=== PATIENT | male | born 1950 | race Caucasian/White ===

== ENCOUNTER 2016-12-12 15:35 | Emergency (ER) | payer MEDICARE, MEDICAID ==
[2016-12-12 15:48] VITALS: BP 135/90
--- NOTE | 2016-12-12 16:01 | ED Physician Documentation ---
PD BEATRIZ HEENT - Stated complaint Stated Complaint: LT EAR PRESSURE - Chief complaint Chief Complaint: Neuro - History obtained from History obtained from: Patient - History of Present Illness Timing - onset: Other (This is a 66-year-old gentleman who over the last couple of days has noted fullness in his left ear that felt like potentially extra earwax which he cleaned out without improvement of his symptoms, also diminished but not absent hearing on that side without other URI symptoms. When he turns his head rapidly he does have some unsteadiness and vertigo without nausea. There is some pain in the left ear and on the left side of the head without fevers or URI symptoms.) Review of Systems Constitutional: denies: Fever, Chills Ears: reports: Loss of hearing, Ear pain. denies: Drainage/discharge Nose: denies: Rhinorrhea / runny nose, Congestion Throat: denies: Sore throat PD PAST MEDICAL HISTORY - Past Medical History Past Medical History: Yes Cardiovascular: Hypertension, High cholesterol Musculoskeletal: Chronic back pain, Other Other Past Medical History: psoriatic arthritis, hx of amphetamine use, PE's, MRSA in his lung, kidney disease - Past Surgical History Past Surgical History: Yes - Present Medications Home Medications: Ambulatory Orders Medication Instructions Recorded Confirmed Adalimumab [Humira] 40 mg SQ TITR 10/20/14 10/02/15 Amitriptyline [Elavil] 25 mg PO DAILY 10/20/14 10/02/15 Bupropion HCl [Wellbutrin Xl] 300 mg PO DAILY 10/20/14 10/02/15 Dextroamphetamine/Amphetamine 60 mg PO BID 10/20/14 10/02/15 [Amphetamine Salts 20 mg Tablet] Docusate Sodium [Dss] 250 mg PO BID 10/20/14 10/02/15 Escitalopram Oxalate [Lexapro] 40 mg PO DAILY 10/20/14 10/02/15 Etodolac [Etodolac ER] 400 mg ORAL DAILY 10/20/14 10/02/15 Folic Acid 1 mg ORAL DAILY 10/20/14 10/02/15 Methotrexate 10 mg ORAL BID 10/20/14 10/02/15 Rosuvastatin Calcium [Crestor] 10 mg ORAL DAILY 10/20/14 10/02/15 Sennosides [Senna Concentrate] 8.6 mg ORAL BID 10/20/14 10/02/15 Testosterone Cypionate 200 mg IM TITR 10/20/14 10/02/15 [Depo-Testosterone] Valsartan [Diovan] 40 mg ORAL DAILY 10/20/14 10/02/15 metFORMIN [Glucophage] 500 mg PO BID 10/20/14 10/02/15 raNITIdine [Zantac] 150 mg ORAL BID 10/20/14 10/02/15 Aspirin [Juliette Chewable] 81 mg PO DAILY 04/25/15 10/02/15 Prazosin [Minipress] 1 mg PO DAILY 04/25/15 10/02/15 oxyCODONE [Roxicodone] 5 mg PO Q4-6H #20 tablet 04/25/15 10/02/15 Meclizine [Antivert] 12.5 mg PO Q6H #14 tablet 10/02/15 Ondansetron Odt [Zofran] 4 mg TL Q6H PRN #10 tablet 10/02/15 Potassium Citrate [Urocit-K] 10 meq ORAL DAILY 10/02/15 10/02/15 - Allergies Allergies/Adverse Reactions: Allergies Allergy/AdvReac Type Severity Reaction Status Date / Time No Known Drug Allergies Allergy Verified 12/12/16 15:45 - Social History Does the pt smoke?: No Smoking Status: Never smoker Does the pt drink ETOH?: No Does the pt have substance abuse?: Yes Substance Use and Type: Marijuana - Immunizations Immunizations are current?: Yes - POLST Patient has POLST: No PD ED PE NORMAL - Vitals Vital signs reviewed: Yes - General General: Alert and oriented X 3, No acute distress - HEENT HEENT: PERRL, EOMI, Other (There is minimal earwax on either side with normal TMs. He does get dizzy with rapid rotation of the head and has mild nystagmus on left lateral gaze. The remainder of his cranial nerves are intact.) - Neck Neck: Supple, no meningeal sign, No bony TTP - Neuro Neuro: No motor deficit, No sensory deficit - Psych Psych: Normal mood, Normal affect Results - Vitals Vitals: Vital Signs - 24 hr 12/12/16 15:40 Temperature 36.5 C Heart Rate 89 Respiratory 18 Rate Blood Pressure 135/90 H O2 Saturation 97 Oxygen O2 Source Room air PD MEDICAL DECISION MAKING - ED course ED course: His examination and Clinical history are consistent with Labyrinthitis. There is no evidence of stroke on exam, his NIH stroke scale is 0. Departure - Departure Disposition: 01 Home, Self Care Clinical Impression: Acute viral labyrinthitis of left ear Condition: Good Record reviewed to determine appropriate education?: Yes Instructions: ED Labyrinthitis Comments: Call your doctor to arrange a follow-up appointment, make the next available appointment. In the interim, return anytime if worse or if new symptoms develop. Your blood pressure was elevated today on check into the emergency department. This does not mean that you have hypertension, it is a common phenomenon to come to the emergency department and have elevated blood pressure. I recommend that she see your primary care physician within the week to have it rechecked when you are feeling better.
== END 2016-12-12 16:05 | disposition home or self-care (01) ==
LOC: ED 15:35
DX: H83.02 Labyrinthitis, left ear (principal); I10 Essential (primary) hypertension
CPT/HCPCS: 99283

== ENCOUNTER 2017-06-25 14:29 | Observation (INO) | payer MEDICARE, MEDICAID ==
--- NOTE | 2017-06-25 16:03 | ED Physician Documentation ---
PD HPI CHEST PAIN - Stated complaint Stated Complaint: SOB, UPPER BACK PX - Chief complaint Chief Complaint: Resp - History obtained from History obtained from: Patient - History of Present Illness Timing - onset: Other (67-year-old gentleman with history of MRSA pneumonia, pulmonary emboli, coronary artery disease, psoriatic arthritis who has had a productive cough for a few days with white sputum, 2 weeks of unexplained shortness of breath especially on exertion and last night developed bilateral upper back pain without chest pain. There is no fever. No leg swelling or tenderness.) Review of Systems Ten Systems: 10 systems reviewed and negative Constitutional: reports: Fatigue. denies: Fever, Chills Cardiac: denies: Chest pain / pressure, Palpitations, Pedal edema, Calf pain Respiratory: reports: Dyspnea, Cough GI: denies: Abdominal Pain PD PAST MEDICAL HISTORY - Past Medical History Past Medical History: Yes Cardiovascular: Hypertension, High cholesterol Musculoskeletal: Chronic back pain, Other - Past Surgical History Past Surgical History: Yes Ortho: Other - Present Medications Home Medications: Ambulatory Orders Medication Instructions Recorded Confirmed Adalimumab [Humira] 40 mg SQ TITR 10/20/14 10/02/15 Amitriptyline [Elavil] 25 mg PO DAILY 10/20/14 10/02/15 Bupropion HCl [Wellbutrin Xl] 300 mg PO DAILY 10/20/14 10/02/15 Dextroamphetamine/Amphetamine 60 mg PO BID 10/20/14 10/02/15 [Amphetamine Salts 20 mg Tablet] Docusate Sodium [Dss] 250 mg PO BID 10/20/14 10/02/15 Escitalopram Oxalate [Lexapro] 40 mg PO DAILY 10/20/14 10/02/15 Etodolac [Etodolac ER] 400 mg ORAL DAILY 10/20/14 10/02/15 Folic Acid 1 mg ORAL DAILY 10/20/14 10/02/15 Methotrexate 10 mg ORAL BID 10/20/14 10/02/15 Rosuvastatin Calcium [Crestor] 10 mg ORAL DAILY 10/20/14 10/02/15 Sennosides [Senna Concentrate] 8.6 mg ORAL BID 10/20/14 10/02/15 Testosterone Cypionate 200 mg IM TITR 10/20/14 10/02/15 [Depo-Testosterone] Valsartan [Diovan] 40 mg ORAL DAILY 10/20/14 10/02/15 metFORMIN [Glucophage] 500 mg PO BID 10/20/14 10/02/15 raNITIdine [Zantac] 150 mg ORAL BID 10/20/14 10/02/15 Aspirin [Juliette Chewable] 81 mg PO DAILY 04/25/15 10/02/15 Prazosin [Minipress] 1 mg PO DAILY 04/25/15 10/02/15 oxyCODONE [Roxicodone] 5 mg PO Q4-6H #20 tablet 04/25/15 10/02/15 Meclizine [Antivert] 12.5 mg PO Q6H #14 tablet 10/02/15 Ondansetron Odt [Zofran] 4 mg TL Q6H PRN #10 tablet 10/02/15 Potassium Citrate [Urocit-K] 10 meq ORAL DAILY 10/02/15 10/02/15 - Allergies Allergies/Adverse Reactions: Allergies Allergy/AdvReac Type Severity Reaction Status Date / Time No Known Drug Allergies Allergy Verified 12/12/16 15:45 - Social History Does the pt smoke?: No Smoking Status: Never smoker Does the pt drink ETOH?: No Does the pt have substance abuse?: Yes - Family History Family history: reports: Non contributory - Immunizations Immunizations are current?: Yes - POLST Patient has POLST: No PD ED PE NORMAL - Vitals Vital signs reviewed: Yes - General General: Alert and oriented X 3, No acute distress - HEENT HEENT: PERRL, EOMI - Neck Neck: Supple, no meningeal sign, No bony TTP - Cardiac Cardiac: RRR, No murmur - Respiratory Respiratory: No respiratory distress, Clear bilaterally - Abdomen Abdomen: Normal bowel sounds, Soft, Non tender - Back Back: No CVA TTP, No spinal TTP - Extremities Extremities: No edema, No calf tenderness / cord - Neuro Neuro: Alert and oriented X 3, Normal speech - Psych Psych: Normal mood, Normal affect Results - Vitals Vitals: Vital Signs - 24 hr 06/25/17 06/25/17 14:41 16:49 Temperature 36.7 C Heart Rate 85 79 Respiratory 20 21 Rate Blood Pressure 102/68 122/79 O2 Saturation 95 95 Oxygen O2 Source Room air - EKG (time done) 1421 Rate: Rate (enter#) (75) Rhythm: NSR Cunningham: Normal Intervals: Normal ME QRS: Normal Ischemia: Q waves (SMALL INFERIOR), Non specific changes (Superolateral and inferior ST segments) Compare to prior EKG: Unchanged from prior EKG (NO CHANGE FROM 10/02/15) Computer interpretation: Agree with computer - Labs Labs: Laboratory Tests 06/25/17 06/25/17 06/25/17 16:10 16:10 16:10 WBC 7.1 RBC 4.04 L Hgb 12.6 L Hct 38.2 L MCV 94.5 H MCH 31.2 H MCHC 33.0 RDW 17.7 H Plt Count 107 L MPV 7.7 Neut # Not Reportable Lymph # Not Reportable [facility] # Not Reportable Eos # Not Reportable Baso # Not Reportable Absolute Nucleated RBC Not Reportable Total Counted 100 Band Neuts % (Manual) 2 Reactive Lymphs % (Man) 3 Abnorm Lymph % (Manual) 0 Nucleated RBC % Not Reportable Neutrophils # (Manual) 4.5 Lymphocytes # (Manual) 1.4 L Monocytes # (Manual) 0.8 Eosinophils # (Manual) 0.3 Basophils # (Manual) 0.1 Differential Comment MANUAL DIFFERENTIAL Platelet Estimate DECREASED (<130,000) Platelet Morphology NORMAL APPEARANCE RBC Morph Micro Appear 1+ MACROCYTOSIS Sodium 138 Potassium 3.9 Chloride 103 Carbon Dioxide 26 Anion Gap 9.0 BUN 30 H Creatinine 1.8 H Estimated GFR (MDRD) 38 L Glucose 88 Calcium 9.3 Total Bilirubin 0.6 AST 41 ALT 76 H Alkaline Phosphatase 57 Troponin I < 0.04 Total Protein 7.4 Albumin 4.0 Globulin 3.4 Albumin/Globulin Ratio 1.2 Lipase 97 H - Rads (name of study) CT Angio chest Radiology: EMP read contemporaneously (RLL acute PE, new 1.3cm MARIFER nodule) PD MEDICAL DECISION MAKING - ED course ED course: 67-year-old gentleman with unexplained shortness of breath and upper back pain, he has a history of PE so this is concerning of course. He was evaluated for PE , the contrast timing was suboptimal but the radiologist is confident that he does have a right lower lobe acute appearing PE. He was placed on Lovenox. We considered the question of admission versus discharge, but he is PE severity index recommends admission given chronic pulmonary disease due to sleep apnea and history of coronary disease. Spoke with Dr Tam at 5;58pm Departure - Departure Disposition: ED Place in Observation Clinical Impression: Pulmonary nodule Pulmonary embolism Qualifiers: Pulmonary embolism type: other Chronicity: acute Acute cor pulmonale presence: without acute cor pulmonale Qualified Code(s): I26.99 - Other pulmonary embolism without acute cor pulmonale Condition: Stable
[2017-06-25 16:24] LABS: HGB - HEMOGLOBIN 12.6 g/dL (14.0-18.0)
[2017-06-25 16:29] LABS: BASOPHILS % (AUTO) 0.5 %; EOSINOPHILS % (AUTO) 2.9 %; LYMPHOCYTES % (AUTO) 22.9 %; MEAN CORPUSCULAR HEMOGLOBIN 31.2 pg (27.0-31.0); MEAN CORPUSCULAR VOLUME 94.5 fL (80.0-94.0); MEAN PLATELET VOLUME 7.7 fL (7.4-11.4); NEUTROPHILS % (AUTO) 60.7 %; PLT - PLATELET COUNT 107 10^3/uL (130-450); RED BLOOD COUNT 4.04 10^6/uL (4.70-6.10); RED CELL DISTRIBUTION WIDTH 17.7 % (12.0-15.0); WHITE BLOOD COUNT 7.1 x10^3/uL (4.8-10.8)
[2017-06-25 16:31] LABS: ABNORMAL LYMPHS % (MANUAL) 0 %
[2017-06-25 16:34] LABS: ALBUMIN/GLOBULIN RATIO 1.2 (1.0-2.2); BILIRUBIN,TOTAL 0.6 mg/dL (0.2-1.0); CALCIUM 9.3 mg/dL (8.5-10.3); CREATININE 1.8 mg/dL (0.6-1.2); TOTAL PROTEIN 7.4 g/dL (6.7-8.2)
[2017-06-25] MEDS ORDERED: SODIUM CHLORIDE 0.9% 1,000 ML IV ONE (16:45)
[2017-06-25 16:59] LABS: BAND NEUTROPHILS % (MANUAL) 2 %; BASOPHILS # (MANUAL) 0.1 10^3/uL (0-0.1); BASOPHILS % (MANUAL) 1 %; EOSINOPHILS # (MANUAL) 0.3 10^3/uL (0-0.7); LYMPHOCYTES # (MANUAL) 1.4 10^3/uL (1.5-3.5); LYMPHOCYTES % (MANUAL) 17 %; MONOCYTES # (MANUAL) 0.8 10^3/uL (0.0-1.0); NEUTROPHILS # (MANUAL) 4.5 10^3/uL (1.5-6.6); NEUTROPHILS % (MANUAL) 62 %
[2017-06-25 17:00] LABS: PLATELET ESTIMATE, MANUAL DECREASED (<130,000) (NORMAL); PLATELET MORPHOLOGY NORMAL APPEARANCE (NORMAL); RBC MORPHOLOGY (MULTIPLE) 1+ MACROCYTOSIS (NORMAL)
[2017-06-25 17:01] LABS: DIFFERENTIAL COMMENT MANUAL DIFFERENTIAL
[2017-06-25] MEDS ORDERED: IOPAMIDOL-300 100 ML VIAL ONE (17:02)
[2017-06-25] MEDS ORDERED: IOPAMIDOL-300 100 ML VIAL IVP ONE ×2 (17:17→18:24)
[2017-06-25] MEDS ORDERED: ENOXAPARIN 100 MG/ML SYRINGE SUBQ STA (17:43)
--- NOTE | 2017-06-25 17:50 | CT Report ---
EXAM: CT ANGIOGRAM CHEST EXAM DATE: 06/25/2017 05:22 PM. CLINICAL HISTORY: Back pain dyspnea. COMPARISON: None. TECHNIQUE: Routine helical imaging was performed through the chest in the pulmonary arterial phase. I V Contrast: 75 cc Isovue-300 IV. Reconstructions: Coronal 3-D MIP reconstructions.Sagittal and luu l. In accordance with CT protocol optimization, one or more of the following dose reduction techniques w ere utilized for this exam: automated exposure control, adjustment of mA and/or KV based on patient s ize, or use of iterative reconstructive technique. FINDINGS: Pulmonary Arteries: Diagnostic quality: Suboptimal through the segmental arteries. The density of the main pulmonary kiley ry is 92 Hounsfield units. However, there is a low density filling defect seen in the right interloba r pulmonary artery which branches and extends into the segmental pulmonary arteries of the right lowe r lobe. This is strongly suggestive of acute pulmonary embolism and does not have the typical appeara nce of CTA artifact. The left-sided pulmonary arteries are less well seen. There is no evidence of a saddle pulmonary embolism or a right or left main pulmonary embolism. RV/LV is within normal limits. There is no interventricular septal bowing. There is no reflux of cont rast material in the IVC. Lungs/Pleura: There is a new left upper lobe nodule measuring 1.3 cm in diameter on series 5 image 52 . Mediastinum: The heart size is normal. There is no pericardial effusion. There are dense coronary art wilmar calcifications. Thoracic Aorta: No thoracic aortic aneurysm or dissection. Upper Abdomen: Unremarkable. Other: There are findings of surgical fixation of the lower thoracic spine with chronic bony remodeli ng present. IMPRESSION: 1. Right lobar and segmental acute-appearing pulmonary embolism. Evaluation of other pulmonary arteri es is limited by a suboptimal IV contrast bolus. 2. No CT findings of right ventricular strain. 3. New 1.3 cm left upper lobe lung nodule which could be inflammatory, granulomatous or neoplastic. [facility] The above findings were discussed with Brian by Dr. Lázaro Girard at 17:48 hrs on 06/25/17. Referring Provider Line: [phone] SITE ID: [id number]
[2017-06-25] MEDS ORDERED: PROCHLORPERAZINE 10 MG/2 ML VIAL IVP PRN (18:23)
[2017-06-25] MEDS ORDERED: SODIUM CHLORIDE FLUSH 0.9% 10 ML SYRINGE IVP PRN (18:23)
[2017-06-25] MEDS ORDERED: ONDANSETRON ODT 4 MG TABLET TL PRN (18:25)
[2017-06-25] MEDS ORDERED: MECLIZINE 12.5 MG TABLET PO SCH (19:00)
[2017-06-25] MEDS ORDERED: oxyCODONE 5 MG TABLET PO SCH (19:00)
[2017-06-25] MEDS ORDERED: NON FORMULARY MED PO SCH (20:00)
[2017-06-25] MEDS ORDERED: PRAZOSIN 1 MG CAPSULE PO SCH ×2 (20:00→21:20)
[2017-06-25] MEDS: buPROPion XL 150 MG TABLET PO SCH (20:16)
[2017-06-25] MEDS: ASPIRIN CHEW 81 MG TABLET PO SCH (20:21)
[2017-06-25] MEDS: APIXABAN 2.5 MG TABLET PO SCH (20:33)
[2017-06-25] MEDS: HYDROcod/ACETAM 5/325 MG TABLET PO PRN (20:40)
[2017-06-25] MEDS: ESCITALOPRAM 10 MG TABLET PO SCH (20:43)
[2017-06-25] MEDS: SENNA 8.6 MG TABLET PO SCH (20:48)
[2017-06-25] MEDS: FOLIC ACID 1 MG TABLET PO SCH (20:48)
[2017-06-25] MEDS: DOCUSATE SODIUM 250 MG CAPSULE PO SCH (20:48)
[2017-06-25] MEDS ORDERED: DOCUSATE SODIUM 250 MG CAPSULE PO SCH (21:00)
[2017-06-25] MEDS ORDERED: METHOTREXATE 2.5 MG TABLET PO SCH (21:00)
[2017-06-25] MEDS ORDERED: AMPHETAMINE PO SCH (21:00)
[2017-06-25] MEDS ORDERED: DEXTROAMPHETAMINE PO SCH (21:00)
[2017-06-25] MEDS ORDERED: PRAVASTATIN 10 MG TABLET PO SCH (21:00)
[2017-06-25] MEDS ORDERED: [UNRECOGNIZED DRUG - OTHER] PO SCH (21:00)
[2017-06-25] MEDS ORDERED: metFORMIN 500 MG TABLET PO SCH (21:00)
[2017-06-25] MEDS ORDERED: SENNA 8.6 MG TABLET PO SCH (21:00)
[2017-06-25] MEDS: AMITRIPTYLINE 25 MG TABLET PO SCH ×2 (21:15→21:24)
[2017-06-25] MEDS: LOSARTAN 50 MG TABLET PO SCH (21:16)
--- NOTE | 2017-06-25 22:17 | HISTORY & PHYSICAL EXAMINATION ---
Chief Complaint - Chief Complaint Chief Complaint: Shortness of breath and back pain History of Present Illness - Admitted From Admitted From:: Home - History Obtained From Records Reviewed: Yes History obtained from: The patient and the emergency room physician Exam Limitations: No noted - History of Present Illness HPI Comment/Other: Mr. Nick Aguilar and is a pleasant 67-year-old gentleman with a past medical history significant for Sleep apnea, psoriatic arthritis, morbid obesity, ADHD, PTSD,and a very remote and sketchy history of myocardial infarction (which I will elaborate on later), and a couple of years ago pulmonary embolus.The patient was placed on Coumadin but had difficulty with side effects and so stopped taking it. A couple of days ago the patient began to develop some shortness of breath and back pain which were similar to symptoms he'd experienced when he had his first Pulmonary embolus and so he waited to see if they would go away and when they did not came to the emergency department. He was evaluated and found to have another Pulmonary embolism and because of the history of a Prior cardiac event in 1984 It was felt to be prudent to watch him on telemetry overnight while we started him on Eliquis. He is therefore admitted to an observation bed on telemetry. With regards To the aforementioned myocardial infarction in 1984, the patient relates that he had been using cocaine, and had chest pain. He went to the hospital where he was evaluated and says that " tests of chemicals" (troponins? ) showed that he had had a heart attack. He also says that initially part of his heart wasn't moving but then they tested it again and it was moving normally. Mr. Avery and also relates that at that time they did a cardiac catheterization and found no blockages. History - Past Medical History Cardiovascular: reports: Hypertension, High cholesterol, [place] Respiratory: reports: None Neuro: reports: None Endocrine/Autoimmune: reports: None GI: reports: None : reports: Benign prostate hypertrophy HEENT: reports: Chronic vision loss Psych: reports: None Musculoskeletal: reports: Chronic back pain, Other Derm: reports: Psoriasis MRSA Hx?: Yes - Past Surgical History General: reports: Appendectomy Ortho: reports: Spine surgery (The patient's spine is fused from T3-S1), Other /[employer]: reports: Other (The patient has had 2 surgeries for renal stones) HEENT: reports: Other (Strabismus surgery as a child) - Family & Social History Family History: Mother: (sister from sarcoidosis), Father: , Hyperlipidemia, Hypertension, [place], Sister: Family History Comment/Other: Patient's mother of old age at age 93. Living arrangement: At home Living Situation: Alone - Substance History Use: Uses substance without health or social issues: NONE Abuse: Recurrent use of substance despite neg consequences: NONE Dependence: Experiences withdrawal or developed tolerances: NONE - POLST Patient has POLST: No POLST Status: Full Code Meds/Allgy - Home Medications Home Medications: Ambulatory Orders Medication Instructions Recorded Confirmed Amitriptyline [Elavil] 25 mg PO QPM 10/20/14 06/25/17 Bupropion HCl [Wellbutrin Xl] 300 mg PO DAILY 10/20/14 06/25/17 Docusate Sodium [Dss] 250 mg PO BID 10/20/14 06/25/17 Escitalopram Oxalate [Lexapro] 40 mg PO DAILY 10/20/14 06/25/17 Folic Acid 1 mg ORAL DAILY 10/20/14 06/25/17 Sennosides [Senna Concentrate] 8.6 mg ORAL BID 10/20/14 06/25/17 Testosterone Cypionate 200 mg IM Q14D 10/20/14 06/25/17 [Depo-Testosterone] Valsartan [Diovan] 80 mg ORAL DAILY 10/20/14 06/25/17 raNITIdine [Zantac] 150 mg ORAL BID 10/20/14 06/25/17 Aspirin [Juliette Chewable] 81 mg PO DAILY 04/25/15 06/25/17 Prazosin [Minipress] 6 mg PO QPM 04/25/15 06/25/17 Potassium Citrate [Urocit-K] 10 meq ORAL DAILY 10/02/15 06/25/17 Dextroamphetamine/Amphetamine 30 mg PO DAILY 06/25/17 06/25/17 [Adderall Xr 30 mg Capsule] Methotrexate Sodium/Pf IM Q7D 06/25/17 [Methotrexate 25 mg/ml Vial] Pravastatin [Pravachol] 10 mg PO QPM 06/25/17 06/25/17 - Allergies Allergies/Adverse Reactions: Allergies Allergy/AdvReac Type Severity Reaction Status Date / Time No Known Drug Allergies Allergy Verified 12/12/16 15:45 Review of Systems - Constitutional Constitutional: denies: Fatigue, Fever, Chills, Night sweats - Eyes Eyes: denies: Pain, Irritation, Blurred vision, Dipolpia - Ears, Nose & Throat Ears, Nose & Throat: reports: Vertigo. denies: Ear pain, Hearing loss, Tinnitus , Nosebleeds - Cardiovascular Cariovascular: denies: Irregular heart rate, Palpitations, Chest pain, Edema - Respiratory Respiratory: reports: SOB at rest, SOB with exertion. denies: Cough, Wheezing, Hemoptysis, Orthopnea - Gastrointestinal Gastrointestinal: denies: Abdominal pain, Constipation, Diarrhea, Change in bowel habits, Rectal bleeding - Genitourinary Genitourinary: denies: Dysuria, Frequency, Urgency, Hematuria - Musculoskeletal Musculoskeletal: reports: Back pain, Joint pain, Joint swelling, Other ( Psoriatic arthritis). denies: Muscle pain, Muscle aches, Stiffness - Integumentary Integumentary: reports: Other (Psoriatic arthritis). denies: Rash, Pruritis, Lesions, Dryness - Neurological Neurological: denies: General weakness, Focal weakness, Headache, Dizziness, Memory problems - Psychiatric Psychiatric: reports: Depression, Anxiety, Other (ADHD, PTSD). denies: Suicidal - Endocrine Endocrine: denies: Polyuria, Polydypsia, Polyphagia - Hematologic/Lymphatic Hematologic/Lymphatic: denies: Anemia, Bruising, Petechiae, Lymphadenopathy - All Other Systems All Other Systems: reports: Reviewed and negative Exam - Vital Signs Reviewed Vital Signs: Yes Vital Signs: Vital Signs x48h Temp Pulse Pulse Resp BP BP Pulse Ox 06/25/17 19:18 36.8 C 90 18 142/85 H 96 06/25/17 19:05 82 16 141/88 H 95 - Physical Exam General Appearance: positive: No acute distress, Alert Eyes Bilateral: positive: Normal inspection, PERRL, EOMI, No lid inflammation, Conjunctivae nml, No scleral icterus ENT: positive: ENT inspection nml, Pharynx nml, No signs of dehydration Neck: positive: Nml inspection, Thyroid nml, No JVD, Trachea midline. negative : Thyromegaly Respiratory: positive: Chest non-tender, No respiratory distress, Breath sounds nml. negative: Wheezes, Rales, Rhonchi Cardiovascular: positive: Regular rate & rhythm, No murmur, No gallop Peripheral Pulses: positive: 1+ Abdomen: positive: Non-tender, No organomegaly, Nml bowel sounds, No distention. negative: Guarding, Rebound Back: positive: Nml inspection. negative: CVA tenderness (R), CVA tenderness (L ) Skin: positive: Color nml, No rash, Warm, Dry. negative: Cyanosis Extremities: positive: Non-tender, Full ROM, Nml appearance, No pedal edema Neurologic/Psychiatric: positive: Oriented x3, CN's nml (2-12), Motor nml, Sensation nml, Mood/affect nml Conclusion/Plan - Problem List (1) Pulmonary embolism Conclusion/Plan: The patient has a history of prior pulmonary embolus for which she was started on Coumadin. He could not tolerate the Coumadin due to side effects. He will be started on Eliquis at this time and monitored overnight in a telemetry bed. Qualifiers: Pulmonary embolism type: other Chronicity: acute Acute cor pulmonale presence: without acute cor pulmonale Qualified Code(s): I26.99 - Other pulmonary embolism without acute cor pulmonale (2) Psoriatic arthritis Conclusion/Plan: We will continue the patient on methotrexate andHe will continue with his Humira as an outpatient. We will continue his home medication pain regimen. (3) ADHD Conclusion/Plan: We will continue the patient on bupropion and his long-acting amphetamines. (4) PTSD (post-traumatic stress disorder) Conclusion/Plan: We will continue the patient on Lexapro and Wellbutrin (5) Hypertension Conclusion/Plan: Continue Diovan and prazosin. Well-managed at this time. Qualifiers: Hypertension type: essential hypertension Qualified Code(s): I10 - Essential (primary) hypertension - Lab Results Lab results reviewed: Yes Fish Bones: 06/25/17 16:10 06/25/17 16:10 - Diagnostic Imaging Results Diagnostic Imaging Results Comments: EXAM: CT ANGIOGRAM CHEST EXAM DATE: 06/25/2017 05:22 PM. CLINICAL HISTORY: Back pain dyspnea. COMPARISON: None. TECHNIQUE: Routine helical imaging was performed through the chest in the pulmonary arterial phase. IV Contrast: 75 cc Isovue-300 IV. Reconstructions: Coronal 3-D MIP reconstructions.Sagittal and coronal. In accordance with CT protocol optimization, one or more of the following dose reduction techniques were utilized for this exam: automated exposure control, adjustment of mA and/or KV based on patient size, or use of iterative reconstructive technique. FINDINGS: Pulmonary Arteries: Diagnostic quality: Suboptimal through the segmental arteries. The density of the main pulmonary artery is 92 Hounsfield units. However, there is a low density filling defect seen in the right interlobar pulmonary artery which branches and extends into the segmental pulmonary arteries of the right lower lobe. This is strongly suggestive of acute pulmonary embolism and does not have the typical appearance of CTA artifact. The left-sided pulmonary arteries are less well seen. There is no evidence of a saddle pulmonary embolism or a right or left main pulmonary embolism. RV/LV is within normal limits. There is no interventricular septal bowing. There is no reflux of contrast material in the IVC. Lungs/Pleura: There is a new left upper lobe nodule measuring 1.3 cm in diameter on series 5 image 52. Mediastinum: The heart size is normal. There is no pericardial effusion. There are dense coronary artery calcifications. Thoracic Aorta: No thoracic aortic aneurysm or dissection. Upper Abdomen: Unremarkable. Other: There are findings of surgical fixation of the lower thoracic spine with chronic bony remodeling present. IMPRESSION: 1. Right lobar and segmental acute-appearing pulmonary embolism. Evaluation of other pulmonary arteries is limited by a suboptimal IV contrast bolus. 2. No CT findings of right ventricular strain. 3. New 1.3 cm left upper lobe lung nodule which could be inflammatory, granulomatous or neoplastic. Core Measures - Anticipated LOS I expect patient to be DC'd or transferred within 96 hours.: Yes - DVT/VTE - Prophylaxis VTE/DVT Device ordered at admit?: Yes
[2017-06-25] MEDS: SODIUM CHLORIDE FLUSH 0.9% 10 ML SYRINGE IVP SCH (23:42)
[2017-06-26] MEDS: HYDROcod/ACETAM 5/325 MG TABLET PO PRN ×2 (00:59→08:44)
[2017-06-26] MEDS: APIXABAN 2.5 MG TABLET PO SCH (08:42)
[2017-06-26] MEDS: ESCITALOPRAM 10 MG TABLET PO SCH (08:42)
[2017-06-26] MEDS: buPROPion XL 150 MG TABLET PO SCH (08:42)
[2017-06-26] MEDS: DOCUSATE SODIUM 250 MG CAPSULE PO SCH (08:42)
[2017-06-26] MEDS: FOLIC ACID 1 MG TABLET PO SCH (08:43)
[2017-06-26] MEDS: SODIUM CHLORIDE FLUSH 0.9% 10 ML SYRINGE IVP SCH (08:43)
[2017-06-26] MEDS: SENNA 8.6 MG TABLET PO SCH (08:43)
[2017-06-26] MEDS: ASPIRIN CHEW 81 MG TABLET PO SCH (08:43)
[2017-06-26] MEDS: LOSARTAN 50 MG TABLET PO SCH (08:44)
[2017-06-26] MEDS ORDERED: POTASSIUM CITRATE 10 MEQ ORAL SCH (09:00)
[2017-06-26] MEDS ORDERED: BUPROPION HCL 300 MG PO SCH (09:00)
[2017-06-26] MEDS ORDERED: ETODOLAC 400 MG ORAL SCH (09:00)
[2017-06-26] MEDS ORDERED: Dextroamphetamine/Amphetamine [Adderall Xr 30 Mg Capsule] 30 MG PO SCH (09:00)
[2017-06-26] MEDS ORDERED: FOLIC ACID 1 MG TABLET PO SCH (09:00)
[2017-06-26] MEDS ORDERED: VALSARTAN 40 MG ORAL SCH (09:00)
[2017-06-26] MEDS ORDERED: ENOXAPARIN 40 MG/0.4 ML SYRINGE SUBQ SCH (09:00)
[2017-06-26] MEDS ORDERED: PRAZOSIN 1 MG CAPSULE PO SCH (09:00)
[2017-06-26] MEDS ORDERED: ASPIRIN CHEW 81 MG TABLET PO SCH (09:00)
[2017-06-26] MEDS ORDERED: POLYETHYLENE GLYCOL 3350 17 GM PACKET PO SCH (09:00)
[2017-06-26] MEDS ORDERED: AMITRIPTYLINE 25 MG TABLET PO SCH (09:00)
[2017-06-26] MEDS ORDERED: ESCITALOPRAM OXALATE 40 MG PO SCH (09:00)
[2017-06-26] MEDS ORDERED: NON FORMULARY MED (Rosuvastatin Calcium [Crestor] 10 MG) ORAL SCH (09:00)
[2017-06-26] MEDS ORDERED: APIXABAN 2.5 MG TABLET PO SCH ×2 (10:13→11:00)
--- NOTE | 2017-06-26 13:33 | Discharge Plan ---
Discharge Plan Disposition: Home, Self Care Condition: Good Prescriptions: Apixaban [Eliquis] 5 mg PO BID #72 tablet Apixaban [Eliquis] 10 mg PO BID #4 tablet Diet: Regular Activity Restrictions: No Restrictions Shower Restrictions: No Driving Restrictions: No Weight Bearing: Full Weight Additional Instructions or Follow Up instructions: You were admitted for a pulmonary emboli and you were started on Apixaban that will be at 10mg twice daily x7 days, then reduced to 5mg twice daily. If you find that you start having bloody noses, do not stop your blood thinner. First try Afrin spray, which is over the counter for just 3 days, tiny ice packs, and pressure. Certainly if this becomes troubling, you should call your doctor. I checked into both the [place]ancock and the safety of Apixiban- the blood thinner, before sending you home. I have sent just one day's worth of doses to [facility] while we wait for [facility] to get your full supply. Results of the chest CT show a small, NEW 1.3cm nodule that could be one of 3 choices; an inflammatory node, a granuloma (calcium deposit), or a neoplasm ( cancer like) lesion. The recommended follow up to this is to re-image in about 6 months. Please see your PCP within one week of this hospital stay. No Smoking: If you smoke, Please STOP! Call for help.
--- NOTE | 2017-06-26 14:44 | DISCHARGE SUMMARY ---
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 Psoriatic arthritis (L40.50)- chronic, stable. Hypertension (I10)- chronic, stable. Hypercholesterolemia (E78.00)- chronic, stable. ADHD (F90.9)- chronic, stable. CKD (chronic kidney disease) stage 3, GFR 30-59 ml/min (N18.3)- chronic, stable. - HPI History of Present Illness: HPI per Dr. Tam: Nick Aguilar and is a pleasant 67-year-old gentleman with a past medical history significant for Sleep apnea, psoriatic arthritis, morbid obesity, ADHD, PTSD,and a very remote and sketchy history of myocardial infarction (which I will elaborate on later), and a couple of years ago pulmonary embolus.The patient was placed on Coumadin but had difficulty with side effects and so stopped taking it. A couple of days ago the patient began to develop some shortness of breath and back pain which were similar to symptoms he'd experienced when he had his first Pulmonary embolus and so he waited to see if they would go away and when they did not came to the emergency department. He was evaluated and found to have another Pulmonary embolism and because of the history of a Prior cardiac event in 1984 It was felt to be prudent to watch him on telemetry overnight while we started him on Eliquis. He is therefore admitted to an observation bed on telemetry. With regards To the aforementioned myocardial infarction in 1984, the patient relates that he had been using cocaine, and had chest pain. He went to the hospital where he was evaluated and says that " tests of chemicals" (troponins? ) showed that he had had a heart attack. He also says that initially part of his heart wasn't moving but then they tested it again and it was moving normally. Mr. Avery and also relates that at that time they did a cardiac catheterization and found no blockages. - HOSPITAL COURSE Hospital Course: Patient was monitored on telemetry overnight and started on Apixaban PO. 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 Patient was also counseled about a new lung nodule. Patient was in stable condition for the majority of his stay and required no supplemental oxygen upon discharge. He was at baseline mobility and mentation. 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 - ALLERGIES Allergies/Adverse Reactions: Allergies Allergy/AdvReac Type Severity Reaction Status Date / Time No Known Drug Allergies Allergy Verified 12/12/16 15:45 - MEDICATIONS Home Medications: Ambulatory Orders Medication Instructions Recorded Confirmed Amitriptyline [Elavil] 25 - 50 mg PO QPM 10/20/14 06/26/17 Bupropion HCl [Wellbutrin Xl] 300 mg PO DAILY 10/20/14 06/25/17 Docusate Sodium [Dss] 250 mg PO BID 10/20/14 06/25/17 Escitalopram Oxalate [Lexapro] 40 mg PO DAILY 10/20/14 06/25/17 Folic Acid 2 mg ORAL DAILY 10/20/14 06/26/17 Sennosides [Senna Concentrate] 8.6 mg ORAL BID 10/20/14 06/25/17 Testosterone Cypionate 200 mg IM Q14D 10/20/14 06/26/17 [Depo-Testosterone] Valsartan [Diovan] 80 mg ORAL DAILY 10/20/14 06/25/17 raNITIdine [Zantac] 150 mg ORAL Q12H PRN 10/20/14 06/26/17 Aspirin [Juliette Chewable Aspirin] 81 mg PO DAILY 04/25/15 06/25/17 Prazosin [Minipress] 6 mg PO QPM 04/25/15 06/25/17 Potassium Citrate [Urocit-K] 20 meq ORAL BID 10/02/15 06/26/17 Dextroamphetamine/Amphetamine 30 mg PO DAILY 06/25/17 06/25/17 [Adderall Xr 30 mg Capsule] Methotrexate Sodium/Pf 25 mg IM Q7D 06/25/17 06/26/17 [Methotrexate 25 mg/ml Vial] Pravastatin [Pravachol] 10 mg PO QPM 06/25/17 06/25/17 Apixaban [Eliquis] 5 mg PO BID #72 tablet 06/26/17 Apixaban [Eliquis] 10 mg PO BID #4 tablet 06/26/17 Ergocalciferol [Vitamin D2] 50,000 units PO Q7D 06/26/17 06/26/17 Etanercept [Enbrel Sureclick] 50 mg SUBQ Q7D 06/26/17 06/26/17 Pregabalin [Lyrica] 75 mg PO TID 06/26/17 06/26/17 - PHYSICAL EXAM AT DISCHARGE General Appearance: positive: No acute distress, Alert Eyes Bilateral: positive: Normal inspection, PERRL ENT: positive: ENT inspection nml, Pharynx nml, No signs of dehydration Neck: positive: Nml inspection, Thyroid nml, No JVD, Trachea midline Respiratory: positive: Chest non-tender, No respiratory distress, Other ( diminished, scattered crackles bilaterally.) Cardiovascular: positive: Irregularly irregular, Systolic murmur, Decreased pulse(s) Peripheral Pulses: positive: 1+ Abdomen: positive: Non-tender, Nml bowel sounds, Guarding, Other (obese, soft.) Back: positive: Nml inspection Skin: positive: No rash, Warm, Dry Extremities: positive: Non-tender, Full ROM, Pedal edema (chronic, dependent BLE ), Joint swelling Neurologic/Psychiatric: positive: Oriented x3, CN's nml (2-12), Motor nml, Sensation nml, Weakness, Depressed mood/affect Reflexes: Bicep (R): 3+, Bicep (L): 3+ - LABS Result Diagrams: 06/25/17 16:10 06/25/17 16:10 - DIAGNOSTIC IMAGING Diagnostic Imaging Results: Prelim report reviewed, Final report reviewed Diagnostic Imaging Results Comments: EXAM: CT ANGIOGRAM CHEST EXAM DATE: 06/25/2017 05:22 PM. CLINICAL HISTORY: Back pain dyspnea. COMPARISON: None. TECHNIQUE: Routine helical imaging was performed through the chest in the pulmonary arterial phase. IV Contrast: 75 cc Isovue-300 IV. Reconstructions: Coronal 3-D MIP reconstructions.Sagittal and coronal. In accordance with CT protocol optimization, one or more of the following dose reduction techniques were utilized for this exam: automated exposure control, adjustment of mA and/or KV based on patient size, or use of iterative reconstructive technique. FINDINGS: Pulmonary Arteries: Diagnostic quality: Suboptimal through the segmental arteries. The density of the main pulmonary artery is 92 Hounsfield units. However, there is a low density filling defect seen in the right interlobar pulmonary artery which branches and extends into the segmental pulmonary arteries of the right lower lobe. This is strongly suggestive of acute pulmonary embolism and does not have the typical appearance of CTA artifact. The left-sided pulmonary arteries are less well seen. There is no evidence of a saddle pulmonary embolism or a right or left main pulmonary embolism. RV/LV is within normal limits. There is no interventricular septal bowing. There is no reflux of contrast material in the IVC. Lungs/Pleura: There is a new left upper lobe nodule measuring 1.3 cm in diameter on series 5 image 52. Mediastinum: The heart size is normal. There is no pericardial effusion. There are dense coronary artery calcifications. Thoracic Aorta: No thoracic aortic aneurysm or dissection. Upper Abdomen: Unremarkable. Other: There are findings of surgical fixation of the lower thoracic spine with chronic bony remodeling present. IMPRESSION: 1. Right lobar and segmental acute-appearing pulmonary embolism. Evaluation of other pulmonary arteries is limited by a suboptimal IV contrast bolus. 2. No CT findings of right ventricular strain. 3. New 1.3 cm left upper lobe lung nodule which could be inflammatory, granulomatous or neoplastic. - FOLLOW UP Follow Up: Disposition: 01 Home, Self Care Condition: Good Prescriptions: Apixaban [Eliquis] 5 mg PO BID #72 tablet Apixaban [Eliquis] 10 mg PO BID #4 tablet Diet: Regular Activity Restrictions: No Restrictions Shower Restrictions: No Driving Restrictions: No Weight Bearing: Full Weight Additional Instructions or Follow Up instructions: You were admitted for a pulmonary emboli and you were started on Apixaban that will be at 10mg twice daily x7 days, then reduced to 5mg twice daily. If you find that you start having bloody noses, do not stop your blood thinner. First try Afrin spray, which is over the counter for just 3 days, tiny ice packs, and pressure. Certainly if this becomes troubling, you should call your doctor. I checked into both the [place] and the safety of Apixiban- the blood thinner, before sending you home. I have sent just one day's worth of doses to [facility] while we wait for [facility] to get your full supply. Results of the chest CT show a small, NEW 1.3cm nodule that could be one of 3 choices; an inflammatory node, a granuloma (calcium deposit), or a neoplasm ( cancer like) lesion. The recommended follow up to this is to re-image in about 6 months. Please see your PCP within one week of this hospital stay. - TIME SPENT Time Spent in Discharge (Minutes): 50
[2017-06-26 15:39] VITALS: BP 158/93
[2017-07-02] MEDS ORDERED: METHOTREXATE 50 MG/2 ML MDV IM SCH (09:00)
== END 2017-06-26 17:08 | disposition home or self-care (01) ==
LOC: ED 14:29 → OBS 18:23
PROVIDERS: ADMIT Hospitalist; ATTEND Nurse Practitioner
DX: I26.99 Other pulmonary embolism without acute cor pulmonale (principal); L40.50 Arthropathic psoriasis, unspecified; I12.9 Hypertensive chronic kidney disease with stage 1 through stage 4 chronic kidney disease, or unspecified chronic kidney disease; N18.3 Chronic kidney disease, stage 3 (moderate); E78.00 Pure hypercholesterolemia, unspecified; F90.9 Attention-deficit hyperactivity disorder, unspecified type; I25.10 Atherosclerotic heart disease of native coronary artery without angina pectoris; G47.30 Sleep apnea, unspecified; F43.10 Post-traumatic stress disorder, unspecified; G89.29 Other chronic pain; E66.01 Morbid (severe) obesity due to excess calories; R91.1 Solitary pulmonary nodule; Z86.14 Personal history of Methicillin resistant Staphylococcus aureus infection; Z87.01 Personal history of pneumonia (recurrent); Z68.41 Body mass index [BMI] 40.0-44.9, adult; Z86.79 Personal history of other diseases of the circulatory system; Z79.82 Long term (current) use of aspirin; Z79.899 Other long term (current) drug therapy
CPT/HCPCS: 36415; 71275; 80053; 83690; 84484; 85025; 85379; 87640; 96360; 96361; 96372; 99284; 99285; A9270; G0378; J1650; Q9967

== ENCOUNTER 2017-08-11 11:49 | Emergency (ER) | payer MEDICARE, MEDICAID ==
[2017-08-11] MEDS ORDERED: ONDANSETRON ODT 4 MG TABLET TL STA (13:59)
[2017-08-11] MEDS ORDERED: HYDROmorphone 2 MG/ML VIAL IM STA (14:00)
[2017-08-11] MEDS ORDERED: DEXAMETHASONE 10 MG/ML VIAL PO STA (14:00)
--- NOTE | 2017-08-11 14:01 | ED Physician Documentation ---
History of Present Illness - Stated complaint Stated Complaint: L SHOULDER PX - Chief complaint Chief Complaint: Ext Problem - History obtained from History obtained from: Patient - History of Present Illness Timing: How many days ago (2) - Additonal information Additional information: 67-year-old male with a history of chronic demylenating inflammatory polyneuropathy who has had a recent gammaglobulin infusion, has symptoms similar to what he went in to see the neurologist about and received a gammaglobulin infusion that helped with the symptoms. The last time it was the right shoulder and down the right arm and this time it is the left shoulder and down the left arm Review of Systems Constitutional: denies: Fever Eyes: denies: Decreased vision Ears: denies: Ear pain Nose: denies: Rhinorrhea / runny nose, Congestion Throat: denies: Sore throat Cardiac: denies: Chest pain / pressure, Palpitations Respiratory: denies: Dyspnea, Cough GI: denies: Abdominal Pain, Nausea, Vomiting : denies: Dysuria, Frequency Skin: denies: Rash Musculoskeletal: reports: Neck pain, Back pain, Extremity pain PD PAST MEDICAL HISTORY - Past Medical History Cardiovascular: Hypertension, High cholesterol, [place] Respiratory: None Endocrine/Autoimmune: None GI: None : Benign prostate hypertrophy HEENT: Chronic vision loss Psych: None Musculoskeletal: Chronic back pain, Other Derm: Psoriasis - Past Surgical History Past Surgical History: Yes General: Appendectomy Ortho: Spine surgery, 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 (The patient has had 2 surgeries for renal stones) HEENT: Other - Present Medications Home Medications: Ambulatory Orders Medication Instructions Recorded Confirmed Amitriptyline [Elavil] 25 - 50 mg PO QPM 10/20/14 06/26/17 Bupropion HCl [Wellbutrin Xl] 300 mg PO DAILY 10/20/14 06/25/17 Docusate Sodium [Dss] 250 mg PO BID 10/20/14 06/25/17 Escitalopram Oxalate [Lexapro] 40 mg PO DAILY 10/20/14 06/25/17 Folic Acid 2 mg ORAL DAILY 10/20/14 06/26/17 Sennosides [Senna Concentrate] 8.6 mg ORAL BID 10/20/14 06/25/17 Testosterone Cypionate 200 mg IM Q14D 10/20/14 06/26/17 [Depo-Testosterone] Valsartan [Diovan] 80 mg ORAL DAILY 10/20/14 06/25/17 raNITIdine [Zantac] 150 mg ORAL Q12H PRN 10/20/14 06/26/17 Aspirin [Juliette Chewable Aspirin] 81 mg PO DAILY 04/25/15 06/25/17 Prazosin [Minipress] 6 mg PO QPM 04/25/15 06/25/17 Potassium Citrate [Urocit-K] 20 meq ORAL BID 10/02/15 06/26/17 Dextroamphetamine/Amphetamine 30 mg PO DAILY 06/25/17 06/25/17 [Adderall Xr 30 mg Capsule] Methotrexate Sodium/Pf 25 mg IM Q7D 06/25/17 06/26/17 [Methotrexate 25 mg/ml Vial] Pravastatin [Pravachol] 10 mg PO QPM 06/25/17 06/25/17 Apixaban [Eliquis] 5 mg PO BID #72 tablet 06/26/17 Apixaban [Eliquis] 10 mg PO BID #4 tablet 06/26/17 Ergocalciferol [Vitamin D2] 50,000 units PO Q7D 06/26/17 06/26/17 Etanercept [Enbrel Sureclick] 50 mg SUBQ Q7D 06/26/17 06/26/17 Pregabalin [Lyrica] 75 mg PO TID 06/26/17 06/26/17 HYDROcod/ACETAM 5/325 [Halls 5/325] 1 - 2 ea PO Q6H PRN #15 tablet 08/11/17 - Allergies Allergies/Adverse Reactions: Allergies Allergy/AdvReac Type Severity Reaction Status Date / Time No Known Drug Allergies Allergy Verified 12/12/16 15:45 - Social History Does the pt smoke?: No Smoking Status: Never smoker Does the pt drink ETOH?: No Does the pt have substance abuse?: Yes - Immunizations Immunizations are current?: Yes - POLST Patient has POLST: No POLST Status: Full Code PD ED PE NORMAL - Vitals Vital signs reviewed: Yes - General General: Alert and oriented X 3, No acute distress (normal ), Well developed/ nourished - HEENT HEENT: Atraumatic, PERRL, EOMI - Neck Neck: Supple, no meningeal sign, No bony TTP - Cardiac Cardiac: RRR, No murmur - Respiratory Respiratory: No respiratory distress, Clear bilaterally - Abdomen Abdomen: Soft, Non tender - Back Back: No CVA TTP, No spinal TTP, Other (There is some mild tenderness to the paraspinous muscles to the left rhomoid area. ) - Derm Derm: Normal color, Warm and dry, No rash - Extremities Extremities: No deformity, No edema - Neuro Neuro: No motor deficit, No sensory deficit Eye Opening: Spontaneous Motor: Obeys Commands Verbal: Oriented GCS Score: 15 - Psych Psych: Normal mood, Normal affect Results - Vitals Vitals: Vital Signs - 24 hr 08/11/17 11:56 Temperature 36.3 C L Heart Rate 88 Respiratory 18 Rate Blood Pressure 136/83 H O2 Saturation 99 Oxygen O2 Source Room air PD MEDICAL DECISION MAKING - ED course Complexity details: considered differential, d/w patient ED course: 67-year-old male with a history of chronic demyelinating inflammatory polyneuropathy has a flare of his disease on the left side and he feels he is in a pain crisis. He does have an appointment to see his neurologist this week and he is requesting some pain treatment. Her numbers by me is administered 10 mg of dexamethasone a milligram of Dilaudid IM and 4 mg of Zofran TL and we will place him on a short course of narcotic pain reliever. Departure - Departure Disposition: 01 Home, Self Care Clinical Impression: Chronic inflammatory demyelinating polyneuritis Condition: Stable Instructions: Chronic Pain Manage Meds Follow-Up: Slim Bradley MD [Physician No Access] - Prescriptions: HYDROcod/ACETAM 5/325 [Halls 5/325] 1 - 2 ea PO Q6H PRN #15 tablet PRN Reason: Pain
[2017-08-11] MEDS ORDERED: CHERRY SYRUP 10 ML UDC PO ONE (14:15)
[2017-08-11 14:28] VITALS: BP 150/89
== END 2017-08-11 14:29 | disposition home or self-care (01) ==
LOC: ED 11:49
DX: G61.81 Chronic inflammatory demyelinating polyneuritis (principal); I10 Essential (primary) hypertension; I25.2 Old myocardial infarction; Z79.82 Long term (current) use of aspirin
CPT/HCPCS: 96372; 99283; A9270; J1170; Q0162

== ENCOUNTER 2017-08-18 14:04 | Emergency (ER) | payer MEDICARE, MEDICAID ==
--- NOTE | 2017-08-18 14:56 | ED Physician Documentation ---
PD HPI ABD PAIN - Stated complaint Stated Complaint: BLACK STOOLS W/BLOOD - Chief complaint Chief Complaint: Abd Pain - History obtained from History obtained from: Patient - History of Present Illness Timing - onset: Other (This is a 67-year-old gentleman with history of chronic inflammatory demyelinating polyneuropathy and recurrent PE diagnosed about 2 months ago and on Eliquis for same. After starting Eliquis he had a few days of dark stools with some right red blood but no pain or rectal pain. This recurred over the last few days now with dyspnea. He also notes pedal edema, right greater than left but he not sure of the time of onset but has no noted it today. He is undergoing IVIG infusions for his CIDP. He is not taking NSAIDs and has no history of internal bleeding. He does not drink alcohol.) Review of Systems Constitutional: reports: Fatigue. 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 (The patient has had 2 surgeries for renal stones) HEENT: Other - Present Medications Home Medications: Ambulatory Orders Medication Instructions Recorded Confirmed Amitriptyline [Elavil] 25 - 50 mg PO QPM 10/20/14 06/26/17 Bupropion HCl [Wellbutrin Xl] 300 mg PO DAILY 10/20/14 06/25/17 Docusate Sodium [Dss] 250 mg PO BID 10/20/14 06/25/17 Escitalopram Oxalate [Lexapro] 40 mg PO DAILY 10/20/14 06/25/17 Folic Acid 2 mg ORAL DAILY 10/20/14 06/26/17 Sennosides [Senna Concentrate] 8.6 mg ORAL BID 10/20/14 06/25/17 Testosterone Cypionate 200 mg IM Q14D 10/20/14 06/26/17 [Depo-Testosterone] Valsartan [Diovan] 80 mg ORAL DAILY 10/20/14 06/25/17 raNITIdine [Zantac] 150 mg ORAL Q12H PRN 10/20/14 06/26/17 Aspirin [Juliette Chewable Aspirin] 81 mg PO DAILY 04/25/15 06/25/17 Prazosin [Minipress] 6 mg PO QPM 04/25/15 06/25/17 Potassium Citrate [Urocit-K] 20 meq ORAL BID 10/02/15 06/26/17 Dextroamphetamine/Amphetamine 30 mg PO DAILY 06/25/17 06/25/17 [Adderall Xr 30 mg Capsule] Methotrexate Sodium/Pf 25 mg IM Q7D 06/25/17 06/26/17 [Methotrexate 25 mg/ml Vial] Pravastatin [Pravachol] 10 mg PO QPM 06/25/17 06/25/17 Apixaban [Eliquis] 5 mg PO BID #72 tablet 06/26/17 Apixaban [Eliquis] 10 mg PO BID #4 tablet 06/26/17 Ergocalciferol [Vitamin D2] 50,000 units PO Q7D 06/26/17 06/26/17 Etanercept [Enbrel Sureclick] 50 mg SUBQ Q7D 06/26/17 06/26/17 Pregabalin [Lyrica] 75 mg PO TID 06/26/17 06/26/17 HYDROcod/ACETAM 5/325 [Sigurd 5/325] 1 - 2 ea PO Q6H PRN #15 tablet 08/11/17 Oxycodone HCl 10 mg PO Q4H PRN #10 tablet 08/18/17 - Allergies Allergies/Adverse Reactions: Allergies Allergy/AdvReac Type Severity Reaction Status Date / Time No Known Drug Allergies Allergy Verified 08/18/17 14:24 - Social History Does the pt smoke?: No Smoking Status: Never smoker Does the pt drink ETOH?: No Does the pt have substance abuse?: Yes - Immunizations Immunizations are current?: Yes - POLST Patient has POLST: No POLST Status: Full Code PD ED PE NORMAL - Vitals Vital signs reviewed: Yes - General General: Alert and oriented X 3, No acute distress - Neck Neck: Supple, no meningeal sign, No bony TTP - Cardiac Cardiac: RRR, No murmur - Respiratory Respiratory: No respiratory distress, Clear bilaterally - Abdomen Abdomen: Normal bowel sounds, Soft, Non tender - Rectal Rectal: Other (He is slightly incontinent of brown stool, it is guaiac negative with 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.) - Back Back: No CVA TTP, No spinal TTP - Extremities Extremities: Other (Moderate bilateral pitting pedal edema, I do not note asymmetry.) - Neuro Neuro: Alert and oriented X 3, Normal speech Results - Vitals Vitals: Vital Signs - 24 hr 08/18/17 08/18/17 14:17 15:39 Temperature 36.3 C L Heart Rate 81 92 Respiratory 20 18 Rate Blood Pressure 143/89 H 145/91 H O2 Saturation 97 98 Oxygen O2 Source Room air - Labs Labs: Laboratory Tests 08/18/17 08/18/17 08/18/17 15:00 15:00 15:00 WBC 5.0 RBC 3.15 L Hgb 11.5 L Hct 33.7 L MCV 107.1 H MCH 36.6 H MCHC 34.2 RDW 21.7 H Plt Count 125 L MPV 7.5 Manual Slide Review Indicated PT 12.2 INR 1.1 Sodium 136 Potassium 4.0 Chloride 102 Carbon Dioxide 27 Anion Gap 7.0 BUN 26 H Creatinine 1.7 H Estimated GFR (MDRD) 41 L Glucose 95 Calcium 8.7 Total Bilirubin 0.8 AST 49 H ALT 98 H Alkaline Phosphatase 58 Total Protein 8.2 Albumin 3.4 Globulin 4.8 H Albumin/Globulin Ratio 0.7 L Lipase 50 PD MEDICAL DECISION MAKING - ED course ED course: Despite his complaints there is no evidence of GI bleeding at this juncture, his H&H is stable from prior values and he is guaiac negative. Watchful waiting and outpatient labs in a couple of days were advised. Departure - Departure Disposition: Home, Self Care Clinical Impression: Dark stools, Adequate anticoagulation on anticoagulant therapy, CIDP (chronic inflammatory demyelinating polyneuropathy) Rheumatoid arthritis Qualifiers: Rheumatoid arthritis location: unspecified site Rheumatoid factor presence: unspecified presence Qualified Code(s): M06.9 - Rheumatoid arthritis, unspecified Condition: Good Record reviewed to determine appropriate education?: Yes Prescriptions: Oxycodone HCl 10 mg PO Q4H PRN #10 tablet PRN Reason: Pain Comments: Your diagnostics suggests no significant bleeding at this juncture, however I recommend repeat labs with your primary care physician in approximately 2 days and returning if worse. Let him or her know that your hemoglobin today was Stable at 11.5. Your blood pressure was elevated today on check into the emergency department. This does not mean that you have hypertension, it is a common phenomenon to come to the emergency department and have elevated blood pressure. I recommend that you see your primary care physician within the week to have it rechecked when you are feeling better.
[2017-08-18 15:12] LABS: BASOPHILS % (AUTO) 0.8 %; EOSINOPHILS % (AUTO) 1.8 %; HGB - HEMOGLOBIN 11.5 g/dL (14.0-18.0); LYMPHOCYTES % (AUTO) 26.5 %; MEAN CORPUSCULAR HEMOGLOBIN 36.6 pg (27.0-31.0); MEAN CORPUSCULAR HGB CONC 34.2 g/dL (32.0-36.0); MEAN CORPUSCULAR VOLUME 107.1 fL (80.0-94.0); MEAN PLATELET VOLUME 7.5 fL (7.4-11.4); MONOCYTES % (AUTO) 17.1 %; NEUTROPHILS % (AUTO) 53.8 %; PLT - PLATELET COUNT 125 10^3/uL (130-450); RED BLOOD COUNT 3.15 10^6/uL (4.70-6.10); RED CELL DISTRIBUTION WIDTH 21.7 % (12.0-15.0)
[2017-08-18 15:20] LABS: ALBUMIN 3.4 g/dL (3.2-5.5); ALBUMIN/GLOBULIN RATIO 0.7 (1.0-2.2); BILIRUBIN,TOTAL 0.8 mg/dL (0.2-1.0); CALCIUM 8.7 mg/dL (8.5-10.3); CREATININE 1.7 mg/dL (0.6-1.2); TOTAL PROTEIN 8.2 g/dL (6.7-8.2)
[2017-08-18 15:36] LABS: INR 1.1 (0.8-1.2); PT - PROTHROMBIN TIME 12.2 secs (9.9-12.6)
[2017-08-18 15:40] VITALS: BP 145/91
[2017-08-18 16:16] LABS: ABNORMAL LYMPHS % (MANUAL) 1 %; BAND NEUTROPHILS % (MANUAL) 3 %; EOSINOPHILS # (MANUAL) 0.1 10^3/uL (0-0.7); LYMPHOCYTES # (MANUAL) 1.3 10^3/uL (1.5-3.5); LYMPHOCYTES % (MANUAL) 25 %; METAMYELOCYTES % (MANUAL) 2 %; MONOCYTES # (MANUAL) 0.8 10^3/uL (0.0-1.0); MYELOCYTES % (MANUAL) 2 %; NEUTROPHILS # (MANUAL) 2.7 10^3/uL (1.5-6.6); NEUTROPHILS % (MANUAL) 50 %
[2017-08-18 16:18] LABS: PLATELET ESTIMATE, MANUAL DECREASED (<130,000) (NORMAL); PLATELET MORPHOLOGY NORMAL APPEARANCE (NORMAL)
== END 2017-08-18 15:44 | disposition home or self-care (01) ==
LOC: ED 14:04
DX: R19.5 Other fecal abnormalities (principal); M06.9 Rheumatoid arthritis, unspecified; I10 Essential (primary) hypertension; G61.81 Chronic inflammatory demyelinating polyneuritis; Z86.711 Personal history of pulmonary embolism; Z79.82 Long term (current) use of aspirin; Z79.01 Long term (current) use of anticoagulants
CPT/HCPCS: 36415; 80053; 83690; 85025; 85610; 86850; 86900; 86901; 99283; 99284

== ENCOUNTER 2017-11-26 11:39 | Emergency (ER) | payer MEDICARE, MEDICAID ==
[2017-11-26 13:12] LABS: BILIRUBIN,URINE NEGATIVE (NEGATIVE); GLUCOSE, URINE (UA) NEGATIVE (NEGATIVE); KETONES,URINE (UA) NEGATIVE (NEGATIVE); LEUKOCYTE ESTERASE, URINE NEGATIVE (NEGATIVE); NITRITE,URINE NEGATIVE (NEGATIVE); OCCULT BLOOD,URINE NEGATIVE (NEGATIVE); PROTEIN,URINE NEGATIVE (NEGATIVE); UROBILINOGEN,URINE 0.2 (NORMAL) E.U./dL (NORMAL)
[2017-11-26 13:19] LABS: CLARITY,URINE CLEAR (CLEAR)
--- NOTE | 2017-11-26 13:23 | ED Physician Documentation ---
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 He [facility] 5 days in a row every month for his IVIG infusions and they have noted that he has been hypotensive and was referred here. He thinks the hypotension is simply from his blood pressure medications. He denies fevers, but does have some chills. He has 2 weeks of urinary frequency and slight dysuria. He denies cough or chest pain or abdominal pain.) Review of Systems Ten Systems: 10 systems reviewed and negative Constitutional: reports: Chills, Fatigue. denies: Fever Cardiac: denies: Chest pain / pressure, Palpitations Respiratory: denies: Dyspnea, Cough GI: denies: Abdominal Pain, Nausea, Vomiting, Diarrhea : reports: Frequency. 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 (The patient has had 2 surgeries for renal stones) HEENT: Other - Present Medications Home Medications: Ambulatory Orders Medication Instructions Recorded Confirmed Amitriptyline [Elavil] 25 - 50 mg PO QPM 10/20/14 11/24/17 Bupropion HCl [Wellbutrin Xl] 300 mg PO DAILY 10/20/14 11/24/17 Docusate Sodium [Dss] 250 mg PO BID 10/20/14 11/24/17 Escitalopram Oxalate [Lexapro] 40 mg PO DAILY 10/20/14 11/24/17 Folic Acid 2 mg ORAL DAILY 10/20/14 11/24/17 Sennosides [Senna Concentrate] 8.6 mg ORAL BID 10/20/14 11/24/17 Testosterone Cypionate 200 mg IM Q14D 10/20/14 11/24/17 [Depo-Testosterone] Valsartan [Diovan] 80 mg ORAL DAILY 10/20/14 11/24/17 raNITIdine [Zantac] 150 mg ORAL Q12H PRN 10/20/14 11/24/17 Aspirin [Juliette Chewable Aspirin] 81 mg PO DAILY 04/25/15 11/24/17 Prazosin [Minipress] 6 mg PO QPM 04/25/15 11/24/17 Potassium Citrate [Urocit-K] 20 meq ORAL BID 10/02/15 11/24/17 Dextroamphetamine/Amphetamine 30 mg PO DAILY 06/25/17 11/24/17 [Adderall Xr 30 mg Capsule] Pravastatin [Pravachol] 10 mg PO QPM 06/25/17 11/24/17 Apixaban [Eliquis] 5 mg PO BID #72 tablet 06/26/17 11/24/17 Apixaban [Eliquis] 10 mg PO BID #4 tablet 06/26/17 11/24/17 Ergocalciferol [Vitamin D2] 50,000 units PO Q7D 06/26/17 11/24/17 Etanercept [Enbrel Sureclick] 50 mg SUBQ Q7D 06/26/17 11/24/17 Pregabalin [Lyrica] 75 mg PO TID 06/26/17 11/24/17 HYDROcod/ACETAM 5/325 [[place] 5/325] 1 - 2 ea PO Q6H PRN #15 tablet 08/11/17 11/24/17 Oxycodone HCl 10 mg PO Q4H PRN #10 tablet 08/18/17 11/24/17 - Allergies Allergies/Adverse Reactions: Allergies Allergy/AdvReac Type Severity Reaction Status Date / Time No Known Drug Allergies Allergy Verified 11/24/17 11:26 - Social History Does the pt smoke?: No Smoking Status: Never smoker Does the pt drink ETOH?: No Does the pt have substance abuse?: Yes - Immunizations Immunizations are current?: Yes - POLST Patient has POLST: No POLST Status: Full Code PD ED PE NORMAL - Vitals Vital signs reviewed: Yes - General General: Alert and oriented X 3, No acute distress - HEENT HEENT: PERRL, EOMI - Neck Neck: Supple, no meningeal sign, No bony TTP - Cardiac Cardiac: RRR, No murmur - Respiratory Respiratory: No respiratory distress, Clear bilaterally - Abdomen Abdomen: Normal bowel sounds, Soft, Non tender - Derm Derm: No rash - Extremities Extremities: No edema, No calf tenderness / cord - Neuro Neuro: Alert and oriented X 3, Normal speech Results - Vitals Vitals: Vital Signs - 24 hr 11/26/17 11/26/17 12:26 14:08 Temperature 36.1 C L Heart Rate 77 87 Respiratory 20 20 Rate Blood Pressure 90/61 111/70 O2 Saturation 97 Oxygen O2 Source Room air - EKG (time done) 1242 Rate: Rate (enter#) (74) Rhythm: NSR [place]: Normal Intervals: Normal [place] Ischemia: Q waves (inferior), Non specific changes Computer interpretation: Agree with computer - Labs Labs: Laboratory Tests 11/26/17 11/26/17 11/26/17 13:00 14:26 14:26 WBC 4.6 L RBC 3.46 L Hgb 12.5 L Hct 36.1 L MCV 104.4 H MCH 36.3 H MCHC 34.7 RDW 16.6 H Plt Count 120 L MPV 8.0 Neut # (Auto) 2.5 Lymph # (Auto) 1.1 L [place] # (Auto) 0.8 Eos # (Auto) 0.1 Baso # (Auto) 0.1 Absolute Nucleated RBC 0.00 Nucleated RBC % 0.0 Manual Slide Review Indicated Sodium 137 Potassium 3.3 L Chloride 102 Carbon Dioxide 27 Anion Gap 8.0 BUN 29 H Creatinine 2.3 H Estimated GFR (MDRD) 29 L Glucose 109 H Lactic Acid Calcium 8.7 Total Bilirubin 0.4 AST 26 ALT 28 Alkaline Phosphatase 52 Troponin I Total Protein 8.9 H Albumin 3.1 L Globulin 5.8 H Albumin/Globulin Ratio 0.5 L Lipase 93 H Urine Color YELLOW Urine Clarity CLEAR Urine pH 6.0 Ur Specific [place] 1.010 Urine Protein NEGATIVE Urine Glucose (UA) NEGATIVE Urine Ketones NEGATIVE Urine Occult Blood NEGATIVE Urine Nitrite NEGATIVE Urine Bilirubin NEGATIVE Urine Urobilinogen 0.2 (NORMAL) Ur Leukocyte Esterase NEGATIVE Ur Microscopic Review NOT INDICATED Urine Culture Comments NOT INDICATED 11/26/17 11/26/17 14:26 14:26 WBC RBC Hgb Hct MCV MCH MCHC RDW Plt Count MPV Neut # (Auto) Lymph # (Auto) [place] # (Auto) Eos # (Auto) Baso # (Auto) Absolute Nucleated RBC Nucleated RBC % Manual Slide Review Sodium Potassium Chloride Carbon Dioxide Anion Gap BUN Creatinine Estimated GFR (MDRD) Glucose Lactic Acid 1.7 Calcium Total Bilirubin AST ALT Alkaline Phosphatase Troponin I < 0.04 Total Protein Albumin Globulin Albumin/Globulin Ratio Lipase Urine Color Urine Clarity Urine pH Ur Specific [place] Urine Protein Urine Glucose (UA) Urine Ketones Urine Occult Blood Urine Nitrite Urine Bilirubin Urine Urobilinogen Ur Leukocyte Esterase Ur Microscopic Review Urine Culture Comments PD MEDICAL DECISION MAKING - ED course ED course: He presents with urinary frequency and hypotension, concern for UTI but this is not evident. Bladder scan was only 130. His labs are reassuring from an infectious/septic standpoint. He was advised to push fluids and decrease his Diovan. - Sepsis Event Vital Signs: Vital Signs - 24 hr 11/26/17 11/26/17 12:26 14:08 Temperature 36.1 C L Heart Rate 77 87 Respiratory 20 20 Rate Blood Pressure 90/61 111/70 O2 Saturation 97 Oxygen O2 Source Room air Departure - Departure Disposition: 01 Home, Self Care Clinical Impression: Hypotension Qualifiers: Hypotension type: hypotension due to drug Qualified Code(s): I95.2 - Hypotension due to drugs Condition: Good Record reviewed to determine appropriate education?: Yes Comments: Decrease your Diovan to only half the dose you are taking now and follow-up with your doctor on Friday for a blood pressure check. Drink plenty of fluids and r eturn if worse.
[2017-11-26 14:39] LABS: BASOPHILS # (AUTO) 0.1 10^3/uL (0.0-0.1); BASOPHILS % (AUTO) 1.1 %; EOSINOPHILS # (AUTO) 0.1 10^3/uL (0.0-0.7); HGB - HEMOGLOBIN 12.5 g/dL (14.0-18.0); LYMPHOCYTES # (AUTO) 1.1 10^3/uL (1.5-3.5); LYMPHOCYTES % (AUTO) 24.5 %; MEAN CORPUSCULAR HEMOGLOBIN 36.3 pg (27.0-31.0); MEAN CORPUSCULAR HGB CONC 34.7 g/dL (32.0-36.0); MEAN CORPUSCULAR VOLUME 104.4 fL (80.0-94.0); MONOCYTES # (AUTO) 0.8 10^3/uL (0.0-1.0); MONOCYTES % (AUTO) 17.6 %; NEUTROPHILS # (AUTO) 2.5 10^3/uL (1.5-6.6); NEUTROPHILS % (AUTO) 54.8 %; PLT - PLATELET COUNT 120 10^3/uL (130-450); RED BLOOD COUNT 3.46 10^6/uL (4.70-6.10); RED CELL DISTRIBUTION WIDTH 16.6 % (12.0-15.0); WHITE BLOOD COUNT 4.6 x10^3/uL (4.8-10.8)
[2017-11-26 14:53] LABS: ALBUMIN 3.1 g/dL (3.2-5.5); ALBUMIN/GLOBULIN RATIO 0.5 (1.0-2.2); BILIRUBIN,TOTAL 0.4 mg/dL (0.2-1.0); CALCIUM 8.7 mg/dL (8.5-10.3); CREATININE 2.3 mg/dL (0.6-1.2); TOTAL PROTEIN 8.9 g/dL (6.7-8.2)
[2017-11-26 14:58] LABS: RBC MORPHOLOGY (MULTIPLE) 2+ ANISOCYTOSIS (NORMAL)
[2017-11-26 15:17] VITALS: BP 92/67
== END 2017-11-26 15:20 | disposition home or self-care (01) ==
LOC: ED 11:39
DX: I95.2 Hypotension due to drugs (principal); T46.5X5A Adverse effect of other antihypertensive drugs, initial encounter; G61.81 Chronic inflammatory demyelinating polyneuritis; I10 Essential (primary) hypertension; N40.1 Benign prostatic hyperplasia with lower urinary tract symptoms; R35.0 Frequency of micturition; I25.2 Old myocardial infarction; Z86.711 Personal history of pulmonary embolism; Z79.01 Long term (current) use of anticoagulants; Z79.899 Other long term (current) drug therapy
CPT/HCPCS: 36415; 80053; 81001; 81003; 83605; 83690; 84484; 85025; 87086; 93005; 99283

== ENCOUNTER 2018-01-03 16:29 | Observation (INO) | payer MEDICARE, MEDICAID ==
[2018-01-03] MEDS ORDERED: ASPIRIN CHEW 81 MG TABLET PO STA (16:43)
--- NOTE | 2018-01-03 16:44 | ED Physician Documentation ---
PD HPI CHEST PAIN - Stated complaint Stated Complaint: CHEST PX - Chief complaint Chief Complaint: Cardiac - History obtained from History obtained from: Patient - History of Present Illness Timing - onset: Last night (67-year-old gentleman with history of PE on Eliquis, also CIDP on intermittent IVIG infusions presents with episodic chest pain that started last night. He has had 3 episodes of central nonradiating sharp chest pain that make him short of breath. Each is lasted about 30 minutes and each starts with walking albeit not much walking. He is not short of breath at rest and has no chest pain currently.) Review of Systems Ten Systems: 10 systems reviewed and negative Constitutional: denies: Fever, Chills Cardiac: denies: Palpitations, Pedal edema, Calf pain Respiratory: denies: Cough GI: denies: Abdominal Pain PD PAST MEDICAL HISTORY - Past Medical History Cardiovascular: Hypertension, High cholesterol, [place] Respiratory: None Endocrine/Autoimmune: None GI: None : Benign prostate hypertrophy HEENT: Chronic vision loss Psych: None Musculoskeletal: Chronic back pain, Other Derm: Psoriasis - Past Surgical History Past Surgical History: Yes General: Appendectomy Ortho: Spine surgery, 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 (The patient has had 2 surgeries for renal stones) HEENT: Other - Present Medications Home Medications: Ambulatory Orders Medication Instructions Recorded Confirmed Amitriptyline [Elavil] 25 - 50 mg PO QPM 10/20/14 11/24/17 Bupropion HCl [Wellbutrin Xl] 300 mg PO DAILY 10/20/14 11/24/17 Docusate Sodium [Dss] 250 mg PO BID 10/20/14 11/24/17 Escitalopram Oxalate [Lexapro] 40 mg PO DAILY 10/20/14 11/24/17 Folic Acid 2 mg ORAL DAILY 10/20/14 11/24/17 Sennosides [Senna Concentrate] 8.6 mg ORAL BID 10/20/14 11/24/17 Testosterone Cypionate 200 mg IM Q14D 10/20/14 11/24/17 [Depo-Testosterone] Valsartan [Diovan] 80 mg ORAL DAILY 10/20/14 11/24/17 raNITIdine [Zantac] 150 mg ORAL Q12H PRN 10/20/14 11/24/17 Aspirin [Juliette Chewable Aspirin] 81 mg PO DAILY 04/25/15 11/24/17 Prazosin [Minipress] 6 mg PO QPM 04/25/15 11/24/17 Potassium Citrate [Urocit-K] 20 meq ORAL BID 10/02/15 11/24/17 Dextroamphetamine/Amphetamine 30 mg PO DAILY 06/25/17 11/24/17 [Adderall Xr 30 mg Capsule] Pravastatin [Pravachol] 10 mg PO QPM 06/25/17 11/24/17 Apixaban [Eliquis] 5 mg PO BID #72 tablet 06/26/17 11/24/17 Apixaban [Eliquis] 10 mg PO BID #4 tablet 06/26/17 11/24/17 Ergocalciferol [Vitamin D2] 50,000 units PO Q7D 06/26/17 11/24/17 Etanercept [Enbrel Sureclick] 50 mg SUBQ Q7D 06/26/17 11/24/17 Pregabalin [Lyrica] 75 mg PO TID 06/26/17 11/24/17 HYDROcod/ACETAM 5/325 [[place] 5/325] 1 - 2 ea PO Q6H PRN #15 tablet 08/11/17 11/24/17 Oxycodone HCl 10 mg PO Q4H PRN #10 tablet 08/18/17 11/24/17 - Allergies Allergies/Adverse Reactions: Allergies Allergy/AdvReac Type Severity Reaction Status Date / Time No Known Drug Allergies Allergy Verified 11/24/17 11:26 - Social History Does the pt smoke?: No Smoking Status: Never smoker Does the pt drink ETOH?: No Does the pt have substance abuse?: Yes - Family History Family history: reports: Non contributory - Immunizations Immunizations are current?: Yes - POLST Patient has POLST: No POLST Status: Full Code PD ED PE NORMAL - Vitals Vital signs reviewed: Yes - General General: Alert and oriented X 3, No acute distress - HEENT HEENT: PERRL, EOMI - Neck Neck: Supple, no meningeal sign, No bony TTP - Cardiac Cardiac: RRR, No murmur - Respiratory Respiratory: No respiratory distress, Clear bilaterally - Abdomen Abdomen: Non tender - Derm Derm: Normal color, Warm and dry - Extremities Extremities: No edema, No calf tenderness / cord - Neuro Neuro: Alert and oriented X 3, Normal speech Results - Vitals Vitals: Vital Signs - 24 hr 01/03/18 01/03/18 16:34 17:01 Temperature 36.6 C Heart Rate 87 93 Respiratory 18 18 Rate Blood Pressure 151/81 H 150/80 H O2 Saturation 100 98 Oxygen O2 Source Room air - EKG (time done) 1634 Rate: Rate (enter#) (84) Rhythm: NSR [place]: Normal Intervals: Normal [place] QRS: Normal Ischemia: Non specific changes (There is subtle scooped inferior T waves and ST depression anteriorly that is pretty much of the same as the last EKG on chart, may be slightly worse.) Computer interpretation: Agree with computer - Labs Labs: Laboratory Tests 01/03/18 01/03/18 01/03/18 16:46 16:46 16:46 WBC 6.4 RBC 2.82 L Hgb 10.4 L Hct 30.9 L MCV 109.4 H MCH 36.9 H MCHC 33.7 RDW 22.4 H Plt Count 130 MPV 7.7 Sodium 132 L Potassium 4.1 Chloride 101 Carbon Dioxide 25 Anion Gap 6.0 BUN 37 H Creatinine 2.0 H Estimated GFR (MDRD) 34 L Glucose 102 H Calcium 8.8 Total Bilirubin 1.3 H AST 44 H ALT 36 Alkaline Phosphatase 60 Troponin I < 0.04 Total Protein 10.2 H Albumin 3.2 Globulin 7.0 H Albumin/Globulin Ratio 0.5 L Lipase 79 H PD MEDICAL DECISION MAKING - ED course ED course: 67-year-old gentleman on Eliis presents with new intermittent chest pain that is concerning for unstable angina. His EKG and biomarkers are negative. Call to Dr. Irwin for observation at 5:16 PM. Departure - Departure Disposition: ED Place in Observation Clinical Impression: CKD (chronic kidney disease) stage 3, GFR 30-59 ml/min Chest pain Qualifiers: Chest pain type: unspecified Qualified Code(s): R07.9 - Chest pain, unspecified Condition: Stable
[2018-01-03 16:57] LABS: EOSINOPHILS % (AUTO) 1.6 %; WHITE BLOOD COUNT 6.4 x10^3/uL (4.8-10.8)
[2018-01-03 17:03] LABS: HGB - HEMOGLOBIN 10.4 g/dL (14.0-18.0); MEAN CORPUSCULAR HEMOGLOBIN 36.9 pg (27.0-31.0); MEAN CORPUSCULAR HGB CONC 33.7 g/dL (32.0-36.0); MEAN CORPUSCULAR VOLUME 109.4 fL (80.0-94.0); MEAN PLATELET VOLUME 7.7 fL (7.4-11.4); MONOCYTES % (AUTO) 9.7 %; NEUTROPHILS % (AUTO) 63.7 %; PLT - PLATELET COUNT 130 10^3/uL (130-450); RED BLOOD COUNT 2.82 10^6/uL (4.70-6.10); RED CELL DISTRIBUTION WIDTH 22.4 % (12.0-15.0)
[2018-01-03 17:06] LABS: ALBUMIN 3.2 g/dL (3.2-5.5); ALBUMIN/GLOBULIN RATIO 0.5 (1.0-2.2); BILIRUBIN,TOTAL 1.3 mg/dL (0.2-1.0); CALCIUM 8.8 mg/dL (8.5-10.3); TOTAL PROTEIN 10.2 g/dL (6.7-8.2)
[2018-01-03 17:09] LABS: ABNORMAL LYMPHS % (MANUAL) 0 %
--- NOTE | 2018-01-03 17:14 | XRAY Report ---
Reason: chest pain Procedure Date: 01/03/2018 Accession Number: [id number] / [id number] Procedure: XR - Chest 1 View X-Ray CPT Code: 05663 FULL RESULT: EXAM: CHEST RADIOGRAPHY EXAM DATE: 01/03/2018 05:04 PM. CLINICAL HISTORY: Chest pain. COMPARISON: XR CHEST 1 VIEWS 03/25/2010 6:50 PM. TECHNIQUE: 1 view. FINDINGS: Lungs/Pleura: No focal opacities evident. No pleural effusion. No pneumothorax. Mediastinum: Within exam limitations, the cardiomediastinal contour is normal. Other: No bony abnormality noted. IMPRESSION: Normal single view chest. RADIA
[2018-01-03 17:30] LABS: BAND NEUTROPHILS % (MANUAL) 9 %; EOSINOPHILS # (MANUAL) 0.1 10^3/uL (0-0.7); LYMPHOCYTES # (MANUAL) 1.9 10^3/uL (1.5-3.5); LYMPHOCYTES % (MANUAL) 28 %; MONOCYTES # (MANUAL) 0.4 10^3/uL (0.0-1.0); NEUTROPHILS # (MANUAL) 4.1 10^3/uL (1.5-6.6); NEUTROPHILS % (MANUAL) 55 %
[2018-01-03 17:31] LABS: DIFFERENTIAL COMMENT MANUAL DIFFERENTIAL; PLATELET ESTIMATE, MANUAL NORMAL (130-450,000) (NORMAL); PLATELET MORPHOLOGY NORMAL APPEARANCE (NORMAL)
[2018-01-03] MEDS ORDERED: PROCHLORPERAZINE 10 MG/2 ML VIAL IVP PRN (17:46)
[2018-01-03] MEDS ORDERED: ACETAMINOPHEN 325 MG TABLET PO PRN (17:46)
[2018-01-03] MEDS ORDERED: SODIUM CHLORIDE FLUSH 0.9% 10 ML SYRINGE IVP PRN (17:46)
[2018-01-03] MEDS ORDERED: TEMAZEPAM 15 MG CAPSULE PO PRN (17:46)
[2018-01-03] MEDS ORDERED: ERGOCALCIFEROL 50,000 UNIT CAPSULE PO SCH (18:00)
[2018-01-03] MEDS ORDERED: PRAVASTATIN 10 MG TABLET PO SCH (21:00)
[2018-01-03] MEDS ORDERED: PRAZOSIN 1 MG CAPSULE PO SCH (21:00)
[2018-01-03] MEDS ORDERED: AMITRIPTYLINE 25 MG TABLET PO SCH (21:00)
[2018-01-03] MEDS ORDERED: APIXABAN 5 MG TABLET PO SCH ×2 (21:00→22:30)
[2018-01-03] MEDS: FAMOTIDINE 20 MG TABLET PO SCH (22:13)
[2018-01-03] MEDS: DOCUSATE SODIUM 250 MG CAPSULE PO SCH (22:13)
[2018-01-03] MEDS: SENNA 8.6 MG TABLET PO SCH (22:13)
[2018-01-03] MEDS: PREGABALIN 25 MG CAPSULE PO SCH (22:14)
[2018-01-03] MEDS: HYDROcod/ACETAM 5/325 MG TABLET PO PRN (22:14)
[2018-01-03] MEDS ORDERED: ATORVASTATIN 10 MG TABLET PO SCH (23:30)
[2018-01-03] MEDS: SODIUM CHLORIDE FLUSH 0.9% 10 ML SYRINGE IVP SCH (23:36)
--- NOTE | 2018-01-04 01:43 | HISTORY & PHYSICAL EXAMINATION ---
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 He also has a history of obesity, sleep apnea, HTN, CKD, ADHD, CIDP for which he gets IVIG infusions. He has a history of recent pulmonary embolism, for which he was admitted here and started on Eliquis in June 2017. The patient has a remote history of renal calculus and hematuria. The patient presents with complaints of chest pain that occurred with walking from bed to bathroom, 3 episodes, in the center of his chest with no radiation but associated shortness of breath. Each lasted about 30 minutes and was worsened by mild activity such as walking. He presented to the emergency room and is now being placed in observation for management of this. There has been no PND, orthopnea, leg edema, palpitations or syncope. PAST MEDICAL HISTORY 1. CKD. 2. 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 3. Hypertension. 4. Pulmonary embolism, still on Eliquis. 5. ADHD, on Adderall. 6. Sleep apnea, uses CPAP. PAST SURGICAL HISTORY 1. Spinal surgery. 2. Renal stones, twice. REVIEW OF SYSTEMS: A comprehensive review of systems was performed, and the pertinent positives are in the HPI; the rest are negative. FAMILY HISTORY: No inherited diseases. SOCIAL HISTORY: The patient is a nonsmoker who never smoked, drinks no alcohol, uses no illicit drugs. 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 PHYSICAL EXAMINATION GENERAL: Reveals an obese white male who is in no distress. VITAL SIGNS: Blood pressure 150/81, now down to 125/56, pulse is in the 80s in sinus rhythm, afebrile, room air saturation 99%. HEENT: Unremarkable. NECK: Without JVD or carotid bruits. CHEST: Clear. HEART: Sounds are normal. ABDOMEN: Soft, obese. EXTREMITIES: No edema. NEUROLOGIC: Intact. LABORATORY STUDIES: Sodium 132, otherwise normal electrolytes. BUN 37, creatinine 2.0 (his baseline creatinine is 1.3 to 2.3). Troponin not detectable. Bilirubin 1.3, AST 44, ALT 36, lipase 79. White blood count 6.4, hemoglobin 10.4 with an MCV of 109 and RDW 22, normal platelet count of 130. No INR was done. ELECTROCARDIOGRAM: Normal sinus rhythm, inferolateral deep ST-segment depressions, which are slightly worse than an EKG from June 2017. CHEST X-RAY: No active pulmonary disease. IMPRESSION/DIAGNOSES 1. Chest pain with features of angina. His risk factors for CAD are: male gender, morbid obesity, HTN and unknown cholesterol status. 2. Chronic kidney disease. 3. Chronic inflammatory demyelinating polyneuropathy. 4. Pulmonary embolism, on treatment. 5. Hypertension. 6. Attention deficit hyperactivity disorder, on treatment. 7. Obstructive sleep apnea on CPAP. PLAN: Place the patient in Observation on telemetry. Cycle troponins. Follow his EKG for changes. Obtain an Echocardiogram to evaluate resting LV wall motion and whether there was any right heart strain from the pulmonary embolism or his sleep apnea and obesity. If there are complaints of shortness of breath, will consider a reevaluation for recurrent PE, as he may have failed anticoagulants or been noncompliant with these. Check lipids and treat per guidelines. Continue his other current medications for pain, blood pressure, ADHD, and for PE. Continue home CPAP use here. Depending on his course over the next 24 hours, proceed to a stress test. CODE STATUS: FULL CODE. DEEP VENOUS THROMBOSIS PROPHYLAXIS: SCDs. ATTESTATION: The patient is expected to be discharged or transferred to another facility within 96 hours: Yes. cc: Lakia Gannon TD: 01/03/2018 19:05 MTDD
[2018-01-04] MEDS: PREGABALIN 25 MG CAPSULE PO SCH ×2 (05:44→14:36)
[2018-01-04 07:15] LABS: ALBUMIN/GLOBULIN RATIO 0.5 (1.0-2.2); BILIRUBIN,TOTAL 1.3 mg/dL (0.2-1.0); CALCIUM 8.4 mg/dL (8.5-10.3); CREATININE 2.2 mg/dL (0.6-1.2); TOTAL PROTEIN 9.2 g/dL (6.7-8.2)
[2018-01-04] MEDS: FAMOTIDINE 20 MG TABLET PO SCH (07:43)
[2018-01-04] MEDS: DOCUSATE SODIUM 250 MG CAPSULE PO SCH (07:43)
[2018-01-04 08:56] LABS: CHOL/HDL RATIO 3.8 (<5.0); CHOLESTEROL 123 mg/dL; HDL CHOLESTEROL 32 mg/dL; LDL CHOLESTEROL,CALCULATED 71 mg/dL; LDL/HDL RATIO 2.2 (<3.6); VLDL CHOLESTEROL 20 mg/dL
[2018-01-04] MEDS ORDERED: POLYETHYLENE GLYCOL 3350 17 GM PACKET PO SCH (09:00)
[2018-01-04] MEDS ORDERED: FOLIC ACID 1 MG TABLET PO SCH (09:00)
[2018-01-04] MEDS ORDERED: AMPHETAMINE PO SCH (09:00)
[2018-01-04] MEDS ORDERED: ESCITALOPRAM 10 MG TABLET PO SCH (09:00)
[2018-01-04] MEDS ORDERED: VALSARTAN 80 MG ORAL SCH (09:00)
[2018-01-04] MEDS ORDERED: ASPIRIN CHEW 81 MG TABLET PO SCH (09:00)
[2018-01-04] MEDS ORDERED: buPROPion XL 150 MG TABLET PO SCH (09:00)
[2018-01-04] MEDS ORDERED: DEXTROAMPHETAMINE PO SCH (09:00)
[2018-01-04] MEDS ORDERED: LOSARTAN 50 MG TABLET PO SCH (09:00)
[2018-01-04] MEDS: SENNA 8.6 MG TABLET PO SCH (09:28)
[2018-01-04] MEDS: SODIUM CHLORIDE FLUSH 0.9% 10 ML SYRINGE IVP SCH (09:30)
[2018-01-04] MEDS: HYDROcod/ACETAM 5/325 MG TABLET PO PRN (09:34)
[2018-01-04 12:10] LABS: BILIRUBIN,URINE NEGATIVE (NEGATIVE); GLUCOSE, URINE (UA) NEGATIVE (NEGATIVE); KETONES,URINE (UA) NEGATIVE (NEGATIVE); LEUKOCYTE ESTERASE, URINE NEGATIVE (NEGATIVE); NITRITE,URINE NEGATIVE (NEGATIVE); OCCULT BLOOD,URINE NEGATIVE (NEGATIVE); PH,URINE 5.5 PH (5.0-7.5); PROTEIN,URINE NEGATIVE (NEGATIVE); UROBILINOGEN,URINE 1 (NORMAL) E.U./dL (NORMAL)
[2018-01-04 12:34] LABS: CLARITY,URINE CLEAR (CLEAR); RBC,URINE 0-5 /HPF (0-5); SQUAMOUS EPITHELIAL CELL,UR RARE Squamous (<= Few); WBC CLUMPS,URINE NONE SEEN
[2018-01-04 12:35] LABS: BACTERIA,URINE None Seen /HPF (None Seen)
[2018-01-04 14:17] LABS: POTASSIUM,URINE 17.9 mmol/L
--- NOTE | 2018-01-04 15:28 | Discharge Plan ---
Discharge Plan Disposition: Home, Self Care Condition: Stable Diet: Cardiac Activity Restrictions: Activity as Tolerated Shower Restrictions: No Driving Restrictions: No Instruction Topics: Angina Additional Instructions or Follow Up instructions: You were in Observation at the hospital for angina. You did not have a heart attack. You had an Echo done (and a copy of report is going home with you). We do not have stress testing available on Sundays and you DO need a stress test or equivalent to evaluate the chest pressure. You should not be doing anything strenuous until the evaluation is done and you are cleared to exercise by your PCP or Lcpc. Resume all your pre-hospital medications. See your PCP or a Lcpc in follow-up in 5-7 days. If you have new or worsening symptoms, come to the ER. No Smoking: If you smoke, Please STOP! Call for help. Follow-up with: Provider,Other [Primary Care Provider] -
[2018-01-04 15:45] VITALS: BP 102/55
[2018-01-05] MEDS ORDERED: ERGOCALCIFEROL 50,000 UNIT CAPSULE PO SCH ×2 (09:00→23:00)
--- NOTE | 2018-01-07 23:50 | DISCHARGE SUMMARY ---
Physician: Laura Irwin MD DATE OF ADMISSION: 01/03/2018 DATE OF DISCHARGE: 01/04/2018 HISTORY OF PRESENT ILLNESS: This is a 67-year-old white male with a history of obesity, sleep apnea on CPAP, hypertension, CKD, ADHD, CIDP for which he gets IVIG infusions. He was recently diagnosed with a pulmonary embolism, for which, he is on Eliquis since 06/2017. There is a remote history of renal calculus and a remote history of cocaine-induced cardiac disease with an angiogram that showed no coronary blockages, according to the patient. The patient presented with complaints of chest pain that occurred with walking short distances, like from his bed to the bathroom, on 3 separate episodes and was associated with shortness of breath. These lasted about 30 minutes. He was placed in Observation for evaluation of chest pain. HOSPITAL COURSE AND DISCHARGE DIAGNOSES 1. Chest pain. The patient's risk factors for coronary artery disease are: male gender, morbid obesity, hypertension. He had troponin lab test done that were all normal. His EKG showed normal sinus rhythm, early RS transition and inferolateral ST scooping depressions with [id number] flattening. The followup EKG was similar. Since he ruled out for an IA, and no stress testing is available here on a Friday,the patient was advised to have further testing with a stress test because of his coronary risk factors and abnormal EKG. He was advised to be cleared by his PCP or a Perinatal Technician before starting an exercise program (which he was interested in starting). 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 2. Chronic kidney disease. The patient had an admission lab work that showed a BUN of 37 and creatinine 2.0. This was 37 and 2.2 on the day of discharge. 3. Chronic inflammatory demyelinating polyneuropathy. The patient is on scheduled IVIG infusions as an outpatient. 4. Pulmonary embolism. The patient's Eliquis was continued while here. He had an Echocardiogram performed to evaluate for LV wall motion abnormalities and to evaluate for right heart overload. The Echo showed left ventricular hypertrophy with asymmetric basal septal hypertrophy and a left ventricle outflow gradient of 26 mmHg at rest, increased to 40 mmHg with Valsalva maneuver. Left ventricular ejection fraction was hyperdynamic with ejection fraction of greater than 75%. His diastolic function was normal. The right ventricular size and function were normal. There was severe dilation of the right atrium, but left atrial size normal. He had mild tricuspid regurgitation and a normal calculated PA pressure of 29 mmHg. The Echo confirmed stable right heart function and no right-sided overload. 5. Attention deficit hyperactivity disorder. The patient was kept on his medication. 6. Sleep apnea. The patient used CPAP machine while here. ALLERGIES: NONE. MEDICATIONS: At the time of discharge, unchanged 1. Elavil 25 mg q.p.m. 2. Baby aspirin daily. 3. Strattera 60 mg daily. 4. Wellbutrin 300 mg daily. 5. Colace 250 mg b.i.d. 6. Vitamin D3 50,000 units once a month. 7. Lexapro 40 mg daily. 8. Folic acid 2 mg daily. 9. Oxycodone 10 mg q.p.m. 10. Potassium citrate 20 mEq b.i.d. 11. Prazosin 6 mg q.p.m. 12. Lyrica 75 mg daily and 150 mg at night. 13. Zantac 150 mg b.i.d. 14. Crestor 20 mg daily. 15. Senna daily. 16. Depo-Testosterone IM every 14 days. 17. Diovan 80 mg daily. 18. Eliquis 5 mg b.i.d. CONDITION AT DISCHARGE: Stable. PHYSICAL EXAMINATION VITAL SIGNS: Blood pressure 102/55, pulse 87, room air saturation 98%. HEENT: Unremarkable. NECK: Without JVD, but he has a large fonseca that obscures it. CHEST: Clear. HEART: Heart sounds are normal but faint, due to obesity. No murmur is heard at rest (without Valsalva). ABDOMEN: Obese. I cannot rule out organomegaly. Soft. Normal bowel sounds. EXTREMITIES: No edema. NEUROLOGIC: Intact. FOLLOWUP: The patient is advised to see his PCP within a week and to have a stress test and further cardiac evaluation because of the findings on Echo of IHSS with obstruction. CODE STATUS: FULL CODE. Time required to complete this entire discharge, dictation, and patient education: 30 minutes. adelita Gannon MD TD: 01/07/2018 22:21 [facility]
== END 2018-01-04 16:15 | disposition home or self-care (01) ==
LOC: ED 16:29 → OBS 17:46
PROVIDERS: ADMIT Internal Medicine; ATTEND Internal Medicine
DX: R07.9 Chest pain, unspecified (principal); R94.31 Abnormal electrocardiogram [ECG] [EKG]; I42.1 Obstructive hypertrophic cardiomyopathy; G61.81 Chronic inflammatory demyelinating polyneuritis; I12.9 Hypertensive chronic kidney disease with stage 1 through stage 4 chronic kidney disease, or unspecified chronic kidney disease; N18.3 Chronic kidney disease, stage 3 (moderate); I26.99 Other pulmonary embolism without acute cor pulmonale; Z79.01 Long term (current) use of anticoagulants; F90.9 Attention-deficit hyperactivity disorder, unspecified type; G47.30 Sleep apnea, unspecified; E66.01 Morbid (severe) obesity due to excess calories; Z68.41 Body mass index [BMI] 40.0-44.9, adult; E78.00 Pure hypercholesterolemia, unspecified
CPT/HCPCS: 36415; 71045; 80053; 80061; 81001; 83690; 83935; 84133; 84300; 84484; 85025; 93005; 93306; 99284; 99285; A9270; G0378; 83721; 87086; 99283

== ENCOUNTER 2018-05-20 15:16 | Emergency (ER) | payer MEDICARE, MEDICAID ==
[2018-05-20 15:53] LABS: BASOPHILS % (AUTO) 1.5 %; EOSINOPHILS % (AUTO) 1.6 %; HGB - HEMOGLOBIN 8.4 g/dL (14.0-18.0); LYMPHOCYTES % (AUTO) 20.2 %; MEAN CORPUSCULAR HEMOGLOBIN 34.5 pg (27.0-31.0); MEAN CORPUSCULAR HGB CONC 33.5 g/dL (32.0-36.0); MEAN CORPUSCULAR VOLUME 102.8 fL (80.0-94.0); MEAN PLATELET VOLUME 7.5 fL (7.4-11.4); MONOCYTES % (AUTO) 10.1 %; NEUTROPHILS % (AUTO) 66.6 %; PLT - PLATELET COUNT 114 10^3/uL (130-450); RED BLOOD COUNT 2.43 10^6/uL (4.70-6.10); RED CELL DISTRIBUTION WIDTH 19.2 % (12.0-15.0); WHITE BLOOD COUNT 7.1 x10^3/uL (4.8-10.8)
[2018-05-20] MEDS ORDERED: ASPIRIN CHEW 81 MG TABLET PO STA (15:58)
--- NOTE | 2018-05-20 16:01 | ED Physician Documentation ---
PD HPI CHEST PAIN - Stated complaint Stated Complaint: CHEST PAIN - Chief complaint Chief Complaint: Cardiac - History obtained from History obtained from: Patient - History of Present Illness Timing - onset: Today (This is a 68-year-old gentleman who in the mid 1980s was traveling with a band in [place] and had cocaine related chest pain. He ruled in at the time but says his angiogram then was negative. Since then he has not had any specific heart problems but was admitted for chest pain in December of last year and ruled out at the time. He has had heartburn for the last 3 days but today while in the shower developed a sharp substernal chest pressure that radiated across to the left that is mostly gone at this juncture. He was a little dizzy with it.) Review of Systems Ten Systems: 10 systems reviewed and negative Constitutional: denies: Fever, Chills Ears: denies: Loss of hearing, Ear pain Nose: denies: Rhinorrhea / runny nose, Congestion Cardiac: reports: Chest pain / pressure. denies: Palpitations, Pedal edema, Calf pain Respiratory: denies: Dyspnea, Cough PD PAST MEDICAL HISTORY - Past Medical History Cardiovascular: Hypertension, High cholesterol, [place], Murmur Respiratory: Asthma, Pneumonia, Sleep apnea, CPAP use, Other Neuro: None Endocrine/Autoimmune: Type 2 diabetes, Other GI: Ulcers, Colon polyps : Benign prostate hypertrophy, Kidney stones HEENT: Chronic vision loss Psych: ADD/ADHD Musculoskeletal: Fibromyalgia, Chronic back pain Derm: Psoriasis - Past Surgical History Past Surgical History: Yes General: Appendectomy, Colonoscopy Ortho: Spine surgery - Present Medications Home Medications: Ambulatory Orders Medication Instructions Recorded Confirmed Amitriptyline [Elavil] 25 - 50 mg PO QPM 10/20/14 04/15/18 Bupropion HCl [Wellbutrin Xl] 300 mg PO DAILY 10/20/14 04/15/18 Docusate Sodium [Dss] 250 mg PO DAILY 10/20/14 04/15/18 Escitalopram Oxalate [Lexapro] 20 mg PO DAILY 10/20/14 04/15/18 Folic Acid 1 mg ORAL DAILY 10/20/14 04/15/18 Sennosides [Senna Concentrate] 17.2 mg ORAL DAILY 10/20/14 03/19/18 Testosterone Cypionate 200 mg IM Q14D 10/20/14 04/15/18 [Depo-Testosterone] Valsartan [Diovan] 80 mg ORAL DAILY 10/20/14 04/15/18 raNITIdine [Zantac] 150 mg ORAL Q12H PRN 10/20/14 04/15/18 Prazosin [Minipress] 6 mg PO QPM 04/25/15 04/15/18 Potassium Citrate [Urocit-K] 20 meq ORAL BID 10/02/15 04/15/18 Apixaban [Eliquis] 5 mg PO BID #72 tablet 06/26/17 04/15/18 Ergocalciferol [Vitamin D2] 50,000 units PO OAW 06/26/17 04/15/18 Pregabalin [Lyrica] 75 mg PO TID 06/26/17 04/15/18 Atomoxetine HCl [Strattera] 60 mg PO DAILY 01/04/18 04/15/18 Rosuvastatin Calcium 20 mg PO DAILY 01/04/18 04/15/18 oxyCODONE [Roxicodone] 10 mg PO QID 01/04/18 04/15/18 Ipratropium [place] 2 spray NS BID PRN 04/15/18 04/15/18 Losartan Potassium 25 mg PO DAILY 04/15/18 04/15/18 [place]-3S/Dha/Epa/Fish Oil [Fish 1 each PO DAILY 04/15/18 04/15/18 Oil [place]-3 Softgel] Polyethylene Glycol 3350 [Miralax] 17 gm PO DAILY 04/15/18 04/15/18 Torsemide [Demadex] 20 mg PO DAILY 04/15/18 04/15/18 Trazodone HCl 100 mg PO ONCE PRN 04/15/18 04/15/18 Triamcinolone 0.1% Cream [Kenalog 15 applic TOP BID 04/15/18 04/15/18 0.1% Cream] - Allergies Allergies/Adverse Reactions: Allergies Allergy/AdvReac Type Severity Reaction Status Date / Time No Known Drug Allergies Allergy Verified 05/20/18 15:25 - Social History Does the pt smoke?: No Smoking Status: Former smoker Does the pt drink ETOH?: No Does the pt have substance abuse?: Yes - Immunizations Immunizations are current?: Yes - POLST Patient has POLST: No POLST Status: Full Code PD ED PE NORMAL - Vitals Vital signs reviewed: Yes - General General: Alert and oriented X 3, No acute distress - HEENT HEENT: PERRL, EOMI - Neck Neck: Supple, no meningeal sign, No bony TTP - Cardiac Cardiac: RRR, No murmur - Respiratory Respiratory: No respiratory distress, Clear bilaterally - Abdomen Abdomen: Soft, Non tender - Back Back: No CVA TTP, No spinal TTP - Derm Derm: No rash - Extremities Extremities: No edema, No calf tenderness / cord - Neuro Neuro: Alert and oriented X 3, Normal speech Results - Vitals Vitals: Vital Signs - 24 hr 05/20/18 05/20/18 05/20/18 15:22 15:32 16:16 Temperature 35.7 C L 36.6 C Heart Rate 107 H 100 Respiratory 16 18 17 Rate Blood Pressure 128/77 106/66 O2 Saturation 100 100 05/20/18 05/20/18 16:36 17:09 Temperature Heart Rate 112 H 98 Respiratory 18 18 Rate Blood Pressure 106/67 104/69 O2 Saturation 97 98 Oxygen O2 Source Room air - EKG (time done) 1538 Rate: Rate (enter#) (98) Rhythm: NSR [place]: Normal Intervals: Normal [place] Ischemia: Non specific changes (He has mild curved ST depression laterally and in 1 2-/2. These changes are old compared to the last EKG on the chart dated January 03, 2018.). No: ST elevation c/w ischemia Computer interpretation: Agree with computer - Labs Labs: Laboratory Tests 05/20/18 05/20/18 05/20/18 15:45 15:45 15:45 WBC 7.1 RBC 2.43 L Hgb 8.4 L Hct 24.9 L MCV 102.8 H MCH 34.5 H MCHC 33.5 RDW 19.2 H Plt Count 114 L MPV 7.5 Neut # (Auto) Not Reportable Lymph # (Auto) Not Reportable [place] # (Auto) Not Reportable Eos # (Auto) Not Reportable Baso # (Auto) Not Reportable Absolute Nucleated RBC Not Reportable Total Counted 100 Band Neuts % (Manual) 9 Abnorm Lymph % (Manual) 0 Metamyelocytes % 4 H Nucleated RBC % Not Reportable Neutrophils # (Manual) 5.0 Lymphocytes # (Manual) 1.1 L Monocytes # (Manual) 0.6 Eosinophils # (Manual) 0.1 Basophils # (Manual) 0.0 Nucleated RBCs 4 Differential Comment MANUAL DIFFERENTIAL Platelet Estimate DECREASED (<130,000) Platelet Morphology NORMAL APPEARANCE RBC Morph Micro Appear 2+ MACROCYTOSIS Sodium 136 Potassium 4.1 Chloride 104 Carbon Dioxide 23 Anion Gap 9.0 BUN 48 H Creatinine 2.3 H Estimated GFR (MDRD) 29 L Glucose 117 H Calcium 8.4 L Total Bilirubin 1.9 H AST 61 H ALT 47 Alkaline Phosphatase 56 Troponin I 0.21 Total Protein 8.7 H Albumin 3.1 L Globulin 5.6 H Albumin/Globulin Ratio 0.6 L Lipase 96 H - Rads (name of study) 1v chest Radiology: EMP read contemporaneously (NAD) PD MEDICAL DECISION MAKING - ED course ED course: This is a 68-year-old gentleman with a concerning episode of chest pain today while in the shower, his pain recurred while walking to the bathroom here in the department. And his enzymes are positive confirming the diagnosis of end STEMI. He was given beta-blockers, aspirin, Nitropaste. Heparin was held pending consultation with the category development analyst given that he is anticoagulated. We originally called [facility], found that they were full and then called [facility] for potential transfer. We were notified at 4:54 PM that they were also full, [facility] was called. [facility] was also full. 5:09 PM I called [facility]. At 5:38 PM we were notified they were full, we will try [facility]. However actually [facility] called back and they did have a bed, he was accepted there at 1810 by Cherry Garcia the hospitalist and cobras were completed. He is stable for transport. He needs transfer to a higher level of care for cardiology consultation and potential intervention. - Critical Care Time(min): 40 Time Includes: Direct patient care, Review records, Reassess patient, Document care, Coordinate care, Medical consult Data interpretation: Labs, Pulse ox Procedures included in critical care time: Peripheral IV Procedures excluded from critical care time: EKG Departure - Departure Disposition: 02 Transfer Acute Care Hosp Clinical Impression: CKD (chronic kidney disease) stage 3, GFR 30-59 ml/min, Chronic inflammatory demyelinating polyneuritis, NSTEMI (non-ST elevated myocardial infarction) Condition: Serious
[2018-05-20 16:09] LABS: ALBUMIN 3.1 g/dL (3.2-5.5); ALBUMIN/GLOBULIN RATIO 0.6 (1.0-2.2); BILIRUBIN,TOTAL 1.9 mg/dL (0.2-1.0); CALCIUM 8.4 mg/dL (8.5-10.3); CREATININE 2.3 mg/dL (0.6-1.2); TOTAL PROTEIN 8.7 g/dL (6.7-8.2)
[2018-05-20 16:18] LABS: ABNORMAL LYMPHS % (MANUAL) 0 %
--- NOTE | 2018-05-20 16:33 | XRAY Report ---
Reason: pain Procedure Date: 05/20/2018 Accession Number: [id number] / [id number] Procedure: XR - Chest 1 View X-Ray CPT Code: 93808 FULL RESULT: EXAM: CHEST RADIOGRAPHY EXAM DATE: 05/20/2018 04:16 PM. CLINICAL HISTORY: Pain. COMPARISON: CHEST 1 VIEW 01/03/2018 4:51 PM. TECHNIQUE: 1 view. FINDINGS: Lungs/Pleura: Added density over medial right base present on previous study as well. No definite acute infiltrate, consolidation, effusion, or pneumothorax. Mediastinum: Within exam limitations, the cardiomediastinal contour is normal. Upper lobe vessels not distended. Other: None. IMPRESSION: No acute disease. RADIA
[2018-05-20] MEDS ORDERED: NITROGLYCERIN 2% PASTE TOP STA (16:35)
[2018-05-20] MEDS ORDERED: METOPROLOL TARTRATE 50 MG TABLET PO STA (16:36)
[2018-05-20 16:59] LABS: BAND NEUTROPHILS % (MANUAL) 9 %; EOSINOPHILS # (MANUAL) 0.1 10^3/uL (0-0.7); LYMPHOCYTES # (MANUAL) 1.1 10^3/uL (1.5-3.5); LYMPHOCYTES % (MANUAL) 16 %; METAMYELOCYTES % (MANUAL) 4 %; MONOCYTES # (MANUAL) 0.6 10^3/uL (0.0-1.0); NEUTROPHILS % (MANUAL) 61 %
[2018-05-20 17:01] LABS: DIFFERENTIAL COMMENT MANUAL DIFFERENTIAL; PLATELET ESTIMATE, MANUAL DECREASED (<130,000) (NORMAL); PLATELET MORPHOLOGY NORMAL APPEARANCE (NORMAL)
[2018-05-20 18:39] VITALS: BP 109/78
== END 2018-05-20 19:35 | disposition short-term general hospital (02) ==
LOC: ED 15:16
DX: I12.9 Hypertensive chronic kidney disease with stage 1 through stage 4 chronic kidney disease, or unspecified chronic kidney disease (principal); E11.22 Type 2 diabetes mellitus with diabetic chronic kidney disease; N18.3 Chronic kidney disease, stage 3 (moderate); I21.4 Non-ST elevation (NSTEMI) myocardial infarction; R94.31 Abnormal electrocardiogram [ECG] [EKG]; E78.00 Pure hypercholesterolemia, unspecified; I25.2 Old myocardial infarction; Z87.891 Personal history of nicotine dependence
CPT/HCPCS: 36415; 71045; 80053; 83690; 84484; 85025; 93005; 99284; 99291; A9270

== ENCOUNTER 2018-05-20 19:31 | Outpatient (CLI) | payer MEDICARE, MEDICAID | END 2018-05-20 19:32 | disposition short-term general hospital (02) | LOC: EMS 19:31 | PROVIDERS: ATTEND Surgery | DX: I21.4 Non-ST elevation (NSTEMI) myocardial infarction (principal) | CPT/HCPCS: A0425; A0426 ==

== ENCOUNTER 2018-07-14 12:56 | Emergency (ER) | payer MEDICARE, MEDICAID ==
--- NOTE | 2018-07-14 13:10 | ED Physician Documentation ---
PD HPI ABD PAIN - Stated complaint Stated Complaint: ABD PAIN - History obtained from History obtained from: Patient - History of Present Illness Timing - onset: Last night (about 6 pm, abrupt onset RUQ abd pain that has persisted to now. He was able to sleep for parts of the night but is still having pain. It did hurt a little bit more after trying to eat some this morning.) Timing - duration: Hours (18) Timing - details: Abrupt onset, Still present, Waxing and waning Quality: Cramping, Aching, Pain Location: RUQ Radiation: Right flank. No: Chest, Lower back Improved by: No: Laying still Worsened by: Eating, Position (lying flat or on side hurts more), Palpation. No: Moving Associated symptoms: Nausea. No: Fever, Vomiting, Diarrhea, Constipation Similar symptoms before: Has not had sx before Recently seen: Emergency Dept, Admitted (early May had chest pain and elevated troponin, xfer to [facility] and his anemia took precedent, per patient. Treated for that and did not have heart testing. Is to see [facility] in the next month.) Review of Systems Constitutional: denies: Fever, Chills Nose: denies: Rhinorrhea / runny nose, Congestion Throat: denies: Sore throat Cardiac: denies: Palpitations Respiratory: denies: Dyspnea, Cough, Wheezing GI: reports: Abdominal Pain, Nausea. denies: Vomiting, Constipation, Diarrhea Musculoskeletal: denies: Neck pain, Back pain Neurologic: denies: Generalized weakness, Near syncope PD PAST MEDICAL HISTORY - Past Medical History Cardiovascular: Hypertension, High cholesterol, [place], Murmur Respiratory: Asthma, Pneumonia, Sleep apnea, CPAP use, Other Neuro: None Endocrine/Autoimmune: Type 2 diabetes, Other GI: Ulcers, Colon polyps : Benign prostate hypertrophy, Kidney stones HEENT: Chronic vision loss Psych: ADD/ADHD Musculoskeletal: Fibromyalgia, Chronic back pain Derm: Psoriasis - Past Surgical History Past Surgical History: Yes General: Appendectomy, Colonoscopy Ortho: Spine surgery - Present Medications Home Medications: Ambulatory Orders Medication Instructions Recorded Confirmed Amitriptyline [Elavil] 25 - 50 mg PO QPM 10/20/14 07/08/18 Bupropion HCl [Wellbutrin Xl] 300 mg PO DAILY 10/20/14 07/08/18 Docusate Sodium [Dss] 250 mg PO DAILY 10/20/14 07/08/18 Escitalopram Oxalate [Lexapro] 20 mg PO DAILY 10/20/14 07/08/18 Sennosides [Senna Concentrate] 17.2 mg ORAL BID 10/20/14 07/09/18 Testosterone Cypionate 200 mg IM Q14D 10/20/14 07/08/18 [Depo-Testosterone] raNITIdine [Zantac] 150 mg ORAL Q12H PRN 10/20/14 07/08/18 Potassium Citrate [Urocit-K] 10 meq ORAL BID 10/02/15 07/09/18 Ergocalciferol [Vitamin D2] 50,000 units PO OAW 06/26/17 07/08/18 Pregabalin [Lyrica] 75 mg PO DAILY 06/26/17 07/09/18 Atomoxetine HCl [Strattera] 80 mg PO DAILY 01/04/18 07/09/18 Rosuvastatin Calcium 20 mg PO DAILY 01/04/18 07/08/18 oxyCODONE [Roxicodone] 20 mg PO QID 01/04/18 07/09/18 Ipratropium [place] 2 spray NS BID PRN 04/15/18 07/08/18 Losartan Potassium 25 mg PO DAILY 04/15/18 07/08/18 Polyethylene Glycol 3350 [Miralax] 17 gm PO DAILY 04/15/18 07/08/18 Torsemide [Demadex] 10 mg PO BID 04/15/18 07/09/18 Trazodone HCl 100 mg PO ONCE PRN 04/15/18 07/08/18 Triamcinolone 0.1% Cream [Kenalog 15 applic TOP BID 04/15/18 07/08/18 0.1% Cream] Metoprolol Succinate [Toprol Xl] 25 mg PO ONCE 07/08/18 07/08/18 Aspirin [Aspirin EC] 81 mg ORAL DAILY 07/09/18 07/09/18 Ipratropium [Atrovent] 2 puffs NEB PRN 07/09/18 Isosorbide Mononitrate [Isosorbide 30 mg PO 07/09/18 Mononitrate ER] Mupirocin Calcium [Mupirocin] TOP BID 07/09/18 Pantoprazole [Protonix] 40 mg PO BID 07/09/18 07/09/18 Pregabalin [Lyrica] 150 mg ORAL DAILY PM 07/09/18 07/09/18 - Allergies Allergies/Adverse Reactions: Allergies Allergy/AdvReac Type Severity Reaction Status Date / Time No Known Drug Allergies Allergy Verified 05/20/18 15:25 - Social History Does the pt smoke?: No Smoking Status: Former smoker Does the pt drink ETOH?: No Does the pt have substance abuse?: Yes - Immunizations Immunizations are current?: Yes - POLST Patient has POLST: No POLST Status: Full Code PD ED PE NORMAL - Vitals Vital signs reviewed: Yes - General General: Alert and oriented X 3, Well developed/nourished - HEENT HEENT: PERRL (nonicteric), Pharynx benign - Neck Neck: Supple, no meningeal sign, No adenopathy - Cardiac Cardiac: RRR, No murmur - Respiratory Respiratory: Clear bilaterally - Abdomen Abdomen: Soft, Non distended, No organomegaly, Other (tender RUQ to palpation and with positive Browne's sign. ) - Male Male : Deferred - Rectal Rectal: Deferred - Back Back: No CVA TTP - Derm Derm: Normal color, Warm and dry, No rash - Extremities Extremities: No deformity, No tenderness to palpate, Normal ROM s pain, No edema, No calf tenderness / cord - Neuro Neuro: Alert and oriented X 3, No motor deficit, Normal speech Results - Vitals Vitals: Vital Signs - 24 hr 07/14/18 07/14/18 07/14/18 13:11 13:13 15:13 Temperature 35.8 C L Heart Rate 85 85 76 Respiratory 18 18 16 Rate Blood Pressure 118/63 118/63 110/63 O2 Saturation 96 96 97 07/14/18 17:00 Temperature Heart Rate 73 Respiratory 16 Rate Blood Pressure 121/88 H O2 Saturation 95 Oxygen O2 Source Room air - Labs Labs: Laboratory Tests 07/14/18 07/14/18 07/14/18 13:53 13:58 13:58 WBC 7.9 RBC 3.79 L Hgb 12.0 L Hct 34.9 L MCV 92.0 MCH 31.6 H MCHC 34.4 RDW 19.5 H Plt Count 122 L MPV 7.8 Neut # (Auto) 6.2 Lymph # (Auto) 0.7 L [place] # (Auto) 1.0 Eos # (Auto) 0.0 Baso # (Auto) 0.0 Absolute Nucleated RBC 0.01 Nucleated RBC % 0.1 Sodium 131 L Potassium 3.6 Chloride 96 L Carbon Dioxide 25 Anion Gap 10.0 BUN 43 H Creatinine 2.2 H Estimated GFR (MDRD) 30 L Glucose 125 H Calcium 8.5 Total Bilirubin 3.1 H AST 109 H ALT 119 H Alkaline Phosphatase 73 Troponin I < 0.04 B-Natriuretic Peptide Total Protein 9.3 H Albumin 3.2 Globulin 6.1 H Albumin/Globulin Ratio 0.5 L Lipase 57 H 07/14/18 13:58 WBC RBC Hgb Hct MCV MCH MCHC RDW Plt Count MPV Neut # (Auto) Lymph # (Auto) [place] # (Auto) Eos # (Auto) Baso # (Auto) Absolute Nucleated RBC Nucleated RBC % Sodium Potassium Chloride Carbon Dioxide Anion Gap BUN Creatinine Estimated GFR (MDRD) Glucose Calcium Total Bilirubin AST ALT Alkaline Phosphatase Troponin I B-Natriuretic Peptide 73 Total Protein Albumin Globulin Albumin/Globulin Ratio Lipase - Rads (name of study) RUQ Abd U/S Radiology: Prelim report reviewed (Sludge and small stones in the gallbladder. There is some wall thickening consistent with cholecystitis. The common bile duct is 8 mm but no obvious ductal stones were seen.), See rad report PD MEDICAL DECISION MAKING - ED course Complexity details: reviewed results, re-evaluated patient (Pain is improved but he still has considerable tenderness right upper quadrant which combined with his ultrasound findings of some gall bladder wall thickening and small stones as well as the elevated LFTs will be consistent with cholecystitis. There is no obvious ductal blockage but the common bile duct is slightly dilated at 8 mm. This gives consideration whether there could be some ductal obstruction as well. He likely will need a MRCP and possibly ERCP prior to further care of his gallbladder. We do not have GI specialty here or the capability for that. We can do MRCP but not ERCP. The patient's BMI also places him off of our range for anesthesia. He does not look that big actually but falls just slightly above our BMI index. This combination gives a reason for transfer to another facility. Most of his specialists are at [facility] but they do not have any beds available. I talked with the hospitalist at [facility] and billing him and they accept transfer. It was Dr. Christo Mercedes.), considered differential, d/w patient Departure - Departure Disposition: 02 Transfer Acute Care Hosp Clinical Impression: Acute cholecystitis, CIDP (chronic inflammatory demyelinating polyneuropathy), Elevated liver enzymes Abdominal pain Qualifiers: Abdominal location: right upper quadrant Qualified Code(s): R10.11 - Right upper quadrant pain Condition: Stable
[2018-07-14] MEDS ORDERED: SODIUM CHLORIDE 0.9% 1,000 ML IV ONE (13:29)
[2018-07-14] MEDS ORDERED: ONDANSETRON 4 MG/2 ML VIAL IVP STA (13:29)
[2018-07-14] MEDS ORDERED: HYDROmorphone 1 MG/ML CARPUJECT IVP STA ×3 (13:30→20:03)
[2018-07-14] MEDS ORDERED: LIDOCAINE VISCOUS 2% 15 ML UDC MM STA (14:17)
[2018-07-14] MEDS ORDERED: MAG HYDROX/AL HYDROX/SIMETH 30 ML UDC PO STA (14:17)
[2018-07-14 14:25] LABS: BASOPHILS % (AUTO) 0.3 %; EOSINOPHILS % (AUTO) 0.4 %; LYMPHOCYTES # (AUTO) 0.7 10^3/uL (1.5-3.5); LYMPHOCYTES % (AUTO) 8.9 %; MEAN CORPUSCULAR HEMOGLOBIN 31.6 pg (27.0-31.0); MEAN CORPUSCULAR HGB CONC 34.4 g/dL (32.0-36.0); MEAN PLATELET VOLUME 7.8 fL (7.4-11.4); MONOCYTES % (AUTO) 12.2 %; NEUTROPHILS # (AUTO) 6.2 10^3/uL (1.5-6.6); NEUTROPHILS % (AUTO) 78.2 %; PLT - PLATELET COUNT 122 10^3/uL (130-450); RED BLOOD COUNT 3.79 10^6/uL (4.70-6.10); RED CELL DISTRIBUTION WIDTH 19.5 % (12.0-15.0); WHITE BLOOD COUNT 7.9 x10^3/uL (4.8-10.8)
[2018-07-14 14:44] LABS: ALBUMIN 3.2 g/dL (3.2-5.5); ALBUMIN/GLOBULIN RATIO 0.5 (1.0-2.2); BILIRUBIN,TOTAL 3.1 mg/dL (0.2-1.0); CALCIUM 8.5 mg/dL (8.5-10.3); CREATININE 2.2 mg/dL (0.6-1.2); TOTAL PROTEIN 9.3 g/dL (6.7-8.2)
--- NOTE | 2018-07-14 15:56 | Ultrasound Report ---
Reason: ruq pain since last evening Procedure Date: 07/14/2018 Accession Number: [id number] / [id number] Procedure: US - Abdomen Limited CPT Code: FULL RESULT: EXAM: ABDOMEN ULTRASOUND LIMITED, RUQ EXAM DATE: 07/14/2018 02:58 PM. CLINICAL HISTORY: Ruq pain since last evening. COMPARISON: US ABDOMEN COMPLETE 05/21/2018 6:20 AM. TECHNIQUE: Real-time scanning was performed with static images obtained. FINDINGS: Liver: Submitted images of liver demonstrate no focal lesions. Main portal vein flow: Hepatopetal. Gallbladder: There is echogenic material within the gallbladder. There is mild gallbladder wall thickening. Negative sonographic Browne sign. The gallbladder is distended to 14 cm. Biliary System: CBD measures 8 mm. No intrahepatic or extrahepatic ductal dilatation. Other: The visualized pancreas and right kidney are unremarkable. IMPRESSION: 1. There is echogenic material within the gallbladder which could represent sludge and small stones. There is mild gallbladder wall thickening. The gallbladder is distended to 14 cm. Findings could represent acute cholecystitis in the proper clinical setting. 2. There is mild dilatation of the common bile duct which measures 0.8 cm. No sonographic evidence of intrahepatic bile duct dilatation or choledocholithiasis. RADIA
[2018-07-14] MEDS ORDERED: PIPERACILLIN/TAZOBACTAM 4.5 GM in SODIUM CHLORIDE 0.9% MINIBAG 100 ML IV STA (17:10)
[2018-07-14 19:28] VITALS: BP 123/77
== END 2018-07-14 20:11 | disposition short-term general hospital (02) ==
LOC: ED 12:56
DX: K81.9 Cholecystitis, unspecified (principal); G61.81 Chronic inflammatory demyelinating polyneuritis; I10 Essential (primary) hypertension; E11.9 Type 2 diabetes mellitus without complications; Z87.891 Personal history of nicotine dependence
CPT/HCPCS: 36415; 76705; 80053; 83690; 83880; 84484; 85025; 96361; 96365; 96375; 96376; 99284; A9270; J1170

== ENCOUNTER 2018-07-27 14:50 | Emergency (ER) | payer MEDICARE, MEDICAID ==
--- NOTE | 2018-07-27 15:17 | ED Physician Documentation ---
PD HPI WOUND RECHECK - Stated complaint Stated Complaint: INFECTED SURGICAL INCISION - Chief complaint Chief Complaint: General - Histroy obtained from History obtained from: Patient - History of Present Illness Location: Abdomen (RUQ CCY scar.) Timing - onset: How many days ago (he had gallbladder surgery complicated by arterial injury and converted to open surgical approach. Has stapled wounds. He is having redness and swelling at RUQ wound the past couple of days, increasing. No drainage.) Associated symptoms: Redness, Swelling. No: Fever, Drainage Similar symptoms before: Has not had sx before Recently seen: Surgery Review of Systems Constitutional: reports: Myalgias, Fatigue. denies: Fever, Chills Nose: denies: Rhinorrhea / runny nose, Congestion Throat: denies: Sore throat Cardiac: reports: Pedal edema (mild both legs since surgery.). denies: Chest pain / pressure, Palpitations, Calf pain Respiratory: denies: Dyspnea, Cough GI: denies: Abdominal Pain, Vomiting, Diarrhea Musculoskeletal: reports: Extremity swelling (increased over baseline the past week, since surgery.) Neurologic: reports: Generalized weakness. denies: Near syncope, Altered mental status PD PAST MEDICAL HISTORY - Past Medical History Cardiovascular: Hypertension, High cholesterol, CO, Murmur Respiratory: Asthma, Pneumonia, Sleep apnea, CPAP use, Other Neuro: None Endocrine/Autoimmune: Type 2 diabetes, Other GI: Ulcers, Colon polyps : Benign prostate hypertrophy, Kidney stones HEENT: Chronic vision loss Psych: ADD/ADHD Musculoskeletal: Fibromyalgia, Chronic back pain Derm: Psoriasis - Past Surgical History Past Surgical History: Yes General: Appendectomy, Colonoscopy Ortho: Spine surgery - Present Medications Home Medications: Ambulatory Orders Medication Instructions Recorded Confirmed Amitriptyline [Elavil] 25 - 50 mg PO QPM 10/20/14 07/08/18 Bupropion HCl [Wellbutrin Xl] 300 mg PO DAILY 10/20/14 07/08/18 Docusate Sodium [Dss] 250 mg PO DAILY 10/20/14 07/08/18 Escitalopram Oxalate [Lexapro] 20 mg PO DAILY 10/20/14 07/08/18 Sennosides [Senna Concentrate] 17.2 mg ORAL BID 10/20/14 07/09/18 Testosterone Cypionate 200 mg IM Q14D 10/20/14 07/08/18 [Depo-Testosterone] raNITIdine [Zantac] 150 mg ORAL Q12H PRN 10/20/14 07/08/18 Potassium Citrate [Urocit-K] 10 meq ORAL BID 10/02/15 07/09/18 Ergocalciferol [Vitamin D2] 50,000 units PO OAW 06/26/17 07/08/18 Pregabalin [Lyrica] 75 mg PO DAILY 06/26/17 07/09/18 Atomoxetine HCl [Strattera] 80 mg PO DAILY 01/04/18 07/09/18 Rosuvastatin Calcium 20 mg PO DAILY 01/04/18 07/08/18 oxyCODONE [Roxicodone] 20 mg PO QID 01/04/18 07/09/18 Ipratropium [place] 2 spray NS BID PRN 04/15/18 07/08/18 Losartan Potassium 25 mg PO DAILY 04/15/18 07/08/18 Polyethylene Glycol 3350 [Miralax] 17 gm PO DAILY 04/15/18 07/08/18 Torsemide [Demadex] 10 mg PO BID 04/15/18 07/09/18 Trazodone HCl 100 mg PO ONCE PRN 04/15/18 07/08/18 Triamcinolone 0.1% Cream [Kenalog 15 applic TOP BID 04/15/18 07/08/18 0.1% Cream] Metoprolol Succinate [Toprol Xl] 25 mg PO ONCE 07/08/18 07/08/18 Aspirin [Aspirin EC] 81 mg ORAL DAILY 07/09/18 07/09/18 Ipratropium [Atrovent] 2 puffs NEB PRN 07/09/18 Isosorbide Mononitrate [Isosorbide 30 mg PO 07/09/18 Mononitrate ER] Mupirocin Calcium [Mupirocin] TOP BID 07/09/18 Pantoprazole [Protonix] 40 mg PO BID 07/09/18 07/09/18 Pregabalin [Lyrica] 150 mg ORAL DAILY PM 07/09/18 07/09/18 Chlorhexidine Gluconate [Hibiclens] 15 ml TP DAILY #236 ml 07/27/18 Mupirocin 1 applic TP TID #15 g 07/27/18 Sulfamethox/Trimeth 800/160 1 each PO BID #14 tablet 07/27/18 [Bactrim Ds 800/160] - Allergies Allergies/Adverse Reactions: Allergies Allergy/AdvReac Type Severity Reaction Status Date / Time No Known Drug Allergies Allergy Verified 07/27/18 15:01 - Social History Does the pt smoke?: No Smoking Status: Former smoker Does the pt drink ETOH?: No Does the pt have substance abuse?: Yes - Immunizations Immunizations are current?: Yes - POLST Patient has POLST: No POLST Status: Full Code PD ED PE NORMAL - Vitals Vital signs reviewed: Yes - General General: Alert and oriented X 3, No acute distress, Well developed/nourished - HEENT HEENT: Pharynx benign - Neck Neck: Supple, no meningeal sign, No adenopathy - Cardiac Cardiac: RRR, No murmur - Respiratory Respiratory: Clear bilaterally - Abdomen Abdomen: Normal bowel sounds, Soft, Non distended, No organomegaly, Other (local soft tissue tenderness at RUQ surgical wound, with janae in place, and redness around the line of it about 1-2 cm diamater. The janae at scope sites rest of abd without the redness nor swelling present in main wound. No drainage. few janae removed and no dehiscence. Bedside U/S did not show any fluid collection.) Results - Vitals Vitals: Vital Signs - 24 hr 07/27/18 07/27/18 14:53 17:00 Temperature 36.7 C Heart Rate 69 67 Respiratory 14 18 Rate Blood Pressure 104/65 102/66 O2 Saturation 97 94 Oxygen O2 Source Room air - Labs Labs: Laboratory Tests 07/27/18 07/27/18 16:00 16:00 WBC 7.2 RBC 3.26 L Hgb 9.8 L Hct 30.3 L MCV 92.8 MCH 30.0 MCHC 32.3 RDW 22.9 H Plt Count 271 MPV 7.7 Neut # (Auto) 5.1 Lymph # (Auto) 1.4 L [place] # (Auto) 0.6 Eos # (Auto) 0.1 Baso # (Auto) 0.1 Absolute Nucleated RBC 0.01 Nucleated RBC % 0.1 Manual Slide Review Indicated Platelet Estimate NORMAL (130-450,000) Platelet Morphology NORMAL APPEARANCE RBC Morph Micro Appear 2+ POIKILOCYTOSIS Sodium 136 Potassium 4.2 Chloride 96 L Carbon Dioxide 30 Anion Gap 10.0 BUN 27 H Creatinine 1.9 H Estimated GFR (MDRD) 36 L Glucose 81 Calcium 8.6 Total Bilirubin 0.9 AST 51 H ALT 50 Alkaline Phosphatase 64 Total Protein 7.3 Albumin 2.8 L Globulin 4.5 H Albumin/Globulin Ratio 0.6 L Lipase 51 PD MEDICAL DECISION MAKING - ED course Complexity details: reviewed results, considered differential (redness around surgical wound RUQ and not at scope sites, so not just reaction to the janae. Bedside U/S did not show any fluid collection under the area, but did show inflammation of tissue. ), d/w patient Departure - Departure Disposition: Home, Self Care Clinical Impression: Surgical site infection Condition: Stable Record reviewed to determine appropriate education?: Yes Instructions: ED Wound Care Prescriptions: Chlorhexidine Gluconate [Hibiclens] 15 ml TP DAILY #236 ml Mupirocin 1 applic TP TID #15 g Sulfamethox/Trimeth 800/160 [Bactrim Ds 800/160] 1 each PO BID #14 tablet Comments: Your kidney function is slightly better than your baseline. Your electrolytes are okay. Regarding the edema postoperatively, you can increase your torsemide to 2 tablets in the morning for a few days and see if that helps. Regarding the redness at the incision, I would clean it with soap and water or chlorhexidine preferably once or twice daily and apply mupirocin topical antibiotic to the area. This would be just a light amount. Use Bactrim oral antibiotic twice daily for the next week. Follow-up this coming Friday with the surgery as planned. Return sooner if worsening. On bedside ultrasound it did not see any obvious fluid collections under the skin but there was inflammation and swelling consistent with the infection locally. Discharge Date/Time: 07/27/18 17:02
[2018-07-27] MEDS ORDERED: SULFAMETH/TRIMETH DS 800/160 MG TABLET PO STA (15:45)
[2018-07-27 16:14] LABS: BASOPHILS # (AUTO) 0.1 10^3/uL (0.0-0.1); BASOPHILS % (AUTO) 1.3 %; EOSINOPHILS # (AUTO) 0.1 10^3/uL (0.0-0.7); EOSINOPHILS % (AUTO) 1.5 %; HGB - HEMOGLOBIN 9.8 g/dL (14.0-18.0); LYMPHOCYTES # (AUTO) 1.4 10^3/uL (1.5-3.5); LYMPHOCYTES % (AUTO) 18.8 %; MEAN CORPUSCULAR HGB CONC 32.3 g/dL (32.0-36.0); MEAN CORPUSCULAR VOLUME 92.8 fL (80.0-94.0); MEAN PLATELET VOLUME 7.7 fL (7.4-11.4); MONOCYTES # (AUTO) 0.6 10^3/uL (0.0-1.0); MONOCYTES % (AUTO) 8.3 %; NEUTROPHILS # (AUTO) 5.1 10^3/uL (1.5-6.6); NEUTROPHILS % (AUTO) 70.1 %; PLT - PLATELET COUNT 271 10^3/uL (130-450); RED BLOOD COUNT 3.26 10^6/uL (4.70-6.10); RED CELL DISTRIBUTION WIDTH 22.9 % (12.0-15.0); WHITE BLOOD COUNT 7.2 x10^3/uL (4.8-10.8)
[2018-07-27 16:20] LABS: ALBUMIN 2.8 g/dL (3.2-5.5); ALBUMIN/GLOBULIN RATIO 0.6 (1.0-2.2); BILIRUBIN,TOTAL 0.9 mg/dL (0.2-1.0); CALCIUM 8.6 mg/dL (8.5-10.3); CREATININE 1.9 mg/dL (0.6-1.2); TOTAL PROTEIN 7.3 g/dL (6.7-8.2)
[2018-07-27 16:47] LABS: PLATELET ESTIMATE, MANUAL NORMAL (130-450,000) (NORMAL); PLATELET MORPHOLOGY NORMAL APPEARANCE (NORMAL)
[2018-07-27 17:00] VITALS: BP 102/66
== END 2018-07-27 17:02 | disposition home or self-care (01) ==
LOC: ED 14:50
DX: T81.41XA Infection following a procedure, superficial incisional surgical site, initial encounter (principal); Y83.8 Other surgical procedures as the cause of abnormal reaction of the patient, or of later complication, without mention of misadventure at the time of the procedure; R60.0 Localized edema; I10 Essential (primary) hypertension; E11.9 Type 2 diabetes mellitus without complications; Z79.82 Long term (current) use of aspirin; Z87.891 Personal history of nicotine dependence
CPT/HCPCS: 36415; 80053; 83690; 85025; 99283; A9270

== ENCOUNTER 2019-05-07 08:00 | Outpatient (CLI) | payer MEDICARE, MEDICAID ==
[2019-05-07 13:52] LABS: ALBUMIN 3.6 g/dL (3.2-5.5); ALBUMIN/GLOBULIN RATIO 0.6 (1.0-2.2); ALKALINE PHOSPHATASE 42 IU/L (42-121); ALT ALANINE AMINOTRANSFERASE 61 IU/L (10-60); AST ASPARTATE AMINOTRANSFERASE 51 IU/L (10-42); BILIRUBIN,TOTAL 0.5 mg/dL (0.2-1.0); BUN - BLOOD UREA NITROGEN 44 mg/dL (6-20); CALCIUM 9.4 mg/dL (8.5-10.3); CARBON DIOXIDE - CO2 28 mmol/L (21-32); CHLORIDE 98 mmol/L (101-111); CHOL/HDL RATIO 5.9 (<5.0); CHOLESTEROL 277 mg/dL; CREATININE 2.6 mg/dL (0.6-1.2); GFR - MDRD 25 (>89); GLUCOSE 87 mg/dL (70-100); HDL CHOLESTEROL 47 mg/dL; LDL CHOLESTEROL,CALCULATED 199 mg/dL; LDL/HDL RATIO 4.2 (<3.6); SODIUM 137 mmol/L (135-145); TOTAL PROTEIN 9.7 g/dL (6.7-8.2); VLDL CHOLESTEROL 31 mg/dL
== END 2019-05-07 23:59 | disposition home or self-care (01) ==
LOC: LAB.R 08:00
PROVIDERS: ATTEND Internal Medicine Cardiovascular Disease
DX: E78.5 Hyperlipidemia, unspecified (principal)
CPT/HCPCS: 80053; 80061; 83721

== ENCOUNTER 2019-06-01 14:09 | Outpatient (CLI) | payer MEDICARE, MEDICAID ==
--- NOTE | 2019-06-01 16:01 | Ultrasound Report ---
Reason: RENAL FAILURE Procedure Date: 06/01/2019 Accession Number: [id number] / [id number] Procedure: US - Retroperitoneal CPT Code: Final Report FULL RESULT: EXAM: RENAL ULTRASOUND EXAM DATE: 06/01/2019 03:03 PM. CLINICAL HISTORY: Renal failure. COMPARISON: ABDOMEN/PELVIS W/O 04/25/2015 12:28 PM. TECHNIQUE: Real-time scanning was performed with static images obtained. FINDINGS: Right Kidney: 13.0 cm. Inferior pole cyst measuring 2.6 x 1.9 x 2.4 cm. No hydronephrosis. Scattered nonobstructing nephroliths measuring up to [address] were not discretely identified on current study. Left Kidney: 12.1 cm. No hydronephrosis. Mid pole cyst measuring 1.0 x 0.9 x 1.1 cm. Small nonobstructing nephrolith measuring 6 mm located inferiorly. Otherwise, nephroliths up to 5 mm located throughout the left kidney on comparison CT are not seen. Bladder: Bilateral jets seen. The prevoid bladder volume was 621 cc. The postvoid bladder volume was 216 cc. Other: None. IMPRESSION: 1. No hydronephrosis identified of either kidney. Bilateral renal cysts. 2. Several nonobstructing nephroliths were seen in each kidney on comparison CT performed in 2015. Except for 1 nephrolith in the left kidney, these were not seen today, and have either passed or may be obscured on current imaging. If additional imaging indicated, follow-up non-IV contrasted CT of the abdomen may be helpful. RADIA
== END 2019-06-01 14:10 | disposition home or self-care (01) ==
LOC: DI 14:09
PROVIDERS: ATTEND Internal Medicine
DX: Q61.02 Congenital multiple renal cysts (principal); N20.0 Calculus of kidney; N18.3 Chronic kidney disease, stage 3 (moderate); N17.9 Acute kidney failure, unspecified
CPT/HCPCS: 76770

== ENCOUNTER 2019-06-04 11:32 | Outpatient (CLI) | payer MEDICARE, MEDICAID ==
[2019-06-04 12:36] LABS: CREATININE 2.1 mg/dL (0.6-1.2); PHOSPHORUS 3.8 mg/dL (2.5-4.6); URIC ACID 9.7 mg/dL (2.6-7.2)
[2019-06-04 12:54] LABS: CREATININE,URINE 77.3 mg/dL; PROTEIN/CREATININE RATIO,URINE 0.7 (<=0.2)
== END 2019-06-04 23:59 | disposition home or self-care (01) ==
LOC: LAB.R 11:32
PROVIDERS: ATTEND Internal Medicine
DX: N18.3 Chronic kidney disease, stage 3 (moderate) (principal); N17.9 Acute kidney failure, unspecified; N40.0 Benign prostatic hyperplasia without lower urinary tract symptoms
CPT/HCPCS: 80048; 82306; 82570; 83970; 84100; 84153; 84156; 84550

== ENCOUNTER 2019-06-28 08:00 | Outpatient (CLI) | payer MEDICARE, MEDICAID ==
[2019-06-28 13:38] LABS: ALBUMIN 3.7 g/dL (3.2-5.5); ALKALINE PHOSPHATASE 64 IU/L (42-121); ALT ALANINE AMINOTRANSFERASE 82 IU/L (10-60); AST ASPARTATE AMINOTRANSFERASE 58 IU/L (10-42); BILIRUBIN,TOTAL 0.4 mg/dL (0.2-1.0); CHOL/HDL RATIO 5.9 (<5.0); CHOLESTEROL 232 mg/dL; HDL CHOLESTEROL 39 mg/dL; LDL CHOLESTEROL,CALCULATED 155 mg/dL; TOTAL PROTEIN 8.2 g/dL (6.7-8.2); VLDL CHOLESTEROL 38 mg/dL
[2019-06-28 13:40] LABS: BILIRUBIN,DIRECT < 0.1 mg/dL (0.1-0.5)
== END 2019-06-28 23:59 | disposition home or self-care (01) ==
LOC: LAB.R 08:00
PROVIDERS: ATTEND Internal Medicine Cardiovascular Disease
DX: I10 Essential (primary) hypertension (principal)
CPT/HCPCS: 80061; 80076; 83721

== ENCOUNTER 2019-07-16 16:05 | Outpatient (CLI) | payer MEDICARE, MEDICAID ==
[2019-07-16 16:22] LABS: BASOPHILS % (AUTO) 0.5 %; MEAN CORPUSCULAR HGB CONC 31.1 g/dL (32.0-36.0); PLT - PLATELET COUNT 129 10^3/uL (130-450)
[2019-07-16 16:26] LABS: EOSINOPHILS # (AUTO) 0.1 10^3/uL (0.0-0.7); EOSINOPHILS % (AUTO) 2.7 %; HGB - HEMOGLOBIN 11.5 g/dL (14.0-18.0); LYMPHOCYTES # (AUTO) 0.8 10^3/uL (1.5-3.5); LYMPHOCYTES % (AUTO) 22.8 %; MEAN CORPUSCULAR HEMOGLOBIN 27.1 pg (27.0-31.0); MEAN CORPUSCULAR VOLUME 87.1 fL (80.0-94.0); MEAN PLATELET VOLUME 10.5 fL (7.4-11.4); MONOCYTES # (AUTO) 0.5 10^3/uL (0.0-1.0); MONOCYTES % (AUTO) 13.3 %; NEUTROPHILS # (AUTO) 2.2 10^3/uL (1.5-6.6); NEUTROPHILS % (AUTO) 59.6 %; RED BLOOD COUNT 4.25 10^6/uL (4.70-6.10); RED CELL DISTRIBUTION WIDTH 20.6 % (12.0-15.0); WHITE BLOOD COUNT 3.7 x10^3/uL (4.8-10.8)
[2019-07-16 16:43] LABS: CALCIUM 8.5 mg/dL (8.5-10.3); CREATININE 2.3 mg/dL (0.6-1.2)
[2019-07-16 17:03] LABS: PLATELET ESTIMATE, MANUAL DECREASED (<130,000) (NORMAL); PLATELET MORPHOLOGY NORMAL APPEARANCE (NORMAL); RBC MORPHOLOGY (MULTIPLE) 1+ ANISOCYTOSIS (NORMAL)
== END 2019-07-16 16:06 | disposition home or self-care (01) ==
LOC: LAB 16:05
PROVIDERS: ATTEND Internal Medicine
DX: N18.3 Chronic kidney disease, stage 3 (moderate) (principal); N17.9 Acute kidney failure, unspecified; E83.9 Disorder of mineral metabolism, unspecified; M89.9 Disorder of bone, unspecified
CPT/HCPCS: 36415; 80048; 82306; 82550; 83970; 85025

== ENCOUNTER 2019-09-14 13:07 | Outpatient (CLI) | payer MEDICARE, MEDICAID | END 2019-09-14 13:08 | disposition EMS.NT | LOC: EMS 13:07 | PROVIDERS: ATTEND Surgery | DX: R50.9 Fever, unspecified (principal); R53.83 Other fatigue; R11.10 Vomiting, unspecified ==

== ENCOUNTER 2019-09-14 15:15 | Outpatient (CLI) | payer MEDICARE, MEDICAID ==
[2019-09-14 16:08] LABS: ALBUMIN 3.8 g/dL (3.2-5.5); ALKALINE PHOSPHATASE 74 IU/L (42-121); ALT ALANINE AMINOTRANSFERASE 63 IU/L (10-60); AST ASPARTATE AMINOTRANSFERASE 50 IU/L (10-42); BILIRUBIN,DIRECT 0.1 mg/dL (0.1-0.5); BILIRUBIN,TOTAL 0.6 mg/dL (0.2-1.0); CHOL/HDL RATIO 3.7 (<5.0); CHOLESTEROL 157 mg/dL; HDL CHOLESTEROL 43 mg/dL; LDL CHOLESTEROL,CALCULATED 91 mg/dL; LDL/HDL RATIO 2.1 (<3.6); TOTAL PROTEIN 8.7 g/dL (6.7-8.2); VLDL CHOLESTEROL 23 mg/dL
== END 2019-09-14 15:16 | disposition home or self-care (01) ==
LOC: LAB 15:15
PROVIDERS: ATTEND Internal Medicine
DX: Z11.59 Encounter for screening for other viral diseases (principal); R94.5 Abnormal results of liver function studies; E78.5 Hyperlipidemia, unspecified
CPT/HCPCS: 36415; 80061; 80076; U0004; 81599; 83721

== ENCOUNTER 2020-01-23 12:53 | Outpatient (CLI) | payer MEDICARE, MEDICAID | END 2020-01-23 12:54 | disposition critical access hospital (66) | LOC: EMS 12:53 | PROVIDERS: ATTEND Surgery | DX: R53.1 Weakness (principal); R47.81 Slurred speech; R29.810 Facial weakness | CPT/HCPCS: A0425; A0427 ==

== ENCOUNTER 2021-03-19 15:27 | Emergency (ER) | payer MEDICARE, MEDICAID ==
[2021-03-19 15:40] VITALS: BP 181/99
[2021-03-19 18:49] LABS: HCT - HEMATOCRIT 45.7 % (42.0-52.0); HGB - HEMOGLOBIN 14.9 g/dL (14.0-18.0); MEAN CORPUSCULAR HEMOGLOBIN 30.7 pg (27.0-31.0); MEAN CORPUSCULAR HGB CONC 32.6 g/dL (32.0-36.0); PLT - PLATELET COUNT 123 10^3/uL (130-450); RED BLOOD COUNT 4.86 10^6/uL (4.70-6.10); RED CELL DISTRIBUTION WIDTH 16.3 % (12.0-15.0); WHITE BLOOD COUNT 4.5 x10^3/uL (4.8-10.8)
[2021-03-19 18:50] LABS: BASOPHILS % (AUTO) 0.4 %; EOSINOPHILS # (AUTO) 0.1 10^3/uL (0.0-0.7); EOSINOPHILS % (AUTO) 2.4 %; LYMPHOCYTES # (AUTO) 0.4 10^3/uL (1.5-3.5); LYMPHOCYTES % (AUTO) 8.4 %; MONOCYTES # (AUTO) 0.1 10^3/uL (0.0-1.0); MONOCYTES % (AUTO) 2.4 %; NEUTROPHILS # (AUTO) 3.9 10^3/uL (1.5-6.6); NEUTROPHILS % (AUTO) 86.2 %
[2021-03-19 19:00] LABS: BILIRUBIN,TOTAL 0.8 mg/dL (0.2-1.0); CALCIUM 9.5 mg/dL (8.5-10.3); CREATININE 1.7 mg/dL (0.6-1.2); POTASSIUM 4.2 mmol/L (3.5-5.0)
[2021-03-19 19:01] LABS: ALBUMIN 3.8 g/dL (3.2-5.5); ALBUMIN/GLOBULIN RATIO 0.7 (1.0-2.2); TOTAL PROTEIN 9.6 g/dL (6.7-8.2)
== END 2021-03-19 20:33 | disposition left against medical advice (07) ==
LOC: ED 15:27
DX: Z53.21 Procedure and treatment not carried out due to patient leaving prior to being seen by health care provider (principal)
CPT/HCPCS: 36415; 80053; 83735; 85025

== ENCOUNTER 2021-03-20 09:04 | Emergency (ER) | payer MEDICARE, MEDICAID ==
[2021-03-20 10:16] LABS: BASOPHILS % (AUTO) 0.7 %; EOSINOPHILS % (AUTO) 0.3 %; HCT - HEMATOCRIT 47.3 % (42.0-52.0); HGB - HEMOGLOBIN 15.5 g/dL (14.0-18.0); LYMPHOCYTES # (AUTO) 0.9 10^3/uL (1.5-3.5); LYMPHOCYTES % (AUTO) 15.5 %; MEAN CORPUSCULAR HEMOGLOBIN 30.8 pg (27.0-31.0); MEAN CORPUSCULAR HGB CONC 32.8 g/dL (32.0-36.0); MEAN PLATELET VOLUME 10.4 fL (7.4-11.4); MONOCYTES # (AUTO) 0.9 10^3/uL (0.0-1.0); MONOCYTES % (AUTO) 15.9 %; NEUTROPHILS % (AUTO) 67.4 %; PLT - PLATELET COUNT 134 10^3/uL (130-450); RED BLOOD COUNT 5.03 10^6/uL (4.70-6.10); RED CELL DISTRIBUTION WIDTH 16.3 % (12.0-15.0); WHITE BLOOD COUNT 5.9 x10^3/uL (4.8-10.8)
[2021-03-20 10:32] LABS: ALBUMIN 3.7 g/dL (3.2-5.5); ALBUMIN/GLOBULIN RATIO 0.6 (1.0-2.2); BILIRUBIN,TOTAL 0.9 mg/dL (0.2-1.0); CALCIUM 9.1 mg/dL (8.5-10.3); CREATININE 1.9 mg/dL (0.6-1.2); POTASSIUM 3.5 mmol/L (3.5-5.0); TOTAL PROTEIN 9.7 g/dL (6.7-8.2)
[2021-03-20] MEDS ORDERED: iohexoL-300 100 ML VIAL ONE (10:45)
[2021-03-20] MEDS ORDERED: iohexoL-300 100 ML VIAL IVP ONE (11:11)
[2021-03-20 11:51] LABS: BILIRUBIN,URINE NEGATIVE (NEGATIVE); GLUCOSE, URINE (UA) NEGATIVE (NEGATIVE); KETONES,URINE (UA) NEGATIVE (NEGATIVE); LEUKOCYTE ESTERASE, URINE NEGATIVE (NEGATIVE); NITRITE,URINE NEGATIVE (NEGATIVE); OCCULT BLOOD,URINE TRACE-INTA (NEGATIVE); PROTEIN,URINE 100 mg/dL (NEGATIVE); UROBILINOGEN,URINE 0.2 (NORMAL) E.U./dL (NORMAL)
[2021-03-20 11:55] LABS: CLARITY,URINE CLEAR (CLEAR)
[2021-03-20 12:08] LABS: BACTERIA,URINE Few /HPF (None Seen); RBC,URINE 0-5 /HPF (0-5); SQUAMOUS EPITHELIAL CELL,UR NONE SEEN (<= Few); WBC,URINE 0-3 /HPF (0-3)
--- NOTE | 2021-03-20 12:32 | ED Physician Documentation ---
History of Present Illness - Stated complaint Stated Complaint: FEELING SICK - Chief complaint Chief Complaint: Abd Pain - History obtained from History obtained from: Patient - History of Present Illness Timing: How many weeks ago (6) Pain level max: 2 Pain level now: 1 - Additonal information Additional information: Patient is a 71-year-old male who presents to the emergency department stating for the past 6 weeks he has had intermittent diarrhea. Occasional headaches. Occasional body aches. He has had vomiting intermittently as well. Nothing seems to make it better or worse. He states that when he has a bowel movement he will often feel weak and shaky. He states that sometimes his stool is orange in color. He also states sometimes his urine is bright yellow. Review of Systems Ten Systems: 10 systems reviewed and negative Constitutional: denies: Fever Ears: denies: Ear pain Nose: denies: Rhinorrhea / runny nose, Congestion Respiratory: denies: Cough Skin: denies: Rash Musculoskeletal: denies: Neck pain, Back pain Neurologic: denies: Headache PD PAST MEDICAL HISTORY - Past Medical History Past Medical History: Yes Cardiovascular: Hypertension, High cholesterol, [place] Respiratory: Sleep apnea, CPAP use, Other Neuro: None Endocrine/Autoimmune: Type 2 diabetes, Other GI: Ulcers, Colon polyps : Benign prostate hypertrophy, Renal insuffiency, Kidney stones HEENT: Chronic vision loss Psych: ADD/ADHD Musculoskeletal: Fibromyalgia, Chronic back pain Derm: Psoriasis - Past Surgical History Past Surgical History: Yes General: Cholecystectomy, Appendectomy, Colonoscopy Ortho: Spine surgery - Present Medications Home Medications: Ambulatory Orders Medication Instructions Recorded Confirmed Escitalopram Oxalate [Lexapro] 40 mg PO DAILY 10/20/14 03/20/21 Potassium Citrate [Urocit-K] 20 meq ORAL BID 10/02/15 03/20/21 Pregabalin [Lyrica] 75 mg PO TID 06/26/17 03/20/21 Torsemide [Demadex] 20 mg PO DAILY 04/15/18 03/20/21 Trazodone HCl 100 - 200 mg PO QPM PRN 04/15/18 03/20/21 Metoprolol Succinate [Toprol Xl] 25 mg PO DAILY 07/08/18 03/20/21 Pantoprazole [Protonix] 40 mg PO BIDAC 07/09/18 03/20/21 Aspirin [Juliette] 325 mg PO DAILY 01/23/20 03/20/21 Cholecalciferol [Vitamin D3] 1 cap PO Q7D 01/23/20 03/20/21 Cinacalcet HCl [Sensipar] 30 mg PO DAILY 01/23/20 03/20/21 Febuxostat [Uloric] 40 mg PO DAILY 01/23/20 03/20/21 Folic Acid 1 mg PO DAILY 01/23/20 03/20/21 Ibuprofen [Motrin] 800 mg PO Q6H PRN 01/23/20 03/20/21 Prazosin HCl [Minipress] 6 mg PO QPM 01/23/20 03/20/21 Rosuvastatin Calcium [Crestor] 40 mg PO QPM 01/23/20 03/20/21 buPROPion [Wellbutrin Xl] 450 mg PO DAILY 01/23/20 03/20/21 flaxseed oiL [Flaxseed Oil] 1 cap PO DAILY 01/23/20 03/20/21 - Allergies Allergies/Adverse Reactions: Allergies Allergy/AdvReac Type Severity Reaction Status Date / Time No Known Drug Allergies Allergy Verified 03/20/21 09:19 - Social History Does the pt smoke?: Yes Smoking Status: Current some day smoker Does the pt drink ETOH?: No Does the pt have substance abuse?: Yes Substance Use and Type: Marijuana, CBD oil / Products - Immunizations Immunizations are current?: Yes - POLST Patient has POLST: No POLST Status: Full Code PD ED PE NORMAL - Vitals Vital signs reviewed: Yes - General General: Alert and oriented X 3, No acute distress, Well developed/nourished - HEENT HEENT: PERRL, Moist mucous membranes, Pharynx benign - Neck Neck: Supple, no meningeal sign - Cardiac Cardiac: RRR, Strong equal pulses - Respiratory Respiratory: No respiratory distress, Clear bilaterally - Abdomen Abdomen: Soft, Non tender, Non distended - Back Back: No CVA TTP, No spinal TTP - Derm Derm: Warm and dry, No rash - Extremities Extremities: No edema, No calf tenderness / cord - Neuro Neuro: Alert and oriented X 3 - Psych Psych: Normal mood, Normal affect Results - Vitals Vitals: Vital Signs - 24 hr 03/20/21 03/20/21 03/20/21 09:12 09:51 12:11 Temperature 36.8 C 36 C L Heart Rate 85 80 76 Respiratory 18 17 18 Rate Blood Pressure 136/72 H 95/73 131/79 H O2 Saturation 95 97 95 03/20/21 13:30 Temperature 36 C L Heart Rate 67 Respiratory 18 Rate Blood Pressure 120/78 O2 Saturation 96 Oxygen O2 Source Room air - Labs Labs: Laboratory Tests 03/20/21 03/20/21 03/20/21 10:05 10:05 11:18 WBC 5.9 RBC 5.03 Hgb 15.5 Hct 47.3 MCV 94.0 MCH 30.8 MCHC 32.8 RDW 16.3 H Plt Count 134 MPV 10.4 Neut # (Auto) 4.0 Lymph # (Auto) 0.9 L [place] # (Auto) 0.9 Eos # (Auto) 0.0 Baso # (Auto) 0.0 Absolute Nucleated RBC 0.00 Nucleated RBC % 0.0 Sodium 137 Potassium 3.5 Chloride 100 L Carbon Dioxide 25 Anion Gap 12.0 BUN 21 H Creatinine 1.9 H Estimated GFR (MDRD) 35 L Glucose 85 Calcium 9.1 Total Bilirubin 0.9 AST 48 H ALT 59 Alkaline Phosphatase 81 Total Protein 9.7 H Albumin 3.7 Globulin 6.0 H Albumin/Globulin Ratio 0.6 L Lipase 38 Urine Color YELLOW Urine Clarity CLEAR Urine pH 6.0 Ur Specific [place] 1.015 Urine Protein 100 H Urine Glucose (UA) NEGATIVE Urine Ketones NEGATIVE Urine Occult Blood TRACE-INTA Urine Nitrite NEGATIVE Urine Bilirubin NEGATIVE Urine Urobilinogen 0.2 (NORMAL) Ur Leukocyte Esterase NEGATIVE Urine RBC 0-5 Urine WBC 0-3 Ur Squamous Epith Cells NONE SEEN Urine Bacteria Few Ur Microscopic Review INDICATED Urine Culture Comments NOT INDICATED - Rads (name of study) CT abd/pelvis Radiology: Final report received, EMP read contemporaneously, See rad report PD MEDICAL DECISION MAKING - ED course Complexity details: reviewed results, re-evaluated patient, considered differential, d/w patient ED course: Patient is well-appearing, nontoxic. Afebrile. Tolerating p.o. without difficulty. Unclear etiology of his symptoms. Unable to produce a stool sample here for culture. I will have him follow-up with his doctor for further care. No emergency medical condition at this time. Patient counseled regarding signs and symptoms for which I believe and urgent re-evaluation would be necessary. Patient with good understanding of and agreement to plan and is comfortable going home at this time This document was made in part using voice recognition software. While efforts are made to proofread this document, sound alike and grammatical errors may occur. Patient is aware of the pseudomeningocele as well as the infrarenal abdominal aortic aneurysm and aneurysm of the left common iliac artery. IMPRESSION: 1. No acute inflammatory process is seen in abdomen or pelvis. No bowel obstruction. No free fluid or free air. 2. Mild splenomegaly, no discrete splenic lesion. Hepatic steatosis. Prior cholecystectomy. Pneumobilia in left hepatic lobe likely related to prior surgical procedure. No biliary ductal dilatation. 3. No renal stone or hydronephrosis. 4. Mild infrarenal abdominal aortic aneurysm and aneurysm of left common iliac artery. Extensive atherosclerotic disease. 5. 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 Departure - Departure Disposition: 01 Home, Self Care Clinical Impression: Diarrhea Qualifiers: Diarrhea type: unspecified type Qualified Code(s): R19.7 - Diarrhea, unspecified Abdominal pain Qualifiers: Abdominal location: generalized Qualified Code(s): R10.84 - Generalized abdominal pain Condition: Good Instructions: ED Abdominal Pain Unkn Cause Male Follow-Up: Valencia Lindsay MD [Primary Care Provider] - Within 1 week Comments: The cause of your symptoms is unclear today. Your laboratory testing and CT scan did not reveal any acute abnormalities. Please follow-up with your doctor for further care. Return if you worsen Discharge Date/Time: 03/20/21 13:42
--- NOTE | 2021-03-20 12:56 | CT Report ---
PROCEDURE: Abdomen/Pelvis W INDICATIONS: abd pain, diarrhea, x 6 weeks CONTRAST: IV CONTRAST: Optiray 320 ml: 100 PO CONTRAST: *NO PO CONTRAST TECHNIQUE: After the administration of IV contrast, 5 mm thick sections acquired from the diaphragms to the symp hysis. 5 mm thick coronal and sagittal reformats were acquired. For radiation dose reduction, the f ollowing was used: automated exposure control, adjustment of mA and/or kV according to patient size. COMPARISON: 04/25/2015. FINDINGS: Image quality: Excellent. ABDOMEN: Lung bases: Linear scarring/atelectasis in posterior aspect of left lung base is seen. Heart size is normal. Atherosclerotic calcifications and coronary vessels are noted. Solid organs: Liver is normal in size. Hepatic steatosis is seen, no discrete hepatic lesion. There i s splenomegaly, no discrete splenic lesion. Gallbladder is surgically absent. Biliary system is non d ilated. Pneumobilia in left hepatic duct extending to proximal main common bile duct likely related t o prior surgical procedure. Pancreas enhances normally. No adrenal nodules. Kidneys demonstrate nor mal size and enhancement, without hydronephrosis. Peritoneum and bowel: There is no bowel obstruction. No abnormal bowel wall thickening is seen. No me senteric fat stranding. There is no free fluid or free air. No abscess collection. Nodes and vessels: No retroperitoneal or mesenteric adenopathy by size criteria. Distal infrarenal a bdominal aortic aneurysm measures 3 cm in diameter is seen series 3 image 47. Moderate atheroscleroti c calcifications are noted throughout abdominal aorta and bilateral iliac arteries. Left common iliac artery aneurysm measures 2.1 cm in diameter is also seen. Miscellaneous: No ventral hernias. PELVIS: Genitourinary: Bladder wall thickness is normal. Miscellaneous: No inguinal hernias or adenopathy. Bones: No suspicious bony lesions. Extensive fusion of lower thoracic and lumbar spine is seen. No g ross hardware loosening or failure. Previously described posterior midline paraspinal rim calcified l ow density collection adjacent to the lumbar spine laminectomy site is again seen and unchanged in si ze and appearance likely represent pseudomeningocele. No vertebral body compression fractures. IMPRESSION: 1. No acute inflammatory process is seen in abdomen or pelvis. No bowel obstruction. No free fluid or free air. 2. Mild splenomegaly, no discrete splenic lesion. Hepatic steatosis. Prior cholecystectomy. Pneumobil ia in left hepatic lobe likely related to prior surgical procedure. No biliary ductal dilatation. 3. No renal stone or hydronephrosis. 4. Mild infrarenal abdominal aortic aneurysm and aneurysm of left common iliac artery. Extensive athe rosclerotic disease. 5. 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 Reviewed by: Giancarlo De La Cruz MD on 03/20/2021 12:36 PM PST Approved by: Giancarlo De La Cruz MD on 03/20/2021 12:36 PM PST Station ID: [id number]
[2021-03-20 13:31] VITALS: BP 120/78
== END 2021-03-20 13:42 | disposition home or self-care (01) ==
LOC: ED 09:04
DX: R19.7 Diarrhea, unspecified (principal); R10.84 Generalized abdominal pain; F17.200 Nicotine dependence, unspecified, uncomplicated
CPT/HCPCS: 36415; 74177; 80053; 81001; 83690; 85025; 99283; 99284; Q9967; 81003; 87086

== ENCOUNTER 2021-05-29 18:47 | Outpatient (CLI) | payer MEDICARE, MEDICAID | END 2021-05-29 18:48 | disposition critical access hospital (66) | LOC: EMS 18:47 | DX: R53.1 Weakness (principal); R42 Dizziness and giddiness; R00.0 Tachycardia, unspecified; W18.30XA Fall on same level, unspecified, initial encounter; Y92.009 Unspecified place in unspecified non-institutional (private) residence as the place of occurrence of the external cause | CPT/HCPCS: A0425; A0427 ==

== ENCOUNTER 2021-05-29 19:05 | Inpatient (IN) | payer MEDICARE, MEDICAID ==
[2021-05-29] MEDS ORDERED: SODIUM CHLORIDE 0.9% 1,000 ML IV STA ×2 (19:38→21:22)
--- NOTE | 2021-05-29 19:40 | ED Physician Documentation ---
History of Present Illness - Stated complaint Stated Complaint: GLF/WEAKNESS - Chief complaint Chief Complaint: General - History obtained from History obtained from: Patient - Additonal information Additional information: 71-year-old gentleman with history of psoriatic arthritis, chronic immune demyelinating polyneuropathy presents with several falls over the last day or so. He feels like he has been off balance and just generally weak. He fell 3 times in total and did hit his head on the most recent fall and then was unable to get up so laid on the ground for about 5 to 6 hours before calling 911. He has a mild headache. There was no loss of consciousness or syncope. He has had sweats and chills with this. He denies cough, shortness of breath or measured fevers. He does not feel this is a manifestation of his CIDP. He denies abdominal pain, changes in bowel movements. He does have urinary frequency but that is not acute. Review of Systems Ten Systems: 10 systems reviewed and negative Constitutional: reports: Chills, Myalgias, Fatigue, Sweats Cardiac: denies: Chest pain / pressure, Palpitations Respiratory: denies: Dyspnea, Cough PD PAST MEDICAL HISTORY - Past Medical History Past Medical History: Yes Cardiovascular: Hypertension, High cholesterol, [place] Respiratory: Sleep apnea, CPAP use, Other Neuro: None Endocrine/Autoimmune: Type 2 diabetes, Other GI: Ulcers, Colon polyps : Benign prostate hypertrophy, Renal insuffiency, Kidney stones HEENT: Chronic vision loss Psych: ADD/ADHD Musculoskeletal: Fibromyalgia, Chronic back pain Derm: Psoriasis - Past Surgical History Past Surgical History: Yes General: Cholecystectomy, Appendectomy, Colonoscopy Ortho: Spine surgery - Present Medications Home Medications: Ambulatory Orders Medication Instructions Recorded Confirmed Escitalopram Oxalate [Lexapro] 40 mg PO DAILY 10/20/14 03/20/21 Potassium Citrate [Urocit-K] 20 meq ORAL BID 10/02/15 03/20/21 Pregabalin [Lyrica] 75 mg PO TID 06/26/17 03/20/21 Torsemide [Demadex] 20 mg PO DAILY 04/15/18 03/20/21 Trazodone HCl 100 - 200 mg PO QPM PRN 04/15/18 03/20/21 Metoprolol Succinate [Toprol Xl] 25 mg PO DAILY 07/08/18 03/20/21 Pantoprazole [Protonix] 40 mg PO BIDAC 07/09/18 03/20/21 Aspirin [Juliette] 325 mg PO DAILY 01/23/20 03/20/21 Cholecalciferol [Vitamin D3] 1 cap PO Q7D 01/23/20 03/20/21 Cinacalcet HCl [Sensipar] 30 mg PO DAILY 01/23/20 03/20/21 Febuxostat [Uloric] 40 mg PO DAILY 01/23/20 03/20/21 Folic Acid 1 mg PO DAILY 01/23/20 03/20/21 Ibuprofen [Motrin] 800 mg PO Q6H PRN 01/23/20 03/20/21 Prazosin HCl [Minipress] 6 mg PO QPM 01/23/20 03/20/21 Rosuvastatin Calcium [Crestor] 40 mg PO QPM 01/23/20 03/20/21 buPROPion [Wellbutrin Xl] 450 mg PO DAILY 01/23/20 03/20/21 flaxseed oiL [Flaxseed Oil] 1 cap PO DAILY 01/23/20 03/20/21 - Allergies Allergies/Adverse Reactions: Allergies Allergy/AdvReac Type Severity Reaction Status Date / Time No Known Drug Allergies Allergy Verified 05/29/21 19:13 - Social History Does the pt smoke?: Yes Smoking Status: Current every day smoker Does the pt drink ETOH?: No Does the pt have substance abuse?: Yes - Immunizations Immunizations are current?: Yes - POLST Patient has POLST: No POLST Status: Full Code PD ED PE NORMAL - Vitals Vital signs reviewed: Yes - General General: Alert and oriented X 3, No acute distress - HEENT HEENT: PERRL, EOMI - Neck Neck: Supple, no meningeal sign, No bony TTP - Cardiac Cardiac: RRR, No murmur - Respiratory Respiratory: No respiratory distress, Clear bilaterally - Abdomen Abdomen: Normal bowel sounds, Soft, Non tender - Back Back: No CVA TTP, No spinal TTP - Derm Derm: Normal color, Warm and dry - Extremities Extremities: No edema, No calf tenderness / cord - Neuro Neuro: Alert and oriented X 3, 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 Otherwise peripherally his strength seems normal.) Eye Opening: Spontaneous Motor: Obeys Commands Verbal: Oriented GCS Score: 15 - Psych Psych: Normal mood, Normal affect Results - Vitals Vitals: Vital Signs - 24 hr 05/29/21 05/29/21 05/29/21 19:13 19:54 20:24 Temperature 37.4 C Heart Rate 96 99 91 Respiratory 14 15 19 Rate Blood Pressure 173/102 H 193/99 H 156/103 H O2 Saturation 98 97 96 05/29/21 05/29/21 20:30 21:00 Temperature Heart Rate 89 98 Respiratory 22 21 Rate Blood Pressure 156/100 H 163/93 H O2 Saturation 100 96 Oxygen O2 Source Room air - EKG (time done) 2011 Rate: Rate (enter#) (91) Rhythm: NSR [place]: Normal Intervals: Normal GA QRS: Normal Ischemia: Q waves (inferior). No: ST elevation c/w ischemia, ST depression - Labs Labs: Laboratory Tests 05/29/21 05/29/21 05/29/21 19:10 19:10 19:50 WBC 6.3 RBC 4.51 L Hgb 14.0 Hct 40.4 L MCV 89.6 MCH 31.0 MCHC 34.7 RDW 16.8 H Plt Count 84 L MPV 9.2 Neut # (Auto) 5.1 Lymph # (Auto) 0.5 L Mccone # (Auto) 0.7 Eos # (Auto) 0.0 Baso # (Auto) 0.0 Absolute Nucleated RBC 0.00 Nucleated RBC % 0.0 Sodium 126 L Potassium 3.5 Chloride 92 L Carbon Dioxide 24 Anion Gap 10.0 BUN 19 Creatinine 1.6 H Estimated GFR (MDRD) 43 L Glucose 125 H Lactic Acid 1.7 Calcium 8.7 Total Bilirubin 1.3 H AST 48 H ALT 49 Alkaline Phosphatase 74 Total Creatine Kinase 900 H Total Protein 8.7 H Albumin 3.1 L Globulin 5.6 H Albumin/Globulin Ratio 0.6 L PD MEDICAL DECISION MAKING - ED course ED course: 71-year-old gentleman with CIDP, morbid obesity and chronic renal insufficiency presents with weakness and several falls over the last days. He does seem modestly encephalopathic to me with some confusion For example when I was clarifying with him if he was on blood thinners now he stated that he had never been on blood thinners in the past. I noted that he had been on Coumadin and Eliquis in the past for history of PE and he confirmed that but states he has not been on them but does not know how long its been. His peripheral strength is good. He has no symptoms or signs to suggest PE or ACS. The falls culminated in him laying on the ground for several hours. Based on his initial CK he has mild rhabdomyolysis but his Yan score for rhabdomyolysis is 6 points suggesting the need for renal protective therapy. He is also noted to be hyponatremic and this is acute. A few weeks ago his sodium was 134. Given his encephalopathy, acute hyponatremia, rhabdomyolysis and underlying tenuous status given his chronic kidney disease I spoke with Dr. Feliz for admission at 9:30 PM. Departure - Departure Disposition: 66 [facility] DC/Nicky Clinical Impression: CKD (chronic kidney disease) stage 3, GFR 30-59 ml/min, Chronic inflammatory demyelinating polyneuritis, Morbid obesity with BMI of 45.0-49.9, adult, Hyponatremia, Encephalopathy Condition: Serious
[2021-05-29 19:55] LABS: BASOPHILS % (AUTO) 0.2 %; HCT - HEMATOCRIT 40.4 % (42.0-52.0); LYMPHOCYTES # (AUTO) 0.5 10^3/uL (1.5-3.5); LYMPHOCYTES % (AUTO) 7.9 %; MEAN CORPUSCULAR HGB CONC 34.7 g/dL (32.0-36.0); MEAN CORPUSCULAR VOLUME 89.6 fL (80.0-94.0); MEAN PLATELET VOLUME 9.2 fL (7.4-11.4); MONOCYTES # (AUTO) 0.7 10^3/uL (0.0-1.0); MONOCYTES % (AUTO) 11.4 %; NEUTROPHILS # (AUTO) 5.1 10^3/uL (1.5-6.6); PLT - PLATELET COUNT 84 10^3/uL (130-450); RED BLOOD COUNT 4.51 10^6/uL (4.70-6.10); RED CELL DISTRIBUTION WIDTH 16.8 % (12.0-15.0); WHITE BLOOD COUNT 6.3 x10^3/uL (4.8-10.8)
[2021-05-29 19:57] LABS: ALBUMIN 3.1 g/dL (3.2-5.5); ALBUMIN/GLOBULIN RATIO 0.6 (1.0-2.2); BILIRUBIN,TOTAL 1.3 mg/dL (0.2-1.0); CALCIUM 8.7 mg/dL (8.5-10.3); CREATININE 1.6 mg/dL (0.6-1.2); POTASSIUM 3.5 mmol/L (3.5-5.0); TOTAL PROTEIN 8.7 g/dL (6.7-8.2)
--- NOTE | 2021-05-29 20:37 | CT Report ---
PROCEDURE: HEAD WO INDICATIONS: head injury TECHNIQUE: Noncontrast 4.5 mm thick angled axial sections acquired from the foramen magnum to the vertex. For r adiation dose reduction, the following was used: automated exposure control, adjustment of mA and/or kV according to patient size. COMPARISON: 01/26/2020 FINDINGS: Image quality: Excellent. CSF spaces: Basal cisterns are patent. No extra-axial fluid collections. The ventricles are symmet dionisio in size and shape. Brain: No intracranial bleeds or masses. There is cerebral volume loss for age, with resultant vent ricular and sulcal prominence. Falcine dural ossification centers. There are periventricular and deep white matter chronic small vessel ischemic changes. There is intracranial internal carotid artery a therosclerosis. Skull and face: Calvarium and visualized facial bones appear intact, without suspicious lesions. Sinuses: Visualized sinuses and mastoids are clear. IMPRESSION: No acute intracranial disease process. Reviewed by: Halie Meraz MD, PhD on 05/29/2021 8:35 PM PDT Approved by: Hlaie Meraz MD, PhD on 05/29/2021 8:35 PM PDT Station ID: [id number]
[2021-05-29] MEDS ORDERED: ONDANSETRON 4 MG/2 ML VIAL IVP PRN (22:34)
[2021-05-29 22:56] LABS: CORTISOL 43.5 ug/dL
--- NOTE | 2021-05-29 22:57 | HISTORY & PHYSICAL EXAMINATION ---
Chief Complaint - Chief Complaint Chief Complaint: Fallx1, confusion, weakness History of Present Illness - Admitted From Admitted From:: ED - History Obtained From Records Reviewed: yes History obtained from: patient Exam Limitations: none - History of Present Illness HPI Comment/Other: 71 y/o with hx morbid obesity, obstructive sleep apnea on CPAP, CDIP, psoriatic athritis, prior CVA no longer on coumadin and [facility] and was discharged on DAPT, hx PE, CKD stage 3, HTN with nephropathy, thrombocytopenia, depression, fibromyalgia, ADHD, PTSD, NSTEMI, polypharmacy, RA previously on humira which he states has not been given for quite some time, previously on IVIG with recent dose given 1st of every month for his CDIP for which he states no gait imbalance issues. However, he was brought to ED for a mechanical fall sustained from ground level with no LOC and with hx chronic back pain. He denies CP, SOB, nausea, emesis, /GI sx's. ED assessment was notable for mild confusion however he states he has been compliant will all his meds which he takes chronically at home without any issues or confusion episodes in past. He lives alone with daily caregiver services and denies illicit drug use, etoh or other new meds. He denies being on coumadin but this was verified by ED physician given his hx PE and was on previous coumadin. In the ED he was Aox3 and had a Ck level 900, cr was stable at 1.6 with range of 1.6-2.7, plts low at 84K and previously at 134K on 03/20/21 and has been as low as 107K in 2018, denies bleeding events but has multiple scattered brusing and petecchiae on bilateral arms. His sodium was low 126 and has been as low as 129 in 2018 but most recent sodium was 134 on 05/14/21. Tbili was 1.3 and mild elevation to his AST noted. CTH was neg. SBP ranged between 150-160s and DBP 90-100's. Nontachyardic and nontachypneic, afebrile. UA with reflex as well as blood cultures were pending. History - Past Medical History Cardiovascular: reports: Hypertension, High cholesterol, [place] Respiratory: reports: Sleep apnea, CPAP use, Other Neuro: reports: None Endocrine/Autoimmune: reports: Type 2 diabetes, Other GI: reports: Ulcers, Colon polyps : reports: Benign prostate hypertrophy, Renal insuffiency, Kidney stones HEENT: reports: Chronic vision loss Psych: reports: ADD/ADHD Musculoskeletal: reports: Fibromyalgia, Chronic back pain Derm: reports: Psoriasis MRSA Hx?: Yes - Past Surgical History General: reports: Cholecystectomy, Appendectomy, Colonoscopy Ortho: reports: Spine surgery - Family & Social History Family History: Mother: (sister from sarcoidosis), Father: , Hyperlipidemia, Hypertension, [place], Sister: Family History Comment/Other: Patient's mother of old age at age 93. Living Situation: Alone (He has a caregiverThat helps him with activities of daily living every day.) Social History Notes: He does not smoke tobacco products, use recreational substances or alcohol. - Substance History Use: Uses substance without health or social issues: NONE - POLST Patient has POLST: No POLST Status: Full Code Meds/Allgy - Home Medications Home Medications: Ambulatory Orders Medication Instructions Recorded Confirmed Escitalopram Oxalate [Lexapro] 40 mg PO DAILY 10/20/14 03/20/21 Potassium Citrate [Urocit-K] 20 meq ORAL BID 10/02/15 03/20/21 Pregabalin [Lyrica] 75 mg PO TID 06/26/17 03/20/21 Torsemide [Demadex] 20 mg PO DAILY 04/15/18 03/20/21 Trazodone HCl 100 - 200 mg PO QPM PRN 04/15/18 03/20/21 Metoprolol Succinate [Toprol Xl] 25 mg PO DAILY 07/08/18 03/20/21 Pantoprazole [Protonix] 40 mg PO BIDAC 07/09/18 03/20/21 Aspirin [Juliette] 325 mg PO DAILY 01/23/20 03/20/21 Cholecalciferol [Vitamin D3] 1 cap PO Q7D 01/23/20 03/20/21 Cinacalcet HCl [Sensipar] 30 mg PO DAILY 01/23/20 03/20/21 Febuxostat [Uloric] 40 mg PO DAILY 01/23/20 03/20/21 Folic Acid 1 mg PO DAILY 01/23/20 03/20/21 Ibuprofen [Motrin] 800 mg PO Q6H PRN 01/23/20 03/20/21 Prazosin HCl [Minipress] 6 mg PO QPM 01/23/20 03/20/21 Rosuvastatin Calcium [Crestor] 40 mg PO QPM 01/23/20 03/20/21 buPROPion [Wellbutrin Xl] 450 mg PO DAILY 01/23/20 03/20/21 flaxseed oiL [Flaxseed Oil] 1 cap PO DAILY 01/23/20 03/20/21 - Allergies Allergies/Adverse Reactions: Allergies Allergy/AdvReac Type Severity Reaction Status Date / Time No Known Drug Allergies Allergy Verified 05/29/21 19:13 Review of Systems - Constitutional Constitutional: reports: Fatigue, Weakness, Other (pickiwinian apperance). denies: Fever, Diaphoresis, Night sweats - Eyes Eyes: denies: Vision loss - Ears, Nose & Throat Ears, Nose & Throat: denies: Tinnitus, Vertigo - Cardiovascular Cariovascular: denies: Irregular heart rate, Chest pain, Edema, Lightheadedness, Syncope - Respiratory Respiratory: denies: Cough, Wheezing, Orthopnea, SOB at rest - Gastrointestinal Gastrointestinal: denies: Abdominal pain, Abdominal distention, Diarrhea, Bloody stools, Nausea, Poor appetite - Genitourinary Genitourinary: denies: Dysuria, Frequency, Hematuria - Musculoskeletal Musculoskeletal: reports: Back pain, Muscle aches, Muscle weakness - Integumentary Integumentary: denies: Rash - Neurological Neurological: denies: Focal weakness, Dizziness, Numbness, Memory problems, Seizures - Psychiatric Psychiatric: reports: Depression. denies: Anxiety, Hallucinations - Endocrine Endocrine: reports: Polyuria. denies: Polyphagia, Intolerance to cold - Hematologic/Lymphatic Hematologic/Lymphatic: reports: Bruising, Petechiae. denies: Recurrent infections - All Other Systems All Other Systems: reports: Reviewed and negative Prior Level of Functionality: difficult to assess but does ambulate at home Exam - Vital Signs Vital Signs: Vital Signs x48h Temp Pulse Resp BP Pulse Ox 05/29/21 22:30 99 25 H 154/91 H 97 05/29/21 22:07 93 24 154/108 H 98 05/29/21 21:30 92 16 168/93 H 97 05/29/21 21:00 98 21 163/93 H 96 05/29/21 20:30 89 22 156/100 H 100 05/29/21 20:24 91 19 156/103 H 96 05/29/21 19:54 99 15 193/99 H 97 05/29/21 19:13 37.4 C 96 14 173/102 H 98 - Physical Exam General Appearance: positive: No acute distress (pickiwinian appearance) Eyes Bilateral: positive: Normal inspection, PERRL, EOMI ENT: positive: ENT inspection nml, Pharynx nml, No signs of dehydration Neck: positive: Nml inspection, Thyroid nml, No JVD, Trachea midline. negative: Thyromegaly, Carotid bruit Respiratory: positive: Chest non-tender, No respiratory distress, Breath sounds nml Cardiovascular: positive: Regular rate & rhythm, No murmur, No gallop. negative: Irregularly irregular, JVD present, Systolic murmur Peripheral Pulses: positive: 2+ Abdomen: positive: Non-tender, No organomegaly, Nml bowel sounds, No distention. negative: Tenderness Back: positive: Nml inspection Skin: positive: Color nml, No rash, Warm. negative: Pallor, Decubitus Extremities: positive: Non-tender, Full ROM, Nml appearance Neurologic/Psychiatric: positive: Oriented x3, Motor nml, Sensation nml Conclusion/Plan - Problem List (1) Acute metabolic encephalopathy Conclusion/Plan: Multifactorial cause however hyponatremia seems to be contributing and will hold home meds given his polypharmacy for which agents such as Lyrica, Buproprion, Trazodone and Lexapro can be causing excessive sedation and gait, imbalance as well as ongoing confusion in the setting of impaired renal function and or CKD history. Does not appear to be having increased co2 retention or other metabolic derangements. UA to follow as well as blood cultures but no evidence of infection with normal WBC count. Ammonia level to follow but no evidence of etoh abuse. UDS to follow and although he has chronic back pain denies narcotic or illicit drug use. Will continue with neurochecks and with CTH reassuring and nonfocal neuro exam. (2) Rhabdomyolysis Conclusion/Plan: Secondary to fall and immobilization for 5 hrs causing muscle breakdown. Ck level of 900 on admit with mildly elevated tbil and AST as a consequence. On Crestor and will hold. Denies abdominal pain or bleeding events, however does have low plts and maybe due to non-liver causes. Will place on IVF's with NS to run at 175 cc/hr to be given cautiously given his CKD hx. Serial CK levels and CMP in am. Qualifiers: Rhabdomyolysis type: non-traumatic Qualified Code(s): M62.82 - Rhabdomyolysis (3) Hyponatremia Conclusion/Plan: Sodium on presentation was 126 and will correct with NS at 175 cc/hr given his CKD-3 history to avoid fluid overload to correct no faster than 12 mmol/L/day or 0.5 mmol/L/hr to avoid ODS. Potassium was marginal and will hold torsemide for now as perhaps causing further intravascular depletion although he appears to be euvolemic to hypertensive on presentation. SIADH work up initiated. Fluid restriction with renal diet, strict I/O's, daily weights. Avoid nephrotoxic agents. (4) Accident due to mechanical fall without injury Conclusion/Plan: Needs PT/OT to assess for gait/imbalance and coordination issues that may be re lated to a multifactorial cause but also has CDIP and on polypharmacy. Qualifiers: Encounter type: initial encounter Qualified Code(s): W19.XXXA - Unspecified fall, initial encounter (6) Morbid obesity with BMI of 45.0-49.9, adult Conclusion/Plan: Will need education and counseling on weight loss and nutritional counseling (7) Sleep apnea Conclusion/Plan: CPAP to continue Qualifiers: Sleep apnea type: obstructive Qualified Code(s): G47.33 - Obstructive sleep apnea (adult) (pediatric) (8) CKD (chronic kidney disease) stage 3, GFR 30-59 ml/min Conclusion/Plan: History of CKD stage 3 with range between 1.6-2.7. Was on torsemide and intermittent use of ibuprofen. Will avoid nephrotoxic agents for now. Renal diet. Resume meds for CKD except sedating agents given his encephalopathy. Qualifiers: Chronic kidney disease stage 3 subtype: stage 3b (GFR 30-44) Qualified Code(s): N18.32 - Chronic kidney disease, stage 3b (9) CIDP (chronic inflammatory demyelinating polyneuropathy) Conclusion/Plan: Patient was being given IVIG q monthly and most recently this month for his CIDP. Takes lyrica for ongoing neuropathy but will hold for now given his recent fall and polypharmacy with encephalopathy. (11) Thrombocytopenia Conclusion/Plan: Plts on admit were 84K and unknown etiology. Previously was 134K on 03/20/21. Currently only on ASA for his hx of CVA. Of note has had 107K in 2018. Continue to monitor, avoid lovenox or heparin. (12) Hypertension Conclusion/Plan: Uncontrolled. SBP's in 150-160's with DBP 90-100's. Place back on bp meds, hold torsemide for now. Qualifiers: Hypertension type: unspecified secondary hypertension Qualified Code(s): I15.9 - Secondary hypertension, unspecified; I15 - Secondary hypertension - Lab Results Lab results reviewed: Yes Fish Bones: 05/29/21 19:10 05/29/21 19:10 - Diagnostic Imaging Results Diagnostic Imaging Results: positive: Final report reviewed Diagnostic Imaging Results Comments: CTH normal - EKG Results EKG Interpreted Independently: Yes EKG Comparison: Unchanged from prior EKG Core Measures - DVT/VTE - Prophylaxis VTE/DVT Device ordered at admit?: Yes VTE/DVT Prophylaxis med ordered at admit?: No Not Ordered - Medical Reason: Not indicated (thrombocytopenia)
[2021-05-29 23:00] LABS: THYROID STIMULATING HORMONE 0.91 uIU/mL (0.34-5.60)
[2021-05-30] MEDS: SODIUM CHLORIDE 0.9% 1,000 ML IV SCH ×4 (00:07→19:34)
[2021-05-30] MEDS ORDERED: HYDROmorphone 1 MG/ML CARPUJECT IVP ONE (00:17)
[2021-05-30] MEDS: SODIUM CHLORIDE FLUSH 0.9% 10 ML SYRINGE IVP SCH ×4 (00:41→23:46)
[2021-05-30 02:14] LABS: MUDS CUTOFF CONCENTRATIONS CUTOFF CONC BELOW:
[2021-05-30 02:17] LABS: BILIRUBIN,URINE NEGATIVE (NEGATIVE); GLUCOSE, URINE (UA) NEGATIVE (NEGATIVE); KETONES,URINE (UA) TRACE mg/dL (NEGATIVE); LEUKOCYTE ESTERASE, URINE NEGATIVE (NEGATIVE); NITRITE,URINE NEGATIVE (NEGATIVE); OCCULT BLOOD,URINE LARGE (NEGATIVE); PROTEIN,URINE 100 mg/dL (NEGATIVE); UROBILINOGEN,URINE 2 E.U./dL (NORMAL)
[2021-05-30 02:31] LABS: BACTERIA,URINE Rare /HPF (None Seen); CASTS, URINE 3-5 Hyaline Casts /LPF; CLARITY,URINE CLEAR (CLEAR); SQUAMOUS EPITHELIAL CELL,UR FEW Squamous (<= Few); WBC,URINE 0-3 /HPF (0-3)
[2021-05-30 02:32] LABS: AMPHETAMINE SCREEN,URINE NEGATIVE (NEGATIVE); BARBITURATE SCREEN,UR NEGATIVE (NEGATIVE); BENZODIAZEPINES SCREEN, URINE NEGATIVE (NEGATIVE); COCAINE SCREEN URINE NEGATIVE (NEGATIVE); METHADONE SCREEN, URINE NEGATIVE (NEGATIVE); METHAMPHETAMINES SCREEN, URINE NEGATIVE (NEGATIVE); OPIATE SCREEN, URINE NEGATIVE (NEGATIVE); OXYCODONE SCREEN, URINE NEGATIVE (NEGATIVE); PROPOXYPHENE SCREEN, URINE NEGATIVE (NEGATIVE); THC CANNABINOID SCREEN, URINE POSITIVE (NEGATIVE); TRICYCLIC ANTIDEPRESSANT,URINE NEGATIVE (NEGATIVE)
[2021-05-30 06:37] LABS: BASOPHILS % (AUTO) 0.2 %; EOSINOPHILS % (AUTO) 1.9 %; HCT - HEMATOCRIT 39.2 % (42.0-52.0); HGB - HEMOGLOBIN 13.5 g/dL (14.0-18.0); LYMPHOCYTES % (AUTO) 11.7 %; MEAN CORPUSCULAR HEMOGLOBIN 30.8 pg (27.0-31.0); MEAN CORPUSCULAR HGB CONC 34.4 g/dL (32.0-36.0); MEAN CORPUSCULAR VOLUME 89.3 fL (80.0-94.0); MEAN PLATELET VOLUME 9.7 fL (7.4-11.4); MONOCYTES % (AUTO) 11.6 %; NEUTROPHILS % (AUTO) 74.1 %; PLT - PLATELET COUNT 84 10^3/uL (130-450); RED BLOOD COUNT 4.39 10^6/uL (4.70-6.10); RED CELL DISTRIBUTION WIDTH 16.8 % (12.0-15.0); WHITE BLOOD COUNT 6.4 x10^3/uL (4.8-10.8)
[2021-05-30 06:40] LABS: ABNORMAL LYMPHS % (MANUAL) 0 %
[2021-05-30 06:48] LABS: ALBUMIN 3.1 g/dL (3.2-5.5); ALBUMIN/GLOBULIN RATIO 0.5 (1.0-2.2); BILIRUBIN,TOTAL 1.2 mg/dL (0.2-1.0); CALCIUM 8.5 mg/dL (8.5-10.3); CREATININE 1.5 mg/dL (0.6-1.2); POTASSIUM 3.2 mmol/L (3.5-5.0); TOTAL PROTEIN 8.8 g/dL (6.7-8.2)
[2021-05-30 07:21] LABS: BAND NEUTROPHILS % (MANUAL) 1 %; BASOPHILS # (MANUAL) 0.1 10^3/uL (0-0.1); BASOPHILS % (MANUAL) 1 %; LYMPHOCYTES # (MANUAL) 0.6 10^3/uL (1.5-3.5); LYMPHOCYTES % (MANUAL) 9 %; MONOCYTES # (MANUAL) 0.8 10^3/uL (0.0-1.0)
[2021-05-30 07:22] LABS: PLATELET ESTIMATE, MANUAL NORMAL (130-450,000) (NORMAL); PLATELET MORPHOLOGY NORMAL APPEARANCE (NORMAL); RBC MORPHOLOGY (MULTIPLE) NORMAL APPEARANCE (NORMAL); WBC MORPHOLOGY (MULTIPLE) NORMAL APP (NORMAL)
[2021-05-30] MEDS ORDERED: PIPERACILLIN/TAZOBACTAM 4.5 GM in SODIUM CHLORIDE 0.9% MINIBAG 100 ML IV ONE (08:00)
--- NOTE | 2021-05-30 08:10 | XRAY Report ---
PROCEDURE: Chest 1 View X-Ray INDICATIONS: eval for pneumonia TECHNIQUE: One view of the chest was acquired. COMPARISON: 05/20/2018 FINDINGS: Surgical changes and devices: Right tunneled port device is in place with the distal tip projecting o cherry the lower SVC. Partially imaged lower thoracic spinal fusion hardware. Lungs and pleura: No pleural effusions or pneumothorax. Lungs are clear. Mediastinum: Mediastinal contours appear normal. Heart size is normal. Bones and chest wall: No suspicious bony lesions. Overlying soft tissues appear unremarkable. IMPRESSION: Chest without acute cardiopulmonary abnormalities. No focal consolidation. Reviewed by: Vick Shelton MD on 05/30/2021 8:09 AM PDT Approved by: Vick Shelton MD on 05/30/2021 8:09 AM PDT Station ID: [id number]
[2021-05-30] MEDS ORDERED: SODIUM CHLORIDE 0.9% 1,000 ML IV SCH ×2 (08:28→08:29)
[2021-05-30] MEDS ORDERED: POTASSIUM CHLORIDE 20 MEQ TABLET PO ONE (08:36)
[2021-05-30] MEDS: METOPROLOL SUCCINATE 25 MG TABLET PO SCH (08:48)
[2021-05-30] MEDS: polyethylene glycoL 3350 17 GM PACKET PO SCH (08:48)
[2021-05-30] MEDS: ASPIRIN CHEW 81 MG TABLET PO SCH (08:48)
[2021-05-30] MEDS: PANTOPRAZOLE 40 MG TABLET PO SCH (09:00)
[2021-05-30] MEDS: IBUPROFEN 800 MG TABLET PO PRN ×2 (09:00→20:46)
[2021-05-30] MEDS: SACCHAROMYCES BOULARDII 250 MG CAPSULE PO SCH ×2 (09:31→18:49)
[2021-05-30] MEDS ORDERED: PIPERACILLIN/TAZOBACTAM 3.375 GM in SODIUM CHLORIDE 0.9% MINIBAG 100 ML IV ONE (10:00)
--- NOTE | 2021-05-30 11:06 | PHARMACY PROGRESS NOTE ---
- Therapy Status Therapy status: Awaiting steady state Basis for treatment: Empirical Treatment indication: Bacteremia Trough goal: 15-20 Concurrent antibiotics: Ceftriaxone 2 gm IV q24h - SHIELA Risk Risk level for Acute Kidney Injury: High Acute Kidney Injury risk factors: Wt >100kg or BMI >40, Goal trough >15 - Monitoring and Recommendation Clinical response to treatment: I&O Previous 24 hours 05/28/21 05/29/21 05/30/21 23:59 23:59 23:59 Intake Total 1412.5 2971.167 Output Total 900 Balance 1412.5 2071.167 Lab Results 05/30/21 05/29/21 06:30 19:10 BUN 16 19 Creatinine 1.5 H 1.6 H Estimated GFR (MDRD) 46 L 43 L Cultures 05/29/21 20:38 Blood - Right Arm Blood Culture - Preliminary 05/29/21 19:52 Blood - Right Arm Blood Culture - Preliminary 05/29/21 19:52 Blood - Right Arm Blood Culture (PCR) - Final Monitoring plan: Daily serum creatinine, Suggest ongoing fluid replacement Next trough due (date/time): 06/02 @ 1100 Areas for additional monitoring: Therapy de-escalation based on culture results, Acute Kidney Injury Pharmacy recommendation: Continue current regime (Loading dose of 2.5 gm x 1 today, followed by maintenace dose of 1.75 gm q24h)
--- NOTE | 2021-05-30 11:09 | PROVIDER PROGRESS NOTE ---
Assessment/Plan - Problem List (1) Bacteremia Assessment/Plan: 05/30 pt's blood culture show positive for gram positive cocci. pt had negative CXR, and pt has no respiratory distress as well. UA is negative for infection, and pt denies dysuria. pt's skin is relative intact except a few scratch. it is unclear etiology for pt's bacteremia. pt also has lower degree of fever. but pt has normal arrange WBC. order Rocephin and Vancomycin IV, will repeat blood culture after 24-48 hours treatment. (2) Acute metabolic encephalopathy Conclusion/Plan: 05/30 improved. pt is alert and oriented plus 2. pt complain back pain, he report he took ibuprofen and Lycia at home, we will resume. continue neuro check. pt's home meds are pending confirm by pharmacy now. (3) Rhabdomyolysis Conclusion/Plan: 05/30 CK increased, it is Secondary to fall and immobilization for 5 hrs causing muscle breakdown. we continue IVF, and closely monitor pt's respiratory status and avoid fluid overloaded. continue daily CK and lab monitor. pt's creatinine is slight improved. (4) Hyponatremia Conclusion/Plan: improved. Na is 131, likely hypovolmia with hyponatremia. continue IVF with NC, continue lab monitor (5) Accident due to mechanical fall without injury Conclusion/Plan: continue PT/OT to assess for gait/imbalance and coordination issues that may be related to a multifactorial cause and polypharmacy. (6) Morbid obesity with BMI of 45.0-49.9, adult Conclusion/Plan: as pt's hx. we Will education and counseling on safely weight loss and nutritional counseling (7) Sleep apnea Conclusion/Plan: CPAP to continue, RT is consulted for (8) CKD (chronic kidney disease) stage 3, GFR 30-59 ml/min Conclusion/Plan: slight improved. creatinine is 1.5 on today, History of CKD stage 3 with range between 1.6-2.7. Was on torsemide at home. we will hold torsemide, continue IVF, and lab monitor, avoid nephrotoxic agent (9) CIDP (chronic inflammatory demyelinating polyneuropathy) Conclusion/Plan: Patient was being given IVIG q monthly and most recently this month for his CIDP. Takes lyrica for ongoing neuropathy. pt may continue followup with his neurologist as out. (10) Thrombocytopenia Conclusion/Plan: stable, Plts on admit were 84K and unknown etiology. hx of CIDP, avoid lovenox or heparin, continue lab monitor. (11) Hypertension Conclusion/Plan: stable. will resume home meds after confirmed. - Current Meds Current Meds: Current Medications Generic Name Dose Route Start Last Admin Trade Name Alvaroq PRN Reason Stop Dose Admin Aspirin 81 mg 05/30/21 09:00 05/30/21 08:48 Aspirin Chew 81 Mg Tablet PO 81 mg DAILY [facility] Administration Sodium Chloride 1,000 mls @ 150 mls/hr 05/30/21 09:31 05/30/21 10:05 Normal Saline 0.9% IV 05/30/21 22:49 150 mls/hr .Q6H40M [facility] Administration Ibuprofen 800 mg 05/30/21 08:41 05/30/21 09:00 Ibuprofen 800 Mg Tablet PO 800 mg BID PRN Administration PAIN Metoprolol Succinate 25 mg 05/30/21 09:00 05/30/21 08:48 Metoprolol Succinate 25 Mg Tablet PO 25 mg DAILY [facility] Administration Pantoprazole Sodium 40 mg 05/30/21 09:00 05/30/21 09:00 Pantoprazole 40 Mg Tablet PO 40 mg QDAC [facility] Administration Polyethylene Glycol 17 gm 05/30/21 09:00 05/30/21 08:48 Polyethylene Glycol 3350 17 Gm Packet PO 17 gm DAILY [facility] Administration Saccharomyces Boulardii 250 mg 05/30/21 08:57 05/30/21 09:31 Saccharomyces Boulardii 250 Mg Capsule PO 250 mg BIDWM [facility] Administration Sodium Chloride 10 ml 05/30/21 01:00 05/30/21 08:48 Sodium Chloride Flush 0.9% 10 Ml Syringe IVP Not Given 0100,0900,1700 [facility] - Lab Result Fish Bone Diagrams: 05/30/21 06:30 05/30/21 09:09 - Additional Planning My Orders: My Active Orders 05/30/21 08:38 Out of bed 3+ hours today [RC] TID 05/30/21 08:41 Ibuprofen [Motrin] 800 mg PO BID PRN 05/30/21 08:57 Saccharomyces Boulardii [Florastor] 250 mg PO BIDWM 05/30/21 09:00 Pantoprazole [Protonix] 40 mg PO QDAC 05/30/21 09:31 Sodium Chloride 0.9% [Normal Saline 0.9%] 1,000 ml IV 150 mls/hr 05/30/21 10:15 Vancomycin: Pharmacy To Dose [Vancomycin-Pharmacy To Dose] 1 each ONCE PRN 05/30/21 11:30 Vancomycin Inj [Vancomycin] 2 gm Vancomycin Inj [Vancomycin Hcl] 500 mg Sodium Chloride 0.9% [Normal Saline 0.9%] 500 ml IV ONCE 05/30/21 13:00 cefTRIAXone [Rocephin] 2 gm Sodium Chloride 0.9% Minibag [Normal Saline 0.9% Minibag] 100 ml IV Q24H 05/30/21 14:00 Pregabalin [Lyrica] 75 mg PO TID 05/31/21 05:00 CBC - COMP BLD CT W/AUTO DIFF [HEME] DAILYLAB CK- CREATINE KINASE [CHEM] DAILYLAB CMP [COMPREHENSIVE METABOLIC PANEL] [CHEM] DAILYLAB 05/31/21 11:30 Vancomycin Inj [Vancomycin] 1.75 gm Sodium Chloride 0.9% [Normal Saline 0.9%] 500 ml IV Q24H 06/01/21 05:00 CBC - COMP BLD CT W/AUTO DIFF [HEME] DAILYLAB CK- CREATINE KINASE [CHEM] DAILYLAB CMP [COMPREHENSIVE METABOLIC PANEL] [CHEM] DAILYLAB 06/02/21 05:00 CBC - COMP BLD CT W/AUTO DIFF [HEME] DAILYLAB CK- CREATINE KINASE [CHEM] DAILYLAB CMP [COMPREHENSIVE METABOLIC PANEL] [CHEM] DAILYLAB 06/03/21 05:00 CBC - COMP BLD CT W/AUTO DIFF [HEME] DAILYLAB CMP [COMPREHENSIVE METABOLIC PANEL] [CHEM] DAILYLAB 06/04/21 05:00 CBC - COMP BLD CT W/AUTO DIFF [HEME] DAILYLAB CMP [COMPREHENSIVE METABOLIC PANEL] [CHEM] DAILYLAB Subjective - Subjective Patient Reports: Resting Comfortably Objective Vital Signs: Vital Signs - 24 hr 05/29/21 05/29/21 05/29/21 19:13 19:54 20:24 Temperature 37.4 C Heart Rate 96 99 91 Heart Rate [ Brachial] Respiratory 14 15 19 Rate Blood Pressure 173/102 H 193/99 H 156/103 H Blood Pressure [Right Brachial artery] O2 Saturation 98 97 96 05/29/21 05/29/21 05/29/21 20:30 21:00 21:30 Temperature Heart Rate 89 98 92 Heart Rate [ Brachial] Respiratory 22 21 16 Rate Blood Pressure 156/100 H 163/93 H 168/93 H Blood Pressure [Right Brachial artery] O2 Saturation 100 96 97 05/29/21 05/29/21 05/29/21 22:07 22:30 23:30 Temperature 38.1 C H Heart Rate 93 99 Heart Rate [ 92 Brachial] Respiratory 24 25 H 22 Rate Blood Pressure 154/108 H 154/91 H Blood Pressure 143/85 H [Right Brachial artery] O2 Saturation 98 97 97 05/30/21 05/30/21 04:30 07:47 Temperature 37.3 C 37.7 C Heart Rate Heart Rate [ 90 88 Brachial] Respiratory 20 20 Rate Blood Pressure Blood Pressure 150/80 H 137/75 H [Right Brachial artery] O2 Saturation 96 94 Oxygen O2 Source Room air I&O (Last 24 Hrs): Intake and Output Totals x24h 05/28/21 05/29/21 05/30/21 23:59 23:59 23:59 Intake Total 1412.5 2971.167 Output Total 900 Balance 1412.5 2071.167 General: Alert, Cooperative, No acute distress HEENT: Atraumatic Neck: Supple Lymphatic: no adenopathy Neuro: Alert, Non Focal Cardiovascular: Regular rate, Normal S1, Normal S2 Respiratory: Chest non-tender, No respiratory distress Abdomen: Normal bowel sounds, Soft Extremities: Normal pulses - Results Results: Laboratory Results WBC 6.4 x10^3/uL (4.8-10.8) 05/30/21 06:30 RBC 4.39 10^6/uL (4.70-6.10) L 05/30/21 06:30 Hgb 13.5 g/dL (14.0-18.0) L 05/30/21 06:30 Hct 39.2 % (42.0-52.0) L 05/30/21 06:30 MCV 89.3 fL (80.0-94.0) 05/30/21 06:30 MCH 30.8 pg (27.0-31.0) 05/30/21 06:30 MCHC 34.4 g/dL (32.0-36.0) 05/30/21 06:30 RDW 16.8 % (12.0-15.0) H 05/30/21 06:30 Plt Count 84 10^3/uL (130-450) L 05/30/21 06:30 MPV 9.7 fL (7.4-11.4) 05/30/21 06:30 Neut # (Auto) Not Reportable 05/30/21 06:30 Lymph # (Auto) Not Reportable 05/30/21 06:30 [place] # (Auto) Not Reportable 05/30/21 06:30 Eos # (Auto) Not Reportable 05/30/21 06:30 Baso # (Auto) Not Reportable 05/30/21 06:30 Absolute Nucleated RBC Not Reportable 05/30/21 06:30 Total Counted 100 05/30/21 06:30 Band Neuts % (Manual) 1 % (0-10) 05/30/21 06:30 Abnorm Lymph % (Manual) 0 % 05/30/21 06:30 Nucleated RBC % Not Reportable 05/30/21 06:30 Neutrophils # (Manual) 5.0 10^3/uL (1.5-6.6) 05/30/21 06:30 Lymphocytes # (Manual) 0.6 10^3/uL (1.5-3.5) L 05/30/21 06:30 Monocytes # (Manual) 0.8 10^3/uL (0.0-1.0) 05/30/21 06:30 Eosinophils # (Manual) 0.0 10^3/uL (0-0.7) 05/30/21 06:30 Basophils # (Manual) 0.1 10^3/uL (0-0.1) 05/30/21 06:30 WBC Morphology NORMAL HUSSEIN (NORMAL) 05/30/21 06:30 Platelet Estimate NORMAL (130-450,000) (NORMAL) 05/30/21 06:30 Platelet Morphology NORMAL APPEARANCE (NORMAL) 05/30/21 06:30 RBC Morph Micro Appear NORMAL APPEARANCE (NORMAL) 05/30/21 06:30 Sodium 131 mmol/L (135-145) L 05/30/21 09:09 Potassium 3.2 mmol/L (3.5-5.0) L 05/30/21 06:30 Chloride 97 mmol/L (101-111) L 05/30/21 06:30 Carbon Dioxide 22 mmol/L (21-32) 05/30/21 06:30 Anion Gap 11.0 (6-13) 05/30/21 06:30 BUN 16 mg/dL (6-20) 05/30/21 06:30 Creatinine 1.5 mg/dL (0.6-1.2) H 05/30/21 06:30 Estimated GFR (MDRD) 46 (>89) L 05/30/21 06:30 Glucose 109 mg/dL (70-100) H 05/30/21 06:30 Lactic Acid 1.7 mmol/L (0.5-2.2) 05/29/21 19:50 Uric Acid 5.8 mg/dL (2.6-7.2) 05/29/21 19:10 Calcium 8.5 mg/dL (8.5-10.3) 05/30/21 06:30 Total Bilirubin 1.2 mg/dL (0.2-1.0) H 05/30/21 06:30 AST 60 IU/L (10-42) H 05/30/21 06:30 ALT 45 IU/L (10-60) 05/30/21 06:30 Alkaline Phosphatase 64 IU/L (42-121) 05/30/21 06:30 Ammonia < 10.0 umol/L (7-35) 05/29/21 22:27 Total Creatine Kinase 1751 IU/L (22-269) H* 05/30/21 06:30 Total Protein 8.8 g/dL (6.7-8.2) H 05/30/21 06:30 Albumin 3.1 g/dL (3.2-5.5) L 05/30/21 06:30 Globulin 5.7 g/dL (2.1-4.2) H 05/30/21 06:30 Albumin/Globulin Ratio 0.5 (1.0-2.2) L 05/30/21 06:30 TSH 0.91 uIU/mL (0.34-5.60) 05/29/21 19:10 Cortisol 43.5 ug/dL 05/29/21 19:10 Urine Color YELLOW 05/30/21 02:00 Urine Clarity CLEAR (CLEAR) 05/30/21 02:00 Urine pH 6.0 PH (5.0-7.5) 05/30/21 02:00 Ur Specific [place] 1.020 (1.002-1.030) 05/30/21 02:00 Urine Protein 100 mg/dL (NEGATIVE) H 05/30/21 02:00 Urine Glucose (UA) NEGATIVE mg/dL (NEGATIVE) 05/30/21 02:00 Urine Ketones TRACE mg/dL (NEGATIVE) 05/30/21 02:00 Urine Occult Blood LARGE (NEGATIVE) H 05/30/21 02:00 Urine Nitrite NEGATIVE (NEGATIVE) 05/30/21 02:00 Urine Bilirubin NEGATIVE (NEGATIVE) 05/30/21 02:00 Urine Urobilinogen 2 E.U./dL (NORMAL) H 05/30/21 02:00 Ur Leukocyte Esterase NEGATIVE (NEGATIVE) 05/30/21 02:00 Urine RBC 6-10 /HPF (0-5) H 05/30/21 02:00 Urine WBC 0-3 /HPF (0-3) 05/30/21 02:00 Ur Squamous Epith Cells FEW Squamous (<= Few) 05/30/21 02:00 Urine Bacteria Rare /HPF (None Seen) 05/30/21 02:00 Urine Casts 3-5 Hyaline Casts /LPF 05/30/21 02:00 Urine Culture Comments NOT INDICATED 05/30/21 02:00 Urine Opiates Screen NEGATIVE (NEGATIVE) 05/29/21 02:00 Ur Oxycodone Screen NEGATIVE (NEGATIVE) 05/29/21 02:00 Urine Methadone Screen NEGATIVE (NEGATIVE) 05/29/21 02:00 Ur Propoxyphene Screen NEGATIVE (NEGATIVE) 05/29/21 02:00 Ur Barbiturates Screen NEGATIVE (NEGATIVE) 05/29/21 02:00 Ur Tricyclics Screen NEGATIVE (NEGATIVE) 05/29/21 02:00 Ur Phencyclidine Scrn NEGATIVE (NEGATIVE) 05/29/21 02:00 Ur Amphetamine Screen NEGATIVE (NEGATIVE) 05/29/21 02:00 U Methamphetamines Scrn NEGATIVE (NEGATIVE) 05/29/21 02:00 U Benzodiazepines Scrn NEGATIVE (NEGATIVE) 05/29/21 02:00 Urine Cocaine Screen NEGATIVE (NEGATIVE) 05/29/21 02:00 U Cannabinoids Screen POSITIVE (NEGATIVE) H 05/29/21 02:00 SARS-CoV-2 (PCR) NOT DETECTED 05/29/21 21:34 ABX Reporting Has patient been on IV antibiotics over the past 48 hours?: Yes Current Medications - Current Medications Current Medications: Active Medications Aspirin (Aspirin Chew 81 Mg Tablet) 81 mg PO DAILY [facility] Last Admin: 05/30/21 08:48 Dose: 81 mg Sodium Chloride (Normal Saline 0.9%) 1,000 mls @ 150 mls/hr IV .Q6H40M [facility] Stop: 05/30/21 22:49 Last Infusion: 05/30/21 11:35 Dose: 0 mls/hr Ceftriaxone Sodium 2 gm/ (Sodium Chloride) 100 mls @ 200 mls/hr IV Q24H [facility] Vancomycin HCl 2 gm/Vancomycin HCl 500 mg/ Sodium Chloride 500 mls @ 200 mls/hr IV ONCE ONE Stop: 05/30/21 13:59 Last Admin: 05/30/21 11:35 Dose: 200 mls/hr Vancomycin HCl 1.75 gm/ Sodium (Chloride) 500 mls @ 250 mls/hr IV Q24H [facility] Ibuprofen (Ibuprofen 800 Mg Tablet) 800 mg PO BID PRN PRN Reason: PAIN Last Admin: 05/30/21 09:00 Dose: 800 mg Metoprolol Succinate (Metoprolol Succinate 25 Mg Tablet) 25 mg PO DAILY [facility] Last Admin: 05/30/21 08:48 Dose: 25 mg Ondansetron HCl (Ondansetron 4 Mg/2 Ml Vial) 4 mg IVP Q6HR PRN PRN Reason: Nausea / Vomiting Pantoprazole Sodium (Pantoprazole 40 Mg Tablet) 40 mg PO QDAC [facility] Last Admin: 05/30/21 09:00 Dose: 40 mg Polyethylene Glycol (Polyethylene Glycol 3350 17 Gm Packet) 17 gm PO DAILY [facility] Last Admin: 05/30/21 08:48 Dose: 17 gm Prazosin HCl (Prazosin 1 Mg Capsule) 2 mg PO QPM [facility] Pregabalin (Pregabalin 25 Mg Capsule) 75 mg PO TID [facility] Saccharomyces Boulardii (Saccharomyces Boulardii 250 Mg Capsule) 250 mg PO BIDWM [facility] Last Admin: 05/30/21 09:31 Dose: 250 mg Sodium Chloride (Sodium Chloride Flush 0.9% 10 Ml Syringe) 10 ml IVP PRN PRN PRN Reason: NEEDED PER PROVIDER ORDERS Sodium Chloride (Sodium Chloride Flush 0.9% 10 Ml Syringe) 10 ml IVP 010 0,0900,1700 [facility] Last Admin: 05/30/21 08:48 Dose: Not Given Escitalopram Oxalate [Lexapro] 40 mg PO DAILY 10/20/14 Potassium Citrate [Urocit-K] 20 meq ORAL BID 10/02/15 Pregabalin [Lyrica] 75 mg PO TID 06/26/17 Torsemide [Demadex] 20 mg PO DAILY 04/15/18 Trazodone HCl 100 - 200 mg PO QPM PRN 04/15/18 Metoprolol Succinate [Toprol Xl] 25 mg PO DAILY 07/08/18 Pantoprazole [Protonix] 40 mg PO BIDAC 07/09/18 Aspirin [Juliette] 325 mg PO DAILY 01/23/20 Cholecalciferol [Vitamin D3] 1 cap PO Q7D 01/23/20 Cinacalcet HCl [Sensipar] 30 mg PO DAILY 01/23/20 Febuxostat [Uloric] 40 mg PO DAILY 01/23/20 Folic Acid 1 mg PO DAILY 01/23/20 Ibuprofen [Motrin] 800 mg PO Q6H PRN 01/23/20 Prazosin HCl [Minipress] 6 mg PO QPM 01/23/20 Rosuvastatin Calcium [Crestor] 40 mg PO QPM 01/23/20 buPROPion [Wellbutrin Xl] 450 mg PO DAILY 01/23/20 flaxseed oiL [Flaxseed Oil] 1 cap PO DAILY 01/23/20
[2021-05-30] MEDS ORDERED: VANCOMYCIN INJ 2 GM, VANCOMYCIN INJ 500 MG in SODIUM CHLORIDE 0.9% 500 ML IV ONE (11:30)
[2021-05-30] MEDS ORDERED: PIPERACILLIN/TAZOBACTAM 3.375 GM in SODIUM CHLORIDE 0.9% MINIBAG 100 ML IV SCH ×2 (12:00→13:30)
--- NOTE | 2021-05-30 14:25 | PHARMACY PROGRESS NOTE ---
- Best Possible Medication History Admit Date and Time: 05/29/212215 Processed by: Pharmacy Medication History completed: In progress Patient Interview: Completed Secondary Source(s): Insurance records Patient looked through historic medication list we have on file for him and said everything looked correct except the flaxseed oil and folic acid which he no longer takes (now removed). He states he does not remember everything he is taking and "Terry" will be able to provide a list when they come in, as he believes some of his medications are missing from our records. I confirmed medications that had pharmacy and insurance records supporting their use. If Terry brings in a medication list, our records can be further updated. As the person ultimately responsible for medication therapy, providers are able to order a medication from an existing home medication list in [facility] via the "Reconcile Routine" prior to Confirmation of that medication by system support analyst. Such practice is discouraged except when the physician, in their clinical j udgment, deems that a medical need exists for a medication without regard to previous use.
[2021-05-30] MEDS: cefTRIAXone 2 GM in SODIUM CHLORIDE 0.9% MINIBAG 100 ML IV SCH (14:44)
[2021-05-30] MEDS: CHOLECALCIFEROL 5,000 UNIT CAPSULE PO SCH (14:48)
[2021-05-30] MEDS: PREGABALIN 25 MG CAPSULE PO SCH ×2 (14:48→21:27)
[2021-05-30] MEDS ORDERED: PRAZOSIN 1 MG CAPSULE PO SCH (21:00)
[2021-05-30] MEDS: PRAZOSIN 1 MG CAPSULE PO SCH (21:28)
[2021-05-31] MEDS: SODIUM CHLORIDE FLUSH 0.9% 10 ML SYRINGE IVP PRN ×2 (05:05→14:39)
[2021-05-31] MEDS: PANTOPRAZOLE 40 MG TABLET PO SCH (05:09)
[2021-05-31] MEDS: PREGABALIN 25 MG CAPSULE PO SCH ×3 (05:11→20:29)
[2021-05-31 05:23] LABS: BASOPHILS % (AUTO) 0.5 %; EOSINOPHILS % (AUTO) 0.5 %; HCT - HEMATOCRIT 34.6 % (42.0-52.0); HGB - HEMOGLOBIN 11.8 g/dL (14.0-18.0); LYMPHOCYTES # (AUTO) 0.5 10^3/uL (1.5-3.5); LYMPHOCYTES % (AUTO) 11.8 %; MEAN CORPUSCULAR HEMOGLOBIN 30.7 pg (27.0-31.0); MEAN CORPUSCULAR HGB CONC 34.1 g/dL (32.0-36.0); MEAN CORPUSCULAR VOLUME 90.1 fL (80.0-94.0); MEAN PLATELET VOLUME 9.8 fL (7.4-11.4); MONOCYTES # (AUTO) 0.5 10^3/uL (0.0-1.0); MONOCYTES % (AUTO) 12.8 %; NEUTROPHILS # (AUTO) 3.1 10^3/uL (1.5-6.6); NEUTROPHILS % (AUTO) 73.9 %; PLT - PLATELET COUNT 62 10^3/uL (130-450); RED BLOOD COUNT 3.84 10^6/uL (4.70-6.10); RED CELL DISTRIBUTION WIDTH 17.1 % (12.0-15.0); WHITE BLOOD COUNT 4.2 x10^3/uL (4.8-10.8)
[2021-05-31 05:34] LABS: ALBUMIN 2.7 g/dL (3.2-5.5); ALBUMIN/GLOBULIN RATIO 0.5 (1.0-2.2); BILIRUBIN,TOTAL 0.7 mg/dL (0.2-1.0); CREATININE 1.9 mg/dL (0.6-1.2); POTASSIUM 3.6 mmol/L (3.5-5.0); TOTAL PROTEIN 7.7 g/dL (6.7-8.2)
[2021-05-31] MEDS: ASPIRIN CHEW 81 MG TABLET PO SCH (08:01)
[2021-05-31] MEDS: SACCHAROMYCES BOULARDII 250 MG CAPSULE PO SCH ×2 (08:01→17:22)
[2021-05-31] MEDS: CLOPIDOGREL 75 MG TABLET PO SCH (08:01)
[2021-05-31] MEDS: METOPROLOL SUCCINATE 25 MG TABLET PO SCH (08:01)
[2021-05-31] MEDS: SODIUM CHLORIDE FLUSH 0.9% 10 ML SYRINGE IVP SCH ×2 (08:01→17:22)
[2021-05-31] MEDS: polyethylene glycoL 3350 17 GM PACKET PO SCH (08:01)
[2021-05-31] MEDS: SODIUM CHLORIDE 0.9% 1,000 ML IV SCH ×2 (08:05→17:24)
[2021-05-31] MEDS: IBUPROFEN 800 MG TABLET PO PRN ×2 (08:59→18:23)
[2021-05-31] MEDS ORDERED: diphenhydrAMINE 25 MG CAPSULE PO PRN (10:56)
--- NOTE | 2021-05-31 11:15 | PROVIDER PROGRESS NOTE ---
Assessment/Plan - Problem List (1) Bacteremia Assessment/Plan: 05/31 pt has no fever on last night, will continue IV antibiotics, will repeat blood culture. sensitivity study of blood culture is still pending. 05/30 pt's blood culture show positive for gram positive cocci. pt had negative CXR, and pt has no respiratory distress as well. UA is negative for infection, and pt denies dysuria. pt's skin is relative intact except a few scratch. it is unclear etiology for pt's bacteremia. pt also has lower degree of fever. but pt has normal arrange WBC. order Rocephin and Vancomycin IV, will repeat blood culture after 24-48 hours treatment. (2) Acute metabolic encephalopathy Conclusion/Plan: 05/31 stable.continue neuro check. continue treatment of underline of infection 05/30 improved. pt is alert and oriented plus 2. pt complain back pain, he report he took ibuprofen and Lycia at home, we will resume. continue neuro check. pt's home meds are pending confirm by pharmacy now. (3) Rhabdomyolysis Conclusion/Plan: 05/31 improved. CK is around 1000, reduced from yesterday 1700. continue IVF, and lab monitor. 05/30 CK increased, it is Secondary to fall and immobilization for 5 hrs causing muscle breakdown. we continue IVF, and closely monitor pt's respiratory status and avoid fluid overloaded. continue daily CK and lab monitor. pt's creatinine is slight improved. (4) Hyponatremia Conclusion/Plan: 05/31 Na is 133, improved. improved. Na is 131, likely hypovolmia with hyponatremia. continue IVF with NC, continue lab monitor (5) Accident due to mechanical fall without injury Conclusion/Plan: continue PT/OT to assess for gait/imbalance and coordination issues that may be related to a multifactorial cause and polypharmacy. (6) Morbid obesity with BMI of 45.0-49.9, adult Conclusion/Plan: as pt's hx. we Will education and counseling on safely weight loss and nutritional counseling (7) Sleep apnea Conclusion/Plan: CPAP to continue, RT is consulted for (8) CKD (chronic kidney disease) stage 3, GFR 30-59 ml/min Conclusion/Plan: 05/31 slight worsen, Creatinine is 1.9, hold fluid restrict, continue IVF, lab monitor, avoid nephrotoxic agent slight improved. creatinine is 1.5 on today, History of CKD stage 3 with range between 1.6-2.7. Was on torsemide at home. we will hold torsemide, continue IVF, and lab monitor, avoid nephrotoxic agent (9) CIDP (chronic inflammatory demyelinating polyneuropathy) Conclusion/Plan: Patient was being given IVIG q monthly and most recently this month for his CIDP. Takes lyrica for ongoing neuropathy. pt may continue followup with his neurologist as out. (10) Thrombocytopenia Conclusion/Plan: 05/31 slight worsen, Plt is 62 on today. closely monitor, continue home Plavix now, hold Aspirin. stable, Plts on admit were 84K and unknown etiology. hx of CIDP, avoid lovenox or heparin, continue lab monitor. (11) Hypertension Conclusion/Plan: stable. will resume home meds after confirmed. - Current Meds Current Meds: Current Medications Generic Name Dose Route Start Last Admin Trade Name Freq PRN Reason Stop Dose Admin Aspirin 81 mg 05/30/21 09:00 05/31/21 08:01 Aspirin Chew 81 Mg Tablet PO 81 mg DAILY [facility] Administration Cholecalciferol 5,000 unit 05/30/21 15:00 05/30/21 14:48 Cholecalciferol 5,000 Unit Capsule PO 5,000 unit Q7D [facility] Administration Clopidogrel Bisulfate 75 mg 05/31/21 09:00 05/31/21 08:01 Clopidogrel 75 Mg Tablet PO 75 mg DAILY [facility] Administration Heparin Sodium (Beef Lung) 30 - 50 unit 05/31/21 04:51 05/31/21 05:05 Heparin Flush 50 Units/5 Ml Syringe IVP 50 unit PRN PRN Administration Port Protocol (<24 hours) Ceftriaxone Sodium 2 gm/ 100 mls @ 200 mls/hr 05/30/21 13:00 05/30/21 18:42 Sodium Chloride IV Infused Q24H [facility] Infusion Sodium Chloride 1,000 mls @ 150 mls/hr 05/31/21 08:00 05/31/21 08:05 Normal Saline 0.9% IV 150 mls/hr .Q6H40M [facility] Administration Ibuprofen 800 mg 05/30/21 08:41 05/31/21 08:59 Ibuprofen 800 Mg Tablet PO 800 mg BID PRN Administration PAIN Metoprolol Succinate 25 mg 05/30/21 09:00 05/31/21 08:01 Metoprolol Succinate 25 Mg Tablet PO 25 mg DAILY [facility] Administration Pantoprazole Sodium 40 mg 05/30/21 09:00 05/31/21 05:09 Pantoprazole 40 Mg Tablet PO 40 mg QDAC [facility] Administration Polyethylene Glycol 17 gm 05/30/21 09:00 05/31/21 08:01 Polyethylene Glycol 3350 17 Gm Packet PO 17 gm DAILY [facility] Administration Prazosin HCl 6 mg 05/30/21 21:00 05/30/21 21:28 Prazosin 1 Mg Capsule PO 6 mg QPM [facility] Administration Pregabalin 75 mg 05/30/21 14:00 05/31/21 05:11 Pregabalin 25 Mg Capsule PO 75 mg TID [facility] Administration Saccharomyces Boulardii 250 mg 05/30/21 08:57 05/31/21 08:01 Saccharomyces Boulardii 250 Mg Capsule PO 250 mg BIDWM [facility] Administration Sodium Chloride 10 ml 05/29/21 22:16 05/31/21 05:05 Sodium Chloride Flush 0.9% 10 Ml Syringe IVP 30 ml PRN PRN Administration NEEDED PER PROVIDER ORDERS Sodium Chloride 10 ml 05/30/21 01:00 05/31/21 08:01 Sodium Chloride Flush 0.9% 10 Ml Syringe IVP 10 ml 0100,0900,1700 [facility] Administration - Lab Result Fish Bone Diagrams: 05/31/21 05:10 05/31/21 05:10 - Additional Planning My Orders: My Active Orders 05/30/21 11:10 BIPAP [BIPAP/CPAP - RT] [RC] .prn sleep 05/30/21 13:00 cefTRIAXone [Rocephin] 2 gm Sodium Chloride 0.9% Minibag [Normal Saline 0.9% Minibag] 100 ml IV Q24H 05/30/21 14:00 Pregabalin [Lyrica] 75 mg PO TID 05/30/21 15:00 Cholecalciferol [Vitamin D3] 5,000 unit PO Q7D 05/30/21 21:00 Prazosin [Minipress] 6 mg PO QPM 05/31/21 07:33 Fluid Restriction Discontinuat [RC] .ONCE 05/31/21 08:00 Sodium Chloride 0.9% [Normal Saline 0.9%] 1,000 ml IV 150 mls/hr 05/31/21 09:00 Clopidogrel [Plavix] 75 mg PO DAILY Patient Own Med [Patient Own Medication] 1 each PO DAILY 05/31/21 10:56 diphenhydrAMINE [Benadryl] 25 mg PO Q4HR PRN 05/31/21 11:30 Vancomycin Inj [Vancomycin] 1.75 gm Sodium Chloride 0.9% [Normal Saline 0.9%] 500 ml IV Q24H 05/31/21 18:30 Echo Transthoracic Complete [ECHO] Stat 06/01/21 05:00 CBC - COMP BLD CT W/AUTO DIFF [HEME] DAILYLAB CK- CREATINE KINASE [CHEM] DAILYLAB CMP [COMPREHENSIVE METABOLIC PANEL] [CHEM] DAILYLAB 06/02/21 05:00 CBC - COMP BLD CT W/AUTO DIFF [HEME] DAILYLAB CK- CREATINE KINASE [CHEM] DAILYLAB CMP [COMPREHENSIVE METABOLIC PANEL] [CHEM] DAILYLAB 06/03/21 05:00 CBC - COMP BLD CT W/AUTO DIFF [HEME] DAILYLAB CMP [COMPREHENSIVE METABOLIC PANEL] [CHEM] DAILYLAB 06/04/21 05:00 CBC - COMP BLD CT W/AUTO DIFF [HEME] DAILYLAB CMP [COMPREHENSIVE METABOLIC PANEL] [CHEM] DAILYLAB Subjective - Subjective Patient Reports: Resting Comfortably Objective Vital Signs: Vital Signs - 24 hr 05/30/21 05/30/21 05/30/21 11:39 11:57 15:32 Temperature 37 C 37 C 36.9 C Heart Rate 83 Heart Rate [ 83 81 Brachial] Respiratory 20 20 20 Rate Blood Pressure [Left Radial artery] Blood Pressure 117/74 136/86 H [Right Brachial artery] Blood Pressure [Right Radial artery] O2 Saturation 95 95 98 05/30/21 05/30/21 05/30/21 20:14 20:43 22:51 Temperature 37.9 C Heart Rate 82 82 Heart Rate [ 93 Brachial] Respiratory 16 Rate Blood Pressure [Left Radial artery] Blood Pressure 137/79 H [Right Brachial artery] Blood Pressure [Right Radial artery] O2 Saturation 100 05/30/21 05/31/21 05/31/21 23:45 00:42 03:00 Temperature 36.6 C Heart Rate 92 86 Heart Rate [ 90 Brachial] Respiratory 20 Rate Blood Pressure 137/97 H [Left Radial artery] Blood Pressure [Right Brachial artery] Blood Pressure [Right Radial artery] O2 Saturation 98 05/31/21 05/31/21 05:00 07:23 Temperature 36.6 C 37.3 C Heart Rate Heart Rate [ 87 84 Brachial] Respiratory 20 20 Rate Blood Pressure [Left Radial artery] Blood Pressure [Right Brachial artery] Blood Pressure 106/78 113/81 H [Right Radial artery] O2 Saturation 94 96 Oxygen O2 Source Room air I&O (Last 24 Hrs): Intake and Output Totals x24h 05/29/21 05/30/21 05/31/21 23:59 23:59 23:59 Intake Total 1412.5 4896.167 2180 Output Total 1100 Balance 1412.5 3796.167 2180 General: Alert, Cooperative, No acute distress HEENT: Atraumatic Neck: Supple Lymphatic: no adenopathy Neuro: Alert, Non Focal Cardiovascular: Regular rate, Normal S1, Normal S2 Respiratory: Chest non-tender, No respiratory distress Abdomen: Normal bowel sounds, Soft Extremities: Normal pulses - Results Results: Laboratory Results WBC 4.2 x10^3/uL (4.8-10.8) L 05/31/21 05:10 RBC 3.84 10^6/uL (4.70-6.10) L 05/31/21 05:10 Hgb 11.8 g/dL (14.0-18.0) L 05/31/21 05:10 Hct 34.6 % (42.0-52.0) L 05/31/21 05:10 MCV 90.1 fL (80.0-94.0) 05/31/21 05:10 MCH 30.7 pg (27.0-31.0) 05/31/21 05:10 MCHC 34.1 g/dL (32.0-36.0) 05/31/21 05:10 RDW 17.1 % (12.0-15.0) H 05/31/21 05:10 Plt Count 62 10^3/uL (130-450) L 05/31/21 05:10 MPV 9.8 fL (7.4-11.4) 05/31/21 05:10 Neut # (Auto) 3.1 10^3/uL (1.5-6.6) 05/31/21 05:10 Lymph # (Auto) 0.5 10^3/uL (1.5-3.5) L 05/31/21 05:10 [place] # (Auto) 0.5 10^3/uL (0.0-1.0) 05/31/21 05:10 Eos # (Auto) 0.0 10^3/uL (0.0-0.7) 05/31/21 05:10 Baso # (Auto) 0.0 10^3/uL (0.0-0.1) 05/31/21 05:10 Absolute Nucleated RBC 0.00 x10^3/uL 05/31/21 05:10 Total Counted 100 05/30/21 06:30 Band Neuts % (Manual) 1 % (0-10) 05/30/21 06:30 Abnorm Lymph % (Manual) 0 % 05/30/21 06:30 Nucleated RBC % 0.0 /100WBC 05/31/21 05:10 Neutrophils # (Manual) 5.0 10^3/uL (1.5-6.6) 05/30/21 06:30 Lymphocytes # (Manual) 0.6 10^3/uL (1.5-3.5) L 05/30/21 06:30 Monocytes # (Manual) 0.8 10^3/uL (0.0-1.0) 05/30/21 06:30 Eosinophils # (Manual) 0.0 10^3/uL (0-0.7) 05/30/21 06:30 Basophils # (Manual) 0.1 10^3/uL (0-0.1) 05/30/21 06:30 WBC Morphology NORMAL HUSSEIN (NORMAL) 05/30/21 06:30 Platelet Estimate NORMAL (130-450,000) (NORMAL) 05/30/21 06:30 Platelet Morphology NORMAL APPEARANCE (NORMAL) 05/30/21 06:30 RBC Morph Micro Appear NORMAL APPEARANCE (NORMAL) 05/30/21 06:30 Sodium 133 mmol/L (135-145) L 05/31/21 05:10 Potassium 3.6 mmol/L (3.5-5.0) 05/31/21 05:10 Chloride 102 mmol/L (101-111) 05/31/21 05:10 Carbon Dioxide 20 mmol/L (21-32) L 05/31/21 05:10 Anion Gap 11.0 (6-13) 05/31/21 05:10 BUN 25 mg/dL (6-20) H 05/31/21 05:10 Creatinine 1.9 mg/dL (0.6-1.2) H 05/31/21 05:10 Estimated GFR (MDRD) 35 (>89) L 05/31/21 05:10 Glucose 118 mg/dL (70-100) H 05/31/21 05:10 Lactic Acid 1.7 mmol/L (0.5-2.2) 05/29/21 19:50 Uric Acid 5.8 mg/dL (2.6-7.2) 05/29/21 19:10 Calcium 8.0 mg/dL (8.5-10.3) L 05/31/21 05:10 Total Bilirubin 0.7 mg/dL (0.2-1.0) 05/31/21 05:10 AST 52 IU/L (10-42) H 05/31/21 05:10 ALT 38 IU/L (10-60) 05/31/21 05:10 Alkaline Phosphatase 49 IU/L (42-121) 05/31/21 05:10 Ammonia < 10.0 umol/L (7-35) 05/29/21 22:27 Total Creatine Kinase 1024 IU/L (22-269) H* 05/31/21 05:10 Total Protein 7.7 g/dL (6.7-8.2) 05/31/21 05:10 Albumin 2.7 g/dL (3.2-5.5) L 05/31/21 05:10 Globulin 5.0 g/dL (2.1-4.2) H 05/31/21 05:10 Albumin/Globulin Ratio 0.5 (1.0-2.2) L 05/31/21 05:10 TSH 0.91 uIU/mL (0.34-5.60) 05/29/21 19:10 Cortisol 43.5 ug/dL 05/29/21 19:10 Urine Color YELLOW 05/30/21 02:00 Urine Clarity CLEAR (CLEAR) 05/30/21 02:00 Urine pH 6.0 PH (5.0-7.5) 05/30/21 02:00 Ur Specific [place] 1.020 (1.002-1.030) 05/30/21 02:00 Urine Protein 100 mg/dL (NEGATIVE) H 05/30/21 02:00 Urine Glucose (UA) NEGATIVE mg/dL (NEGATIVE) 05/30/21 02:00 Urine Ketones TRACE mg/dL (NEGATIVE) 05/30/21 02:00 Urine Occult Blood LARGE (NEGATIVE) H 05/30/21 02:00 Urine Nitrite NEGATIVE (NEGATIVE) 05/30/21 02:00 Urine Bilirubin NEGATIVE (NEGATIVE) 05/30/21 02:00 Urine Urobilinogen 2 E.U./dL (NORMAL) H 05/30/21 02:00 Ur Leukocyte Esterase NEGATIVE (NEGATIVE) 05/30/21 02:00 Urine RBC 6-10 /HPF (0-5) H 05/30/21 02:00 Urine WBC 0-3 /HPF (0-3) 05/30/21 02:00 Ur Squamous Epith Cells FEW Squamous (<= Few) 05/30/21 02:00 Urine Bacteria Rare /HPF (None Seen) 05/30/21 02:00 Urine Casts 3-5 Hyaline Casts /LPF 05/30/21 02:00 Urine Culture Comments NOT INDICATED 05/30/21 02:00 Urine Opiates Screen NEGATIVE (NEGATIVE) 05/29/21 02:00 Ur Oxycodone Screen NEGATIVE (NEGATIVE) 05/29/21 02:00 Urine Methadone Screen NEGATIVE (NEGATIVE) 05/29/21 02:00 Ur Propoxyphene Screen NEGATIVE (NEGATIVE) 05/29/21 02:00 Ur Barbiturates Screen NEGATIVE (NEGATIVE) 05/29/21 02:00 Ur Tricyclics Screen NEGATIVE (NEGATIVE) 05/29/21 02:00 Ur Phencyclidine Scrn NEGATIVE (NEGATIVE) 05/29/21 02:00 Ur Amphetamine Screen NEGATIVE (NEGATIVE) 05/29/21 02:00 U Methamphetamines Scrn NEGATIVE (NEGATIVE) 05/29/21 02:00 U Benzodiazepines Scrn NEGATIVE (NEGATIVE) 05/29/21 02:00 Urine Cocaine Screen NEGATIVE (NEGATIVE) 05/29/21 02:00 U Cannabinoids Screen POSITIVE (NEGATIVE) H 05/29/21 02:00 SARS-CoV-2 (PCR) NOT DETECTED 05/29/21 21:34 ABX Reporting Has patient been on IV antibiotics over the past 48 hours?: Yes Current Medications - Current Medications Current Medications: Active Medications Bupropion HCl (Bupropion Xl 150 Mg Tablet) 450 mg PO DAILY [facility] Cholecalciferol (Cholecalciferol 5,000 Unit Capsule) 5,000 unit PO Q7D [facility] Last Admin: 05/30/21 14:48 Dose: 5,000 unit Clopidogrel Bisulfate (Clopidogrel 75 Mg Tablet) 75 mg PO DAILY [facility] Last Admin: 05/31/21 08:01 Dose: 75 mg Diphenhydramine HCl (Diphenhydramine 25 Mg Capsule) 25 mg PO Q4HR PRN PRN Reason: Allergy Symptoms Heparin Sodium (Beef Lung) (Heparin Flush 50 Units/5 Ml Syringe) 30 - 50 unit IVP PRN PRN PRN Reason: Port Protocol (<24 hours) Last Admin: 05/31/21 05:05 Dose: 50 unit Ceftriaxone Sodium 2 gm/ (Sodium Chloride) 100 mls @ 200 mls/hr IV Q24H [facility] Last Infusion: 05/30/21 18:42 Dose: Infused Vancomycin HCl 1.75 gm/ Sodium (Chloride) 500 mls @ 250 mls/hr IV Q24H [facility] Sodium Chloride (Normal Saline 0.9%) 1,000 mls @ 150 mls/hr IV .Q6H40M [facility] Last Admin: 05/31/21 08:05 Dose: 150 mls/hr Ibuprofen (Ibuprofen 800 Mg Tablet) 800 mg PO BID PRN PRN Reason: PAIN Last Admin: 05/31/21 08:59 Dose: 800 mg Metoprolol Succinate (Metoprolol Succinate 25 Mg Tablet) 25 mg PO DAILY [facility] Last Admin: 05/31/21 08:01 Dose: 25 mg Ondansetron HCl (Ondansetron 4 Mg/2 Ml Vial) 4 mg IVP Q6HR PRN PRN Reason: Nausea / Vomiting Pantoprazole Sodium (Pantoprazole 40 Mg Tablet) 40 mg PO QDAC [facility] Last Admin: 05/31/21 05:09 Dose: 40 mg Febuxostat [Uloric (] 40 Mg Tabs) 1 each PO DAILY [facility] Polyethylene Glycol (Polyethylene Glycol 3350 17 Gm Packet) 17 gm PO DAILY [facility] Last Admin: 05/31/21 08:01 Dose: 17 gm Prazosin HCl (Prazosin 1 Mg Capsule) 6 mg PO QPM [facility] Last Admin: 05/30/21 21:28 Dose: 6 mg Pregabalin (Pregabalin 25 Mg Capsule) 75 mg PO TID [facility] Last Admin: 05/31/21 05:11 Dose: 75 mg Saccharomyces Boulardii (Saccharomyces Boulardii 250 Mg Capsule) 250 mg PO BIDWM [facility] Last Admin: 05/31/21 08:01 Dose: 250 mg Sodium Chloride (Sodium Chloride Flush 0.9% 10 Ml Syringe) 10 ml IVP PRN PRN PRN Reason: NEEDED PER PROVIDER ORDERS Last Admin: 05/31/21 05:05 Dose: 30 ml Sodium Chloride (Sodium Chloride Flush 0.9% 10 Ml Syringe) 10 ml IVP 0100,0900,1700 [facility] Last Admin: 05/31/21 08:01 Dose: 10 ml Aspirin [[place]] 325 mg PO DAILY 05/30/21 Cholecalciferol [Vitamin D3] 5,000 unit PO Q7D 05/30/21 Cinacalcet HCl [Sensipar] 30 mg PO DAILY 05/30/21 Clopidogrel [Plavix] 75 mg PO DAILY 05/30/21 Escitalopram Oxalate 40 mg PO DAILY 05/30/21 Febuxostat [Uloric] 40 mg PO DAILY 05/30/21 Ibuprofen [Motrin] 800 mg PO Q6H PRN 05/30/21 Metoprolol Succinate [Toprol Xl] 25 mg PO DAILY 05/30/21 Pantoprazole [Protonix] 40 mg PO BIDAC 05/30/21 Potassium Citrate [Potassium Citrate ER] 20 meq PO BID 05/30/21 Prazosin HCl [Minipress] 6 mg PO QPM 05/30/21 Pregabalin [Lyrica] 75 mg PO TID 05/30/21 Rosuvastatin Calcium [Crestor] 40 mg PO QPM 05/30/21 Testosterone Cypionate 200 mg IM Q14D 05/30/21 Torsemide 20 mg PO DAILY 05/30/21 Trazodone HCl 100 - 200 mg PO QPM PRN 05/30/21 buPROPion [Wellbutrin Xl] 450 mg PO DAILY 05/30/21
[2021-05-31] MEDS: VANCOMYCIN INJ 1.75 GM in SODIUM CHLORIDE 0.9% 500 ML IV SCH (11:58)
[2021-05-31] MEDS: FEBUXOSTAT 40 MG PO SCH (14:23)
[2021-05-31] MEDS: cefTRIAXone 2 GM in SODIUM CHLORIDE 0.9% MINIBAG 100 ML IV SCH (14:40)
[2021-05-31] MEDS: ACETAMINOPHEN 325 MG TABLET PO PRN (20:28)
[2021-05-31] MEDS: PRAZOSIN 1 MG CAPSULE PO SCH (20:28)
[2021-05-31 23:12] LABS: BILIRUBIN,URINE NEGATIVE (NEGATIVE); GLUCOSE, URINE (UA) NEGATIVE (NEGATIVE); KETONES,URINE (UA) NEGATIVE (NEGATIVE); LEUKOCYTE ESTERASE, URINE NEGATIVE (NEGATIVE); NITRITE,URINE NEGATIVE (NEGATIVE); OCCULT BLOOD,URINE TRACE-LYSE (NEGATIVE); PROTEIN,URINE 100 mg/dL (NEGATIVE); UROBILINOGEN,URINE 1 (NORMAL) E.U./dL (NORMAL)
[2021-05-31 23:19] LABS: CLARITY,URINE CLEAR (CLEAR)
[2021-05-31 23:22] LABS: BACTERIA,URINE Rare /HPF (None Seen); RBC,URINE 0-5 /HPF (0-5); SQUAMOUS EPITHELIAL CELL,UR RARE Squamous (<= Few); WBC,URINE 0-3 /HPF (0-3)
[2021-05-31 23:23] LABS: CASTS, URINE 3-5 Hyaline Casts /LPF; MUCUS,URINE Moderate Strands
[2021-06-01] MEDS: SODIUM CHLORIDE 0.9% 1,000 ML IV SCH ×5 (00:29→23:32)
[2021-06-01] MEDS: SODIUM CHLORIDE FLUSH 0.9% 10 ML SYRINGE IVP SCH ×5 (01:36→23:32)
[2021-06-01] MEDS: ACETAMINOPHEN 325 MG TABLET PO PRN ×2 (01:43→19:43)
[2021-06-01] MEDS: PANTOPRAZOLE 40 MG TABLET PO SCH (06:34)
[2021-06-01] MEDS: PREGABALIN 25 MG CAPSULE PO SCH ×3 (06:37→22:19)
[2021-06-01 06:44] LABS: BASOPHILS % (AUTO) 0.6 %; EOSINOPHILS # (AUTO) 0.1 10^3/uL (0.0-0.7); HCT - HEMATOCRIT 35.6 % (42.0-52.0); LYMPHOCYTES # (AUTO) 0.9 10^3/uL (1.5-3.5); LYMPHOCYTES % (AUTO) 25.6 %; MEAN CORPUSCULAR HEMOGLOBIN 30.8 pg (27.0-31.0); MEAN CORPUSCULAR HGB CONC 33.7 g/dL (32.0-36.0); MEAN CORPUSCULAR VOLUME 91.5 fL (80.0-94.0); MEAN PLATELET VOLUME 9.8 fL (7.4-11.4); MONOCYTES # (AUTO) 0.4 10^3/uL (0.0-1.0); MONOCYTES % (AUTO) 11.2 %; NEUTROPHILS # (AUTO) 2.2 10^3/uL (1.5-6.6); NEUTROPHILS % (AUTO) 60.3 %; PLT - PLATELET COUNT 92 10^3/uL (130-450); RED BLOOD COUNT 3.89 10^6/uL (4.70-6.10); RED CELL DISTRIBUTION WIDTH 17.5 % (12.0-15.0); WHITE BLOOD COUNT 3.6 x10^3/uL (4.8-10.8)
[2021-06-01 06:50] LABS: ALBUMIN 2.8 g/dL (3.2-5.5); ALBUMIN/GLOBULIN RATIO 0.5 (1.0-2.2); BILIRUBIN,TOTAL 0.6 mg/dL (0.2-1.0); CALCIUM 8.3 mg/dL (8.5-10.3); CREATININE 1.6 mg/dL (0.6-1.2); POTASSIUM 3.9 mmol/L (3.5-5.0)
[2021-06-01] MEDS: SACCHAROMYCES BOULARDII 250 MG CAPSULE PO SCH ×2 (07:42→17:14)
[2021-06-01] MEDS: buPROPion XL 150 MG TABLET PO SCH (08:27)
[2021-06-01] MEDS: CLOPIDOGREL 75 MG TABLET PO SCH (08:27)
[2021-06-01] MEDS: polyethylene glycoL 3350 17 GM PACKET PO SCH (08:28)
[2021-06-01] MEDS: METOPROLOL SUCCINATE 25 MG TABLET PO SCH (08:28)
[2021-06-01] MEDS: FEBUXOSTAT 40 MG PO SCH (08:29)
[2021-06-01] MEDS ORDERED: IOVERSOL 320 100 ML VIAL IVP ONE ×2 (09:14→15:01)
[2021-06-01] MEDS: ASPIRIN CHEW 81 MG TABLET PO SCH (10:01)
[2021-06-01] MEDS: VANCOMYCIN INJ 1.75 GM in SODIUM CHLORIDE 0.9% 500 ML IV SCH (11:35)
--- NOTE | 2021-06-01 11:56 | PROVIDER PROGRESS NOTE ---
Assessment/Plan - Problem List (1) Bacteremia Assessment/Plan: 05/15 pt have fever on last night. repeat blood culture is pending. first blood culture show positive for strep infantarius ssp infantar, group D streptococci. pt's ECHO study normal EF without obvious Vegetation. pt also complain of back pain today. pt has hx of back surgery lumbar spine laminectomy with hardware. we will order CT of spine, continue IV of antibiotics, add pain medication, continue Lyrica. 05/31 pt has no fever on last night, will continue IV antibiotics, will repeat blood culture. sensitivity study of blood culture is still pending. 05/30 pt's blood culture show positive for gram positive cocci. pt had negative CXR, and pt has no respiratory distress as well. UA is negative for infection, and pt denies dysuria. pt's skin is relative intact except a few scratch. it is unclear etiology for pt's bacteremia. pt also has lower degree of fever. but pt has normal arrange WBC. order Rocephin and Vancomycin IV, will repeat blood culture after 24-48 hours treatment. (2) Acute metabolic encephalopathy Conclusion/Plan: 05/31 stable, pt tell me he had back surgery on 2004. 05/31 stable.continue neuro check. continue treatment of underline of infection 05/30 improved. pt is alert and oriented plus 2. pt complain back pain, he report he took ibuprofen and Lycia at home, we will resume. continue neuro check. pt's home meds are pending confirm by pharmacy now. (3) Rhabdomyolysis Conclusion/Plan: 06/01 CK is around 1100, creatinine improved. continue IVF, and lab monitor 05/31 improved. CK is around 1000, reduced from yesterday 1700. continue IVF, and lab monitor. 05/30 CK increased, it is Secondary to fall and immobilization for 5 hrs causing muscle breakdown. we continue IVF, and closely monitor pt's respiratory status and avoid fluid overloaded. continue daily CK and lab monitor. pt's creatinine is slight improved. (4) Hyponatremia Conclusion/Plan: 06/01 resolved. Na 137 05/31 Na is 133, improved. improved. Na is 131, likely hypovolmia with hyponatremia. continue IVF with NC, continue lab monitor (5) Accident due to mechanical fall without injury Conclusion/Plan: continue PT/OT to assess for gait/imbalance and coordination issues that may be related to a multifactorial cause and polypharmacy. (6) Morbid obesity with BMI of 45.0-49.9, adult Conclusion/Plan: as pt's hx. we Will education and counseling on safely weight loss and nutritional counseling (7) Sleep apnea Conclusion/Plan: CPAP to continue, RT is consulted for (8) CKD (chronic kidney disease) stage 3, GFR 30-59 ml/min Conclusion/Plan: 05/31 creatinine is 1.6, improved. continue IVF and lab monitor 05/31 slight worsen, Creatinine is 1.9, hold fluid restrict, continue IVF, lab monitor, avoid nephrotoxic agent slight improved. creatinine is 1.5 on today, History of CKD stage 3 with range between 1.6-2.7. Was on torsemide at home. we will hold torsemide, continue IVF, and lab monitor, avoid nephrotoxic agent (9) CIDP (chronic inflammatory demyelinating polyneuropathy) Conclusion/Plan: Patient was being given IVIG q monthly and most recently this month for his CIDP. Takes lyrica for ongoing neuropathy. pt may continue followup with his neurologist as out. (10) Thrombocytopenia Conclusion/Plan: 06/01 improved. Plt is 92, continue home meds Plavix and aspirin 05/31 slight worsen, Plt is 62 on today. closely monitor, continue home Plavix now, hold Aspirin. stable, Plts on admit were 84K and unknown etiology. hx of CIDP, avoid lovenox or heparin, continue lab monitor. (11) Hypertension Conclusion/Plan: stable. will resume home meds after confirmed. - Current Meds Current Meds: Current Medications Generic Name Dose Route Start Last Admin Trade Name Dallin PRN Reason Stop Dose Admin Acetaminophen 650 mg 05/31/21 20:13 06/01/21 01:43 Acetaminophen 325 Mg Tablet PO 650 mg Q4HR PRN Administration Pain or Fever > 38C (100.4F) Aspirin 81 mg 06/01/21 10:00 06/01/21 10:01 Aspirin Chew 81 Mg Tablet PO 81 mg DAILY [facility] Administration Bupropion HCl 450 mg 06/01/21 09:00 06/01/21 08:27 Bupropion Xl 150 Mg Tablet PO 450 mg DAILY [facility] Administration Cholecalciferol 5,000 unit 05/30/21 15:00 05/30/21 14:48 Cholecalciferol 5,000 Unit Capsule PO 5,000 unit Q7D [facility] Administration Clopidogrel Bisulfate 75 mg 05/31/21 09:00 06/01/21 08:27 Clopidogrel 75 Mg Tablet PO 75 mg DAILY [facility] Administration Heparin Sodium (Beef Lung) 30 - 50 unit 05/31/21 04:51 05/31/21 05:05 Heparin Flush 50 Units/5 Ml Syringe IVP 50 unit PRN PRN Administration Port Protocol (<24 hours) Ceftriaxone Sodium 2 gm/ 100 mls @ 200 mls/hr 05/30/21 13:00 05/31/21 15:10 Sodium Chloride IV Infused Q24H [facility] Infusion Vancomycin HCl 1.75 gm/ Sodium 500 mls @ 250 mls/hr 05/31/21 11:30 06/01/21 11:35 Chloride IV 250 mls/hr Q24H [facility] Administration Sodium Chloride 1,000 mls @ 150 mls/hr 05/31/21 08:00 06/01/21 11:38 Normal Saline 0.9% IV 0 mls/hr .Q6H40M [facility] Infusion Ibuprofen 800 mg 05/30/21 08:41 05/31/21 18:23 Ibuprofen 800 Mg Tablet PO 800 mg BID PRN Administration PAIN Metoprolol Succinate 25 mg 05/30/21 09:00 06/01/21 08:28 Metoprolol Succinate 25 Mg Tablet PO 25 mg DAILY [facility] Administration Pantoprazole Sodium 40 mg 05/30/21 09:00 06/01/21 06:34 Pantoprazole 40 Mg Tablet PO 40 mg QDAC [facility] Administration Febuxostat [Uloric 1 each 05/31/21 09:00 06/01/21 08:29 ] 40 Mg Tabs PO Not Given DAILY [facility] Polyethylene Glycol 17 gm 05/30/21 09:00 06/01/21 08:28 Polyethylene Glycol 3350 17 Gm Packet PO 17 gm DAILY [facility] Administration Prazosin HCl 6 mg 05/30/21 21:00 05/31/21 20:28 Prazosin 1 Mg Capsule PO 6 mg QPM [facility] Administration Pregabalin 75 mg 05/30/21 14:00 06/01/21 06:37 Pregabalin 25 Mg Capsule PO 75 mg TID [facility] Administration Saccharomyces Boulardii 250 mg 05/30/21 08:57 06/01/21 07:42 Saccharomyces Boulardii 250 Mg Capsule PO 250 mg BIDWM [facility] Administration Sodium Chloride 10 ml 05/29/21 22:16 05/31/21 14:39 Sodium Chloride Flush 0.9% 10 Ml Syringe IVP 10 ml PRN PRN Administration NEEDED PER PROVIDER ORDERS Sodium Chloride 10 ml 05/30/21 01:00 06/01/21 08:29 Sodium Chloride Flush 0.9% 10 Ml Syringe IVP 10 ml 0100,0900,1700 [facility] Administration - Lab Result Fish Bone Diagrams: 06/01/21 06:20 06/01/21 06:20 - Additional Planning My Orders: My Active Orders 05/31/21 10:56 diphenhydrAMINE [Benadryl] 25 mg PO Q4HR PRN 05/31/21 11:30 Vancomycin Inj [Vancomycin] 1.75 gm Sodium Chloride 0.9% [Normal Saline 0.9%] 500 ml IV Q24H 05/31/21 Dinner Low Sodium Diet [DIET] 05/31/21 18:30 Echo Transthoracic Complete [ECHO] Stat 06/01/21 08:56 LUMBAR SPINE W [CT] Stat 06/01/21 08:58 oxyCODONE [Roxicodone] 5 mg PO Q4HR PRN 06/01/21 09:00 buPROPion [Wellbutrin Xl] 450 mg PO DAILY 06/01/21 10:00 Aspirin Chewable [[place] Aspirin] 81 mg PO DAILY 06/02/21 05:00 CBC - COMP BLD CT W/AUTO DIFF [HEME] DAILYLAB CK- CREATINE KINASE [CHEM] DAILYLAB CMP [COMPREHENSIVE METABOLIC PANEL] [CHEM] DAILYLAB 06/03/21 05:00 CBC - COMP BLD CT W/AUTO DIFF [HEME] DAILYLAB CMP [COMPREHENSIVE METABOLIC PANEL] [CHEM] DAILYLAB 06/04/21 05:00 CBC - COMP BLD CT W/AUTO DIFF [HEME] DAILYLAB CMP [COMPREHENSIVE METABOLIC PANEL] [CHEM] DAILYLAB Subjective - Subjective Patient Reports: Back Pain Objective Vital Signs: Vital Signs - 24 hr 05/31/21 05/31/21 05/31/21 12:07 17:00 18:21 Temperature 36.9 C 37.2 C 38.3 C H Heart Rate [ 80 84 Brachial] Respiratory 20 20 Rate Blood Pressure 99/60 132/69 H [Right Brachial artery] Blood Pressure [Right Radial artery] O2 Saturation 97 98 05/31/21 05/31/21 06/01/21 19:15 21:55 00:00 Temperature 39.3 C H 37.1 C 36.3 C L Heart Rate [ 83 Brachial] Respiratory 18 Rate Blood Pressure 115/61 [Right Brachial artery] Blood Pressure [Right Radial artery] O2 Saturation 97 06/01/21 07:47 Temperature 37.5 C Heart Rate [ 94 Brachial] Respiratory 18 Rate Blood Pressure [Right Brachial artery] Blood Pressure 159/86 H [Right Radial artery] O2 Saturation 100 Oxygen O2 Source Room air I&O (Last 24 Hrs): Intake and Output Totals x24h 05/30/21 05/31/21 06/01/21 23:59 23:59 23:59 Intake Total 4896.167 5817.5 3807.5 Output Total 1100 1075 Balance 3796.167 4742.5 3807.5 General: Alert, Mild distress HEENT: Atraumatic Neck: Supple Lymphatic: no adenopathy Neuro: Alert, Non Focal Cardiovascular: Regular rate Respiratory: Chest non-tender, No respiratory distress Abdomen: Normal bowel sounds, Soft Extremities: Other (normal intact neurovascular examination at Bilateral lower extremities) - Results Results: Laboratory Results WBC 3.6 x10^3/uL (4.8-10.8) L 06/01/21 06:20 RBC 3.89 10^6/uL (4.70-6.10) L 06/01/21 06:20 Hgb 12.0 g/dL (14.0-18.0) L 06/01/21 06:20 Hct 35.6 % (42.0-52.0) L 06/01/21 06:20 MCV 91.5 fL (80.0-94.0) 06/01/21 06:20 MCH 30.8 pg (27.0-31.0) 06/01/21 06:20 MCHC 33.7 g/dL (32.0-36.0) 06/01/21 06:20 RDW 17.5 % (12.0-15.0) H 06/01/21 06:20 Plt Count 92 10^3/uL (130-450) L 06/01/21 06:20 MPV 9.8 fL (7.4-11.4) 06/01/21 06:20 Neut # (Auto) 2.2 10^3/uL (1.5-6.6) 06/01/21 06:20 Lymph # (Auto) 0.9 10^3/uL (1.5-3.5) L 06/01/21 06:20 [place] # (Auto) 0.4 10^3/uL (0.0-1.0) 06/01/21 06:20 Eos # (Auto) 0.1 10^3/uL (0.0-0.7) 06/01/21 06:20 Baso # (Auto) 0.0 10^3/uL (0.0-0.1) 06/01/21 06:20 Absolute Nucleated RBC 0.00 x10^3/uL 06/01/21 06:20 Total Counted 100 05/30/21 06:30 Band Neuts % (Manual) 1 % (0-10) 05/30/21 06:30 Abnorm Lymph % (Manual) 0 % 05/30/21 06:30 Nucleated RBC % 0.0 /100WBC 06/01/21 06:20 Neutrophils # (Manual) 5.0 10^3/uL (1.5-6.6) 05/30/21 06:30 Lymphocytes # (Manual) 0.6 10^3/uL (1.5-3.5) L 05/30/21 06:30 Monocytes # (Manual) 0.8 10^3/uL (0.0-1.0) 05/30/21 06:30 Eosinophils # (Manual) 0.0 10^3/uL (0-0.7) 05/30/21 06:30 Basophils # (Manual) 0.1 10^3/uL (0-0.1) 05/30/21 06:30 WBC Morphology NORMAL HUSSEIN (NORMAL) 05/30/21 06:30 Platelet Estimate NORMAL (130-450,000) (NORMAL) 05/30/21 06:30 Platelet Morphology NORMAL APPEARANCE (NORMAL) 05/30/21 06:30 RBC Morph Micro Appear NORMAL APPEARANCE (NORMAL) 05/30/21 06:30 Sodium 137 mmol/L (135-145) 06/01/21 06:20 Potassium 3.9 mmol/L (3.5-5.0) 06/01/21 06:20 Chloride 105 mmol/L (101-111) 06/01/21 06:20 Carbon Dioxide 19 mmol/L (21-32) L 06/01/21 06:20 Anion Gap 13.0 (6-13) 06/01/21 06:20 BUN 18 mg/dL (6-20) 06/01/21 06:20 Creatinine 1.6 mg/dL (0.6-1.2) H 06/01/21 06:20 Estimated GFR (MDRD) 43 (>89) L 06/01/21 06:20 Glucose 95 mg/dL (70-100) 06/01/21 06:20 Serum Osmolality 271 mOsm/kg (278-305) L 05/29/21 19:10 Lactic Acid 1.7 mmol/L (0.5-2.2) 05/29/21 19:50 Uric Acid 5.8 mg/dL (2.6-7.2) 05/29/21 19:10 Calcium 8.3 mg/dL (8.5-10.3) L 06/01/21 06:20 Total Bilirubin 0.6 mg/dL (0.2-1.0) 06/01/21 06:20 AST 64 IU/L (10-42) H 06/01/21 06:20 ALT 42 IU/L (10-60) 06/01/21 06:20 Alkaline Phosphatase 61 IU/L (42-121) 06/01/21 06:20 Ammonia < 10.0 umol/L (7-35) 05/29/21 22:27 Total Creatine Kinase 1121 IU/L (22-269) H* 06/01/21 06:20 Total Protein 8.0 g/dL (6.7-8.2) 06/01/21 06:20 Albumin 2.8 g/dL (3.2-5.5) L 06/01/21 06:20 Globulin 5.2 g/dL (2.1-4.2) H 06/01/21 06:20 Albumin/Globulin Ratio 0.5 (1.0-2.2) L 06/01/21 06:20 TSH 0.91 uIU/mL (0.34-5.60) 05/29/21 19:10 Cortisol 43.5 ug/dL 05/29/21 19:10 Urine Color YELLOW 05/31/21 23:00 Urine Clarity CLEAR (CLEAR) 05/31/21 23:00 Urine pH 6.0 PH (5.0-7.5) 05/31/21 23:00 Ur Specific [place] 1.015 (1.002-1.030) 05/31/21 23:00 Urine Protein 100 mg/dL (NEGATIVE) H 05/31/21 23:00 Urine Glucose (UA) NEGATIVE mg/dL (NEGATIVE) 05/31/21 23:00 Urine Ketones NEGATIVE mg/dL (NEGATIVE) 05/31/21 23:00 Urine Occult Blood TRACE-LYSE (NEGATIVE) 05/31/21 23:00 Urine Nitrite NEGATIVE (NEGATIVE) 05/31/21 23:00 Urine Bilirubin NEGATIVE (NEGATIVE) 05/31/21 23:00 Urine Urobilinogen 1 (NORMAL) E.U./dL (NORMAL) 05/31/21 23:00 Ur Leukocyte Esterase NEGATIVE (NEGATIVE) 05/31/21 23:00 Urine RBC 0-5 /HPF (0-5) 05/31/21 23:00 Urine WBC 0-3 /HPF (0-3) 05/31/21 23:00 Ur Squamous Epith Cells RARE Squamous (<= Few) 05/31/21 23:00 Urine Bacteria Rare /HPF (None Seen) 05/31/21 23:00 Urine Casts 3-5 Hyaline Casts /LPF 05/31/21 23:00 Urine Mucus Moderate Strands 05/31/21 23:00 Urine Culture Comments NOT INDICATED 05/31/21 23:00 Urine Opiates Screen NEGATIVE (NEGATIVE) 05/29/21 02:00 Ur Oxycodone Screen NEGATIVE (NEGATIVE) 05/29/21 02:00 Urine Methadone Screen NEGATIVE (NEGATIVE) 05/29/21 02:00 Ur Propoxyphene Screen NEGATIVE (NEGATIVE) 05/29/21 02:00 Ur Barbiturates Screen NEGATIVE (NEGATIVE) 05/29/21 02:00 Ur Tricyclics Screen NEGATIVE (NEGATIVE) 05/29/21 02:00 Ur Phencyclidine Scrn NEGATIVE (NEGATIVE) 05/29/21 02:00 Ur Amphetamine Screen NEGATIVE (NEGATIVE) 05/29/21 02:00 U Methamphetamines Scrn NEGATIVE (NEGATIVE) 05/29/21 02:00 U Benzodiazepines Scrn NEGATIVE (NEGATIVE) 05/29/21 02:00 Urine Cocaine Screen NEGATIVE (NEGATIVE) 05/29/21 02:00 U Cannabinoids Screen POSITIVE (NEGATIVE) H 05/29/21 02:00 SARS-CoV-2 (PCR) NOT DETECTED 05/29/21 21:34 ABX Reporting Has patient been on IV antibiotics over the past 48 hours?: Yes Current Medications - Current Medications Current Medications: Active Medications Acetaminophen (Acetaminophen 325 Mg Tablet) 650 mg PO Q4HR PRN PRN Reason: Pain or Fever > 38C (100.4F) Last Admin: 06/01/21 01:43 Dose: 650 mg Aspirin (Aspirin Chew 81 Mg Tablet) 81 mg PO DAILY [facility] Last Admin: 06/01/21 10:01 Dose: 81 mg Bupropion HCl (Bupropion Xl 150 Mg Tablet) 450 mg PO DAILY [facility] Last Admin: 06/01/21 08:27 Dose: 450 mg Cholecalciferol (Cholecalciferol 5,000 Unit Capsule) 5,000 unit PO Q7D [facility] Last Admin: 05/30/21 14:48 Dose: 5,000 unit Clopidogrel Bisulfate (Clopidogrel 75 Mg Tablet) 75 mg PO DAILY [facility] Last Admin: 06/01/21 08:27 Dose: 75 mg Diphenhydramine HCl (Diphenhydramine 25 Mg Capsule) 25 mg PO Q4HR PRN PRN Reason: Allergy Symptoms Heparin Sodium (Beef Lung) (Heparin Flush 50 Units/5 Ml Syringe) 30 - 50 unit IVP PRN PRN PRN Reason: Port Protocol (<24 hours) Last Admin: 05/31/21 05:05 Dose: 50 unit Ceftriaxone Sodium 2 gm/ (Sodium Chloride) 100 mls @ 200 mls/hr IV Q24H [facility] Last Infusion: 05/31/21 15:10 Dose: Infused Vancomycin HCl 1.75 gm/ Sodium (Chloride) 500 mls @ 250 mls/hr IV Q24H [facility] Last Admin: 06/01/21 11:35 Dose: 250 mls/hr Sodium Chloride (Normal Saline 0.9%) 1,000 mls @ 150 mls/hr IV .Q6H40M [facility] Last Infusion: 06/01/21 11:38 Dose: 0 mls/hr Ibuprofen (Ibuprofen 800 Mg Tablet) 800 mg PO BID PRN PRN Reason: PAIN Last Admin: 05/31/21 18:23 Dose: 800 mg Metoprolol Succinate (Metoprolol Succinate 25 Mg Tablet) 25 mg PO DAILY [facility] Last Admin: 06/01/21 08:28 Dose: 25 mg Ondansetron HCl (Ondansetron 4 Mg/2 Ml Vial) 4 mg IVP Q6HR PRN PRN Reason: Nausea / Vomiting Oxycodone HCl (Oxycodone 5 Mg Tablet) 5 mg PO Q4HR PRN PRN Reason: PAIN Pantoprazole Sodium (Pantoprazole 40 Mg Tablet) 40 mg PO QDAC [facility] Last Admin: 06/01/21 06:34 Dose: 40 mg Febuxostat [Uloric (] 40 Mg Tabs) 1 each PO DAILY [facility] Last Admin: 06/01/21 08:29 Dose: Not Given Polyethylene Glycol (Polyethylene Glycol 3350 17 Gm Packet) 17 gm PO DAILY [facility] Last Admin: 06/01/21 08:28 Dose: 17 gm Prazosin HCl (Prazosin 1 Mg Capsule) 6 mg PO QPM [facility] Last Admin: 05/31/21 20:28 Dose: 6 mg Pregabalin (Pregabalin 25 Mg Capsule) 75 mg PO TID [facility] Last Admin: 06/01/21 06:37 Dose: 75 mg Saccharomyces Boulardii (Saccharomyces Boulardii 250 Mg Capsule) 250 mg PO BIDWM [facility] Last Admin: 06/01/21 07:42 Dose: 250 mg Sodium Chloride (Sodium Chloride Flush 0.9% 10 Ml Syringe) 10 ml IVP PRN PRN PRN Reason: NEEDED PER PROVIDER ORDERS Last Admin: 05/31/21 14:39 Dose: 10 ml Sodium Chloride (Sodium Chloride Flush 0.9% 10 Ml Syringe) 10 ml IVP 0100,0900,1700 [facility] Last Admin: 06/01/21 08:29 Dose: 10 ml Aspirin [Juliette] 325 mg PO DAILY 05/30/21 Cholecalciferol [Vitamin D3] 5,000 unit PO Q7D 05/30/21 Cinacalcet HCl [Sensipar] 30 mg PO DAILY 05/30/21 Clopidogrel [Plavix] 75 mg PO DAILY 05/30/21 Escitalopram Oxalate 40 mg PO DAILY 05/30/21 Febuxostat [Uloric] 40 mg PO DAILY 05/30/21 Ibuprofen [Motrin] 800 mg PO Q6H PRN 05/30/21 Metoprolol Succinate [Toprol Xl] 25 mg PO DAILY 05/30/21 Pantoprazole [Protonix] 40 mg PO BIDAC 05/30/21 Potassium Citrate [Potassium Citrate ER] 20 meq PO BID 05/30/21 Prazosin HCl [Minipress] 6 mg PO QPM 05/30/21 Pregabalin [Lyrica] 75 mg PO TID 05/30/21 Rosuvastatin Calcium [Crestor] 40 mg PO QPM 05/30/21 Testosterone Cypionate 200 mg IM Q14D 05/30/21 Torsemide 20 mg PO DAILY 05/30/21 Trazodone HCl 100 - 200 mg PO QPM PRN 05/30/21 buPROPion [Wellbutrin Xl] 450 mg PO DAILY 05/30/21 flaxseed oiL [Flaxseed Oil] 1,000 mg PO DAILY 05/31/21
--- NOTE | 2021-06-01 12:05 | CT Report ---
PROCEDURE: LUMBAR SPINE W INDICATIONS: back pain CONTRAST: IV CONTRAST: Optiray 320 ml: 100 PO CONTRAST: *NO PO CONTRAST TECHNIQUE: After the administration of intravenous Isovue contrast, 3 mm thick sections acquired from the T12 le nicholas to the sacrum. Sagittal and coronal reformats were constructed. For radiation dose reduction, t he following was used: automated exposure control, adjustment of mA and/or kV according to patient s ize. COMPARISON: None. FINDINGS: Image quality: Significant artifact is present from multilevel surgical hardware. Bones: Posterior fusion is present from T9 through S1. Intervertebral spacers are present throughout the lumbar spine. Hardware is intact without evidence of hardware fracture or periprosthetic loosening. Prominent bridg ing osteophytes are noted at T9-10. Is unchanged appearance of trace retrolisthesis of L4 on L5. re is normal bony alignment. No acute vertebral body compression fractures. No suspicious lytic or blastic bony lesions. Multilevel spinal stenosis is present within visualized portions of the thorac ic spine, unchanged. In addition, moderate bilateral foraminal narrowing is present at T9-10, moderat e left and mild to moderate right T10-11, mild to moderate left T11-12, moderate bilateral T12-L1, mi ld to moderate bilateral L1-L2, likely moderate to severe right L2-3 with the left foraminal narrowin g obscured secondary to artifact.. No pars defects. Soft tissues: Previously identified posterior midline paraspinous low-attenuation collection extendin g from T10 through L5 with peripheral calcification is identified without interval change. Visualized aorta is normal in caliber. IMPRESSION: Extensive posterior fusion as above. 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 No visualized acute fracture. Reviewed by: Romana Lim MD on 06/01/2021 12:03 PM PDT Approved by: Romana Lim MD on 06/01/2021 12:03 PM PDT Station ID: [id number]
[2021-06-01] MEDS: oxyCODONE 5 MG TABLET PO PRN (13:03)
[2021-06-01] MEDS: cefTRIAXone 2 GM in SODIUM CHLORIDE 0.9% MINIBAG 100 ML IV SCH (13:52)
[2021-06-01] MEDS: HYDROmorphone 0.5 MG/0.5 ML SYRINGE IVP PRN (17:14)
[2021-06-01] MEDS: PRAZOSIN 1 MG CAPSULE PO SCH (22:18)
[2021-06-02] MEDS: oxyCODONE 5 MG TABLET PO PRN ×2 (02:49→15:35)
[2021-06-02] MEDS: ACETAMINOPHEN 325 MG TABLET PO PRN ×3 (02:49→22:52)
[2021-06-02] MEDS: PANTOPRAZOLE 40 MG TABLET PO SCH (05:45)
[2021-06-02 06:15] LABS: BASOPHILS % (AUTO) 0.4 %; EOSINOPHILS % (AUTO) 2.5 %; HCT - HEMATOCRIT 32.1 % (42.0-52.0); HGB - HEMOGLOBIN 10.9 g/dL (14.0-18.0); LYMPHOCYTES % (AUTO) 21.4 %; MEAN CORPUSCULAR HEMOGLOBIN 31.1 pg (27.0-31.0); MEAN CORPUSCULAR VOLUME 91.7 fL (80.0-94.0); MEAN PLATELET VOLUME 10.1 fL (7.4-11.4); MONOCYTES % (AUTO) 10.1 %; NEUTROPHILS % (AUTO) 65.2 %; PLT - PLATELET COUNT 101 10^3/uL (130-450); RED CELL DISTRIBUTION WIDTH 17.2 % (12.0-15.0); WHITE BLOOD COUNT 2.4 x10^3/uL (4.8-10.8)
[2021-06-02] MEDS: PREGABALIN 25 MG CAPSULE PO SCH ×3 (06:15→20:31)
[2021-06-02] MEDS: SODIUM CHLORIDE 0.9% 1,000 ML IV SCH ×2 (06:15→12:32)
[2021-06-02 06:24] LABS: ABNORMAL LYMPHS % (MANUAL) 0 %
[2021-06-02 06:26] LABS: ALBUMIN 2.5 g/dL (3.2-5.5); ALBUMIN/GLOBULIN RATIO 0.5 (1.0-2.2); BILIRUBIN,TOTAL 0.5 mg/dL (0.2-1.0); CALCIUM 8.3 mg/dL (8.5-10.3); CREATININE 1.5 mg/dL (0.6-1.2); POTASSIUM 3.3 mmol/L (3.5-5.0); TOTAL PROTEIN 7.5 g/dL (6.7-8.2)
[2021-06-02 06:40] LABS: BAND NEUTROPHILS % (MANUAL) 1 %; DIFFERENTIAL COMMENT MANUAL DIFFERENTIAL; LYMPHOCYTES # (MANUAL) 0.3 10^3/uL (1.5-3.5); LYMPHOCYTES % (MANUAL) 13 %; MONOCYTES # (MANUAL) 0.2 10^3/uL (0.0-1.0); MYELOCYTES % (MANUAL) 1 %; NEUTROPHILS # (MANUAL) 1.8 10^3/uL (1.5-6.6); PLATELET ESTIMATE, MANUAL DECREASED (<130,000) (NORMAL); PLATELET MORPHOLOGY NORMAL APPEARANCE (NORMAL); RBC MORPHOLOGY (MULTIPLE) NORMAL APPEARANCE (NORMAL); WBC MORPHOLOGY (MULTIPLE) NORMAL APPEARANCE (NORMAL)
--- NOTE | 2021-06-02 07:28 | PROVIDER PROGRESS NOTE ---
Subjective - Prog Note Date Prog Note Date: 06/02/21 - Subjective Subjective: He feels pretty good overall. Has an occasional headache. He is happy he feels improved compared to when he first got here. He feels like his legs are a little more swollen today. Current Medications - Current Medications Current Medications: Active Medications Acetaminophen (Acetaminophen 325 Mg Tablet) 650 mg PO Q4HR PRN PRN Reason: Pain or Fever > 38C (100.4F) Last Admin: 06/02/21 02:49 Dose: 650 mg Aspirin (Aspirin Chew 81 Mg Tablet) 81 mg PO DAILY [facility] [place] Last Admin: 06/01/21 10:01 Dose: 81 mg Bupropion HCl (Bupropion Xl 150 Mg Tablet) 450 mg PO DAILY [facility] [place] Last Admin: 06/01/21 08:27 Dose: 450 mg Cholecalciferol (Cholecalciferol 5,000 Unit Capsule) 5,000 unit PO Q7D [facility] [place] Last Admin: 05/30/21 14:48 Dose: 5,000 unit Clopidogrel Bisulfate (Clopidogrel 75 Mg Tablet) 75 mg PO DAILY [facility] [place] Last Admin: 06/01/21 08:27 Dose: 75 mg Diphenhydramine HCl (Diphenhydramine 25 Mg Capsule) 25 mg PO Q4HR PRN PRN Reason: Allergy Symptoms Heparin Sodium (Beef Lung) (Heparin Flush 50 Units/5 Ml Syringe) 30 - 50 unit IVP PRN PRN PRN Reason: Port Protocol (<24 hours) Last Admin: 06/02/21 05:45 Dose: 50 unit Hydromorphone HCl (Hydromorphone 0.5 Mg/0.5 Ml Syringe) 0.5 mg IVP Q4H PRN PRN Reason: PAIN Last Admin: 06/01/21 17:14 Dose: 0.5 mg Ceftriaxone Sodium 2 gm/ (Sodium Chloride) 100 mls @ 200 mls/hr IV Q24H [facility] [place] Last Infusion: 06/01/21 14:25 Dose: Infused Vancomycin HCl 1.75 gm/ Sodium (Chloride) 500 mls @ 250 mls/hr IV Q24H [facility] [place] Last Infusion: 06/01/21 14:00 Dose: Infused Sodium Chloride (Normal Saline 0.9%) 1,000 mls @ 150 mls/hr IV .Q6H40M [facility] [place] Last Admin: 06/02/21 06:15 Dose: 150 mls/hr Metoprolol Succinate (Metoprolol Succinate 25 Mg Tablet) 25 mg PO DAILY [facility] [place] Last Admin: 06/01/21 08:28 Dose: 25 mg Ondansetron HCl (Ondansetron 4 Mg/2 Ml Vial) 4 mg IVP Q6HR PRN PRN Reason: Nausea / Vomiting Oxycodone HCl (Oxycodone 5 Mg Tablet) 5 mg PO Q4HR PRN PRN Reason: PAIN Last Admin: 06/02/21 02:49 Dose: 5 mg Pantoprazole Sodium (Pantoprazole 40 Mg Tablet) 40 mg PO QDAC [facility] [place] Last Admin: 06/02/21 05:45 Dose: 40 mg Febuxostat [Uloric (] 40 Mg Tabs) 1 each PO DAILY [facility] [place] Last Admin: 06/01/21 08:29 Dose: Not Given Polyethylene Glycol (Polyethylene Glycol 3350 17 Gm Packet) 17 gm PO DAILY [facility] [place] Last Admin: 06/01/21 08:28 Dose: 17 gm Prazosin HCl (Prazosin 1 Mg Capsule) 6 mg PO QPM [facility] [place] Last Admin: 06/01/21 22:18 Dose: 6 mg Pregabalin (Pregabalin 25 Mg Capsule) 75 mg PO TID [facility] [place] Last Admin: 06/02/21 06:15 Dose: 75 mg Saccharomyces Boulardii (Saccharomyces Boulardii 250 Mg Capsule) 250 mg PO BIDWM [facility] [place] Last Admin: 06/02/21 07:51 Dose: 250 mg Sodium Chloride (Sodium Chloride Flush 0.9% 10 Ml Syringe) 10 ml IVP PRN PRN PRN Reason: NEEDED PER PROVIDER ORDERS Last Admin: 05/31/21 14:39 Dose: 10 ml Sodium Chloride (Sodium Chloride Flush 0.9% 10 Ml Syringe) 10 ml IVP 0100,0900,1700 [facility] [place] Last Admin: 06/01/21 23:32 Dose: 10 ml Aspirin [Juliette] 325 mg PO DAILY 05/30/21 Cholecalciferol [Vitamin D3] 5,000 unit PO Q7D 05/30/21 Cinacalcet HCl [Sensipar] 30 mg PO DAILY 05/30/21 Clopidogrel [Plavix] 75 mg PO DAILY 05/30/21 Escitalopram Oxalate 40 mg PO DAILY 05/30/21 Febuxostat [Uloric] 40 mg PO DAILY 05/30/21 Ibuprofen [Motrin] 800 mg PO Q6H PRN 05/30/21 Metoprolol Succinate [Toprol Xl] 25 mg PO DAILY 05/30/21 Pantoprazole [Protonix] 40 mg PO BIDAC 05/30/21 Potassium Citrate [Potassium Citrate ER] 20 meq PO BID 05/30/21 Prazosin HCl [Minipress] 6 mg PO QPM 05/30/21 Pregabalin [Lyrica] 75 mg PO TID 05/30/21 Rosuvastatin Calcium [Crestor] 40 mg PO QPM 05/30/21 Testosterone Cypionate 200 mg IM Q14D 05/30/21 Torsemide 20 mg PO DAILY 05/30/21 Trazodone HCl 100 - 200 mg PO QPM PRN 05/30/21 buPROPion [Wellbutrin Xl] 450 mg PO DAILY 05/30/21 flaxseed oiL [Flaxseed Oil] 1,000 mg PO DAILY 05/31/21 Objective - Vital Signs/Intake & Output Reviewed Vital Signs: Yes Vital Signs: Vital Signs x48h Temp Pulse Resp BP BP Pulse Ox 06/02/21 06:39 37.3 C 83 18 135/82 H 98 06/02/21 02:32 36.7 C 92 20 123/64 98 06/01/21 23:32 37.2 C 80 18 130/77 97 Intake & Output: Intake & Output 05/30/21 05/31/21 06/01/21 06/02/21 23:59 23:59 23:59 23:59 Intake Total 4896.167 5817.5 7665.0 2440 Output Total 1100 1075 Balance 3796.167 4742.5 7665.0 2440 - Objective General Appearance: positive: No acute distress, Alert Eyes Bilateral: positive: Normal inspection, Conjunctivae nml ENT: positive: ENT inspection nml Neck: positive: Nml inspection Respiratory: positive: No respiratory distress. negative: Wheezes, Rales Cardiovascular: positive: Other (Port-a-cath in place.). negative: Irregularly irregular, Tachycardia Abdomen: positive: Non-tender, No distention Back: positive: Other (Prior surgical incisions noted. No tenderness or erythema.) Extremities: positive: Pedal edema (Trace edema in bilateral lower extremities.) Neurologic/Psychiatric: negative: Disoriented to person, Disoriented to place - Lab Results Fish Bones: 06/02/21 05:50 06/02/21 05:50 Other Labs: Lab Results x24hrs 06/02/21 06/02/21 Range/Units 05:50 05:50 WBC 2.4 L (4.8-10.8) x10^3/uL RBC 3.50 L (4.70-6.10) 10^6/uL Hgb 10.9 L (14.0-18.0) g/dL Hct 32.1 L (42.0-52.0) % MCV 91.7 (80.0-94.0) fL MCH 31.1 H (27.0-31.0) pg MCHC 34.0 (32.0-36.0) g/dL RDW 17.2 H (12.0-15.0) % Plt Count 101 L (130-450) 10^3/uL MPV 10.1 (7.4-11.4) fL Neut # (Auto) Not Reportable Lymph # (Auto) Not Reportable Tucker # (Auto) Not Reportable Eos # (Auto) Not Reportable Baso # (Auto) Not Reportable Absolute Nucleated RBC Not Reportable Total Counted 100 Band Neuts % (Manual) 1 (0 - 10) % Abnorm Lymph % (Manual) 0 % Myelocytes % 1 H ( - 0) % Nucleated RBC % Not Reportable Neutrophils # (Manual) 1.8 (1.5-6.6) 10^3/uL Lymphocytes # (Manual) 0.3 L (1.5-3.5) 10^3/uL Monocytes # (Manual) 0.2 (0.0-1.0) 10^3/uL Eosinophils # (Manual) 0.0 (0-0.7) 10^3/uL Basophils # (Manual) 0.0 (0-0.1) 10^3/uL Differential Comment MANUAL DIFFERENTIAL WBC Morphology NORMAL APPEARANCE (NORMAL) Platelet Estimate DECREASED (<130,000) (NORMAL) Platelet Morphology NORMAL APPEARANCE (NORMAL) RBC Morph Micro Appear NORMAL APPEARANCE (NORMAL) Sodium 138 (135-145) mmol/L Potassium 3.3 L (3.5-5.0) mmol/L Chloride 107 (101-111) mmol/L Carbon Dioxide 22 (21-32) mmol/L Anion Gap 9.0 (6-13) BUN 13 (6-20) mg/dL Creatinine 1.5 H (0.6-1.2) mg/dL Estimated GFR (MDRD) 46 L (>89) Glucose 103 H (70-100) mg/dL Calcium 8.3 L (8.5-10.3) mg/dL Total Bilirubin 0.5 (0.2-1.0) mg/dL AST 55 H (10-42) IU/L ALT 41 (10-60) IU/L Alkaline Phosphatase 57 (42-121) IU/L Total Creatine Kinase 821 H (22-269) IU/L Total Protein 7.5 (6.7-8.2) g/dL Albumin 2.5 L (3.2-5.5) g/dL Globulin 5.0 H (2.1-4.2) g/dL Albumin/Globulin Ratio 0.5 L (1.0-2.2) ABX Reporting Has patient been on IV antibiotics over the past 48 hours?: Yes Sepsis Event Note (H) - Evaluation Current Stage of Sepsis: Sepsis - Sepsis Criteria Sepsis Criteria: Recorded Temperature greater than 38.3C or Less than 36C, WBC count greater than 12,000 or less than 4000, ACADEMIC ASSISTANT: altered consciousness (unrelated to primary neuro pathology) Assessment/Plan - Problem List (1) Sepsis Impression: He is improved from a sepsis standpoint. He was still febrile yesterday evening but he is no longer tachycardic and his blood pressure is stable. This is secondary to the strep bacteremia. We will look to de-escalate his antibiotics to ceftriaxone IV based off of sensitivities and discontinue vancomycin. (2) Streptococcal bacteremia Impression: Blood cultures have grown strep infantarius which is concerning for bacteremia from the GI tract. Repeat blood cultures have been negative. He does have a Port-A-Cath in place as he does receive IVIG. Will discuss with infectious disease regarding the need to remove this given his repeat cultures are negative. TTE did not reveal an obvious vegetation. He will need at least 2 weeks of antibiotics for the bacteremia. He will also need a colonoscopy to evaluate for colon cancer. (3) CKD (chronic kidney disease) stage 3, GFR 30-59 ml/min Impression: He has CKD stage III and his renal function remains at baseline with a creatinine of 1.5. We have discontinued ibuprofen and will discontinue this on discharge given his chronic kidney disease. We will continue to monitor his renal function and urine output. Qualifiers: Chronic kidney disease stage 3 subtype: stage 3b (GFR 30-44) Qualified Co de(s): N18.32 - Chronic kidney disease, stage 3b (4) Chronic inflammatory demyelinating polyneuritis Impression: This is chronic and he receives monthly IVIG. We will resume his home Lyrica for the neuropathy. (5) Thrombocytopenia Impression: This is improving. The acute drop over the past few days was likely due to sepsis. His platelet count is now above 100 and his baseline is in the low 100s. (6) PTSD (post-traumatic stress disorder) Impression: Stable. Continue prazosin. (7) Port-A-Cath in place Impression: He has a Port-A-Cath in place as he receives IVIG for the CIDP. He does have Streptococcus bacteremia but repeat cultures are negative. Will discuss with infectious disease regarding the need to remove this. (8) Acute metabolic encephalopathy Impression: This is now resolved and was likely secondary to the sepsis. He is back to his baseline.
[2021-06-02] MEDS: SACCHAROMYCES BOULARDII 250 MG CAPSULE PO SCH ×2 (07:51→16:56)
[2021-06-02] MEDS: polyethylene glycoL 3350 17 GM PACKET PO SCH (08:40)
[2021-06-02] MEDS: CLOPIDOGREL 75 MG TABLET PO SCH (08:40)
[2021-06-02] MEDS: buPROPion XL 150 MG TABLET PO SCH (08:41)
[2021-06-02] MEDS: ASPIRIN CHEW 81 MG TABLET PO SCH (08:41)
[2021-06-02] MEDS: SODIUM CHLORIDE FLUSH 0.9% 10 ML SYRINGE IVP SCH ×2 (08:42→16:56)
[2021-06-02] MEDS: FEBUXOSTAT 40 MG PO SCH (08:42)
[2021-06-02] MEDS: METOPROLOL SUCCINATE 25 MG TABLET PO SCH (08:46)
[2021-06-02] MEDS: POTASSIUM CHLORIDE 20 MEQ/15 ML UDC PO SCH (08:46)
[2021-06-02] MEDS: cefTRIAXone 2 GM in SODIUM CHLORIDE 0.9% MINIBAG 100 ML IV SCH (12:32)
[2021-06-02] MEDS: HYDROmorphone 0.5 MG/0.5 ML SYRINGE IVP PRN (13:35)
[2021-06-02] MEDS: SODIUM CHLORIDE FLUSH 0.9% 10 ML SYRINGE IVP PRN (13:35)
[2021-06-02] MEDS: PRAZOSIN 1 MG CAPSULE PO SCH (20:31)
[2021-06-03] MEDS: SODIUM CHLORIDE FLUSH 0.9% 10 ML SYRINGE IVP SCH ×3 (00:15→18:02)
[2021-06-03] MEDS: PREGABALIN 25 MG CAPSULE PO SCH ×3 (05:39→20:58)
[2021-06-03] MEDS: PANTOPRAZOLE 40 MG TABLET PO SCH (06:06)
[2021-06-03 06:29] LABS: BASOPHILS % (AUTO) 0.3 %; EOSINOPHILS # (AUTO) 0.1 10^3/uL (0.0-0.7); HCT - HEMATOCRIT 32.6 % (42.0-52.0); HGB - HEMOGLOBIN 10.9 g/dL (14.0-18.0); LYMPHOCYTES # (AUTO) 0.5 10^3/uL (1.5-3.5); LYMPHOCYTES % (AUTO) 14.7 %; MEAN CORPUSCULAR HEMOGLOBIN 30.8 pg (27.0-31.0); MEAN CORPUSCULAR HGB CONC 33.4 g/dL (32.0-36.0); MEAN CORPUSCULAR VOLUME 92.1 fL (80.0-94.0); MONOCYTES # (AUTO) 0.3 10^3/uL (0.0-1.0); MONOCYTES % (AUTO) 10.1 %; NEUTROPHILS # (AUTO) 2.2 10^3/uL (1.5-6.6); NEUTROPHILS % (AUTO) 71.9 %; PLT - PLATELET COUNT 118 10^3/uL (130-450); RED BLOOD COUNT 3.54 10^6/uL (4.70-6.10); RED CELL DISTRIBUTION WIDTH 17.2 % (12.0-15.0); WHITE BLOOD COUNT 3.1 x10^3/uL (4.8-10.8)
[2021-06-03 06:41] LABS: ALBUMIN 2.6 g/dL (3.2-5.5); ALBUMIN/GLOBULIN RATIO 0.5 (1.0-2.2); BILIRUBIN,TOTAL 0.5 mg/dL (0.2-1.0); CALCIUM 8.1 mg/dL (8.5-10.3); CREATININE 1.4 mg/dL (0.6-1.2); POTASSIUM 3.3 mmol/L (3.5-5.0); TOTAL PROTEIN 7.5 g/dL (6.7-8.2)
--- NOTE | 2021-06-03 07:35 | PROVIDER PROGRESS NOTE ---
Subjective - Prog Note Date Prog Note Date: 06/03/21 - Subjective Subjective: He feels weaker overall today. No abdominal pain chest pain or dyspnea. Still has an occasional headache. Current Medications - Current Medications Current Medications: Active Medications Acetaminophen (Acetaminophen 325 Mg Tablet) 650 mg PO Q4HR PRN PRN Reason: Pain or Fever > 38C (100.4F) Last Admin: 06/03/21 08:41 Dose: 650 mg Aspirin (Aspirin Chew 81 Mg Tablet) 81 mg PO DAILY [facility] Last Admin: 06/03/21 08:41 Dose: 81 mg Bupropion HCl (Bupropion Xl 150 Mg Tablet) 450 mg PO DAILY [facility] Last Admin: 06/03/21 08:41 Dose: 450 mg Cholecalciferol (Cholecalciferol 5,000 Unit Capsule) 5,000 unit PO Q7D [facility] Last Admin: 05/30/21 14:48 Dose: 5,000 unit Clopidogrel Bisulfate (Clopidogrel 75 Mg Tablet) 75 mg PO DAILY [facility] Last Admin: 06/03/21 08:41 Dose: 75 mg Heparin Sodium (Beef Lung) (Heparin Flush 50 Units/5 Ml Syringe) 30 - 50 unit IVP PRN PRN PRN Reason: Port Protocol (<24 hours) Last Admin: 06/02/21 05:45 Dose: 50 unit Hydromorphone HCl (Hydromorphone 0.5 Mg/0.5 Ml Syringe) 0.5 mg IVP Q4H PRN PRN Reason: PAIN Last Admin: 06/02/21 13:35 Dose: 0.5 mg Ceftriaxone Sodium 2 gm/ (Sodium Chloride) 100 mls @ 200 mls/hr IV Q24H [facility] Last Infusion: 06/02/21 13:05 Dose: Infused Metoprolol Succinate (Metoprolol Succinate 25 Mg Tablet) 25 mg PO DAILY [facility] Last Admin: 06/03/21 08:41 Dose: 25 mg Ondansetron HCl (Ondansetron 4 Mg/2 Ml Vial) 4 mg IVP Q6HR PRN PRN Reason: Nausea / Vomiting Oxycodone HCl (Oxycodone 5 Mg Tablet) 5 mg PO Q4HR PRN PRN Reason: PAIN Last Admin: 06/02/21 15:35 Dose: 5 mg Pantoprazole Sodium (Pantoprazole 40 Mg Tablet) 40 mg PO QDAC [facility] Last Admin: 06/03/21 06:06 Dose: 40 mg Febuxostat [Uloric (] 40 Mg Tabs) 1 each PO DAILY [facility] Last Admin: 06/02/21 08:42 Dose: Not Given Polyethylene Glycol (Polyethylene Glycol 3350 17 Gm Packet) 17 gm PO DAILY [facility] Last Admin: 06/03/21 08:42 Dose: Not Given Potassium Chloride (Potassium Chloride 20 Meq/15 Ml Udc) 20 meq PO DAILYWM [facility] Last Admin: 06/03/21 08:41 Dose: 20 meq Prazosin HCl (Prazosin 1 Mg Capsule) 6 mg PO QPM [facility] Last Admin: 06/02/21 20:31 Dose: 6 mg Pregabalin (Pregabalin 25 Mg Capsule) 75 mg PO TID [facility] Last Admin: 06/03/21 05:39 Dose: 75 mg Saccharomyces Boulardii (Saccharomyces Boulardii 250 Mg Capsule) 250 mg PO BIDWM [facility] Last Admin: 06/03/21 08:41 Dose: 250 mg Sodium Chloride (Sodium Chloride Flush 0.9% 10 Ml Syringe) 10 ml IVP PRN PRN PRN Reason: NEEDED PER PROVIDER ORDERS Last Admin: 06/02/21 13:35 Dose: 20 ml Sodium Chloride (Sodium Chloride Flush 0.9% 10 Ml Syringe) 10 ml IVP 0100,0900,1700 [facility] Last Admin: 06/03/21 08:42 Dose: 10 ml Aspirin [Juliette] 325 mg PO DAILY 05/30/21 Cholecalciferol [Vitamin D3] 5,000 unit PO Q7D 05/30/21 Cinacalcet HCl [Sensipar] 30 mg PO DAILY 05/30/21 Clopidogrel [Plavix] 75 mg PO DAILY 05/30/21 Escitalopram Oxalate 40 mg PO DAILY 05/30/21 Febuxostat [Uloric] 40 mg PO DAILY 05/30/21 Ibuprofen [Motrin] 800 mg PO Q6H PRN 05/30/21 Metoprolol Succinate [Toprol Xl] 25 mg PO DAILY 05/30/21 Pantoprazole [Protonix] 40 mg PO BIDAC 05/30/21 Potassium Citrate [Potassium Citrate ER] 20 meq PO BID 05/30/21 Prazosin HCl [Minipress] 6 mg PO QPM 05/30/21 Pregabalin [Lyrica] 75 mg PO TID 05/30/21 Rosuvastatin Calcium [Crestor] 40 mg PO QPM 05/30/21 Testosterone Cypionate 200 mg IM Q14D 05/30/21 Torsemide 20 mg PO DAILY 05/30/21 Trazodone HCl 100 - 200 mg PO QPM PRN 05/30/21 buPROPion [Wellbutrin Xl] 450 mg PO DAILY 05/30/21 flaxseed oiL [Flaxseed Oil] 1,000 mg PO DAILY 05/31/21 Objective - Vital Signs/Intake & Output Reviewed Vital Signs: Yes Vital Signs: Vital Signs x48h Temp 06/03/21 05:00 37.4 C Intake & Output: Intake & Output 05/31/21 06/01/21 06/02/21 06/03/21 23:59 23:59 23:59 23:59 Intake Total 5817.5 7665.0 7672.5 1150 Output Total 1075 Balance 4742.5 7665.0 7672.5 1150 - Objective General Appearance: positive: No acute distress, Alert Eyes Bilateral: positive: Normal inspection ENT: positive: ENT inspection nml Neck: positive: Nml inspection Respiratory: positive: No respiratory distress. negative: Wheezes Cardiovascular: positive: Regular rate & rhythm, Other (Chest wall port in place without erythema or tenderness). negative: Tachycardia Abdomen: positive: Non-tender, No distention. negative: Tenderness Extremities: positive: Pedal edema (Trace edema in bilateral lower extremities.) Neurologic/Psychiatric: negative: Disoriented to person, Disoriented to place - Lab Results Fish Bones: 06/03/21 06:21 06/03/21 06:21 Other Labs: Lab Results x24hrs 06/03/21 06/03/21 06/03/21 Range/Units 06:21 06:21 04:55 WBC 3.1 L (4.8-10.8) x10^3/uL RBC 3.54 L (4.70-6.10) 10^6/uL Hgb 10.9 L (14.0-18.0) g/dL Hct 32.6 L (42.0-52.0) % MCV 92.1 (80.0-94.0) fL MCH 30.8 (27.0-31.0) pg MCHC 33.4 (32.0-36.0) g/dL RDW 17.2 H (12.0-15.0) % Plt Count 118 L (130-450) 10^3/uL MPV 10.0 (7.4-11.4) fL Neut # (Auto) 2.2 (1.5-6.6) 10^3/uL Lymph # (Auto) 0.5 L (1.5-3.5) 10^3/uL Mccracken # (Auto) 0.3 (0.0-1.0) 10^3/uL Eos # (Auto) 0.1 (0.0-0.7) 10^3/uL Baso # (Auto) 0.0 (0.0-0.1) 10^3/uL Absolute Nucleated RBC 0.00 x10^3/uL Nucleated RBC % 0.0 /100WBC Sodium 133 L Cancelled Potassium 3.3 L Cancelled Chloride 102 Cancelled Carbon Dioxide 23 Cancelled Anion Gap 8.0 Cancelled BUN 12 Cancelled Creatinine 1.4 H Cancelled Estimated GFR (MDRD) 50 L Cancelled Glucose 106 H Cancelled Calcium 8.1 L Cancelled Total Bilirubin 0.5 Cancelled AST 53 H Cancelled ALT 39 Cancelled Alkaline Phosphatase 58 Cancelled Total Protein 7.5 Cancelled Albumin 2.6 L Cancelled Globulin 4.9 H Cancelled Albumin/Globulin Ratio 0.5 L Cancelled Urine Osmolality (50-1200) mOsm/kg 05/29/21 Range/Units 02:00 WBC (4.8-10.8) x10^3/uL RBC (4.70-6.10) 10^6/uL Hgb (14.0-18.0) g/dL Hct (42.0-52.0) % MCV (80.0-94.0) fL MCH (27.0-31.0) pg MCHC (32.0-36.0) g/dL RDW (12.0-15.0) % Plt Count (130-450) 10^3/uL MPV (7.4-11.4) fL Neut # (Auto) (1.5-6.6) 10^3/uL Lymph # (Auto) (1.5-3.5) 10^3/uL Mccracken # (Auto) (0.0-1.0) 10^3/uL Eos # (Auto) (0.0-0.7) 10^3/uL Baso # (Auto) (0.0-0.1) 10^3/uL Absolute Nucleated RBC x10^3/uL Nucleated RBC % /100WBC Sodium Potassium Chloride Carbon Dioxide Anion Gap BUN Creatinine Estimated GFR (MDRD) Glucose Calcium Total Bilirubin AST ALT Alkaline Phosphatase Total Protein Albumin Globulin Albumin/Globulin Ratio Urine Osmolality 362 (50-1200) mOsm/kg ABX Reporting Has patient been on IV antibiotics over the past 48 hours?: Yes Sepsis Event Note (H) - Evaluation Current Stage of Sepsis: Sepsis - Sepsis Criteria Sepsis Criteria: Recorded Temperature greater than 38.3C or Less than 36C, WBC count greater than 12,000 or less than 4000, QUALITY CONTROL LAB TECH: altered consciousness (unrelated to primary neuro pathology), Hematologic: platelets < 100,000; INR > 1.5, or a PTT>60 seconds Assessment/Plan - Problem List (1) Sepsis Impression: This is secondary to the strep bacteremia. He is leukopenic which is new over the past few days. He was afebrile yesterday but is febrile today. Repeat blood cultures have been negative. Given the initial blood cultures grew Streptococcus concerning for potential GI source, we will order a CT of the abdomen pelvis for further evaluation. We will continue IV ceftriaxone. (2) Streptococcal bacteremia Impression: Is the cause of his sepsis. Blood cultures have grown Streptococcus infantarius. Repeat blood cultures have been negative. The concern is this may be secondary to a GI source we will order a CT of the abdomen pelvis today for evaluation. He will also need a colonoscopy to evaluate for colon cancer and this was discussed with the patient. TTE showed no evidence of vegetation. He does have a Port-A-Cath in place and we will discuss with infectious disease once we have the CT regarding the management of this although I suspect given the repeat cultures are negative then this can likely remain in place. We will continue ceftriaxone IV based off of sensitivities. (3) CKD (chronic kidney disease) stage 3, GFR 30-59 ml/min Impression: He has CKD stage III with recent creatinine of 1.5. His creatinine has remained stable. We will discontinue ibuprofen given the chronic kidney disease. We will continue to monitor his urine output and renal function. 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 We will continue his home Lyrica for the neuropathy. (5) Thrombocytopenia Impression: This is improving. The acute drop over the past few days was likely due to sepsis. His platelet count is now above 100 and his baseline is in the low 100 s. (6) PTSD (post-traumatic stress disorder) Impression: Stable. Continue prazosin. (7) Port-A-Cath in place Impression: He has a Port-A-Cath in place as he receives IVIG for the CIDP. He does have Streptococcus bacteremia but repeat cultures are negative. Will discuss with infectious disease regarding the need to remove this. (8) Acute metabolic encephalopathy Impression: This is now resolved and was likely secondary to the sepsis. He is back to his baseline.
[2021-06-03] MEDS: ASPIRIN CHEW 81 MG TABLET PO SCH (08:41)
[2021-06-03] MEDS: SACCHAROMYCES BOULARDII 250 MG CAPSULE PO SCH ×2 (08:41→18:01)
[2021-06-03] MEDS: CLOPIDOGREL 75 MG TABLET PO SCH (08:41)
[2021-06-03] MEDS: POTASSIUM CHLORIDE 20 MEQ/15 ML UDC PO SCH (08:41)
[2021-06-03] MEDS: METOPROLOL SUCCINATE 25 MG TABLET PO SCH (08:41)
[2021-06-03] MEDS: buPROPion XL 150 MG TABLET PO SCH (08:41)
[2021-06-03] MEDS: ACETAMINOPHEN 325 MG TABLET PO PRN ×3 (08:41→21:31)
[2021-06-03] MEDS: polyethylene glycoL 3350 17 GM PACKET PO SCH (08:42)
[2021-06-03] MEDS ORDERED: IOVERSOL 320 100 ML VIAL IVP ONE (09:42)
[2021-06-03] MEDS: IOVERSOL 320 100 ML VIAL IVP ONE (10:13)
[2021-06-03] MEDS: FEBUXOSTAT 40 MG PO SCH (10:18)
--- NOTE | 2021-06-03 10:33 | CT Report ---
PROCEDURE: Abdomen/Pelvis W INDICATIONS: Strep bacteremia. Sepsis. CONTRAST: IV CONTRAST: Optiray 320 ml: 100 PO CONTRAST: *NO PO CONTRAST TECHNIQUE: After the administration of IV contrast, 5 mm thick sections acquired from the diaphragms to the symp hysis. 5 mm thick coronal and sagittal reformats were acquired. For radiation dose reduction, the f ollowing was used: automated exposure control, adjustment of mA and/or kV according to patient size. COMPARISON: 06/01/2021, 03/20/2021, 06/25/2018, 07/24/2015 FINDINGS: Image quality: There is artifact associated with the metallic hardware. ABDOMEN: Lung bases: Lung bases are clear. Heart size is normal. Solid organs: The liver demonstrates normal size and echogenicity. No liver lesions are detected. A mild amount of biliary gas can be seen within the liver. Gallbladder has been removed. Biliary syst em is non dilated. The spleen is enlarged, measuring 15.5 cm AP. Pancreas enhances normally. No adre nal nodules. Kidneys demonstrate normal size and enhancement. There is moderate to prominent bilateral hydronephro sis and hydroureter. Peritoneum and bowel: Bowel loops demonstrate normal wall thickness and caliber. No free fluid or a ir. Nodes and vessels: No retroperitoneal or mesenteric adenopathy by size criteria. Aorta and inferior vena cava are normal in size. Atherosclerotic calcification is seen. A 2.2 cm left common iliac art wilmar aneurysm can be seen. Incidental note is made of a retroaortic left renal vein. Miscellaneous: A mild fat-containing periumbilical hernia is seen. PELVIS: Genitourinary: Bladder wall thickness is normal. Miscellaneous: No inguinal hernias or adenopathy. Bones: No suspicious bony lesions. No vertebral body compression fractures. Extensive fixation hard ash is seen from T10 through S2. A chronic fluid collection seen along the posterior aspect of the s alex hardware, with a densely calcified rim. IMPRESSION: Moderate to prominent bilateral hydronephrosis and hydroureter are seen, which are new c ompared to the prior examination. A cause of obstruction is not seen. No tyrone abscess is seen. Extensive spinal fixation hardware is seen. Along the posterior aspect of the hardware, there is a ch ronic appearing fluid collection with a densely calcified rim. 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 Incidental note is made of: Cholecystectomy, with biliary gas Mild splenomegaly Retroaortic left renal vein Mild fat-containing periumbilical hernia Left common iliac artery aneurysm Reviewed by: Levi Stokes MD on 06/03/2021 9:32 AM NANDA Approved by: Levi Stokes MD on 06/03/2021 9:32 AM NANDA Station ID: [id number]
[2021-06-03] MEDS: cefTRIAXone 2 GM in SODIUM CHLORIDE 0.9% MINIBAG 100 ML IV SCH (13:34)
[2021-06-03] MEDS: HYDROmorphone 0.5 MG/0.5 ML SYRINGE IVP PRN ×2 (17:00→20:59)
[2021-06-03] MEDS: SODIUM CHLORIDE FLUSH 0.9% 10 ML SYRINGE IVP PRN ×2 (18:02→20:59)
[2021-06-03] MEDS: PRAZOSIN 1 MG CAPSULE PO SCH (20:58)
[2021-06-04] MEDS: SODIUM CHLORIDE FLUSH 0.9% 10 ML SYRINGE IVP SCH ×3 (01:01→16:17)
[2021-06-04] MEDS: HYDROmorphone 0.5 MG/0.5 ML SYRINGE IVP PRN ×5 (01:09→22:56)
[2021-06-04] MEDS: PANTOPRAZOLE 40 MG TABLET PO SCH (05:25)
[2021-06-04] MEDS: PREGABALIN 25 MG CAPSULE PO SCH ×3 (05:26→21:03)
[2021-06-04 05:45] LABS: BASOPHILS % (AUTO) 0.3 %; EOSINOPHILS % (AUTO) 1.1 %; HCT - HEMATOCRIT 32.1 % (42.0-52.0); HGB - HEMOGLOBIN 10.6 g/dL (14.0-18.0); LYMPHOCYTES # (AUTO) 0.5 10^3/uL (1.5-3.5); LYMPHOCYTES % (AUTO) 13.3 %; MEAN CORPUSCULAR HEMOGLOBIN 30.6 pg (27.0-31.0); MEAN CORPUSCULAR VOLUME 92.8 fL (80.0-94.0); MEAN PLATELET VOLUME 9.8 fL (7.4-11.4); MONOCYTES # (AUTO) 0.4 10^3/uL (0.0-1.0); MONOCYTES % (AUTO) 10.3 %; NEUTROPHILS # (AUTO) 2.7 10^3/uL (1.5-6.6); NEUTROPHILS % (AUTO) 74.4 %; PLT - PLATELET COUNT 140 10^3/uL (130-450); RED BLOOD COUNT 3.46 10^6/uL (4.70-6.10); RED CELL DISTRIBUTION WIDTH 17.3 % (12.0-15.0); WHITE BLOOD COUNT 3.6 x10^3/uL (4.8-10.8)
[2021-06-04 05:58] LABS: ALBUMIN 2.5 g/dL (3.2-5.5); ALBUMIN/GLOBULIN RATIO 0.5 (1.0-2.2); BILIRUBIN,TOTAL 0.5 mg/dL (0.2-1.0); CALCIUM 8.3 mg/dL (8.5-10.3); CREATININE 1.5 mg/dL (0.6-1.2); POTASSIUM 3.4 mmol/L (3.5-5.0); TOTAL PROTEIN 7.5 g/dL (6.7-8.2)
--- NOTE | 2021-06-04 08:05 | PROVIDER PROGRESS NOTE ---
Subjective - Prog Note Date Prog Note Date: 06/04/21 - Subjective Subjective: He still feels weak overall but somewhat improved compared to yesterday. No shortness of breath. Still has some lower extremity edema. Denies any oral pain. Current Medications - Current Medications Current Medications: Active Medications Acetaminophen (Acetaminophen 325 Mg Tablet) 650 mg PO Q4HR PRN PRN Reason: Pain or Fever > 38C (100.4F) Last Admin: 06/03/21 21:31 Dose: 650 mg Aspirin (Aspirin Chew 81 Mg Tablet) 81 mg PO DAILY [facility] Last Admin: 06/04/21 10:32 Dose: 81 mg Bupropion HCl (Bupropion Xl 150 Mg Tablet) 450 mg PO DAILY [facility] Last Admin: 06/04/21 10:33 Dose: 450 mg Cholecalciferol (Cholecalciferol 5,000 Unit Capsule) 5,000 unit PO Q7D [facility] Last Admin: 05/30/21 14:48 Dose: 5,000 unit Clopidogrel Bisulfate (Clopidogrel 75 Mg Tablet) 75 mg PO DAILY [facility] Last Admin: 06/04/21 10:34 Dose: 75 mg Heparin Sodium (Beef Lung) (Heparin Flush 50 Units/5 Ml Syringe) 30 - 50 unit IVP PRN PRN PRN Reason: Port Protocol (<24 hours) Last Admin: 06/03/21 18:02 Dose: 50 unit Hydromorphone HCl (Hydromorphone 0.5 Mg/0.5 Ml Syringe) 0.5 mg IVP Q4H PRN PRN Reason: PAIN Last Admin: 06/04/21 10:39 Dose: 0.5 mg Ceftriaxone Sodium 2 gm/ (Sodium Chloride) 100 mls @ 200 mls/hr IV Q24H [facility] Last Infusion: 06/03/21 14:11 Dose: Infused Metoprolol Succinate (Metoprolol Succinate 25 Mg Tablet) 25 mg PO DAILY [facility] Last Admin: 06/04/21 10:33 Dose: 25 mg Ondansetron HCl (Ondansetron 4 Mg/2 Ml Vial) 4 mg IVP Q6HR PRN PRN Reason: Nausea / Vomiting Oxycodone HCl (Oxycodone 5 Mg Tablet) 5 mg PO Q4HR PRN PRN Reason: PAIN Last Admin: 06/02/21 15:35 Dose: 5 mg Pantoprazole Sodium (Pantoprazole 40 Mg Tablet) 40 mg PO QDAC [facility] Last Admin: 06/04/21 05:25 Dose: 40 mg Febuxostat [Uloric (] 40 Mg Tabs) 1 each PO DAILY [facility] Last Admin: 06/04/21 10:46 Dose: Not Given Polyethylene Glycol (Polyethylene Glycol 3350 17 Gm Packet) 17 gm PO DAILY [facility] Last Admin: 06/04/21 10:34 Dose: 17 gm Potassium Chloride (Potassium Chloride 20 Meq/15 Ml Udc) 20 meq PO DAILYWM [facility] Last Admin: 06/04/21 10:32 Dose: 20 meq Prazosin HCl (Prazosin 1 Mg Capsule) 6 mg PO QPM [facility] Last Admin: 06/03/21 20:58 Dose: 6 mg Pregabalin (Pregabalin 25 Mg Capsule) 75 mg PO TID [facility] Last Admin: 06/04/21 05:26 Dose: 75 mg Saccharomyces Boulardii (Saccharomyces Boulardii 250 Mg Capsule) 250 mg PO BIDWM [facility] Last Admin: 06/04/21 10:32 Dose: 250 mg Senna (Senna 8.6 Mg Tablet) 8.6 - 17.2 mg PO DAILY [facility] Last Admin: 06/04/21 10:33 Dose: 8.6 mg Sodium Chloride (Sodium Chloride Flush 0.9% 10 Ml Syringe) 10 ml IVP PRN PRN PRN Reason: NEEDED PER PROVIDER ORDERS Last Admin: 06/03/21 20:59 Dose: 10 ml Sodium Chloride (Sodium Chloride Flush 0.9% 10 Ml Syringe) 10 ml IVP 0100,0900,1700 [facility] Last Admin: 06/04/21 10:35 Dose: 10 ml Aspirin [Juliette] 325 mg PO DAILY 05/30/21 Cholecalciferol [Vitamin D3] 5,000 unit PO Q7D 05/30/21 Cinacalcet HCl [Sensipar] 30 mg PO DAILY 05/30/21 Clopidogrel [Plavix] 75 mg PO DAILY 05/30/21 Escitalopram Oxalate 40 mg PO DAILY 05/30/21 Febuxostat [Uloric] 40 mg PO DAILY 05/30/21 Ibuprofen [Motrin] 800 mg PO Q6H PRN 05/30/21 Metoprolol Succinate [Toprol Xl] 25 mg PO DAILY 05/30/21 Pantoprazole [Protonix] 40 mg PO BIDAC 05/30/21 Potassium Citrate [Potassium Citrate ER] 20 meq PO BID 05/30/21 Prazosin HCl [Minipress] 6 mg PO QPM 05/30/21 Pregabalin [Lyrica] 75 mg PO TID 05/30/21 Rosuvastatin Calcium [Crestor] 40 mg PO QPM 05/30/21 Testosterone Cypionate 200 mg IM Q14D 05/30/21 Torsemide 20 mg PO DAILY 05/30/21 Trazodone HCl 100 - 200 mg PO QPM PRN 05/30/21 buPROPion [Wellbutrin Xl] 450 mg PO DAILY 05/30/21 flaxseed oiL [Flaxseed Oil] 1,000 mg PO DAILY 05/31/21 Objective - Vital Signs/Intake & Output Reviewed Vital Signs: Yes Vital Signs: Vital Signs x48h Pulse Resp Pulse Ox 06/04/21 07:35 89 16 95 Intake & Output: Intake & Output 06/01/21 06/02/21 06/03/21 06/04/21 23:59 23:59 23:59 23:59 Intake Total 7665.0 7672.5 3840 1350 Output Total 1302 3900 Balance 7665.0 7672.5 1338 -0910 - Objective General Appearance: positive: No acute distress, Alert Eyes Bilateral: positive: Normal inspection, Conjunctivae nml ENT: positive: Other (Poor dentition with multiple missing teeth. No obvious erythema.) Neck: positive: Other (No tenderness or obvious adenopathy.) Respiratory: positive: No respiratory distress. negative: Wheezes, Rales Cardiovascular: positive: Regular rate & rhythm. negative: Tachycardia Abdomen: positive: Non-tender, No distention. negative: Tenderness Skin: positive: Warm, Dry Extremities: positive: Pedal edema (+1 edema bilateral lower extremities) Neurologic/Psychiatric: negative: Disoriented to person, Disoriented to place - Lab Results Fish Bones: 06/04/21 05:30 06/04/21 05:30 Other Labs: Lab Results x24hrs 06/04/21 06/04/21 Range/Units 05:30 05:30 WBC 3.6 L (4.8-10.8) x10^3/uL RBC 3.46 L (4.70-6.10) 10^6/uL Hgb 10.6 L (14.0-18.0) g/dL Hct 32.1 L (42.0-52.0) % MCV 92.8 (80.0-94.0) fL MCH 30.6 (27.0-31.0) pg MCHC 33.0 (32.0-36.0) g/dL RDW 17.3 H (12.0-15.0) % Plt Count 140 (130-450) 10^3/uL MPV 9.8 (7.4-11.4) fL Neut # (Auto) 2.7 (1.5-6.6) 10^3/uL Lymph # (Auto) 0.5 L (1.5-3.5) 10^3/uL [place] # (Auto) 0.4 (0.0-1.0) 10^3/uL Eos # (Auto) 0.0 (0.0-0.7) 10^3/uL Baso # (Auto) 0.0 (0.0-0.1) 10^3/uL Absolute Nucleated RBC 0.00 x10^3/uL Nucleated RBC % 0.0 /100WBC Sodium 135 (135-145) mmol/L Potassium 3.4 L (3.5-5.0) mmol/L Chloride 99 L (101-111) mmol/L Carbon Dioxide 24 (21-32) mmol/L Anion Gap 12.0 (6-13) BUN 11 (6-20) mg/dL Creatinine 1.5 H (0.6-1.2) mg/dL Estimated GFR (MDRD) 46 L (>89) Glucose 101 H (70-100) mg/dL Calcium 8.3 L (8.5-10.3) mg/dL Total Bilirubin 0.5 (0.2-1.0) mg/dL AST 49 H (10-42) IU/L ALT 36 (10-60) IU/L Alkaline Phosphatase 60 (42-121) IU/L Total Creatine Kinase 664 H (22-269) IU/L Total Protein 7.5 (6.7-8.2) g/dL Albumin 2.5 L (3.2-5.5) g/dL Globulin 5.0 H (2.1-4.2) g/dL Albumin/Globulin Ratio 0.5 L (1.0-2.2) Sepsis Event Note (H) - Evaluation Current Stage of Sepsis: Sepsis - Sepsis Criteria Sepsis Criteria: Recorded Temperature greater than 38.3C or Less than 36C, WBC count greater than 12,000 or less than 4000, SAFEMAKER: altered consciousness (unrelated to primary neuro pathology), Hematologic: platelets < 100,000; INR > 1.5, or a PTT>60 seconds Assessment/Plan - Problem List (1) Sepsis Impression: This is secondary to the strep bacteremia. His leukopenia is improving. He was still febrile yesterday but has been afebrile today. Repeat blood cultures have been negative to date. CT the abdomen pelvis did not reveal a source of infection. We will continue IV ceftriaxone. (2) Streptococcal bacteremia Impression: This is the cause of his sepsis. Blood cultures have grown Streptococcus infantarius. Repeat blood cultures have been negative. I spoke with infectious disease today given he has been having fevers on a near daily basis. They did agree with an outpatient colonoscopy to evaluate for colon cancer. They felt that it is reasonable to keep the Port-A-Cath in place at this time. We recommended obtaining a maxillofacial CT or an oral surgery consult as he may have a subtle oral abscess which may have caused the bacteremia. The patient does have poor dentition but no obvious pain or evidence of infection on my exam. They agreed with ceftriaxone IV for at least 2 weeks. If the patient continues to have fever and there is no obvious source of infection then they recommended a PALMER and if this does not reveal a vegetation then they would r emove the Port-A-Cath. At this time, we will order the maxillofacial CT to better evaluate for potential oral abscess. We will keep him on ceftriaxone IV. (3) CKD (chronic kidney disease) stage 3, GFR 30-59 ml/min Impression: He has CKD stage III with recent creatinine of 1.5. His creatinine has remained stable. We will discontinue ibuprofen given the chronic kidney disease. We will continue to monitor his urine output and renal function. 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 We will continue his home Lyrica for the neuropathy. (5) Thrombocytopenia Impression: This is resolved. The acute drop over the past few days was likely due to sepsis. (6) PTSD (post-traumatic stress disorder) Impression: Stable. Continue prazosin. (7) Port-A-Cath in place Impression: We will keep this in place as repeat cultures have been negative to date. If he continues to have fevers will consider removal of this as mentioned above. (8) Acute metabolic encephalopathy Impression: This is now resolved and was likely secondary to the sepsis. He is back to his baseline.
[2021-06-04] MEDS: ASPIRIN CHEW 81 MG TABLET PO SCH (10:32)
[2021-06-04] MEDS: SACCHAROMYCES BOULARDII 250 MG CAPSULE PO SCH ×2 (10:32→16:18)
[2021-06-04] MEDS: POTASSIUM CHLORIDE 20 MEQ/15 ML UDC PO SCH (10:32)
[2021-06-04] MEDS: METOPROLOL SUCCINATE 25 MG TABLET PO SCH (10:33)
[2021-06-04] MEDS: buPROPion XL 150 MG TABLET PO SCH (10:33)
[2021-06-04] MEDS: SENNA 8.6 MG TABLET PO SCH (10:33)
[2021-06-04] MEDS: CLOPIDOGREL 75 MG TABLET PO SCH (10:34)
[2021-06-04] MEDS: polyethylene glycoL 3350 17 GM PACKET PO SCH (10:34)
[2021-06-04] MEDS: FEBUXOSTAT 40 MG PO SCH (10:46)
[2021-06-04] MEDS: cefTRIAXone 2 GM in SODIUM CHLORIDE 0.9% MINIBAG 100 ML IV SCH (13:14)
[2021-06-04] MEDS: SODIUM CHLORIDE FLUSH 0.9% 10 ML SYRINGE IVP PRN (14:21)
[2021-06-04] MEDS: ACETAMINOPHEN 325 MG TABLET PO PRN (16:18)
[2021-06-04] MEDS ORDERED: MIN OIL/DIMETHICON/COCONUT OIL 92 GM TUBE TOP ONE (16:26)
[2021-06-04] MEDS ORDERED: IOVERSOL 320 100 ML VIAL IVP ONE (17:47)
--- NOTE | 2021-06-04 18:41 | CT Report ---
PROCEDURE: MAXILLOFACIAL W INDICATIONS: Fever. Strep bactremia. Oral infection? CONTRAST: IV CONTRAST: Optiray 320 ml: 100 PO CONTRAST: *NO PO CONTRAST TECHNIQUE: After the administration of intravenous contrast, 3.0 mm axial sections acquired from the mid-neck to the frontal sinuses, with coronal reformatting. For radiation dose reduction, the following was use d: automated exposure control, adjustment of mA and/or kV according to patient size. COMPARISON: None. FINDINGS: Image quality: Excellent. Soft tissues: No edema, masses, or fluid collections. No enlarged lymph nodes. Vascular: Visualized vascular structures appear patent throughout. Bony vascular foramina and canal s appear normal. Bones: Facial bones appear intact, without fractures, erosions, or destruction. Visualized portions of the skull base and auditory canals also appear normal. Sinuses: Paranasal sinuses are aerated without fluid levels, mucosal thickening, or mucoceles. Mast oid air cells are aerated. IMPRESSION: No evidence of abscess or other significant facial soft tissue infection Reviewed by: Augusto Dodge MD on 06/04/2021 6:39 PM PDT Approved by: Augusto Dodge MD on 06/04/2021 6:39 PM PDT Station ID: [id number]
[2021-06-04] MEDS: IOVERSOL 320 100 ML VIAL IVP ONE (20:59)
[2021-06-04] MEDS: PRAZOSIN 1 MG CAPSULE PO SCH (21:03)
[2021-06-05] MEDS: SODIUM CHLORIDE FLUSH 0.9% 10 ML SYRINGE IVP SCH ×3 (00:56→17:50)
[2021-06-05] MEDS: ACETAMINOPHEN 325 MG TABLET PO PRN (04:15)
[2021-06-05] MEDS: HYDROmorphone 0.5 MG/0.5 ML SYRINGE IVP PRN ×4 (04:20→21:14)
[2021-06-05 05:00] LABS: BASOPHILS % (AUTO) 0.3 %; EOSINOPHILS # (AUTO) 0.1 10^3/uL (0.0-0.7); EOSINOPHILS % (AUTO) 1.8 %; HCT - HEMATOCRIT 33.7 % (42.0-52.0); HGB - HEMOGLOBIN 11.1 g/dL (14.0-18.0); LYMPHOCYTES # (AUTO) 0.7 10^3/uL (1.5-3.5); LYMPHOCYTES % (AUTO) 17.1 %; MEAN CORPUSCULAR HEMOGLOBIN 30.6 pg (27.0-31.0); MEAN CORPUSCULAR HGB CONC 32.9 g/dL (32.0-36.0); MEAN CORPUSCULAR VOLUME 92.8 fL (80.0-94.0); MEAN PLATELET VOLUME 9.8 fL (7.4-11.4); MONOCYTES # (AUTO) 0.5 10^3/uL (0.0-1.0); MONOCYTES % (AUTO) 11.5 %; NEUTROPHILS # (AUTO) 2.7 10^3/uL (1.5-6.6); NEUTROPHILS % (AUTO) 68.8 %; PLT - PLATELET COUNT 161 10^3/uL (130-450); RED BLOOD COUNT 3.63 10^6/uL (4.70-6.10); RED CELL DISTRIBUTION WIDTH 17.4 % (12.0-15.0); WHITE BLOOD COUNT 3.9 x10^3/uL (4.8-10.8)
[2021-06-05 05:24] LABS: CALCIUM 8.4 mg/dL (8.5-10.3); CREATININE 1.5 mg/dL (0.6-1.2); CRP - C-REACTIVE PROTEIN 8.2 mg/dL (0-1.0); POTASSIUM 3.5 mmol/L (3.5-5.0)
[2021-06-05] MEDS: PREGABALIN 25 MG CAPSULE PO SCH ×3 (06:05→21:14)
[2021-06-05] MEDS: PANTOPRAZOLE 40 MG TABLET PO SCH (06:05)
[2021-06-05] MEDS: POTASSIUM CHLORIDE 20 MEQ/15 ML UDC PO SCH (08:24)
[2021-06-05] MEDS: polyethylene glycoL 3350 17 GM PACKET PO SCH (08:25)
[2021-06-05] MEDS: SACCHAROMYCES BOULARDII 250 MG CAPSULE PO SCH ×2 (08:26→17:50)
[2021-06-05] MEDS: CLOPIDOGREL 75 MG TABLET PO SCH (08:27)
[2021-06-05] MEDS: buPROPion XL 150 MG TABLET PO SCH (08:28)
[2021-06-05] MEDS: SENNA 8.6 MG TABLET PO SCH (08:28)
[2021-06-05] MEDS: METOPROLOL SUCCINATE 25 MG TABLET PO SCH (08:28)
[2021-06-05] MEDS: ASPIRIN CHEW 81 MG TABLET PO SCH (08:29)
[2021-06-05] MEDS: ENOXAPARIN 40 MG/0.4 ML SYRINGE SUBQ SCH (08:30)
--- NOTE | 2021-06-05 11:16 | CONSULTATION NOTE ---
Referring Provider Consult Date: 06/05/21 Chief Complaint - Chief Complaint Chief Complaint: states he will not have his port removed History of Present Illness - History Obtained From Records Reviewed: yes History obtained from: pt Exam Limitations: none - History of Present Illness HPI Comment/Other: Recent fever and blood culture on 05/29/2021 positive for strep. Repeat cultures no growth. ? infected port. History - Past Medical History Cardiovascular: reports: Hypertension, High cholesterol, HI Respiratory: reports: Sleep apnea, CPAP use, Other Neuro: reports: None Endocrine/Autoimmune: reports: Type 2 diabetes, Other GI: reports: Ulcers, Colon polyps : reports: Benign prostate hypertrophy, Renal insuffiency, Kidney stones HEENT: reports: Chronic vision loss Psych: reports: ADD/ADHD Musculoskeletal: reports: Fibromyalgia, Chronic back pain Derm: reports: Psoriasis MRSA Hx?: Yes Other Past Medical History: ulnar nerve palsy/paresis, R hand - Past Surgical History General: reports: Cholecystectomy, Appendectomy, Colonoscopy Ortho: reports: Spine surgery - Family & Social History Family History: Mother: (sister from sarcoidosis), Father: Deceas ed, Hyperlipidemia, Hypertension, HI, Sister: Family History Comment/Other: Patient's mother of old age at age 93. Living Situation: Alone (He has a caregiverThat helps him with activities of daily living every day.) Social History Notes: He does not smoke tobacco products, use recreational substances or alcohol. - Substance History Use: Uses substance without health or social issues: NONE - POLST Patient has POLST: No POLST Status: Full Code Meds/Allgy - Home Medications Home Medications: Ambulatory Orders Medication Instructions Recorded Confirmed Aspirin [Juliette] 325 mg PO DAILY 05/30/21 05/31/21 Cholecalciferol [Vitamin D3] 5,000 unit PO Q7D 05/30/21 05/30/21 Cinacalcet HCl [Sensipar] 30 mg PO DAILY 05/30/21 05/31/21 Clopidogrel [Plavix] 75 mg PO DAILY 05/30/21 05/30/21 Escitalopram Oxalate 40 mg PO DAILY 05/30/21 06/01/21 Febuxostat [Uloric] 40 mg PO DAILY 05/30/21 05/30/21 Ibuprofen [Motrin] 800 mg PO Q6H PRN 05/30/21 05/30/21 Metoprolol Succinate [Toprol Xl] 25 mg PO DAILY 05/30/21 05/30/21 Pantoprazole [Protonix] 40 mg PO BIDAC 05/30/21 05/30/21 Potassium Citrate [Potassium 20 meq PO BID 05/30/21 05/30/21 Citrate ER] Prazosin HCl [Minipress] 6 mg PO QPM 05/30/21 05/30/21 Pregabalin [Lyrica] 75 mg PO TID 05/30/21 05/30/21 Rosuvastatin Calcium [Crestor] 40 mg PO QPM 05/30/21 05/30/21 Testosterone Cypionate 200 mg IM Q14D 05/30/21 05/30/21 Torsemide 20 mg PO DAILY 05/30/21 05/31/21 Trazodone HCl 100 - 200 mg PO QPM PRN 05/30/21 06/01/21 buPROPion [Wellbutrin Xl] 450 mg PO DAILY 05/30/21 05/30/21 flaxseed oiL [Flaxseed Oil] 1,000 mg PO DAILY 05/31/21 05/31/21 - Allergies Allergies/Adverse Reactions: Allergies Allergy/AdvReac Type Severity Reaction Status Date / Time No Known Drug Allergies Allergy Verified 05/29/21 19:13 Exam - Vital Signs Reviewed Vital Signs: Yes Vital Signs: Vital Signs x48h Temp Pulse Resp BP BP Pulse Ox 06/05/21 08:46 36.4 C L 78 16 113/74 06/05/21 06:04 37 C 06/05/21 04:36 38 C H 83 18 125/80 95 - Physical Exam General Appearance: positive: Alert Eyes Bilateral: positive: PERRL, EOMI, No scleral icterus Neck: positive: No JVD Respiratory: positive: No respiratory distress Skin: positive: Other (right chest port that is accessed. dressing c/d/i. no apparent erythema) Neurologic/Psychiatric: positive: Other (alert and strongly states he will not have his port removed as it is needed next week) Conclusion/Plan - Problem List (1) Bacteremia Conclusion/Plan: positive blood cultures 05/29/2021 for strep. more recent cultures no growth. concern for possible line infection. Pt refusing port removal this am. port was to be placed at [facility] 04/16/2018. Surgery canceled per Dr Chamorro as patient was not a surgical candidate for [facility]. I do not believe his health is much improved from 2019 and still not a surgical candidate for [facility]. Port can more easily be removed than placed. If port removal is desired it can be removed at [facility]; however, would not be replaced. - Lab Results Lab results reviewed: Yes Fish Bones: 06/05/21 04:10 06/05/21 04:10
[2021-06-05] MEDS: FEBUXOSTAT 40 MG PO SCH (11:26)
--- NOTE | 2021-06-05 11:53 | PROVIDER PROGRESS NOTE ---
Assessment/Plan - Problem List (1) Sepsis Assessment/Plan: 06/05 pt still had spot of fever on last night. I called [facility] ID who we called on yesterday, she recommended to d/c port-A-Cath, after blood culture is negative and pt has no more fever, then order PICC line for pt, pt may followup with out-pt for port insert. Consult with surgeon for removal of Port. pt initially refused to remove the port when surgeon discussed with him. after I discussed pt the care plan again, pt agreed to remove the port. then surgeon plan to remove his port on tomorrow. surgeon report he may remove his port on OR, we will order NPO on the morning for pt to prepare the remove of port. continue IV of Rocephin and probiotics (2) Streptococcal bacteremia Impression: pt's initial Blood cultures have grown Streptococcus infantarius. Repeat blood cultures have been negative. CT of abdomen/pelvis, CT of spinal and maxillofacial, ECHO study with TTE could not provide the infection resource. pt had a Port-A-Cath for 2and 1/2 years for monthly his IV of immunoglobulin. I called ID again, as her recommendation, remove of port-A-cath, repeat blood culture, if negative and pt has no fever, then we will put PICC for pt. continue IV of Rocephin (3) CKD (chronic kidney disease) stage 3, GFR 30-59 ml/min Impression: He has CKD stage III with recent creatinine of 1.5. His creatinine has remained stable. (4) Chronic inflammatory demyelinating polyneuritis Impression: This is chronic and he receives monthly IVIG. We will continue his home Lyrica for the neuropathy. (5) Thrombocytopenia Impression: resolved. (6) PTSD (post-traumatic stress disorder) Impression: Stable. (7) Port-A-Cath in place Impression: called our surgeon, we plan to remove on tomorrow (8) Acute metabolic encephalopathy Impression: He is back to his baseline. - Current Meds Current Meds: Current Medications Generic Name Dose Route Start Last Admin Trade Name Freq PRN Reason Stop Dose Admin Acetaminophen 650 mg 05/31/21 20:13 06/05/21 04:15 Acetaminophen 325 Mg Tablet PO 650 mg Q4HR PRN Administration Pain or Fever > 38C (100.4F) Aspirin 81 mg 06/01/21 10:00 06/05/21 08:29 Aspirin Chew 81 Mg Tablet PO 81 mg DAILY [facility] Administration Bupropion HCl 450 mg 06/01/21 09:00 06/05/21 08:28 Bupropion Xl 150 Mg Tablet PO 450 mg DAILY [facility] Administration Cholecalciferol 5,000 unit 05/30/21 15:00 05/30/21 14:48 Cholecalciferol 5,000 Unit Capsule PO 5,000 unit Q7D [facility] Administration Clopidogrel Bisulfate 75 mg 05/31/21 09:00 06/05/21 08:27 Clopidogrel 75 Mg Tablet PO 75 mg DAILY [facility] Administration Enoxaparin Sodium 40 mg 06/05/21 09:00 06/05/21 08:30 Enoxaparin 40 Mg/0.4 Ml Syringe SUBQ 40 mg DAILY [facility] Administration Heparin Sodium (Beef Lung) 30 - 50 unit 05/31/21 04:51 06/04/21 16:17 Heparin Flush 50 Units/5 Ml Syringe IVP 50 unit PRN PRN Administration Port Protocol (<24 hours) Hydromorphone HCl 0.5 mg 06/01/21 16:35 06/05/21 08:31 Hydromorphone 0.5 Mg/0.5 Ml Syringe IVP 0.5 mg Q4H PRN Administration PAIN Ceftriaxone Sodium 2 gm/ 100 mls @ 200 mls/hr 05/30/21 13:00 06/04/21 13:50 Sodium Chloride IV Infused Q24H [facility] Infusion Metoprolol Succinate 25 mg 05/30/21 09:00 06/05/21 08:28 Metoprolol Succinate 25 Mg Tablet PO 25 mg DAILY [facility] Administration Oxycodone HCl 5 mg 06/01/21 08:58 06/02/21 15:35 Oxycodone 5 Mg Tablet PO 5 mg Q4HR PRN Administration PAIN Pantoprazole Sodium 40 mg 05/30/21 09:00 06/05/21 06:05 Pantoprazole 40 Mg Tablet PO 40 mg QDAC [facility] Administration Febuxostat [Uloric 1 each 05/31/21 09:00 06/05/21 11:26 ] 40 Mg Tabs PO Not Given DAILY [facility] Polyethylene Glycol 17 gm 05/30/21 09:00 06/05/21 08:25 Polyethylene Glycol 3350 17 Gm Packet PO 17 gm DAILY [facility] Administration Potassium Chloride 20 meq 06/02/21 08:00 06/05/21 08:24 Potassium Chloride 20 Meq/15 Ml Udc PO 20 meq DAILYWM [facility] Administration Prazosin HCl 6 mg 05/30/21 21:00 06/04/21 21:03 Prazosin 1 Mg Capsule PO 6 mg QPM [facility] Administration Pregabalin 75 mg 05/30/21 14:00 06/05/21 06:05 Pregabalin 25 Mg Capsule PO 75 mg TID [facility] Administration Saccharomyces Boulardii 250 mg 05/30/21 08:57 06/05/21 08:26 Saccharomyces Boulardii 250 Mg Capsule PO 250 mg BIDWM [facility] Administration Senna 8.6 - 17.2 mg 06/04/21 09:00 06/05/21 08:28 Senna 8.6 Mg Tablet PO 8.6 mg DAILY [facility] Administration Sodium Chloride 10 ml 05/29/21 22:16 06/04/21 14:21 Sodium Chloride Flush 0.9% 10 Ml Syringe IVP 10 ml PRN PRN Administration NEEDED PER PROVIDER ORDERS Sodium Chloride 10 ml 05/30/21 01:00 06/05/21 08:30 Sodium Chloride Flush 0.9% 10 Ml Syringe IVP 10 ml 0100,0900,1700 [facility] Administration - Lab Result Fish Bone Diagrams: 06/05/21 04:10 06/05/21 04:10 - Additional Planning My Orders: My Active Orders 06/05/21 General Surgery Consult [CONS] Routine Subjective - Subjective Patient Reports: Resting Comfortably Objective Vital Signs: Vital Signs - 24 hr 06/04/21 06/04/21 06/04/21 13:00 16:36 18:05 Temperature 36.5 C 38.5 C H 37.1 C Heart Rate [ 86 Brachial] Heart Rate [ 85 Radial] Respiratory 18 20 Rate Blood Pressure 127/78 [Left Brachial artery] Blood Pressure 145/87 H [Right Brachial artery] Blood Pressure [Right Radial artery] O2 Saturation 96 93 06/04/21 06/04/21 06/05/21 21:00 23:57 04:36 Temperature 36.9 C 38.8 C H 38 C H Heart Rate [ 72 83 Brachial] Heart Rate [ 85 Radial] Respiratory 20 14 18 Rate Blood Pressure 125/80 [Left Brachial artery] Blood Pressure 133/87 H [Right Brachial artery] Blood Pressure 136/92 H [Right Radial artery] O2 Saturation 95 95 95 06/05/21 06/05/21 06:04 08:46 Temperature 37 C 36.4 C L Heart Rate [ 78 Brachial] Heart Rate [ Radial] Respiratory 16 Rate Blood Pressure [Left Brachial artery] Blood Pressure [Right Brachial artery] Blood Pressure 113/74 [Right Radial artery] O2 Saturation Oxygen O2 Source CPAP I&O (Last 24 Hrs): Intake and Output Totals x24h 06/03/21 06/04/21 06/05/21 23:59 23:59 23:59 Intake Total 3840 2630 1300 Output Total 1302 8320 2900 Balance 0961 -3568 -6513 General: Alert, Oriented x3, No acute distress HEENT: Atraumatic Neck: Supple Lymphatic: no adenopathy Neuro: Alert, Non Focal, Oriented Times 3 Cardiovascular: Regular rate, Normal S1, Normal S2 Respiratory: Chest non-tender, No respiratory distress Abdomen: Normal bowel sounds, Soft Extremities: Normal pulses - Results Results: Laboratory Results WBC 3.9 x10^3/uL (4.8-10.8) L 06/05/21 04:10 RBC 3.63 10^6/uL (4.70-6.10) L 06/05/21 04:10 Hgb 11.1 g/dL (14.0-18.0) L 06/05/21 04:10 Hct 33.7 % (42.0-52.0) L 06/05/21 04:10 MCV 92.8 fL (80.0-94.0) 06/05/21 04:10 MCH 30.6 pg (27.0-31.0) 06/05/21 04:10 MCHC 32.9 g/dL (32.0-36.0) 06/05/21 04:10 RDW 17.4 % (12.0-15.0) H 06/05/21 04:10 Plt Count 161 10^3/uL (130-450) 06/05/21 04:10 MPV 9.8 fL (7.4-11.4) 06/05/21 04:10 Neut # (Auto) 2.7 10^3/uL (1.5-6.6) 06/05/21 04:10 Lymph # (Auto) 0.7 10^3/uL (1.5-3.5) L 06/05/21 04:10 [place] # (Auto) 0.5 10^3/uL (0.0-1.0) 06/05/21 04:10 Eos # (Auto) 0.1 10^3/uL (0.0-0.7) 06/05/21 04:10 Baso # (Auto) 0.0 10^3/uL (0.0-0.1) 06/05/21 04:10 Absolute Nucleated RBC 0.00 x10^3/uL 06/05/21 04:10 Total Counted 100 06/02/21 05:50 Band Neuts % (Manual) 1 % (0-10) 06/02/21 05:50 Abnorm Lymph % (Manual) 0 % 06/02/21 05:50 Myelocytes % 1 % (-0) H 06/02/21 05:50 Nucleated RBC % 0.0 /100WBC 06/05/21 04:10 Neutrophils # (Manual) 1.8 10^3/uL (1.5-6.6) 06/02/21 05:50 Lymphocytes # (Manual) 0.3 10^3/uL (1.5-3.5) L 06/02/21 05:50 Monocytes # (Manual) 0.2 10^3/uL (0.0-1.0) 06/02/21 05:50 Eosinophils # (Manual) 0.0 10^3/uL (0-0.7) 06/02/21 05:50 Basophils # (Manual) 0.0 10^3/uL (0-0.1) 06/02/21 05:50 Differential Comment MANUAL DIFFERENTIAL 06/02/21 05:50 WBC Morphology NORMAL APPEARANCE (NORMAL) 06/02/21 05:50 Platelet Estimate DECREASED (<130,000) (NORMAL) 06/02/21 05:50 Platelet Morphology NORMAL APPEARANCE (NORMAL) 06/02/21 05:50 RBC Morph Micro Appear NORMAL APPEARANCE (NORMAL) 06/02/21 05:50 Sodium 134 mmol/L (135-145) L 06/05/21 04:10 Potassium 3.5 mmol/L (3.5-5.0) 06/05/21 04:10 Chloride 97 mmol/L (101-111) L 06/05/21 04:10 Carbon Dioxide 26 mmol/L (21-32) 06/05/21 04:10 Anion Gap 11.0 (6-13) 06/05/21 04:10 BUN 11 mg/dL (6-20) 06/05/21 04:10 Creatinine 1.5 mg/dL (0.6-1.2) H 06/05/21 04:10 Estimated GFR (MDRD) 46 (>89) L 06/05/21 04:10 Glucose 100 mg/dL (70-100) 06/05/21 04:10 Serum Osmolality 271 mOsm/kg (278-305) L 05/29/21 19:10 Lactic Acid 1.7 mmol/L (0.5-2.2) 05/29/21 19:50 Uric Acid 5.8 mg/dL (2.6-7.2) 05/29/21 19:10 Calcium 8.4 mg/dL (8.5-10.3) L 06/05/21 04:10 Total Bilirubin 0.5 mg/dL (0.2-1.0) 06/04/21 05:30 AST 49 IU/L (10-42) H 06/04/21 05:30 ALT 36 IU/L (10-60) 06/04/21 05:30 Alkaline Phosphatase 60 IU/L (42-121) 06/04/21 05:30 Ammonia < 10.0 umol/L (7-35) 05/29/21 22:27 Total Creatine Kinase 606 IU/L (22-269) H 06/05/21 04:10 C-Reactive Protein 8.2 mg/dL (0-1.0) H 06/05/21 04:10 Total Protein 7.5 g/dL (6.7-8.2) 06/04/21 05:30 Albumin 2.5 g/dL (3.2-5.5) L 06/04/21 05:30 Globulin 5.0 g/dL (2.1-4.2) H 06/04/21 05:30 Albumin/Globulin Ratio 0.5 (1.0-2.2) L 06/04/21 05:30 TSH 0.91 uIU/mL (0.34-5.60) 05/29/21 19:10 Cortisol 43.5 ug/dL 05/29/21 19:10 Urine Color YELLOW 05/31/21 23:00 Urine Clarity CLEAR (CLEAR) 05/31/21 23:00 Urine pH 6.0 PH (5.0-7.5) 05/31/21 23:00 Ur Specific [place] 1.015 (1.002-1.030) 05/31/21 23:00 Urine Protein 100 mg/dL (NEGATIVE) H 05/31/21 23:00 Urine Glucose (UA) NEGATIVE mg/dL (NEGATIVE) 05/31/21 23:00 Urine Ketones NEGATIVE mg/dL (NEGATIVE) 05/31/21 23:00 Urine Occult Blood TRACE-LYSE (NEGATIVE) 05/31/21 23:00 Urine Nitrite NEGATIVE (NEGATIVE) 05/31/21 23:00 Urine Bilirubin NEGATIVE (NEGATIVE) 05/31/21 23:00 Urine Urobilinogen 1 (NORMAL) E.U./dL (NORMAL) 05/31/21 23:00 Ur Leukocyte Esterase NEGATIVE (NEGATIVE) 05/31/21 23:00 Urine RBC 0-5 /HPF (0-5) 05/31/21 23:00 Urine WBC 0-3 /HPF (0-3) 05/31/21 23:00 Ur Squamous Epith Cells RARE Squamous (<= Few) 05/31/21 23:00 Urine Bacteria Rare /HPF (None Seen) 05/31/21 23:00 Urine Casts 3-5 Hyaline Casts /LPF 05/31/21 23:00 Urine Mucus Moderate Strands 05/31/21 23:00 Urine Culture Comments NOT INDICATED 05/31/21 23:00 Urine Osmolality 362 mOsm/kg (50-1200) 05/29/21 02:00 Urine Opiates Screen NEGATIVE (NEGATIVE) 05/29/21 02:00 Ur Oxycodone Screen NEGATIVE (NEGATIVE) 05/29/21 02:00 Urine Methadone Screen NEGATIVE (NEGATIVE) 05/29/21 02:00 Ur Propoxyphene Screen NEGATIVE (NEGATIVE) 05/29/21 02:00 Ur Barbiturates Screen NEGATIVE (NEGATIVE) 05/29/21 02:00 Ur Tricyclics Screen NEGATIVE (NEGATIVE) 05/29/21 02:00 Ur Phencyclidine Scrn NEGATIVE (NEGATIVE) 05/29/21 02:00 Ur Amphetamine Screen NEGATIVE (NEGATIVE) 05/29/21 02:00 U Methamphetamines Scrn NEGATIVE (NEGATIVE) 05/29/21 02:00 U Benzodiazepines Scrn NEGATIVE (NEGATIVE) 05/29/21 02:00 Urine Cocaine Screen NEGATIVE (NEGATIVE) 05/29/21 02:00 U Cannabinoids Screen POSITIVE (NEGATIVE) H 05/29/21 02:00 SARS-CoV-2 (PCR) NOT DETECTED 05/29/21 21:34 Sepsis Event Note (H) - Evaluation Current Stage of Sepsis: Sepsis - Sepsis Criteria Sepsis Criteria: Recorded Temperature greater than 38.3C or Less than 36C, WBC count greater than 12,000 or less than 4000, [employer] IN[employer]ATOR: altered consciousness (unrelated to primary neuro pathology), Hematologic: platelets < 100,000; INR > 1.5, or a PTT>60 seconds ABX Reporting Has patient been on IV antibiotics over the past 48 hours?: Yes Current Medications - Current Medications Current Medications: Active Medications Acetaminophen (Acetaminophen 325 Mg Tablet) 650 mg PO Q4HR PRN PRN Reason: Pain or Fever > 38C (100.4F) Last Admin: 06/05/21 04:15 Dose: 650 mg Aspirin (Aspirin Chew 81 Mg Tablet) 81 mg PO DAILY [facility] Last Admin: 06/05/21 08:29 Dose: 81 mg Bupropion HCl (Bupropion Xl 150 Mg Tablet) 450 mg PO DAILY [facility] Last Admin: 06/05/21 08:28 Dose: 450 mg Cholecalciferol (Cholecalciferol 5,000 Unit Capsule) 5,000 unit PO Q7D [facility] Last Admin: 05/30/21 14:48 Dose: 5,000 unit Clopidogrel Bisulfate (Clopidogrel 75 Mg Tablet) 75 mg PO DAILY [facility] Last Admin: 06/05/21 08:27 Dose: 75 mg Enoxaparin Sodium (Enoxaparin 40 Mg/0.4 Ml Syringe) 40 mg SUBQ DAILY [facility] Last Admin: 06/05/21 08:30 Dose: 40 mg Heparin Sodium (Beef Lung) (Heparin Flush 50 Units/5 Ml Syringe) 30 - 50 unit IVP PRN PRN PRN Reason: Port Protocol (<24 hours) Last Admin: 06/04/21 16:17 Dose: 50 unit Hydromorphone HCl (Hydromorphone 0.5 Mg/0.5 Ml Syringe) 0.5 mg IVP Q4H PRN PRN Reason: PAIN Last Admin: 06/05/21 08:31 Dose: 0.5 mg Ceftriaxone Sodium 2 gm/ (Sodium Chloride) 100 mls @ 200 mls/hr IV Q24H [facility] Last Infusion: 06/04/21 13:50 Dose: Infused Potassium Chloride/Dextrose/Sod Cl (D5ns W/20 Meq Kcl) 1,000 mls @ 83.3 mls/hr IV .Q12H1M [facility] Stop: 06/06/21 13:00 Metoprolol Succinate (Metoprolol Succinate 25 Mg Tablet) 25 mg PO DAILY [facility] Last Admin: 06/05/21 08:28 Dose: 25 mg Mineral Oil (Min Oil/Dimethicon/Coconut Oil 92 Gm Tube) 1 applic TOP PRN PRN PRN Reason: Skin Care Ondansetron HCl (Ondansetron 4 Mg/2 Ml Vial) 4 mg IVP Q6HR PRN PRN Reason: Nausea / Vomiting Oxycodone HCl (Oxycodone 5 Mg Tablet) 5 mg PO Q4HR PRN PRN Reason: PAIN Last Admin: 06/02/21 15:35 Dose: 5 mg Pantoprazole Sodium (Pantoprazole 40 Mg Tablet) 40 mg PO QDAC [facility] Last Admin: 06/05/21 06:05 Dose: 40 mg Febuxostat [Uloric (] 40 Mg Tabs) 1 each PO DAILY [facility] Last Admin: 06/05/21 11:26 Dose: Not Given Polyethylene Glycol (Polyethylene Glycol 3350 17 Gm Packet) 17 gm PO DAILY [facility] Last Admin: 06/05/21 08:25 Dose: 17 gm Potassium Chloride (Potassium Chloride 20 Meq/15 Ml Udc) 20 meq PO DAILYWM [facility] Last Admin: 06/05/21 08:24 Dose: 20 meq Prazosin HCl (Prazosin 1 Mg Capsule) 6 mg PO QPM [facility] Last Admin: 06/04/21 21:03 Dose: 6 mg Pregabalin (Pregabalin 25 Mg Capsule) 75 mg PO TID [facility] Last Admin: 06/05/21 06:05 Dose: 75 mg Saccharomyces Boulardii (Saccharomyces Boulardii 250 Mg Capsule) 250 mg PO BIDWM [facility] Last Admin: 06/05/21 08:26 Dose: 250 mg Senna (Senna 8.6 Mg Tablet) 8.6 - 17.2 mg PO DAILY [facility] Last Admin: 06/05/21 08:28 Dose: 8.6 mg Sodium Chloride (Sodium Chloride Flush 0.9% 10 Ml Syringe) 10 ml IVP PRN PRN PRN Reason: NEEDED PER PROVIDER ORDERS Last Admin: 06/04/21 14:21 Dose: 10 ml Sodium Chloride (Sodium Chloride Flush 0.9% 10 Ml Syringe) 10 ml IVP 0 100,0900,1700 [facility] Last Admin: 06/05/21 08:30 Dose: 10 ml Aspirin [Juliette] 325 mg PO DAILY 05/30/21 Cholecalciferol [Vitamin D3] 5,000 unit PO Q7D 05/30/21 Cinacalcet HCl [Sensipar] 30 mg PO DAILY 05/30/21 Clopidogrel [Plavix] 75 mg PO DAILY 05/30/21 Escitalopram Oxalate 40 mg PO DAILY 05/30/21 Febuxostat [Uloric] 40 mg PO DAILY 05/30/21 Ibuprofen [Motrin] 800 mg PO Q6H PRN 05/30/21 Metoprolol Succinate [Toprol Xl] 25 mg PO DAILY 05/30/21 Pantoprazole [Protonix] 40 mg PO BIDAC 05/30/21 Potassium Citrate [Potassium Citrate ER] 20 meq PO BID 05/30/21 Prazosin HCl [Minipress] 6 mg PO QPM 05/30/21 Pregabalin [Lyrica] 75 mg PO TID 05/30/21 Rosuvastatin Calcium [Crestor] 40 mg PO QPM 05/30/21 Testosterone Cypionate 200 mg IM Q14D 05/30/21 Torsemide 20 mg PO DAILY 05/30/21 Trazodone HCl 100 - 200 mg PO QPM PRN 05/30/21 buPROPion [Wellbutrin Xl] 450 mg PO DAILY 05/30/21 flaxseed oiL [Flaxseed Oil] 1,000 mg PO DAILY 05/31/21
[2021-06-05] MEDS: cefTRIAXone 2 GM in SODIUM CHLORIDE 0.9% MINIBAG 100 ML IV SCH (13:34)
[2021-06-05] MEDS: SODIUM CHLORIDE FLUSH 0.9% 10 ML SYRINGE IVP PRN (15:11)
[2021-06-05] MEDS ORDERED: LACTULOSE 10 GM /15 ML UDC PO ONE (19:39)
[2021-06-05] MEDS: PRAZOSIN 1 MG CAPSULE PO SCH (21:14)
[2021-06-05] MEDS: DOCUSATE SODIUM 250 MG CAPSULE PO SCH (21:14)
[2021-06-06] MEDS: SODIUM CHLORIDE FLUSH 0.9% 10 ML SYRINGE IVP SCH ×4 (00:49→20:44)
[2021-06-06] MEDS ORDERED: D5NS W/20 MEQ KCL 1,000 ML IV SCH (01:00)
[2021-06-06 06:19] LABS: BASOPHILS % (AUTO) 0.4 %; EOSINOPHILS # (AUTO) 0.1 10^3/uL (0.0-0.7); EOSINOPHILS % (AUTO) 3.5 %; HCT - HEMATOCRIT 32.8 % (42.0-52.0); HGB - HEMOGLOBIN 10.5 g/dL (14.0-18.0); LYMPHOCYTES # (AUTO) 0.6 10^3/uL (1.5-3.5); LYMPHOCYTES % (AUTO) 22.4 %; MEAN CORPUSCULAR HEMOGLOBIN 30.3 pg (27.0-31.0); MEAN CORPUSCULAR VOLUME 94.5 fL (80.0-94.0); MEAN PLATELET VOLUME 9.8 fL (7.4-11.4); MONOCYTES # (AUTO) 0.3 10^3/uL (0.0-1.0); MONOCYTES % (AUTO) 12.7 %; NEUTROPHILS # (AUTO) 1.6 10^3/uL (1.5-6.6); NEUTROPHILS % (AUTO) 59.8 %; PLT - PLATELET COUNT 149 10^3/uL (130-450); RED BLOOD COUNT 3.47 10^6/uL (4.70-6.10); RED CELL DISTRIBUTION WIDTH 17.4 % (12.0-15.0); WHITE BLOOD COUNT 2.6 x10^3/uL (4.8-10.8)
[2021-06-06 06:35] LABS: CALCIUM 8.5 mg/dL (8.5-10.3); CREATININE 1.5 mg/dL (0.6-1.2); POTASSIUM 3.9 mmol/L (3.5-5.0)
[2021-06-06 06:42] LABS: DIFFERENTIAL COMMENT MANUAL=AUTO DIFF; PLATELET ESTIMATE, MANUAL NORMAL (130-450,000) (NORMAL); RBC MORPHOLOGY (MULTIPLE) NORMAL APPEARANCE (NORMAL)
[2021-06-06] MEDS: HYDROmorphone 0.5 MG/0.5 ML SYRINGE IVP PRN ×3 (09:18→20:37)
[2021-06-06] MEDS: CLOPIDOGREL 75 MG TABLET PO SCH (09:24)
[2021-06-06] MEDS: buPROPion XL 150 MG TABLET PO SCH (09:24)
[2021-06-06] MEDS: ASPIRIN CHEW 81 MG TABLET PO SCH (09:25)
[2021-06-06] MEDS: SACCHAROMYCES BOULARDII 250 MG CAPSULE PO SCH ×2 (09:25→17:13)
[2021-06-06] MEDS: METOPROLOL SUCCINATE 25 MG TABLET PO SCH (09:25)
[2021-06-06] MEDS: POTASSIUM CHLORIDE 20 MEQ/15 ML UDC PO SCH (09:26)
[2021-06-06] MEDS: PREGABALIN 25 MG CAPSULE PO SCH ×3 (09:26→22:33)
[2021-06-06] MEDS: SENNA 8.6 MG TABLET PO SCH (09:26)
[2021-06-06] MEDS: polyethylene glycoL 3350 17 GM PACKET PO SCH (09:27)
[2021-06-06] MEDS: DOCUSATE SODIUM 250 MG CAPSULE PO SCH (09:27)
[2021-06-06] MEDS: PANTOPRAZOLE 40 MG TABLET PO SCH (09:27)
[2021-06-06] MEDS: ENOXAPARIN 40 MG/0.4 ML SYRINGE SUBQ SCH (09:28)
--- NOTE | 2021-06-06 09:30 | PROVIDER PROGRESS NOTE ---
Subjective - Subjective Pt reports feeling: Improved (appears well) Objective - Vital Signs/Intake & Output Reviewed Vital Signs: Yes Vital Signs: Vital Signs x48h Temp Pulse Resp BP Pulse Ox 06/06/21 08:35 36.1 C L 84 22 144/97 H 98 06/06/21 04:10 37.5 C 79 20 131/74 H 96 Intake & Output: Intake & Output 06/03/21 06/04/21 06/05/21 06/06/21 23:59 23:59 23:59 23:59 Intake Total 3840 2630 3980 Output Total 1305 7205 5451 3552 Balance 8190 -6880 -1520 -4650 - Objective General Appearance: positive: No acute distress, Alert Eyes Bilateral: positive: PERRL, EOMI, No scleral icterus Respiratory: positive: No respiratory distress Skin: positive: Other (right chest port that is accessed. no erythema) Extremities: positive: Other (left arm peripheral iv) Neurologic/Psychiatric: positive: Oriented x3 - Lab Results Fish Bones: 06/06/21 05:29 06/06/21 05:29 Other Labs: Lab Results x24hrs 06/06/21 06/06/21 Range/Units 05:29 05:29 WBC 2.6 L (4.8-10.8) x10^3/uL RBC 3.47 L (4.70-6.10) 10^6/uL Hgb 10.5 L (14.0-18.0) g/dL Hct 32.8 L (42.0-52.0) % MCV 94.5 H (80.0-94.0) fL MCH 30.3 (27.0-31.0) pg MCHC 32.0 (32.0-36.0) g/dL RDW 17.4 H (12.0-15.0) % Plt Count 149 (130-450) 10^3/uL MPV 9.8 (7.4-11.4) fL Neut # (Auto) 1.6 (1.5-6.6) 10^3/uL Lymph # (Auto) 0.6 L (1.5-3.5) 10^3/uL [place] # (Auto) 0.3 (0.0-1.0) 10^3/uL Eos # (Auto) 0.1 (0.0-0.7) 10^3/uL Baso # (Auto) 0.0 (0.0-0.1) 10^3/uL Absolute Nucleated RBC 0.00 x10^3/uL Band Neuts % (Manual) Not Reportable Abnorm Lymph % (Manual) Not Reportable Nucleated RBC % 0.0 /100WBC Neutrophils # (Manual) Not Reportable Lymphocytes # (Manual) Not Reportable Monocytes # (Manual) Not Reportable Eosinophils # (Manual) Not Reportable Basophils # (Manual) Not Reportable Differential Comment MANUAL=AUTO DIFF Platelet Estimate NORMAL (130-450,000) (NORMAL) RBC Morph Micro Appear NORMAL APPEARANCE (NORMAL) Sodium 139 (135-145) mmol/L Potassium 3.9 (3.5-5.0) mmol/L Chloride 103 (101-111) mmol/L Carbon Dioxide 28 (21-32) mmol/L Anion Gap 8.0 (6-13) BUN 12 (6-20) mg/dL Creatinine 1.5 H (0.6-1.2) mg/dL Estimated GFR (MDRD) 46 L (>89) Glucose 105 H (70-100) mg/dL Calcium 8.5 (8.5-10.3) mg/dL C-Reactive Protein 6.0 H (0-1.0) mg/dL Sepsis Event Note (H) - Evaluation Current Stage of Sepsis: Sepsis - Sepsis Criteria Sepsis Criteria: Recorded Temperature greater than 38.3C or Less than 36C, WBC count greater than 12,000 or less than 4000, [employer]ES: altered consciousness (unrelated to primary neuro pathology), Hematologic: platelets < 100,000; INR > 1.5, or a PTT>60 seconds Assessment/Plan - Problem List (1) Bacteremia Impression: he is still very reluctant to have his port removed. port placement at [facility] in 2019 was canceled per anesthesia. not a surgical candidate here/ too high risk we again discussed port removal and that I would not be putting a new one back in. I have yet to get his consent. fortunately he is not septic, recent blood cultures negative, and temperature trending down.
[2021-06-06] MEDS: FEBUXOSTAT 40 MG PO SCH (09:40)
[2021-06-06] MEDS: MIN OIL/DIMETHICON/COCONUT OIL 92 GM TUBE TOP PRN (12:06)
[2021-06-06] MEDS: cefTRIAXone 2 GM in SODIUM CHLORIDE 0.9% MINIBAG 100 ML IV SCH (12:38)
[2021-06-06] MEDS: ACETAMINOPHEN 325 MG TABLET PO PRN (13:30)
[2021-06-06] MEDS: SODIUM CHLORIDE FLUSH 0.9% 10 ML SYRINGE IVP PRN ×2 (13:41→17:13)
[2021-06-06] MEDS ORDERED: D5.45NS W/20 MEQ KCL 1,000 ML IV SCH (15:00)
--- NOTE | 2021-06-06 15:04 | PROVIDER PROGRESS NOTE ---
Subjective - Prog Note Date Prog Note Date: 06/06/21 - Subjective Subjective: In the morning I went to assess pt. Pt is alert and oriented plus 4. Pt agreed to remove out his Port-A-cath on yesterday which was ID's recommendation. At the time, pt's questions and concern was answered. We consulted with surgeon. Surgeon planned to remove his Port A cath on today. Pt was no NPO. Today pt changed his mind. pt also was yelling to me, he refused to have Port-A-cath be removed out. Then he said he will call his broth, he said his broth is a surgeon, to get an opinion. I was appropriated and politely to answer his questions. it was his choice to remove his port-A-cath out or not. At the time, charge nurse and pt's nurse were at the room to witness. After that, pt requested to change his provider. I reported it to Dr. Laura Daugherty. DR. Laura Daugherty did help manage the case. Current Medications - Current Medications Current Medications: Active Medications Acetaminophen (Acetaminophen 325 Mg Tablet) 650 mg PO Q4HR PRN PRN Reason: Pain or Fever > 38C (100.4F) Last Admin: 06/06/21 13:30 Dose: 650 mg Aspirin (Aspirin Chew 81 Mg Tablet) 81 mg PO DAILY [facility] Last Admin: 06/06/21 09:25 Dose: 81 mg Bupropion HCl (Bupropion Xl 150 Mg Tablet) 450 mg PO DAILY [facility] Last Admin: 06/06/21 09:24 Dose: 450 mg Cholecalciferol (Cholecalciferol 5,000 Unit Capsule) 5,000 unit PO Q7D [facility] Last Admin: 05/30/21 14:48 Dose: 5,000 unit Clopidogrel Bisulfate (Clopidogrel 75 Mg Tablet) 75 mg PO DAILY [facility] Last Admin: 06/06/21 09:24 Dose: 75 mg Docusate Sodium (Docusate Sodium 250 Mg Capsule) 250 - 500 mg PO DAILY [facility] Last Admin: 06/06/21 09:27 Dose: 250 mg Enoxaparin Sodium (Enoxaparin 40 Mg/0.4 Ml Syringe) 40 mg SUBQ DAILY [facility] Last Admin: 06/06/21 09:28 Dose: 40 mg Heparin Sodium (Beef Lung) (Heparin Flush 50 Units/5 Ml Syringe) 30 - 50 unit IVP PRN PRN PRN Reason: Port Protocol (<24 hours) Last Admin: 06/06/21 13:41 Dose: 50 unit Hydromorphone HCl (Hydromorphone 0.5 Mg/0.5 Ml Syringe) 0.5 mg IVP Q4H PRN PRN Reason: PAIN Last Admin: 06/06/21 13:32 Dose: 0.5 mg Ceftriaxone Sodium 2 gm/ (Sodium Chloride) 100 mls @ 200 mls/hr IV Q24H [facility] Last Infusion: 06/06/21 13:10 Dose: Infused Potassium Chloride/Dextrose/Sod Cl (D5.45ns W/20 Meq Kcl) 1,000 mls @ 100 mls/hr IV .Q10H [facility] Stop: 06/07/21 00:59 Metoprolol Succinate (Metoprolol Succinate 25 Mg Tablet) 25 mg PO DAILY [facility] Last Admin: 06/06/21 09:25 Dose: 25 mg Mineral Oil (Min Oil/Dimethicon/Coconut Oil 92 Gm Tube) 1 applic TOP PRN PRN PRN Reason: Skin Care Last Admin: 06/06/21 12:06 Dose: 1 applic Ondansetron HCl (Ondansetron 4 Mg/2 Ml Vial) 4 mg IVP Q6HR PRN PRN Reason: Nausea / Vomiting Oxycodone HCl (Oxycodone 5 Mg Tablet) 5 mg PO Q4HR PRN PRN Reason: PAIN Last Admin: 06/02/21 15:35 Dose: 5 mg Pantoprazole Sodium (Pantoprazole 40 Mg Tablet) 40 mg PO QDAC [facility] Last Admin: 06/06/21 09:27 Dose: 40 mg Febuxostat [Uloric (] 40 Mg Tabs) 1 each PO DAILY [facility] Last Admin: 06/06/21 09:40 Dose: Not Given Polyethylene Glycol (Polyethylene Glycol 3350 17 Gm Packet) 17 gm PO DAILY [facility] Last Admin: 06/06/21 09:27 Dose: 17 gm Potassium Chloride (Potassium Chloride 20 Meq/15 Ml Udc) 20 meq PO DAILYWM [facility] Last Admin: 06/06/21 09:26 Dose: 20 meq Prazosin HCl (Prazosin 1 Mg Capsule) 6 mg PO QPM [facility] Last Admin: 06/05/21 21:14 Dose: 6 mg Pregabalin (Pregabalin 25 Mg Capsule) 75 mg PO TID [facility] Last Admin: 06/06/21 13:41 Dose: 75 mg Saccharomyces Boulardii (Saccharomyces Boulardii 250 Mg Capsule) 250 mg PO BIDWM [facility] Last Admin: 06/06/21 09:25 Dose: 250 mg Senna (Senna 8.6 Mg Tablet) 8.6 - 17.2 mg PO DAILY [facility] Last Admin: 06/06/21 09:26 Dose: 8.6 mg Sodium Chloride (Sodium Chloride Flush 0.9% 10 Ml Syringe) 10 ml IVP PRN PRN PRN Reason: NEEDED PER PROVIDER ORDERS Last Admin: 06/06/21 13:41 Dose: 10 ml Sodium Chloride (Sodium Chloride Flush 0.9% 10 Ml Syringe) 10 ml IVP 0100,0900,1700 [facility] Last Admin: 06/06/21 09:19 Dose: 10 ml Aspirin [Juliette] 325 mg PO DAILY 05/30/21 Cholecalciferol [Vitamin D3] 5,000 unit PO Q7D 05/30/21 Cinacalcet HCl [Sensipar] 30 mg PO DAILY 05/30/21 Clopidogrel [Plavix] 75 mg PO DAILY 05/30/21 Escitalopram Oxalate 40 mg PO DAILY 05/30/21 Febuxostat [Uloric] 40 mg PO DAILY 05/30/21 Ibuprofen [Motrin] 800 mg PO Q6H PRN 05/30/21 Metoprolol Succinate [Toprol Xl] 25 mg PO DAILY 05/30/21 Pantoprazole [Protonix] 40 mg PO BIDAC 05/30/21 Potassium Citrate [Potassium Citrate ER] 20 meq PO BID 05/30/21 Prazosin HCl [Minipress] 6 mg PO QPM 05/30/21 Pregabalin [Lyrica] 75 mg PO TID 05/30/21 Rosuvastatin Calcium [Crestor] 40 mg PO QPM 05/30/21 Testosterone Cypionate 200 mg IM Q14D 05/30/21 Torsemide 20 mg PO DAILY 05/30/21 Trazodone HCl 100 - 200 mg PO QPM PRN 05/30/21 buPROPion [Wellbutrin Xl] 450 mg PO DAILY 05/30/21 flaxseed oiL [Flaxseed Oil] 1,000 mg PO DAILY 05/31/21 Objective - Vital Signs/Intake & Output Vital Signs: Vital Signs x48h Temp Pulse Resp BP Pulse Ox 06/06/21 12:27 39.2 C H 85 20 138/92 H 99 06/06/21 08:35 36.1 C L 84 22 144/97 H 98 Intake & Output: Intake & Output 06/03/21 06/04/21 06/05/21 06/06/21 23:59 23:59 23:59 23:59 Intake Total 3840 2630 3980 1460 Output Total 1302 8350 5500 4350 Balance 5192 -7240 -0094 -5459 - Objective General Appearance: positive: Alert, Mild distress. negative: Lethargic Eyes Bilateral: positive: Normal inspection, No lid inflammation ENT: positive: ENT inspection nml, No signs of dehydration. negative: Purulent nasal drainage Neck: positive: Nml inspection, Trachea midline. negative: Tracheal deviation Respiratory: positive: Chest non-tender, No respiratory distress. negative: Wheezes Cardiovascular: positive: Regular rate & rhythm. negative: Tachycardia, Bradycardia, Systolic murmur Peripheral Pulses: 2+ Radial (R), 2+ Radial (L) Abdomen: positive: Non-tender, Nml bowel sounds, No distention Back: positive: Nml inspection Skin: positive: Color nml, Warm, Dry. negative: Cyanosis, Pallor Extremities: positive: Non-tender, Full ROM Neurologic/Psychiatric: positive: Oriented x3, Motor nml, Sensation nml. negative: Weakness, Sensory loss, Facial droop, Slurred/abnml speech - Lab Results Fish Bones: 06/06/21 05:29 06/06/21 05:29 Other Labs: Lab Results x24hrs 06/06/21 06/06/21 Range/Units 05:29 05:29 WBC 2.6 L (4.8-10.8) x10^3/uL RBC 3.47 L (4.70-6.10) 10^6/uL Hgb 10.5 L (14.0-18.0) g/dL Hct 32.8 L (42.0-52.0) % MCV 94.5 H (80.0-94.0) fL MCH 30.3 (27.0-31.0) pg MCHC 32.0 (32.0-36.0) g/dL RDW 17.4 H (12.0-15.0) % Plt Count 149 (130-450) 10^3/uL MPV 9.8 (7.4-11.4) fL Neut # (Auto) 1.6 (1.5-6.6) 10^3/uL Lymph # (Auto) 0.6 L (1.5-3.5) 10^3/uL [place] # (Auto) 0.3 (0.0-1.0) 10^3/uL Eos # (Auto) 0.1 (0.0-0.7) 10^3/uL Baso # (Auto) 0.0 (0.0-0.1) 10^3/uL Absolute Nucleated RBC 0.00 x10^3/uL Band Neuts % (Manual) Not Reportable Abnorm Lymph % (Manual) Not Reportable Nucleated RBC % 0.0 /100WBC Neutrophils # (Manual) Not Reportable Lymphocytes # (Manual) Not Reportable Monocytes # (Manual) Not Reportable Eosinophils # (Manual) Not Reportable Basophils # (Manual) Not Reportable Differential Comment MANUAL=AUTO DIFF Platelet Estimate NORMAL (130-450,000) (NORMAL) RBC Morph Micro Appear NORMAL APPEARANCE (NORMAL) Sodium 139 (135-145) mmol/L Potassium 3.9 (3.5-5.0) mmol/L Chloride 103 (101-111) mmol/L Carbon Dioxide 28 (21-32) mmol/L Anion Gap 8.0 (6-13) BUN 12 (6-20) mg/dL Creatinine 1.5 H (0.6-1.2) mg/dL Estimated GFR (MDRD) 46 L (>89) Glucose 105 H (70-100) mg/dL Calcium 8.5 (8.5-10.3) mg/dL C-Reactive Protein 6.0 H (0-1.0) mg/dL ABX Reporting Has patient been on IV antibiotics over the past 48 hours?: Yes Sepsis Event Note (H) - Evaluation Current Stage of Sepsis: Sepsis - Sepsis Criteria Sepsis Criteria: Recorded Temperature greater than 38.3C or Less than 36C, WBC count greater than 12,000 or less than 4000, COPY CHIEF: altered consciousness (unrelated to primary neuro pathology), Hematologic: platelets < 100,000; INR > 1.5, or a PTT>60 seconds Assessment/Plan - Problem List (1) Sepsis Impression: 06/06 pt still has fever 39.2 at the afternoon. Per ID's recommendation to remove pt's Port-A-cath. It is likely the etiology to cause pt's continuing fever. we called surgeon, surgeon plan to remove pt's Port-A-cath on today afternoon. 06/05 pt still had spot of fever on last night. I called [facility] ID who we called on yesterday, she recommended to d/c port-A-Cath, after blood culture is negative and pt has no more fever, then order PICC line for pt, pt may followup with out-pt for port insert. Consult with surgeon for removal of Port. pt initially refused to remove the port when surgeon discussed with him. after I discussed pt the care plan again, pt agreed to remove the port. then surgeon plan to remove his port on tomorrow. surgeon report he may remove his port on OR, we will order NPO on the morning for pt to prepare the remove of port. continue IV of Rocephin and probiotics (2) Streptococcal bacteremia Impression: 06/06 plan to remove pt's Port-A-cath, per ID's suggestion, it is likely the etio logy of pt's continuing fever pt's initial Blood cultures have grown Streptococcus infantarius. Repeat blood cultures have been negative. CT of abdomen/pelvis, CT of spinal and maxillofacial, ECHO study with TTE could not provide the infection resource. pt had a Port-A-Cath for 2and 1/2 years for monthly his IV of immunoglobulin. I called ID again, as her recommendation, remove of port-A-cath, repeat blood culture, if negative and pt has no fever, then we will put PICC for pt. continue IV of Rocephin (3) CKD (chronic kidney disease) stage 3, GFR 30-59 ml/min Impression: 06/06 stable, creatinine is 1.5 on today. He has CKD stage III with recent creatinine of 1.5. His creatinine has remained stable. (4) Chronic inflammatory demyelinating polyneuritis Impression: This is chronic and he receives monthly IVIG. We will continue his home Lyrica for the neuropathy. (5) Thrombocytopenia Impression: resolved. (6) PTSD (post-traumatic stress disorder) Impression: Stable. (7) Port-A-Cath in place Impression: called our surgeon, we plan to remove on tomorrow (8) Acute metabolic encephalopathy Impression: He is back to his baseline.
--- NOTE | 2021-06-06 15:15 | ANESTHESIA ---
Pre-Anesthesia VS, & Labs Height: 5 ft 7 in Weight (kg): 134 kg Body Mass Index: 46.3 BMI Classification: Morbidly Obese - NPO >8 hours - Lab Results Lab results reviewed: Yes Fish Bones: 06/06/21 05:29 06/06/21 05:29 <Martin Vogt - Last Filed: 06/06/21 15:18> - NPO >8 hours - Lab Results Fish Bones: 06/07/21 05:30 06/07/21 05:30 <Mya Harris - Last Filed: 06/07/21 14:14> - Diagnosis septicemia (Martin Vogt) - Procedure Portacath removal (Martin Vogt) Vital Signs: Temp Pulse Resp BP Pulse Ox 37.0 C 87 20 158/89 H 92 06/07/21 13:54 06/07/21 13:54 06/07/21 13:54 06/07/21 13:54 06/07/21 13:54 - Lab Results Current Lab Results: Laboratory Tests 06/07/21 05:30: C-Reactive Protein 4.8 H 06/07/21 05:30: Sodium 137, Potassium 3.9, Chloride 101, Carbon Dioxide 28, Anion Gap 8.0, BUN 12, Creatinine 1.6 H, Estimated GFR (MDRD) 43 L, Glucose 113 H, Calcium 8.7 06/07/21 05:30: WBC 4.0 L, RBC 3.82 L, Hgb 11.6 L, Hct 36.2 L, MCV 94.8 H, MCH 30.4, MCHC 32.0, RDW 17.5 H, Plt Count 179, MPV 9.5, Neut # (Auto) 2.6, Lymph # (Auto) 0.8 L, Kleberg # (Auto) 0.5, Eos # (Auto) 0.1, Baso # (Auto) 0.0, Absolute Nucleated RBC 0.00, Nucleated RBC % 0.0 06/06/21 05:29: Sodium 139, Potassium 3.9, Chloride 103, Carbon Dioxide 28, Anion Gap 8.0, BUN 12, Creatinine 1.5 H, Estimated GFR (MDRD) 46 L, Glucose 105 H, Calcium 8.5, C-Reactive Protein 6.0 H 06/06/21 05:29: WBC 2.6 L, RBC 3.47 L, Hgb 10.5 L, Hct 32.8 L, MCV 94.5 H, MCH 30.3, MCHC 32.0, RDW 17.4 H, Plt Count 149, MPV 9.8, Neut # (Auto) 1.6, Lymph # (Auto) 0.6 L, Kleberg # (Auto) 0.3, Eos # (Auto) 0.1, Baso # (Auto) 0.0, Absolute Nucleated RBC 0.00, Band Neuts % (Manual) Not Reportable, Abnorm Lymph % (Manual) Not Reportable, Nucleated RBC % 0.0, Neutrophils # (Manual) Not Reportable, Lymphocytes # (Manual) Not Reportable, Monocytes # (Manual) Not Reportable, Eosinophils # (Manual) Not Reportable, Basophils # (Manual) Not Reportable, Differential Comment MANUAL=AUTO DIFF, Platelet Estimate NORMAL (130-450,000), RBC Morph Micro Appear NORMAL APPEARANCE 06/05/21 11:38: POC Whole Bld Glucose 88 06/05/21 04:10: Sodium 134 L, Potassium 3.5, Chloride 97 L, Carbon Dioxide 26, Anion Gap 11.0, BUN 11, Creatinine 1.5 H, Estimated GFR (MDRD) 46 L, Glucose 100, Calcium 8.4 L, Total Creatine Kinase 606 H, C-Reactive Protein 8.2 H 06/05/21 04:10: WBC 3.9 L, RBC 3.63 L, Hgb 11.1 L, Hct 33.7 L, MCV 92.8, MCH 30.6, MCHC 32.9, RDW 17.4 H, Plt Count 161, MPV 9.8, Neut # (Auto) 2.7, Lymph # (Auto) 0.7 L, Kleberg # (Auto) 0.5, Eos # (Auto) 0.1, Baso # (Auto) 0.0, Absolute Nucleated RBC 0.00, Nucleated RBC % 0.0 06/04/21 05:30: C-Reactive Protein 8.8 H 06/04/21 05:30: Sodium 135, Potassium 3.4 L, Chloride 99 L, Carbon Dioxide 24, Anion Gap 12.0, BUN 11, Creatinine 1.5 H, Estimated GFR (MDRD) 46 L, Glucose 101 H, Calcium 8.3 L, Total Bilirubin 0.5, AST 49 H, ALT 36, Alkaline Phosphatase 60, Total Creatine Kinase 664 H, Total Protein 7.5, Albumin 2.5 L, Globulin 5.0 H, Albumin/Globulin Ratio 0.5 L 06/04/21 05:30: WBC 3.6 L, RBC 3.46 L, Hgb 10.6 L, Hct 32.1 L, MCV 92.8, MCH 30.6, MCHC 33.0, RDW 17.3 H, Plt Count 140, MPV 9.8, Neut # (Auto) 2.7, Lymph # (Auto) 0.5 L, Kleberg # (Auto) 0.4, Eos # (Auto) 0.0, Baso # (Auto) 0.0, Absolute Nucleated RBC 0.00, Nucleated RBC % 0.0 06/03/21 06:21: Sodium 133 L, Potassium 3.3 L, Chloride 102, Carbon Dioxide 23, Anion Gap 8.0, BUN 12, Creatinine 1.4 H, Estimated GFR (MDRD) 50 L, Glucose 106 H, Calcium 8.1 L, Total Bilirubin 0.5, AST 53 H, ALT 39, Alkaline Phosphatase 58, Total Protein 7.5, Albumin 2.6 L, Globulin 4.9 H, Albumin/Globulin Ratio 0.5 L 06/03/21 06:21: WBC 3.1 L, RBC 3.54 L, Hgb 10.9 L, Hct 32.6 L, MCV 92.1, MCH 30. 8, MCHC 33.4, RDW 17.2 H, Plt Count 118 L, MPV 10.0, Neut # (Auto) 2.2, Lymph # (Auto) 0.5 L, Kleberg # (Auto) 0.3, Eos # (Auto) 0.1, Baso # (Auto) 0.0, Absolute Nucleated RBC 0.00, Nucleated RBC % 0.0 06/03/21 04:55: Sodium Cancelled, Potassium Cancelled, Chloride Cancelled, Carbon Dioxide Cancelled, Anion Gap Cancelled, BUN Cancelled, Creatinine Cancelled, Estimated GFR (MDRD) Cancelled, Glucose Cancelled, Calcium Cancelled, Total Bilirubin Cancelled, AST Cancelled, ALT Cancelled, Alkaline Phosphatase Cancelled, Total Protein Cancelled, Albumin Cancelled, Globulin Cancelled, Albumin/Globulin Ratio Cancelled 06/02/21 05:50: Sodium 138, Potassium 3.3 L, Chloride 107, Carbon Dioxide 22, Anion Gap 9.0, BUN 13, Creatinine 1.5 H, Estimated GFR (MDRD) 46 L, Glucose 103 H, Calcium 8.3 L, Total Bilirubin 0.5, AST 55 H, ALT 41, Alkaline Phosphatase 57, Total Creatine Kinase 821 H, Total Protein 7.5, Albumin 2.5 L, Globulin 5.0 H, Albumin/Globulin Ratio 0.5 L 06/02/21 05:50: WBC 2.4 L, RBC 3.50 L, Hgb 10.9 L, Hct 32.1 L, MCV 91.7, MCH 31.1 H, MCHC 34.0, RDW 17.2 H, Plt Count 101 L, MPV 10.1, Neut # (Auto) Not Reportable, Lymph # (Auto) Not Reportable, Kleberg # (Auto) Not Reportable, Eos # (Auto) Not Reportable, Baso # (Auto) Not Reportable, Absolute Nucleated RBC Not Reportable, Total Counted 100, Band Neuts % (Manual) 1, Abnorm Lymph % (Manual) 0, Myelocytes % 1 H, Nucleated RBC % Not Reportable, Neutrophils # (Manual) 1.8, Lymphocytes # (Manual) 0.3 L, Monocytes # (Manual) 0.2, Eosinophils # (Manual) 0.0, Basophils # (Manual) 0.0, Differential Comment MANUAL DIFFERENTIAL, WBC Morphology NORMAL APPEARANCE, Platelet Estimate DECREASED (<130,000), Platelet Morphology NORMAL APPEARANCE, RBC Morph Micro Appear NORMAL APPEARANCE 06/01/21 06:20: Sodium 137, Potassium 3.9, Chloride 105, Carbon Dioxide 19 L, Anion Gap 13.0, BUN 18, Creatinine 1.6 H, Estimated GFR (MDRD) 43 L, Glucose 95, Calcium 8.3 L, Total Bilirubin 0.6, AST 64 H, ALT 42, Alkaline Phosphatase 61, Total Creatine Kinase 1121 H*, Total Protein 8.0, Albumin 2.8 L, Globulin 5.2 H, Albumin/Globulin Ratio 0.5 L 06/01/21 06:20: WBC 3.6 L, RBC 3.89 L, Hgb 12.0 L, Hct 35.6 L, MCV 91.5, MCH 30.8, MCHC 33.7, RDW 17.5 H, Plt Count 92 L, MPV 9.8, Neut # (Auto) 2.2, Lymph # (Auto) 0.9 L, Kleberg # (Auto) 0.4, Eos # (Auto) 0.1, Baso # (Auto) 0.0, Absolute Nucleated RBC 0.00, Nucleated RBC % 0.0 05/31/21 05:10: Sodium 133 L, Potassium 3.6, Chloride 102, Carbon Dioxide 20 L, Anion Gap 11.0, BUN 25 H, Creatinine 1.9 H, Estimated GFR (MDRD) 35 L, Glucose 118 H, Calcium 8.0 L, Total Bilirubin 0.7, AST 52 H, ALT 38, Alkaline Phosphatase 49, Total Creatine Kinase 1024 H*, Total Protein 7.7, Albumin 2.7 L, Globulin 5.0 H, Albumin/Globulin Ratio 0.5 L 05/31/21 05:10: WBC 4.2 L, RBC 3.84 L, Hgb 11.8 L, Hct 34.6 L, MCV 90.1, MCH 30.7, MCHC 34.1, RDW 17.1 H, Plt Count 62 L, MPV 9.8, Neut # (Auto) 3.1, Lymph # (Auto) 0.5 L, Kleberg # (Auto) 0.5, Eos # (Auto) 0.0, Baso # (Auto) 0.0, Absolute Nucleated RBC 0.00, Nucleated RBC % 0.0 05/30/21 18:16: Sodium 131 L 05/30/21 13:07: Sodium 133 L 05/30/21 09:09: Sodium 131 L 05/30/21 06:30: Total Creatine Kinase 1751 H* 05/30/21 06:30: Sodium 130 L, Potassium 3.2 L, Chloride 97 L, Carbon Dioxide 22, Anion Gap 11.0, BUN 16, Creatinine 1.5 H, Estimated GFR (MDRD) 46 L, Glucose 109 H, Calcium 8.5, Total Bilirubin 1.2 H, AST 60 H, ALT 45, Alkaline Phosphatase 64, Total Protein 8.8 H, Albumin 3.1 L, Globulin 5.7 H, Albumin/Globulin Ratio 0.5 L 05/30/21 06:30: WBC 6.4, RBC 4.39 L, Hgb 13.5 L, Hct 39.2 L, MCV 89.3, MCH 30.8, MCHC 34.4, RDW 16.8 H, Plt Count 84 L, MPV 9.7, Neut # (Auto) Not Reportable, Lymph # (Auto) Not Reportable, Kleberg # (Auto) Not Reportable, Eos # (Auto) Not Reportable, Baso # (Auto) Not Reportable, Absolute Nucleated RBC Not Reportable, Total Counted 100, Band Neuts % (Manual) 1, Abnorm Lymph % (Manual) 0, Nucleated RBC % Not Reportable, Neutrophils # (Manual) 5.0, Lymphocytes # (Manual) 0.6 L, Monocytes # (Manual) 0.8, Eosinophils # (Manual) 0.0, Basophils # (Manual) 0.1, WBC Morphology NORMAL HUSSEIN, Platelet Estimate NORMAL (130-450,000), Platelet Morphology NORMAL APPEARANCE, RBC Morph Micro Appear NORMAL APPEARANCE 05/30/21 00:38: Sodium 127 L 05/29/21 22:27: Ammonia < 10.0 05/29/21 19:50: Lactic Acid 1.7 05/29/21 19:10: TSH 0.91, Cortisol 43.5 05/29/21 19:10: Uric Acid 5.8 05/29/21 19:10: Serum Osmolality 271 L 05/29/21 19:10: Sodium 126 L, Potassium 3.5, Chloride 92 L, Carbon Dioxide 24, Anion Gap 10.0, BUN 19, Creatinine 1.6 H, Estimated GFR (MDRD) 43 L, Glucose 125 H, Calcium 8.7, Total Bilirubin 1.3 H, AST 48 H, ALT 49, Alkaline Phosphatase 74, Total Creatine Kinase 900 H, Total Protein 8.7 H, Albumin 3.1 L, Globulin 5.6 H, Albumin/Globulin Ratio 0.6 L 05/29/21 19:10: WBC 6.3, RBC 4.51 L, Hgb 14.0, Hct 40.4 L, MCV 89.6, MCH 31.0, MCHC 34.7, RDW 16.8 H, Plt Count 84 L, MPV 9.2, Neut # (Auto) 5.1, Lymph # (Auto) 0.5 L, Kleberg # (Auto) 0.7, Eos # (Auto) 0.0, Baso # (Auto) 0.0, Absolute Nucleated RBC 0.00, Nucleated RBC % 0.0 05/29/21 02:00: Urine Opiates Screen NEGATIVE, Ur Oxycodone Screen NEGATIVE, Urine Methadone Screen NEGATIVE, Ur Propoxyphene Screen NEGATIVE, Ur Barbiturates Screen NEGATIVE, Ur Tricyclics Screen NEGATIVE, Ur Phencyclidine Scrn NEGATIVE, Ur Amphetamine Screen NEGATIVE, U Methamphetamines Scrn NEGATIVE, U Benzodiazepines Scrn NEGATIVE, Urine Cocaine Screen NEGATIVE, U Cannabinoids Screen POSITIVE H Home Medications and Allergies <Martin Vogt - Last Filed: 06/06/21 15:18> <Mya Harris - Last Filed: 06/07/21 14:14> Home Medications: Ambulatory Orders Aspirin [Juliette] 325 mg PO DAILY 05/30/21 Cholecalciferol [Vitamin D3] 5,000 unit PO Q7D 05/30/21 Cinacalcet HCl [Sensipar] 30 mg PO DAILY 05/30/21 Clopidogrel [Plavix] 75 mg PO DAILY 05/30/21 Escitalopram Oxalate 40 mg PO DAILY 05/30/21 Febuxostat [Uloric] 40 mg PO DAILY 05/30/21 Ibuprofen [Motrin] 800 mg PO Q6H PRN 05/30/21 Metoprolol Succinate [Toprol Xl] 25 mg PO DAILY 05/30/21 Pantoprazole [Protonix] 40 mg PO BIDAC 05/30/21 Potassium Citrate [Potassium Citrate ER] 20 meq PO BID 05/30/21 Prazosin HCl [Minipress] 6 mg PO QPM 05/30/21 Pregabalin [Lyrica] 75 mg PO TID 05/30/21 Rosuvastatin Calcium [Crestor] 40 mg PO QPM 05/30/21 Testosterone Cypionate 200 mg IM Q14D 05/30/21 Torsemide 20 mg PO DAILY 05/30/21 Trazodone HCl 100 - 200 mg PO QPM PRN 05/30/21 buPROPion [Wellbutrin Xl] 450 mg PO DAILY 05/30/21 flaxseed oiL [Flaxseed Oil] 1,000 mg PO DAILY 05/31/21 Active Medications Acetaminophen (Acetaminophen 325 Mg Tablet) 650 mg PO Q4HR PRN PRN Reason: Pain or Fever > 38C (100.4F) Last Admin: 06/07/21 00:34 Dose: 650 mg Aspirin (Aspirin Chew 81 Mg Tablet) 81 mg PO DAILY [facility] Last Admin: 06/07/21 08:09 Dose: 81 mg Bupropion HCl (Bupropion Xl 150 Mg Tablet) 450 mg PO DAILY [facility] Last Admin: 06/07/21 08:08 Dose: 450 mg Cholecalciferol (Cholecalciferol 5,000 Unit Capsule) 5,000 unit PO Q7D [facility] Last Admin: 06/06/21 15:28 Dose: 5,000 unit Clopidogrel Bisulfate (Clopidogrel 75 Mg Tablet) 75 mg PO DAILY [facility] Last Admin: 06/07/21 08:09 Dose: 75 mg Docusate Sodium (Docusate Sodium 250 Mg Capsule) 250 - 500 mg PO DAILY [facility] Last Admin: 06/07/21 08:09 Dose: 250 mg Enoxaparin Sodium (Enoxaparin 40 Mg/0.4 Ml Syringe) 40 mg SUBQ DAILY [facility] Last Admin: 06/07/21 08:09 Dose: 40 mg Heparin Sodium (Beef Lung) (Heparin Flush 50 Units/5 Ml Syringe) 30 - 50 unit IVP PRN PRN PRN Reason: Port Protocol (<24 hours) Last Admin: 06/06/21 17:15 Dose: 50 unit Hydromorphone HCl (Hydromorphone 0.5 Mg/0.5 Ml Syringe) 0.5 mg IVP Q4H PRN PRN Reason: PAIN Last Admin: 06/07/21 04:15 Dose: 0.5 mg Ceftriaxone Sodium 2 gm/ (Sodium Chloride) 100 mls @ 200 mls/hr IV Q24H [facility] Last Infusion: 06/06/21 13:10 Dose: Infused Metoprolol Succinate (Metoprolol Succinate 25 Mg Tablet) 25 mg PO DAILY [facility] Last Admin: 06/07/21 08:09 Dose: 25 mg Mineral Oil (Min Oil/Dimethicon/Coconut Oil 92 Gm Tube) 1 applic TOP PRN PRN PRN Reason: Skin Care Last Admin: 06/06/21 12:06 Dose: 1 applic Ondansetron HCl (Ondansetron 4 Mg/2 Ml Vial) 4 mg IVP Q6HR PRN PRN Reason: Nausea / Vomiting Oxycodone HCl (Oxycodone 5 Mg Tablet) 5 mg PO Q4HR PRN PRN Reason: PAIN Last Admin: 06/02/21 15:35 Dose: 5 mg Pantoprazole Sodium (Pantoprazole 40 Mg Tablet) 40 mg PO QDAC [facility] Last Admin: 06/07/21 05:38 Dose: 40 mg Febuxostat [Uloric (] 40 Mg Tabs) 1 each PO DAILY [facility] Last Admin: 06/07/21 08:24 Dose: Not Given Polyethylene Glycol (Polyethylene Glycol 3350 17 Gm Packet) 17 gm PO DAILY [facility] Last Admin: 06/07/21 08:10 Dose: Not Given Potassium Chloride (Potassium Chloride 20 Meq/15 Ml Udc) 20 meq PO DAILYWM [facility] Last Admin: 06/07/21 08:08 Dose: 20 meq Prazosin HCl (Prazosin 1 Mg Capsule) 6 mg PO QPM [facility] Last Admin: 06/06/21 20:38 Dose: 6 mg Pregabalin (Pregabalin 25 Mg Capsule) 75 mg PO TID [facility] Last Admin: 06/07/21 13:44 Dose: 75 mg Saccharomyces Boulardii (Saccharomyces Boulardii 250 Mg Capsule) 250 mg PO BIDWM [facility] Last Admin: 06/07/21 08:08 Dose: 250 mg Senna (Senna 8.6 Mg Tablet) 8.6 - 17.2 mg PO DAILY [facility] Last Admin: 06/07/21 08:12 Dose: 8.6 mg Sodium Chloride (Sodium Chloride Flush 0.9% 10 Ml Syringe) 10 ml IVP PRN PRN PRN Reason: NEEDED PER PROVIDER ORDERS Last Admin: 06/06/21 17:13 Dose: 10 ml Sodium Chloride (Sodium Chloride Flush 0.9% 10 Ml Syringe) 10 ml IVP 0100,0900,1700 [facility] Last Admin: 06/07/21 08:12 Dose: Not Given Aspirin [Juliette] 325 mg PO DAILY 05/30/21 Cholecalciferol [Vitamin D3] 5,000 unit PO Q7D 05/30/21 Cinacalcet HCl [Sensipar] 30 mg PO DAILY 05/30/21 Clopidogrel [Plavix] 75 mg PO DAILY 05/30/21 Escitalopram Oxalate 40 mg PO DAILY 05/30/21 Febuxostat [Uloric] 40 mg PO DAILY 05/30/21 Ibuprofen [Motrin] 800 mg PO Q6H PRN 05/30/21 Metoprolol Succinate [Toprol Xl] 25 mg PO DAILY 05/30/21 Pantoprazole [Protonix] 40 mg PO BIDAC 05/30/21 Potassium Citrate [Potassium Citrate ER] 20 meq PO BID 05/30/21 Prazosin HCl [Minipress] 6 mg PO QPM 05/30/21 Pregabalin [Lyrica] 75 mg PO TID 05/30/21 Rosuvastatin Calcium [Crestor] 40 mg PO QPM 05/30/21 Testosterone Cypionate 200 mg IM Q14D 05/30/21 Torsemide 20 mg PO DAILY 05/30/21 Trazodone HCl 100 - 200 mg PO QPM PRN 05/30/21 buPROPion [Wellbutrin Xl] 450 mg PO DAILY 05/30/21 flaxseed oiL [Flaxseed Oil] 1,000 mg PO DAILY 05/31/21 Allergies/Adverse Reactions: Allergies Allergy/AdvReac Type Severity Reaction Status Date / Time No Known Drug Allergies Allergy Verified 05/29/21 19:13 Anes History & Medical History - Anesthetic History Anesthesia Complications: reports: No previous complications Family history of Anesthesia Complications: Denies Family history of Malignant Hyperthermia: Denies - Medical History Cardiovascular: reports: Hypertension, High cholesterol, Peripheral Vascular Disease, [place] Pulmonary: reports: Sleep apnea, CPAP use, Other Gastrointestinal: reports: Ulcers, Colon polyps Urinary: reports: Benign prostate hypertrophy, Renal insuffiency, Kidney stones Neuro: reports: CVA Musculoskeletal: reports: Fibromyalgia, Chronic back pain Endocrine/Autoimmune: reports: Type 2 diabetes, Other Blood Disorders: reports: None Skin: reports: Psoriasis Smoking Status: Unknown if ever smoked Other Past Medical History: ulnar nerve palsy/paresis, R hand - Surgical History General: reports: Cholecystectomy, Appendectomy, Colonoscopy Urologic: reports: Ureterolithotomy (stones) Orthopedic: reports: Spine surgery <Martin Vogt - Last Filed: 06/06/21 15:18> - Anesthetic History Family history of Anesthesia Complications: Denies Family history of Malignant Hyperthermia: Denies <Mya Harris - Last Filed: 06/07/21 14:14> Results - Echo Results Echo Results: Report reviewed <Martin Vogt - Last Filed: 06/06/21 15:18> Exam General: Alert <Martin Vogt - Last Filed: 06/06/21 15:18> General: Alert, Oriented x3, Cooperative Dental: Poor dentition, Other (very few teeth and all are broken nubs) Mouth Openin Fingerbreadth Neck Mobility: Limited Mallampati classification: III Thyromental Distance: less than 4 cm Respiratory: Lungs clear Cardiovascular: Regular rate <Mya Harris - Last Filed: 06/07/21 14:14> Plan Anesthesia Type: MAC Consent for Procedure(s) Verified and Reviewed: Yes ASA classification: 4-Incapacitating disease Is this case an emergency?: No <Martin Vogt - Last Filed: 06/06/21 15:18> Code Status: Attempt Resuscitation Is this case an emergency?: No <Mya Harris - Last Filed: 06/07/21 14:14>
[2021-06-06] MEDS: CHOLECALCIFEROL 5,000 UNIT CAPSULE PO SCH (15:28)
--- NOTE | 2021-06-06 16:22 | PROVIDER PROGRESS NOTE ---
Subjective - Prog Note Date Prog Note Date: 06/06/21 - Subjective Pt reports feeling: No change Objective - Vital Signs/Intake & Output Reviewed Vital Signs: Yes Vital Signs: Vital Signs x48h Temp Pulse Resp BP Pulse Ox 06/06/21 15:57 36.7 C 76 16 134/75 H 99 06/06/21 12:27 39.2 C H 85 20 138/92 H 99 06/06/21 08:35 36.1 C L 84 22 144/97 H 98 Intake & Output: Intake & Output 06/03/21 06/04/21 06/05/21 06/06/21 23:59 23:59 23:59 23:59 Intake Total 3840 2630 3980 3010 Output Total 1302 8350 5500 4350 Balance 3241 -7219 -6191 -2729 - Objective General Appearance: positive: Alert, Other (sitting in chair. appears well and comfortable) Neurologic/Psychiatric: positive: Other (alert) - Lab Results Fish Bones: 06/06/21 05:29 06/06/21 05:29 Other Labs: Lab Results x24hrs 06/06/21 06/06/21 Range/Units 05:29 05:29 WBC 2.6 L (4.8-10.8) x10^3/uL RBC 3.47 L (4.70-6.10) 10^6/uL Hgb 10.5 L (14.0-18.0) g/dL Hct 32.8 L (42.0-52.0) % MCV 94.5 H (80.0-94.0) fL MCH 30.3 (27.0-31.0) pg MCHC 32.0 (32.0-36.0) g/dL RDW 17.4 H (12.0-15.0) % Plt Count 149 (130-450) 10^3/uL MPV 9.8 (7.4-11.4) fL Neut # (Auto) 1.6 (1.5-6.6) 10^3/uL Lymph # (Auto) 0.6 L (1.5-3.5) 10^3/uL Nuckolls # (Auto) 0.3 (0.0-1.0) 10^3/uL Eos # (Auto) 0.1 (0.0-0.7) 10^3/uL Baso # (Auto) 0.0 (0.0-0.1) 10^3/uL Absolute Nucleated RBC 0.00 x10^3/uL Band Neuts % (Manual) Not Reportable Abnorm Lymph % (Manual) Not Reportable Nucleated RBC % 0.0 /100WBC Neutrophils # (Manual) Not Reportable Lymphocytes # (Manual) Not Reportable Monocytes # (Manual) Not Reportable Eosinophils # (Manual) Not Reportable Basophils # (Manual) Not Reportable Differential Comment MANUAL=AUTO DIFF Platelet Estimate NORMAL (130-450,000) (NORMAL) RBC Morph Micro Appear NORMAL APPEARANCE (NORMAL) Sodium 139 (135-145) mmol/L Potassium 3.9 (3.5-5.0) mmol/L Chloride 103 (101-111) mmol/L Carbon Dioxide 28 (21-32) mmol/L Anion Gap 8.0 (6-13) BUN 12 (6-20) mg/dL Creatinine 1.5 H (0.6-1.2) mg/dL Estimated GFR (MDRD) 46 L (>89) Glucose 105 H (70-100) mg/dL Calcium 8.5 (8.5-10.3) mg/dL C-Reactive Protein 6.0 H (0-1.0) mg/dL Sepsis Event Note (H) - Evaluation Current Stage of Sepsis: Sepsis - Sepsis Criteria Sepsis Criteria: Recorded Temperature greater than 38.3C or Less than 36C, WBC count greater than 12,000 or less than 4000, HAND I CUTTER: altered consciousness (unrelated to primary neuro pathology), Hematologic: platelets < 100,000; INR > 1.5, or a PTT>60 seconds Assessment/Plan - Problem List (1) Bacteremia Impression: We discussed he had another fever today and his port should be removed. He told me not today. I will speak with him again tomorrow and try to get consent.
[2021-06-06] MEDS: PRAZOSIN 1 MG CAPSULE PO SCH (20:38)
[2021-06-07] MEDS: ACETAMINOPHEN 325 MG TABLET PO PRN ×2 (00:34→16:13)
[2021-06-07] MEDS ORDERED: D5.45NS W/20 MEQ KCL 1,000 ML IV SCH (01:00)
[2021-06-07] MEDS: HYDROmorphone 0.5 MG/0.5 ML SYRINGE IVP PRN ×3 (04:15→20:26)
[2021-06-07] MEDS: PREGABALIN 25 MG CAPSULE PO SCH ×3 (05:37→20:32)
[2021-06-07] MEDS: PANTOPRAZOLE 40 MG TABLET PO SCH (05:38)
[2021-06-07 05:41] LABS: BASOPHILS % (AUTO) 0.5 %; EOSINOPHILS # (AUTO) 0.1 10^3/uL (0.0-0.7); HCT - HEMATOCRIT 36.2 % (42.0-52.0); HGB - HEMOGLOBIN 11.6 g/dL (14.0-18.0); LYMPHOCYTES # (AUTO) 0.8 10^3/uL (1.5-3.5); LYMPHOCYTES % (AUTO) 20.4 %; MEAN CORPUSCULAR HEMOGLOBIN 30.4 pg (27.0-31.0); MEAN CORPUSCULAR VOLUME 94.8 fL (80.0-94.0); MEAN PLATELET VOLUME 9.5 fL (7.4-11.4); MONOCYTES # (AUTO) 0.5 10^3/uL (0.0-1.0); MONOCYTES % (AUTO) 11.8 %; NEUTROPHILS # (AUTO) 2.6 10^3/uL (1.5-6.6); NEUTROPHILS % (AUTO) 64.3 %; PLT - PLATELET COUNT 179 10^3/uL (130-450); RED BLOOD COUNT 3.82 10^6/uL (4.70-6.10); RED CELL DISTRIBUTION WIDTH 17.5 % (12.0-15.0)
[2021-06-07 05:50] LABS: CALCIUM 8.7 mg/dL (8.5-10.3); CREATININE 1.6 mg/dL (0.6-1.2); POTASSIUM 3.9 mmol/L (3.5-5.0)
[2021-06-07] MEDS: buPROPion XL 150 MG TABLET PO SCH (08:08)
[2021-06-07] MEDS: SACCHAROMYCES BOULARDII 250 MG CAPSULE PO SCH ×2 (08:08→16:26)
[2021-06-07] MEDS: POTASSIUM CHLORIDE 20 MEQ/15 ML UDC PO SCH (08:08)
[2021-06-07] MEDS: CLOPIDOGREL 75 MG TABLET PO SCH (08:09)
[2021-06-07] MEDS: DOCUSATE SODIUM 250 MG CAPSULE PO SCH (08:09)
[2021-06-07] MEDS: ASPIRIN CHEW 81 MG TABLET PO SCH (08:09)
[2021-06-07] MEDS: METOPROLOL SUCCINATE 25 MG TABLET PO SCH (08:09)
[2021-06-07] MEDS: ENOXAPARIN 40 MG/0.4 ML SYRINGE SUBQ SCH (08:09)
[2021-06-07] MEDS: polyethylene glycoL 3350 17 GM PACKET PO SCH (08:10)
[2021-06-07] MEDS: SODIUM CHLORIDE FLUSH 0.9% 10 ML SYRINGE IVP SCH ×2 (08:12→16:14)
[2021-06-07] MEDS: SENNA 8.6 MG TABLET PO SCH (08:12)
[2021-06-07] MEDS: FEBUXOSTAT 40 MG PO SCH (08:24)
--- NOTE | 2021-06-07 13:36 | CT Report ---
PROCEDURE: CERVICAL SPINE WO INDICATIONS: Fall in hosp TECHNIQUE: Noncontrast 3 mm thick sections acquired from the skull base to the T4 level. Sagittal and coronal r eformats were then constructed. For radiation dose reduction, the following was used: automated exp osure control, adjustment of mA and/or kV according to patient size. COMPARISON: 04/04/2010. FINDINGS: Image quality: Excellent. Bones: No fractures or dislocations. Straightening of normal cervical lordosis is seen. Degenerativ e endplate changes, loss of disc height and bilateral facet hypertrophic changes are noted throughout cervical spine. There is dorsal disc osteophyte complex formation throughout cervical spine causing [id number] central canal stenosis, no significant neural foraminal narrowing is seen. Visualize d superior ribs are intact. Soft tissues: Prevertebral soft tissues are normal in thickness. No paravertebral hematomas. No ap ical pneumothoraces. IMPRESSION: 1. No acute cervical spine fracture or dislocation. 2. Degenerative disc disease throughout cervical spine as above. Reviewed by: Giancarlo De La Cruz MD on 06/07/2021 1:34 PM PDT Approved by: Giancarlo De La Cruz MD on 06/07/2021 1:34 PM PDT Station ID: [id number]
--- NOTE | 2021-06-07 13:39 | CT Report ---
PROCEDURE: MAXILLOFACIAL WO INDICATIONS: Fall onto face TECHNIQUE: Noncontrast 1.5 mm thick axial images acquired from the mandible through the frontal sinuses, with co harish and sagittal reformatting. For radiation dose reduction, the following was used: automated ex posure control, adjustment of mA and/or kV according to patient size. COMPARISON: 06/04/2021. FINDINGS: Image quality: Excellent. Bones and teeth: Orbital hernandez are intact. Sinus hernandez show no fracture or deformity. Nasal bones and septum are intact. Visualized portions of the mandible demonstrate no fractures or subluxation. Zygomatic arches are intact. Pterygoid plates are intact. Visualized portions of the skull base an d auditory canals are intact. Sinuses: Paranasal sinuses are aerated, without fluid levels, mucosal thickening, or mucoceles. Mas toid air cells are aerated. Soft tissues: No edema, masses, or fluid collections. No enlarged lymph nodes. No soft tissue lace rations or debris. Vascular: Visualized vascular structures appear normal in the absence of contrast. Bony vascular fo ramina and canals are intact. IMPRESSION: 1. No acute facial bone or nasal bone fracture. Bilateral orbital hernandez are intact. 2. Bilateral paranasal sinuses are well aerated. No gross facial soft tissue abnormality. Reviewed by: Giancarlo De La Cruz MD on 06/07/2021 1:38 PM PDT Approved by: Giancarlo De La Cruz MD on 06/07/2021 1:38 PM PDT Station ID: [id number]
[2021-06-07] MEDS ORDERED: BUPIVACAINE 0.25% PF 30 ML VIAL ONE (14:26)
[2021-06-07] MEDS ORDERED: LIDOCAINE MPF 2%-EPI 1:200000 20 ML VIAL ONE (14:26)
[2021-06-07] MEDS ORDERED: MIDAZOLAM 2 MG/2 ML VIAL ONE (14:31)
[2021-06-07] MEDS ORDERED: KETAMINE 500 MG/10 ML VIAL ONE (14:31)
[2021-06-07] MEDS ORDERED: SODIUM CHLORIDE 0.9% 10 ML VIAL IVP ONE (14:33)
[2021-06-07] MEDS ORDERED: LIDOCAINE 2%-EPI 1:100000 20 ML MDV SUBQ ONE (14:53)
[2021-06-07] MEDS ORDERED: BUPIVACAINE 0.25% PF 30 ML VIAL SUBQ ONE (14:54)
--- NOTE | 2021-06-07 15:04 | OPERATIVE REPORT ---
Operative Report - General Admit Date: 05/29/21 Procedure Date: 06/07/21 Planned Procedure: removal right chest port Pre-Op Diagnosis: infected right chest port Procedure Performed: removal right chest port Post Op Diagnosis: bacteremia and right chest port - Procedure Note Primary Surgeon: sabina garcia Anesthesia Technique: Local, MAC Pathology: port sent for culture Estimated Blood Loss (mL): 2 Drain/Tube Type: Other (none) Indications: bacteremia and concern for infected port Complications: none - Other Other Information/Narrative: The patient was properly identified brought to the operating room. Procedure was performed in his hospital bed. Monitored anesthesia care was given. Port was deaccessed. Chest was prepped and draped in a sterile fashion. He has been on antibiotics. An elliptical incision was made directly over the port. An ellipse of skin was removed. The port was sharply mobilized and removed. A single [id number] [id number] Vicryl suture was used to close the tract coursing down to the vein access point. Hemostasis was assured. Dressing was applied. Skin edges were left open. He tolerated the procedure well
--- NOTE | 2021-06-07 15:24 | ANESTHESIA POST OP EVALUATION ---
Anesthesia Post Eval - Post Anesthesia Eval Vitals: Last Vital Signs Temp 37.0 C 06/07/21 13:54 Pulse 87 06/07/21 13:54 Resp 20 06/07/21 13:54 BP 158/89 H 06/07/21 13:54 Pulse Ox 92 06/07/21 13:54 CV Function Including HR & BP: Stable Pain Control: Satisfactory Nausea & Vomiting: Negative Mental Status: Baseline Respiratory Status: Airway Patent Hydration Status: Satisfactory Anesthesia Complications: None
[2021-06-07] MEDS: cefTRIAXone 2 GM in SODIUM CHLORIDE 0.9% MINIBAG 100 ML IV SCH (16:14)
--- NOTE | 2021-06-07 16:55 | PROVIDER PROGRESS NOTE ---
Assessment/Plan - Problem List (1) FUO (fever of unknown origin) Assessment/Plan: He has had a fever veryday sine admission, despite being on antibx to which his Strep bacteremia is sensitive. Today the R-sided Port-A-Cath will be removed by Dr Cruz in the OR. Following that we will also remove the Chandra catheter (which was put in due to urinary retntion of 700cc earlier this admission) Follow fever curve. Will plan on repeating blood cx Will also reach out to ID and determine duration of advised iv antibx after the Port-A-Cath and Chandra removed and what to do if fever spikes persist. Continue iv antibx. (2) Fall during current hospitalization Qualifiers: Encounter type: initial encounter Qualified Code(s): W19.XXXA - Unspecified fall, initial encounter; Y92.239 - Unspecified place in hospital as the place of occurrence of the external cause Assessment/Plan: He had no focal neuro deficit. C-collar was ordered. CT maxillofacial and C-spine were done and no fractures or dislocation and his C-spine "was cleared". Will order bed rest today since he will be somnolent later after today's OR p rocedure this afternoon, then will resume OOB tomorrow. Will order orthostatic VS checks daily as well. (3) Streptococcal bacteremia Impression: Plan to remove pt's Port-A-cath, per ID's suggestion, and it is likely the etiology of pt's continuing fever Continue iv antibx Will reach out to discuss duration of treatment with ID. (4) Sepsis He continues to have daily fevers and a low WBC. (5) CKD (chronic kidney disease) stage 3, GFR 30-59 ml/min Impression: Stable, creatinine is 1.5 today. (6) Chronic inflammatory demyelinating polyneuritis Impression: This is chronic and he receives monthly IVIG. 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 (7) PTSD (post-traumatic stress disorder) Stable. (8) Port-A-Cath in place We plan to have this removed today; he has had it in place for 2.5 years. (9) Morbid Obesity, BMI 45-50 As per Hx. (10) Thrombocytopenia It goes up and down and is likely due to sepsis. (11) Acute metabolic encephalopathy Resolved. He is back to his baseline mentation. - Current Meds Current Meds: Current Medications Generic Name Dose Route Start Last Admin Trade Name Freq PRN Reason Stop Dose Admin Acetaminophen 650 mg 05/31/21 20:13 06/07/21 16:13 Acetaminophen 325 Mg Tablet PO 650 mg Q4HR PRN Administration Pain or Fever > 38C (100.4F) Aspirin 81 mg 06/01/21 10:00 06/07/21 08:09 Aspirin Chew 81 Mg Tablet PO 81 mg DAILY [facility] Administration Bupropion HCl 450 mg 06/01/21 09:00 06/07/21 08:08 Bupropion Xl 150 Mg Tablet PO 450 mg DAILY [facility] Administration Cholecalciferol 5,000 unit 05/30/21 15:00 06/06/21 15:28 Cholecalciferol 5,000 Unit Capsule PO 5,000 unit Q7D [facility] Administration Clopidogrel Bisulfate 75 mg 05/31/21 09:00 06/07/21 08:09 Clopidogrel 75 Mg Tablet PO 75 mg DAILY [facility] Administration Docusate Sodium 250 - 500 mg 06/05/21 19:43 06/07/21 08:09 Docusate Sodium 250 Mg Capsule PO 250 mg DAILY [facility] Administration Enoxaparin Sodium 40 mg 06/05/21 09:00 06/07/21 08:09 Enoxaparin 40 Mg/0.4 Ml Syringe SUBQ 40 mg DAILY [facility] Administration Heparin Sodium (Beef Lung) 30 - 50 unit 05/31/21 04:51 06/06/21 17:15 Heparin Flush 50 Units/5 Ml Syringe IVP 50 unit PRN PRN Administration Port Protocol (<24 hours) Hydromorphone HCl 0.5 mg 06/01/21 16:35 06/07/21 16:13 Hydromorphone 0.5 Mg/0.5 Ml Syringe IVP 0.5 mg Q4H PRN Administration PAIN Ceftriaxone Sodium 2 gm/ 100 mls @ 200 mls/hr 05/30/21 13:00 06/07/21 16:53 Sodium Chloride IV Infused Q24H [facility] Infusion Metoprolol Succinate 25 mg 05/30/21 09:00 06/07/21 08:09 Metoprolol Succinate 25 Mg Tablet PO 25 mg DAILY [facility] Administration Mineral Oil 1 applic 06/04/21 16:51 06/06/21 12:06 Min Oil/Dimethicon/Coconut Oil 92 Gm Tube TOP 1 applic PRN PRN Administration Skin Care Oxycodone HCl 5 mg 06/01/21 08:58 06/02/21 15:35 Oxycodone 5 Mg Tablet PO 5 mg Q4HR PRN Administration PAIN Pantoprazole Sodium 40 mg 05/30/21 09:00 06/07/21 05:38 Pantoprazole 40 Mg Tablet PO 40 mg QDAC [facility] Administration Febuxostat [Uloric 1 each 05/31/21 09:00 06/07/21 08:24 ] 40 Mg Tabs PO Not Given DAILY [facility] Polyethylene Glycol 17 gm 05/30/21 09:00 06/07/21 08:10 Polyethylene Glycol 3350 17 Gm Packet PO Not Given DAILY [facility] Potassium Chloride 20 meq 06/02/21 08:00 06/07/21 08:08 Potassium Chloride 20 Meq/15 Ml Udc PO 20 meq DAILYWM [facility] Administration Prazosin HCl 6 mg 05/30/21 21:00 06/06/21 20:38 Prazosin 1 Mg Capsule PO 6 mg QPM [facility] Administration Pregabalin 75 mg 05/30/21 14:00 06/07/21 13:44 Pregabalin 25 Mg Capsule PO 75 mg TID [facility] Administration Saccharomyces Boulardii 250 mg 05/30/21 08:57 06/07/21 16:26 Saccharomyces Boulardii 250 Mg Capsule PO 250 mg BIDWM [facility] Administration Senna 8.6 - 17.2 mg 06/04/21 09:00 06/07/21 08:12 Senna 8.6 Mg Tablet PO 8.6 mg DAILY [facility] Administration Sodium Chloride 10 ml 05/29/21 22:16 06/06/21 17:13 Sodium Chloride Flush 0.9% 10 Ml Syringe IVP 10 ml PRN PRN Administration NEEDED PER PROVIDER ORDERS Sodium Chloride 10 ml 05/30/21 01:00 06/07/21 16:14 Sodium Chloride Flush 0.9% 10 Ml Syringe IVP 10 ml 0100,0900,1700 [facility] Administration - Lab Result Fish Bone Diagrams: 06/08/21 08:04 06/08/21 08:04 - Additional Planning My Orders: My Active Orders 06/08/21 05:00 CRP - C-REACTIVE PROTEIN [CHEM] DAILYLAB 06/09/21 05:00 CRP - C-REACTIVE PROTEIN [CHEM] DAILYLAB 06/10/21 05:00 CRP - C-REACTIVE PROTEIN [CHEM] DAILYLAB Subjective - Subjective Patient Reports: Other (Pt just fell, and I am seeing him, on the floor.) Nursing Reports: Other (RN reported he was trying to stand or adjust his position in recliner, and he leaned forward, supported by his walker in front of him. The walker moved fporward and he fell forward onto the floor, hitting his forhead but no other areas.) Objective Vital Signs: Vital Signs - 24 hr 06/06/21 06/06/21 06/07/21 18:50 20:22 00:34 Temperature 37.1 C 36.8 C 38.4 C H Heart Rate [ 86 Brachial] Heart Rate [ 94 Radial] Respiratory 20 16 Rate Blood Pressure 134/90 H [Right Brachial artery] Blood Pressure 125/70 [Right Radial artery] O2 Saturation 99 93 06/07/21 06/07/21 06/07/21 05:00 08:16 11:20 Temperature 36.5 C 36.5 C 37.0 C Heart Rate [ Brachial] Heart Rate [ 80 88 88 Radial] Respiratory 20 24 22 Rate Blood Pressure [Right Brachial artery] Blood Pressure 139/84 H 126/89 H 140/81 H [Right Radial artery] O2 Saturation 96 100 06/07/21 06/07/21 06/07/21 13:54 14:55 16:12 Temperature 37.0 C 37.3 C 38.2 C H Heart Rate [ 87 82 86 Brachial] Heart Rate [ Radial] Respiratory 20 18 16 Rate Blood Pressure 158/89 H 134/71 H [Right Brachial artery] Blood Pressure 137/89 H [Right Radial artery] O2 Saturation 92 98 99 Oxygen O2 Source Room air I&O (Last 24 Hrs): Intake and Output Totals x24h 06/05/21 06/06/21 06/07/21 23:59 23:59 23:59 Intake Total 3980 4253.333 1100 Output Total 5500 6504 2800 Balance -1520 -2296.667 -1700 General: Alert, Oriented x3, Other (Obese) HEENT: Other (4x4 cm raised bruise of mid-forhead.) Neck: Supple Neuro: Alert, Non Focal, Oriented Times 3 Cardiovascular: Other (distant heart sounds) Respiratory: No respiratory distress Abdomen: Soft, Other (Obese with pannus) Extremities: Other (Trace pedal edema) - Results Results: Laboratory Results WBC 4.0 x10^3/uL (4.8-10.8) L 06/07/21 05:30 RBC 3.82 10^6/uL (4.70-6.10) L 06/07/21 05:30 Hgb 11.6 g/dL (14.0-18.0) L 06/07/21 05:30 Hct 36.2 % (42.0-52.0) L 06/07/21 05:30 MCV 94.8 fL (80.0-94.0) H 06/07/21 05:30 MCH 30.4 pg (27.0-31.0) 06/07/21 05:30 MCHC 32.0 g/dL (32.0-36.0) 06/07/21 05:30 RDW 17.5 % (12.0-15.0) H 06/07/21 05:30 Plt Count 179 10^3/uL (130-450) 06/07/21 05:30 MPV 9.5 fL (7.4-11.4) 06/07/21 05:30 Neut # (Auto) 2.6 10^3/uL (1.5-6.6) 06/07/21 05:30 Lymph # (Auto) 0.8 10^3/uL (1.5-3.5) L 06/07/21 05:30 Cherry # (Auto) 0.5 10^3/uL (0.0-1.0) 06/07/21 05:30 Eos # (Auto) 0.1 10^3/uL (0.0-0.7) 06/07/21 05:30 Baso # (Auto) 0.0 10^3/uL (0.0-0.1) 06/07/21 05:30 Absolute Nucleated RBC 0.00 x10^3/uL 06/07/21 05:30 Total Counted 100 06/02/21 05:50 Band Neuts % (Manual) Not Reportable 06/06/21 05:29 Abnorm Lymph % (Manual) Not Reportable 06/06/21 05:29 Myelocytes % 1 % (-0) H 06/02/21 05:50 Nucleated RBC % 0.0 /100WBC 06/07/21 05:30 Neutrophils # (Manual) Not Reportable 06/06/21 05:29 Lymphocytes # (Manual) Not Reportable 06/06/21 05:29 Monocytes # (Manual) Not Reportable 06/06/21 05:29 Eosinophils # (Manual) Not Reportable 06/06/21 05:29 Basophils # (Manual) Not Reportable 06/06/21 05:29 Differential Comment MANUAL=AUTO DIFF 06/06/21 05:29 WBC Morphology NORMAL APPEARANCE (NORMAL) 06/02/21 05:50 Platelet Estimate NORMAL (130-450,000) (NORMAL) 06/06/21 05:29 Platelet Morphology NORMAL APPEARANCE (NORMAL) 06/02/21 05:50 RBC Morph Micro Appear NORMAL APPEARANCE (NORMAL) 06/06/21 05:29 Sodium 137 mmol/L (135-145) 06/07/21 05:30 Potassium 3.9 mmol/L (3.5-5.0) 06/07/21 05:30 Chloride 101 mmol/L (101-111) 06/07/21 05:30 Carbon Dioxide 28 mmol/L (21-32) 06/07/21 05:30 Anion Gap 8.0 (6-13) 06/07/21 05:30 BUN 12 mg/dL (6-20) 06/07/21 05:30 Creatinine 1.6 mg/dL (0.6-1.2) H 06/07/21 05:30 Estimated GFR (MDRD) 43 (>89) L 06/07/21 05:30 Glucose 113 mg/dL (70-100) H 06/07/21 05:30 POC Whole Bld Glucose 88 mg/dL (70 - 100) 06/05/21 11:38 Serum Osmolality 271 mOsm/kg (278-305) L 05/29/21 19:10 Lactic Acid 1.7 mmol/L (0.5-2.2) 05/29/21 19:50 Uric Acid 5.8 mg/dL (2.6-7.2) 05/29/21 19:10 Calcium 8.7 mg/dL (8.5-10.3) 06/07/21 05:30 Total Bilirubin 0.5 mg/dL (0.2-1.0) 06/04/21 05:30 AST 49 IU/L (10-42) H 06/04/21 05:30 ALT 36 IU/L (10-60) 06/04/21 05:30 Alkaline Phosphatase 60 IU/L (42-121) 06/04/21 05:30 Ammonia < 10.0 umol/L (7-35) 05/29/21 22:27 Total Creatine Kinase 606 IU/L (22-269) H 06/05/21 04:10 C-Reactive Protein 4.8 mg/dL (0-1.0) H 06/07/21 05:30 Total Protein 7.5 g/dL (6.7-8.2) 06/04/21 05:30 Albumin 2.5 g/dL (3.2-5.5) L 06/04/21 05:30 Globulin 5.0 g/dL (2.1-4.2) H 06/04/21 05:30 Albumin/Globulin Ratio 0.5 (1.0-2.2) L 06/04/21 05:30 TSH 0.91 uIU/mL (0.34-5.60) 05/29/21 19:10 Cortisol 43.5 ug/dL 05/29/21 19:10 Urine Color YELLOW 05/31/21 23:00 Urine Clarity CLEAR (CLEAR) 05/31/21 23:00 Urine pH 6.0 PH (5.0-7.5) 05/31/21 23:00 Ur Specific [place] 1.015 (1.002-1.030) 05/31/21 23:00 Urine Protein 100 mg/dL (NEGATIVE) H 05/31/21 23:00 Urine Glucose (UA) NEGATIVE mg/dL (NEGATIVE) 05/31/21 23:00 Urine Ketones NEGATIVE mg/dL (NEGATIVE) 05/31/21 23:00 Urine Occult Blood TRACE-LYSE (NEGATIVE) 05/31/21 23:00 Urine Nitrite NEGATIVE (NEGATIVE) 05/31/21 23:00 Urine Bilirubin NEGATIVE (NEGATIVE) 05/31/21 23:00 Urine Urobilinogen 1 (NORMAL) E.U./dL (NORMAL) 05/31/21 23:00 Ur Leukocyte Esterase NEGATIVE (NEGATIVE) 05/31/21 23:00 Urine RBC 0-5 /HPF (0-5) 05/31/21 23:00 Urine WBC 0-3 /HPF (0-3) 05/31/21 23:00 Ur Squamous Epith Cells RARE Squamous (<= Few) 05/31/21 23:00 Urine Bacteria Rare /HPF (None Seen) 05/31/21 23:00 Urine Casts 3-5 Hyaline Casts /LPF 05/31/21 23:00 Urine Mucus Moderate Strands 05/31/21 23:00 Urine Culture Comments NOT INDICATED 05/31/21 23:00 Urine Osmolality 362 mOsm/kg (50-1200) 05/29/21 02:00 Urine Opiates Screen NEGATIVE (NEGATIVE) 05/29/21 02:00 Ur Oxycodone Screen NEGATIVE (NEGATIVE) 05/29/21 02:00 Urine Methadone Screen NEGATIVE (NEGATIVE) 05/29/21 02:00 Ur Propoxyphene Screen NEGATIVE (NEGATIVE) 05/29/21 02:00 Ur Barbiturates Screen NEGATIVE (NEGATIVE) 05/29/21 02:00 Ur Tricyclics Screen NEGATIVE (NEGATIVE) 05/29/21 02:00 Ur Phencyclidine Scrn NEGATIVE (NEGATIVE) 05/29/21 02:00 Ur Amphetamine Screen NEGATIVE (NEGATIVE) 05/29/21 02:00 U Methamphetamines Scrn NEGATIVE (NEGATIVE) 05/29/21 02:00 U Benzodiazepines Scrn NEGATIVE (NEGATIVE) 05/29/21 02:00 Urine Cocaine Screen NEGATIVE (NEGATIVE) 05/29/21 02:00 U Cannabinoids Screen POSITIVE (NEGATIVE) H 05/29/21 02:00 SARS-CoV-2 (PCR) NOT DETECTED 05/29/21 21:34 Sepsis Event Note (H) - Evaluation Current Stage of Sepsis: Sepsis - Sepsis Criteria Sepsis Criteria: Recorded Temperature greater than 38.3C or Less than 36C, WBC count greater than 12,000 or less than 4000, [employer]: altered consciousness (unrelated to primary neuro pathology), Hematologic: platelets < 100,000; INR > 1.5, or a PTT>60 seconds
[2021-06-07] MEDS: SODIUM CHLORIDE FLUSH 0.9% 10 ML SYRINGE IVP PRN (20:28)
[2021-06-07] MEDS: PRAZOSIN 1 MG CAPSULE PO SCH (20:30)
[2021-06-07] MEDS: CYCLOBENZAPRINE 10 MG TABLET PO PRN (22:00)
[2021-06-08] MEDS: SODIUM CHLORIDE FLUSH 0.9% 10 ML SYRINGE IVP SCH ×3 (00:16→18:35)
[2021-06-08] MEDS: PANTOPRAZOLE 40 MG TABLET PO SCH (06:44)
[2021-06-08] MEDS: PREGABALIN 25 MG CAPSULE PO SCH ×3 (06:44→21:44)
[2021-06-08 08:10] LABS: BASOPHILS % (AUTO) 0.7 %; EOSINOPHILS # (AUTO) 0.1 10^3/uL (0.0-0.7); EOSINOPHILS % (AUTO) 2.2 %; HCT - HEMATOCRIT 36.3 % (42.0-52.0); LYMPHOCYTES # (AUTO) 0.5 10^3/uL (1.5-3.5); LYMPHOCYTES % (AUTO) 19.9 %; MEAN CORPUSCULAR HEMOGLOBIN 31.3 pg (27.0-31.0); MEAN CORPUSCULAR HGB CONC 33.1 g/dL (32.0-36.0); MEAN CORPUSCULAR VOLUME 94.5 fL (80.0-94.0); MEAN PLATELET VOLUME 9.3 fL (7.4-11.4); MONOCYTES # (AUTO) 0.4 10^3/uL (0.0-1.0); MONOCYTES % (AUTO) 13.3 %; NEUTROPHILS # (AUTO) 1.7 10^3/uL (1.5-6.6); NEUTROPHILS % (AUTO) 63.2 %; PLT - PLATELET COUNT 139 10^3/uL (130-450); RED BLOOD COUNT 3.84 10^6/uL (4.70-6.10); RED CELL DISTRIBUTION WIDTH 17.4 % (12.0-15.0); WHITE BLOOD COUNT 2.7 x10^3/uL (4.8-10.8)
[2021-06-08 08:28] LABS: CALCIUM 8.6 mg/dL (8.5-10.3); CREATININE 1.7 mg/dL (0.6-1.2); CRP - C-REACTIVE PROTEIN 4.6 mg/dL (0-1.0)
[2021-06-08 09:18] LABS: DIFFERENTIAL COMMENT MANUAL=AUTO DIFF
[2021-06-08] MEDS: DOCUSATE SODIUM 250 MG CAPSULE PO SCH (10:09)
[2021-06-08] MEDS: SENNA 8.6 MG TABLET PO SCH (10:09)
[2021-06-08] MEDS: SACCHAROMYCES BOULARDII 250 MG CAPSULE PO SCH ×2 (10:12→21:44)
[2021-06-08] MEDS: buPROPion XL 150 MG TABLET PO SCH (10:12)
[2021-06-08] MEDS: ASPIRIN CHEW 81 MG TABLET PO SCH (10:12)
[2021-06-08] MEDS: polyethylene glycoL 3350 17 GM PACKET PO SCH (10:13)
[2021-06-08] MEDS: CLOPIDOGREL 75 MG TABLET PO SCH (10:13)
[2021-06-08] MEDS: ENOXAPARIN 40 MG/0.4 ML SYRINGE SUBQ SCH (10:13)
[2021-06-08] MEDS: POTASSIUM CHLORIDE 20 MEQ/15 ML UDC PO SCH (10:14)
[2021-06-08] MEDS: FEBUXOSTAT 40 MG PO SCH (10:14)
[2021-06-08] MEDS: MIN OIL/DIMETHICON/COCONUT OIL 92 GM TUBE TOP PRN (10:14)
[2021-06-08] MEDS: METOPROLOL SUCCINATE 25 MG TABLET PO SCH (10:14)
[2021-06-08] MEDS: CYCLOBENZAPRINE 10 MG TABLET PO PRN ×2 (12:02→21:44)
[2021-06-08] MEDS: ACETAMINOPHEN 325 MG TABLET PO PRN ×2 (12:02→21:42)
[2021-06-08] MEDS: cefTRIAXone 2 GM in SODIUM CHLORIDE 0.9% MINIBAG 100 ML IV SCH (13:16)
--- NOTE | 2021-06-08 15:23 | PROVIDER PROGRESS NOTE ---
Assessment/Plan - Problem List (1) FUO (fever of unknown origin) Assessment/Plan: He has had a fever every day since admission, despite being on antibx to which his Strep bacteremia is sensitive. Yesterday the R-sided Port-A-Cath was removed by Dr Cruz in the OR. The dressing is dry and intact Following that we removed the Chandra catheter this morning (which was put in to manage urinary retntion of 700cc earlier this admission) Continue to follow fever curve. Will plan on repeating blood cx today. Will also reach out to ID and determine duration of advised iv antibx after the Port-A-Cath and Chandra removed and what to do if fever spikes persist. Continue iv antibx. (2) Fall during current hospitalization Qualifiers: Encounter type: subsequent encounter Qualified Code(s): W19.XXXD - Unspecified fall, subsequent encounter; Y92.239 - Unspecified place in hospital as the place of occurrence of the external cause Assessment/Plan: He had no focal neuro deficit after the fall in his room. A C-collar was ordered. CT maxillofacial and C-spine were done STAT and no fractures or dislocation and his C-spine "was cleared". Will order bed rest yesterday since he was somnolent after the OR procedure ye afternoon. Now we will resume OOB. Will order orthostatic VS checks daily as well. (3) Streptococcal bacteremia Impression: Removed pt's Port-A-cath yesterday by Gen Surg in the OR, per ID's suggestion, and due to his continuing fever. He had again a fever at midnite last night. We are continuing iv antibx Today I reached out to discuss duration of antibx treatment, with ID at [facility]. I reviewed the entire case with her. She advised that the patient have blood cultures done today. She advised that the patient be treated as if he has endocarditis, because he is immunocompromised, even if he had a PALMER that showed no vegetations. She advised a 4-week total course of treatment, starting from the day of the first negative blood culture, therefore starting 05/31/21 until 06/28/21. He needs a PICC line put in for this, placement to be 48 hours after the Port-A-Cath was removed, so on 06/09/21 at the earliest. She confirmed to continue Ceftriaxone 2gm iv daily. All the above was discussed with the patient who agreed and had no questions. (4) Sepsis He continues to have daily fevers and a low WBC. Management as above. Follow CBC w/ diff daily. (5) CKD (chronic kidney disease) stage 3, GFR 30-59 ml/min Impression: Stable, creatinine is 1.7 today. (6) Chronic inflammatory demyelinating polyneuritis Impression: This is chronic and he receives monthly IVIG. 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 (7) Urinary retention He had urinary retention of over 700 cc, earlier this admission. Today the Chandra catheter was removed. This afternoon he has 481 mL on a bladder scan at 1430. We will order straight caths as needed for residuals greater than 500 cc. He is on Minipress, will add Tamsolusin (8) Port-A-Cath in place Removed yesterday; he had it in place for 2.5 years. (9) Morbid Obesity, BMI 45-50 As per Hx. (10) Thrombocytopenia It still fluctuates and is likely due to sepsis. (11) PTSD (post-traumatic stress disorder) Stable. (12) Acute metabolic encephalopathy Resolved. He is back to his baseline mentation. - Current Meds Current Meds: Current Medications Generic Name Dose Route Start Last Admin Trade Name Alvaroq PRN Reason Stop Dose Admin Acetaminophen 650 mg 05/31/21 20:13 06/08/21 12:02 Acetaminophen 325 Mg Tablet PO 650 mg Q4HR PRN Administration Pain or Fever > 38C (100.4F) Aspirin 81 mg 06/01/21 10:00 06/08/21 10:12 Aspirin Chew 81 Mg Tablet PO 81 mg DAILY [facility] Administration Bupropion HCl 450 mg 06/01/21 09:00 06/08/21 10:12 Bupropion Xl 150 Mg Tablet PO 450 mg DAILY [place] Administration Cholecalciferol 5,000 unit 05/30/21 15:00 06/06/21 15:28 Cholecalciferol 5,000 Unit Capsule PO 5,000 unit Q7D [facility] Administration Clopidogrel Bisulfate 75 mg 05/31/21 09:00 06/08/21 10:13 Clopidogrel 75 Mg Tablet PO 75 mg DAILY [place] Administration Cyclobenzaprine HCl 10 mg 06/07/21 21:30 06/08/21 12:02 Cyclobenzaprine 10 Mg Tablet PO 10 mg TID PRN Administration Spasms Docusate Sodium 250 - 500 mg 06/05/21 19:43 06/08/21 10:09 Docusate Sodium 250 Mg Capsule PO Not Given DAILY [facility] Enoxaparin Sodium 40 mg 06/05/21 09:00 06/08/21 10:13 Enoxaparin 40 Mg/0.4 Ml Syringe SUBQ 40 mg DAILY [place] Administration Heparin Sodium (Beef Lung) 30 - 50 unit 05/31/21 04:51 06/06/21 17:15 Heparin Flush 50 Units/5 Ml Syringe IVP 50 unit PRN PRN Administration Port Protocol (<24 hours) Hydromorphone HCl 0.5 mg 06/01/21 16:35 06/07/21 20:26 Hydromorphone 0.5 Mg/0.5 Ml Syringe IVP 0.5 mg Q4H PRN Administration PAIN Ceftriaxone Sodium 2 gm/ 100 mls @ 200 mls/hr 05/30/21 13:00 06/08/21 13:46 Sodium Chloride IV Infused Q24H [facility] Infusion Metoprolol Succinate 25 mg 05/30/21 09:00 06/08/21 10:14 Metoprolol Succinate 25 Mg Tablet PO 25 mg DAILY [place] Administration Mineral Oil 1 applic 06/04/21 16:51 06/08/21 10:14 Min Oil/Dimethicon/Coconut Oil 92 Gm Tube TOP 1 applic PRN PRN Administration Skin Care Oxycodone HCl 5 mg 06/01/21 08:58 06/02/21 15:35 Oxycodone 5 Mg Tablet PO 5 mg Q4HR PRN Administration PAIN Pantoprazole Sodium 40 mg 05/30/21 09:00 06/08/21 06:44 Pantoprazole 40 Mg Tablet PO 40 mg QDAC [facility] Administration Febuxostat [Uloric 1 each 05/31/21 09:00 06/08/21 10:14 ] 40 Mg Tabs PO Not Given DAILY [facility] Polyethylene Glycol 17 gm 05/30/21 09:00 06/08/21 10:13 Polyethylene Glycol 3350 17 Gm Packet PO 17 gm DAILY [facility] Administration Potassium Chloride 20 meq 06/02/21 08:00 06/08/21 10:14 Potassium Chloride 20 Meq/15 Ml Udc PO 20 meq DAILYWM [facility] Administration Prazosin HCl 6 mg 05/30/21 21:00 06/07/21 20:30 Prazosin 1 Mg Capsule PO 6 mg QPM [facility] Administration Pregabalin 75 mg 05/30/21 14:00 06/08/21 13:16 Pregabalin 25 Mg Capsule PO 75 mg TID [facility] Administration Saccharomyces Boulardii 250 mg 05/30/21 08:57 06/08/21 10:12 Saccharomyces Boulardii 250 Mg Capsule PO 250 mg BIDWM [facility] Administration Senna 8.6 - 17.2 mg 06/04/21 09:00 06/08/21 10:09 Senna 8.6 Mg Tablet PO Not Given DAILY [facility] Sodium Chloride 10 ml 05/29/21 22:16 06/07/21 20:28 Sodium Chloride Flush 0.9% 10 Ml Syringe IVP 10 ml PRN PRN Administration NEEDED PER PROVIDER ORDERS Sodium Chloride 10 ml 05/30/21 01:00 06/08/21 10:13 Sodium Chloride Flush 0.9% 10 Ml Syringe IVP 10 ml 0100,0900,1700 [place] Administration - Lab Result Fish Bone Diagrams: 06/08/21 08:04 06/08/21 08:04 - Additional Planning My Orders: My Active Orders 06/07/21 Dinner Carb-controlled Diet [DIET] 06/08/21 08:37 Orthostatic [Vital Signs - Orthostatic] [RC] DAILY 06/08/21 15:00 CULTURE, BLOOD #1 [RM] Stat CULTURE, BLOOD #2 [RM] Stat 06/09/21 05:00 CRP - C-REACTIVE PROTEIN [CHEM] DAILYLAB 06/10/21 05:00 CRP - C-REACTIVE PROTEIN [CHEM] DAILYLAB Subjective - Subjective Patient Reports: Resting Comfortably Nursing Reports: Other (Corazon removed this a.m.) Objective Vital Signs: Vital Signs - 24 hr 06/07/21 06/07/21 06/07/21 16:12 19:08 20:22 Temperature 38.2 C H 36.7 C 37.2 C Heart Rate [ 86 80 Brachial] Respiratory 16 20 Rate Blood Pressure 134/71 H 118/61 [Right Brachial artery] O2 Saturation 99 98 06/08/21 06/08/21 06/08/21 00:29 05:00 08:00 Temperature 38.2 C H 37.1 C 36.7 C Heart Rate [ 88 82 80 Brachial] Respiratory 20 20 20 Rate Blood Pressure 114/61 119/74 139/74 H [Right Brachial artery] O2 Saturation 93 94 96 06/08/21 13:00 Temperature Heart Rate [ 85 Brachial] Respiratory 20 Rate Blood Pressure 133/88 H [Right Brachial artery] O2 Saturation 96 Oxygen O2 Source Room air I&O (Last 24 Hrs): Intake and Output Totals x24h 06/06/21 06/07/21 06/08/21 23:59 23:59 23:59 Intake Total 4253.333 2054 1290 Output Total 6570 8340 9764 Balance -7637.979 -8809 -9722 General: Alert, Oriented x3 HEENT: Mucous membr. moist/pink, Other (Small red bruise mid-forehead) Neck: Supple, Other (Obese and cannot eval JVP) Neuro: Alert, Other (L hand has resting tremor) Cardiovascular: Other (distant heart sounds) Respiratory: No respiratory distress Abdomen: Soft (Obese with pannus) Extremities: Other (Trace leg edema, R hand has arthritic deformity) - Results Results: Laboratory Results WBC 2.7 x10^3/uL (4.8-10.8) L 06/08/21 08:04 RBC 3.84 10^6/uL (4.70-6.10) L 06/08/21 08:04 Hgb 12.0 g/dL (14.0-18.0) L 06/08/21 08:04 Hct 36.3 % (42.0-52.0) L 06/08/21 08:04 MCV 94.5 fL (80.0-94.0) H 06/08/21 08:04 MCH 31.3 pg (27.0-31.0) H 06/08/21 08:04 MCHC 33.1 g/dL (32.0-36.0) 06/08/21 08:04 RDW 17.4 % (12.0-15.0) H 06/08/21 08:04 Plt Count 139 10^3/uL (130-450) 06/08/21 08:04 MPV 9.3 fL (7.4-11.4) 06/08/21 08:04 Neut # (Auto) 1.7 10^3/uL (1.5-6.6) 06/08/21 08:04 Lymph # (Auto) 0.5 10^3/uL (1.5-3.5) L 06/08/21 08:04 [place] # (Auto) 0.4 10^3/uL (0.0-1.0) 06/08/21 08:04 Eos # (Auto) 0.1 10^3/uL (0.0-0.7) 06/08/21 08:04 Baso # (Auto) 0.0 10^3/uL (0.0-0.1) 06/08/21 08:04 Absolute Nucleated RBC 0.00 x10^3/uL 06/08/21 08:04 Total Counted 100 06/02/21 05:50 Band Neuts % (Manual) Not Reportable 06/08/21 08:04 Abnorm Lymph % (Manual) Not Reportable 06/08/21 08:04 Myelocytes % 1 % (-0) H 06/02/21 05:50 Nucleated RBC % 0.0 /100WBC 06/08/21 08:04 Neutrophils # (Manual) Not Reportable 06/08/21 08:04 Lymphocytes # (Manual) Not Reportable 06/08/21 08:04 Monocytes # (Manual) Not Reportable 06/08/21 08:04 Eosinophils # (Manual) Not Reportable 06/08/21 08:04 Basophils # (Manual) Not Reportable 06/08/21 08:04 Differential Comment MANUAL=AUTO DIFF 06/08/21 08:04 WBC Morphology NORMAL APPEARANCE (NORMAL) 06/02/21 05:50 Platelet Estimate NORMAL (130-450,000) (NORMAL) 06/06/21 05:29 Platelet Morphology NORMAL APPEARANCE (NORMAL) 06/02/21 05:50 RBC Morph Micro Appear NORMAL APPEARANCE (NORMAL) 06/06/21 05:29 Sodium 139 mmol/L (135-145) 06/08/21 08:04 Potassium 4.0 mmol/L (3.5-5.0) 06/08/21 08:04 Chloride 99 mmol/L (101-111) L 06/08/21 08:04 Carbon Dioxide 27 mmol/L (21-32) 06/08/21 08:04 Anion Gap 13.0 (6-13) 06/08/21 08:04 BUN 13 mg/dL (6-20) 06/08/21 08:04 Creatinine 1.7 mg/dL (0.6-1.2) H 06/08/21 08:04 Estimated GFR (MDRD) 40 (>89) L 06/08/21 08:04 Glucose 106 mg/dL (70-100) H 06/08/21 08:04 POC Whole Bld Glucose 88 mg/dL (70 - 100) 06/05/21 11:38 Serum Osmolality 271 mOsm/kg (278-305) L 05/29/21 19:10 Lactic Acid 1.4 mmol/L (0.5-2.2) 06/08/21 08:45 Uric Acid 5.8 mg/dL (2.6-7.2) 05/29/21 19:10 Calcium 8.6 mg/dL (8.5-10.3) 06/08/21 08:04 Total Bilirubin 0.5 mg/dL (0.2-1.0) 06/04/21 05:30 AST 49 IU/L (10-42) H 06/04/21 05:30 ALT 36 IU/L (10-60) 06/04/21 05:30 Alkaline Phosphatase 60 IU/L (42-121) 06/04/21 05:30 Ammonia < 10.0 umol/L (7-35) 05/29/21 22:27 Total Creatine Kinase 606 IU/L (22-269) H 06/05/21 04:10 C-Reactive Protein 4.6 mg/dL (0-1.0) H 06/08/21 08:04 Total Protein 7.5 g/dL (6.7-8.2) 06/04/21 05:30 Albumin 2.5 g/dL (3.2-5.5) L 06/04/21 05:30 Globulin 5.0 g/dL (2.1-4.2) H 06/04/21 05:30 Albumin/Globulin Ratio 0.5 (1.0-2.2) L 06/04/21 05:30 TSH 0.91 uIU/mL (0.34-5.60) 05/29/21 19:10 Cortisol 43.5 ug/dL 05/29/21 19:10 Urine Color YELLOW 05/31/21 23:00 Urine Clarity CLEAR (CLEAR) 05/31/21 23:00 Urine pH 6.0 PH (5.0-7.5) 05/31/21 23:00 Ur Specific [place] 1.015 (1.002-1.030) 05/31/21 23:00 Urine Protein 100 mg/dL (NEGATIVE) H 05/31/21 23:00 Urine Glucose (UA) NEGATIVE mg/dL (NEGATIVE) 05/31/21 23:00 Urine Ketones NEGATIVE mg/dL (NEGATIVE) 05/31/21 23:00 Urine Occult Blood TRACE-LYSE (NEGATIVE) 05/31/21 23:00 Urine Nitrite NEGATIVE (NEGATIVE) 05/31/21 23:00 Urine Bilirubin NEGATIVE (NEGATIVE) 05/31/21 23:00 Urine Urobilinogen 1 (NORMAL) E.U./dL (NORMAL) 05/31/21 23:00 Ur Leukocyte Esterase NEGATIVE (NEGATIVE) 05/31/21 23:00 Urine RBC 0-5 /HPF (0-5) 05/31/21 23:00 Urine WBC 0-3 /HPF (0-3) 05/31/21 23:00 Ur Squamous Epith Cells RARE Squamous (<= Few) 05/31/21 23:00 Urine Bacteria Rare /HPF (None Seen) 05/31/21 23:00 Urine Casts 3-5 Hyaline Casts /LPF 05/31/21 23:00 Urine Mucus Moderate Strands 05/31/21 23:00 Urine Culture Comments NOT INDICATED 05/31/21 23:00 Urine Osmolality 362 mOsm/kg (50-1200) 05/29/21 02:00 Urine Opiates Screen NEGATIVE (NEGATIVE) 05/29/21 02:00 Ur Oxycodone Screen NEGATIVE (NEGATIVE) 05/29/21 02:00 Urine Methadone Screen NEGATIVE (NEGATIVE) 05/29/21 02:00 Ur Propoxyphene Screen NEGATIVE (NEGATIVE) 05/29/21 02:00 Ur Barbiturates Screen NEGATIVE (NEGATIVE) 05/29/21 02:00 Ur Tricyclics Screen NEGATIVE (NEGATIVE) 05/29/21 02:00 Ur Phencyclidine Scrn NEGATIVE (NEGATIVE) 05/29/21 02:00 Ur Amphetamine Screen NEGATIVE (NEGATIVE) 05/29/21 02:00 U Methamphetamines Scrn NEGATIVE (NEGATIVE) 05/29/21 02:00 U Benzodiazepines Scrn NEGATIVE (NEGATIVE) 05/29/21 02:00 Urine Cocaine Screen NEGATIVE (NEGATIVE) 05/29/21 02:00 U Cannabinoids Screen POSITIVE (NEGATIVE) H 05/29/21 02:00 SARS-CoV-2 (PCR) NOT DETECTED 05/29/21 21:34 Sepsis Event Note (H) - Evaluation Current Stage of Sepsis: Sepsis - Sepsis Criteria Sepsis Criteria: Recorded Temperature greater than 38.3C or Less than 36C, WBC count greater than 12,000 or less than 4000, [employer]: altered consciousness (unrelated to primary neuro pathology), Hematologic: platelets < 100,000; INR > 1.5, or a PTT>60 seconds
[2021-06-08] MEDS: HYDROmorphone 0.5 MG/0.5 ML SYRINGE IVP PRN (18:34)
[2021-06-08] MEDS: PRAZOSIN 1 MG CAPSULE PO SCH (21:44)
[2021-06-09] MEDS: SODIUM CHLORIDE FLUSH 0.9% 10 ML SYRINGE IVP SCH ×3 (04:58→17:06)
[2021-06-09] MEDS: PANTOPRAZOLE 40 MG TABLET PO SCH (06:12)
[2021-06-09] MEDS: PREGABALIN 25 MG CAPSULE PO SCH ×3 (06:12→21:25)
[2021-06-09 06:28] LABS: BASOPHILS % (AUTO) 0.3 %; EOSINOPHILS # (AUTO) 0.1 10^3/uL (0.0-0.7); EOSINOPHILS % (AUTO) 1.7 %; HCT - HEMATOCRIT 38.5 % (42.0-52.0); HGB - HEMOGLOBIN 12.1 g/dL (14.0-18.0); LYMPHOCYTES # (AUTO) 0.5 10^3/uL (1.5-3.5); LYMPHOCYTES % (AUTO) 14.2 %; MEAN CORPUSCULAR HEMOGLOBIN 29.8 pg (27.0-31.0); MEAN CORPUSCULAR HGB CONC 31.4 g/dL (32.0-36.0); MEAN CORPUSCULAR VOLUME 94.8 fL (80.0-94.0); MEAN PLATELET VOLUME 9.1 fL (7.4-11.4); MONOCYTES # (AUTO) 0.3 10^3/uL (0.0-1.0); MONOCYTES % (AUTO) 9.1 %; NEUTROPHILS # (AUTO) 2.6 10^3/uL (1.5-6.6); NEUTROPHILS % (AUTO) 74.1 %; PLT - PLATELET COUNT 148 10^3/uL (130-450); RED BLOOD COUNT 4.06 10^6/uL (4.70-6.10); RED CELL DISTRIBUTION WIDTH 17.2 % (12.0-15.0); WHITE BLOOD COUNT 3.5 x10^3/uL (4.8-10.8)
[2021-06-09 06:45] LABS: CALCIUM 8.7 mg/dL (8.5-10.3); CREATININE 1.7 mg/dL (0.6-1.2); CRP - C-REACTIVE PROTEIN 3.8 mg/dL (0-1.0); POTASSIUM 3.8 mmol/L (3.5-5.0)
[2021-06-09] MEDS: ENOXAPARIN 40 MG/0.4 ML SYRINGE SUBQ SCH (08:52)
[2021-06-09] MEDS: POTASSIUM CHLORIDE 20 MEQ/15 ML UDC PO SCH (08:52)
[2021-06-09] MEDS: METOPROLOL SUCCINATE 25 MG TABLET PO SCH (08:53)
[2021-06-09] MEDS: buPROPion XL 150 MG TABLET PO SCH (08:53)
[2021-06-09] MEDS: TAMSULOSIN 0.4 MG CAPSULE PO SCH (08:53)
[2021-06-09] MEDS: SACCHAROMYCES BOULARDII 250 MG CAPSULE PO SCH ×2 (08:54→17:06)
[2021-06-09] MEDS: ASPIRIN CHEW 81 MG TABLET PO SCH (08:54)
[2021-06-09] MEDS: DOCUSATE SODIUM 250 MG CAPSULE PO SCH (08:54)
[2021-06-09] MEDS: CLOPIDOGREL 75 MG TABLET PO SCH (08:54)
[2021-06-09] MEDS: polyethylene glycoL 3350 17 GM PACKET PO SCH (08:55)
[2021-06-09] MEDS: SENNA 8.6 MG TABLET PO SCH (08:55)
[2021-06-09] MEDS: FEBUXOSTAT 40 MG PO SCH (10:43)
[2021-06-09] MEDS: cefTRIAXone 2 GM in SODIUM CHLORIDE 0.9% MINIBAG 100 ML IV SCH (12:46)
[2021-06-09] MEDS: HYDROmorphone 0.5 MG/0.5 ML SYRINGE IVP PRN (17:42)
--- NOTE | 2021-06-09 17:55 | PROVIDER PROGRESS NOTE ---
Assessment/Plan - Problem List (1) FUO (fever of unknown origin) Assessment/Plan: He has had a fever every day since admission, despite being on antibx to which his Strep bacteremia is sensitive. Only a low grade fever of 38C this past night. His R-sided Port-A-Cath was removed by Dr Cruz in the OR. The dressing is dry and intact Following that we removed the Chandra catheter yesterday (which was put in to manage urinary retention of 700cc earlier this admission) Continue to follow fever curve. We repeated blood cx yesterday, as per yesterday's ID at [facility], recommendation. [place] ID also advised the duration of iv antibx to be 4 weeks total. Continue iv antibx Ceftriaxone daily. (2) Fall during current hospitalization Qualifiers: Encounter type: subsequent encounter Qualified Code(s): W19.XXXD - Unspecified fall, subsequent encounter; Y92.239 - Unspecified place in hospital as the place of occurrence of the external cause Assessment/Plan: He had no focal neuro deficit after the fall in his room 2 days ago. A C-collar was ordered after the fall onto his forehead and CT maxillofacial and of the C- spine were done STAT and no fractures or dislocation were seen and his C-spine "was cleared". We ordered PT to resume yesterday Also obtaining orthostatic VS checks daily. These are normal thus far. (3) Truncal muscle weakness Assessment/Plan: PT was impressed with his severe deconditioning when working with him today, compared to admission, when he could ambulate independantly. Therefore PT advising a SNF for rehab (4) Streptococcal bacteremia Assessment/Plan: Removed pt's Port-A-cath 2 days ago by Gen Surg in the OR, per ID's suggestion, and due to his continuing daily fevers. He had a lowgrade fever at midnite last night. We are continuing iv antibx, which were advised by ID at [facility], in my dis cussion with her yesterday after I reviewed the entire case with her. She advised that the patient have blood cultures done yesterday; awaiting results. She advised that the patient be treated as if he has endocarditis, because he is immunocompromised, even if he had undergone a PALMER that showed no vegetations. She advised a 4-week total course of treatment, starting from the day of the first negative blood culture, therefore starting 05/31/21 until 06/28/21. He needs a PICC line put in for this, placement to be at least 48 hours after the Port-A-Cath was removed. We will await for the bld cx results from yesterday to return and hopefully be neg. She confirmed to continue Ceftriaxone 2gm iv daily. (5) Sepsis He continues to have daily fevers and a low WBC. Management as above. Follow CBC w/ diff daily. (6) CKD (chronic kidney disease) stage 3, GFR 30-59 ml/min Impression: Stable, creatinine is 1.7 today. (7) Chronic inflammatory demyelinating polyneuritis Impression: This is chronic and he receives monthly IVIG. 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 (8) Urinary retention He had urinary retention of over 700 cc, earlier this admission. Yesterday the Chandra catheter was removed. Yesterday and today he has had residuals of 500-800 on bladder scans We ordered straight caths as needed for residuals greater than 500 cc. He is on Minipress, we also add Tamsolusin starting yesterday. (9) Morbid Obesity, BMI 45-50 As per Hx. (10) Thrombocytopenia It still fluctuates and is likely due to sepsis. (11) PTSD (post-traumatic stress disorder) Stable. (12) Acute metabolic encephalopathy Resolved. He is back to his baseline mentation. (8) Port-A-Cath in place Removed ; he had it in place for 2.5 years. - Current Meds Current Meds: Current Medications Generic Name Dose Route Start Last Admin Trade Name Dallin PRN Reason Stop Dose Admin Acetaminophen 650 mg 05/31/21 20:13 06/08/21 21:42 Acetaminophen 325 Mg Tablet PO 650 mg Q4HR PRN Administration Pain or Fever > 38C (100.4F) Aspirin 81 mg 06/01/21 10:00 06/09/21 08:54 Aspirin Chew 81 Mg Tablet PO 81 mg DAILY [facility] Administration Bupropion HCl 450 mg 06/01/21 09:00 06/09/21 08:53 Bupropion Xl 150 Mg Tablet PO 450 mg DAILY [facility] Administration Cholecalciferol 5,000 unit 05/30/21 15:00 06/06/21 15:28 Cholecalciferol 5,000 Unit Capsule PO 5,000 unit Q7D [facility] Administration Clopidogrel Bisulfate 75 mg 05/31/21 09:00 06/09/21 08:54 Clopidogrel 75 Mg Tablet PO 75 mg DAILY [facility] Administration Cyclobenzaprine HCl 10 mg 06/07/21 21:30 06/08/21 21:44 Cyclobenzaprine 10 Mg Tablet PO 10 mg TID PRN Administration Spasms Docusate Sodium 250 - 500 mg 06/05/21 19:43 06/09/21 08:54 Docusate Sodium 250 Mg Capsule PO Not Given DAILY [facility] Enoxaparin Sodium 40 mg 06/05/21 09:00 06/09/21 08:52 Enoxaparin 40 Mg/0.4 Ml Syringe SUBQ 40 mg DAILY [facility] Administration Heparin Sodium (Beef Lung) 30 - 50 unit 05/31/21 04:51 06/06/21 17:15 Heparin Flush 50 Units/5 Ml Syringe IVP 50 unit PRN PRN Administration Port Protocol (<24 hours) Hydromorphone HCl 0.5 mg 06/01/21 16:35 06/09/21 17:42 Hydromorphone 0.5 Mg/0.5 Ml Syringe IVP 0.5 mg Q4H PRN Administration PAIN Ceftriaxone Sodium 2 gm/ 100 mls @ 200 mls/hr 05/30/21 13:00 06/09/21 13:20 Sodium Chloride IV Infused Q24H [facility] Infusion Metoprolol Succinate 25 mg 05/30/21 09:00 06/09/21 08:53 Metoprolol Succinate 25 Mg Tablet PO 25 mg DAILY [facility] Administration Mineral Oil 1 applic 06/04/21 16:51 06/08/21 10:14 Min Oil/Dimethicon/Coconut Oil 92 Gm Tube TOP 1 applic PRN PRN Administration Skin Care Oxycodone HCl 5 mg 06/01/21 08:58 06/02/21 15:35 Oxycodone 5 Mg Tablet PO 5 mg Q4HR PRN Administration PAIN Pantoprazole Sodium 40 mg 05/30/21 09:00 06/09/21 06:12 Pantoprazole 40 Mg Tablet PO 40 mg QDAC [facility] Administration Febuxostat [Uloric 1 each 05/31/21 09:00 06/09/21 10:43 ] 40 Mg Tabs PO Not Given DAILY [facility] Polyethylene Glycol 17 gm 05/30/21 09:00 06/09/21 08:55 Polyethylene Glycol 3350 17 Gm Packet PO Not Given DAILY [facility] Potassium Chloride 20 meq 06/02/21 08:00 06/09/21 08:52 Potassium Chloride 20 Meq/15 Ml Udc PO 20 meq DAILYWM [facility] Administration Prazosin HCl 6 mg 05/30/21 21:00 06/08/21 21:44 Prazosin 1 Mg Capsule PO 6 mg QPM [facility] Administration Pregabalin 75 mg 05/30/21 14:00 06/09/21 14:07 Pregabalin 25 Mg Capsule PO 75 mg TID [facility] Administration Saccharomyces Boulardii 250 mg 05/30/21 08:57 06/09/21 17:06 Saccharomyces Boulardii 250 Mg Capsule PO 250 mg BIDWM [facility] Administration Senna 8.6 - 17.2 mg 06/04/21 09:00 06/09/21 08:55 Senna 8.6 Mg Tablet PO Not Given DAILY [facility] Sodium Chloride 10 ml 05/29/21 22:16 06/07/21 20:28 Sodium Chloride Flush 0.9% 10 Ml Syringe IVP 10 ml PRN PRN Administration NEEDED PER PROVIDER ORDERS Sodium Chloride 10 ml 05/30/21 01:00 06/09/21 17:06 Sodium Chloride Flush 0.9% 10 Ml Syringe IVP 10 ml 0100,0900,1700 [facility] Administration Tamsulosin HCl 0.4 mg 06/09/21 09:00 06/09/21 08:53 Tamsulosin 0.4 Mg Capsule PO 0.4 mg DAILY [facility] Administration - Lab Result Fish Bone Diagrams: 06/09/21 06:14 06/09/21 06:14 - Additional Planning My Orders: My Active Orders 06/09/21 09:00 Tamsulosin [Flomax] 0.4 mg PO DAILY 06/10/21 05:00 CRP - C-REACTIVE PROTEIN [CHEM] DAILYLAB Subjective - Subjective Patient Reports: Resting Comfortably Nursing Reports: Other (Pt worked with him and he is very weak, even sitting, he has poor truncal strength, falls to a side when sitting at edge of bed and cannot right himself, is too weak to stand independantly, needs a lift.) Objective Vital Signs: Vital Signs - 24 hr 06/08/21 06/09/21 06/09/21 20:52 00:36 03:59 Temperature 38.0 C H 36.6 C 36.9 C Heart Rate [ 93 89 81 Brachial] Respiratory 21 24 18 Rate Blood Pressure 97/72 [Left Brachial artery] Blood Pressure 127/80 140/82 H [Right Brachial artery] O2 Saturation 99 93 95 06/09/21 06/09/21 07:36 15:47 Temperature 37.6 C 37.5 C Heart Rate [ 87 90 Brachial] Respiratory 20 19 Rate Blood Pressure [Left Brachial artery] Blood Pressure 148/82 H 116/75 [Right Brachial artery] O2 Saturation 96 97 Oxygen O2 Source Room air I&O (Last 24 Hrs): Intake and Output Totals x24h 06/07/21 06/08/21 06/09/21 23:59 23:59 23:59 Intake Total 2054 3140 1172 Output Total 9864 0188 1100 Balance -1571 -1384 72 General: No acute distress, Other (sleeping) HEENT: Mucous membr. moist/pink Neck: Supple Neuro: Other (Asleep currently) Cardiovascular: No murmurs Respiratory: No respiratory distress Abdomen: Soft (Obese) Extremities: Other (1+ edema) - Results Results: Laboratory Results WBC 3.5 x10^3/uL (4.8-10.8) L 06/09/21 06:14 RBC 4.06 10^6/uL (4.70-6.10) L 06/09/21 06:14 Hgb 12.1 g/dL (14.0-18.0) L 06/09/21 06:14 Hct 38.5 % (42.0-52.0) L 06/09/21 06:14 MCV 94.8 fL (80.0-94.0) H 06/09/21 06:14 MCH 29.8 pg (27.0-31.0) 06/09/21 06:14 MCHC 31.4 g/dL (32.0-36.0) L 06/09/21 06:14 RDW 17.2 % (12.0-15.0) H 06/09/21 06:14 Plt Count 148 10^3/uL (130-450) 06/09/21 06:14 MPV 9.1 fL (7.4-11.4) 06/09/21 06:14 Neut # (Auto) 2.6 10^3/uL (1.5-6.6) 06/09/21 06:14 Lymph # (Auto) 0.5 10^3/uL (1.5-3.5) L 06/09/21 06:14 Pepin # (Auto) 0.3 10^3/uL (0.0-1.0) 06/09/21 06:14 Eos # (Auto) 0.1 10^3/uL (0.0-0.7) 06/09/21 06:14 Baso # (Auto) 0.0 10^3/uL (0.0-0.1) 06/09/21 06:14 Absolute Nucleated RBC 0.00 x10^3/uL 06/09/21 06:14 Total Counted 100 06/02/21 05:50 Band Neuts % (Manual) Not Reportable 06/08/21 08:04 Abnorm Lymph % (Manual) Not Reportable 06/08/21 08:04 Myelocytes % 1 % (-0) H 06/02/21 05:50 Nucleated RBC % 0.0 /100WBC 06/09/21 06:14 Neutrophils # (Manual) Not Reportable 06/08/21 08:04 Lymphocytes # (Manual) Not Reportable 06/08/21 08:04 Monocytes # (Manual) Not Reportable 06/08/21 08:04 Eosinophils # (Manual) Not Reportable 06/08/21 08:04 Basophils # (Manual) Not Reportable 06/08/21 08:04 Differential Comment MANUAL=AUTO DIFF 06/08/21 08:04 WBC Morphology NORMAL APPEARANCE (NORMAL) 06/02/21 05:50 Platelet Estimate NORMAL (130-450,000) (NORMAL) 06/06/21 05:29 Platelet Morphology NORMAL APPEARANCE (NORMAL) 06/02/21 05:50 RBC Morph Micro Appear NORMAL APPEARANCE (NORMAL) 06/06/21 05:29 Sodium 136 mmol/L (135-145) 06/09/21 06:14 Potassium 3.8 mmol/L (3.5-5.0) 06/09/21 06:14 Chloride 98 mmol/L (101-111) L 06/09/21 06:14 Carbon Dioxide 28 mmol/L (21-32) 06/09/21 06:14 Anion Gap 10.0 (6-13) 06/09/21 06:14 BUN 13 mg/dL (6-20) 06/09/21 06:14 Creatinine 1.7 mg/dL (0.6-1.2) H 06/09/21 06:14 Estimated GFR (MDRD) 40 (>89) L 06/09/21 06:14 Glucose 101 mg/dL (70-100) H 06/09/21 06:14 POC Whole Bld Glucose 88 mg/dL (70 - 100) 06/05/21 11:38 Serum Osmolality 271 mOsm/kg (278-305) L 05/29/21 19:10 Lactic Acid 1.4 mmol/L (0.5-2.2) 06/08/21 08:45 Uric Acid 5.8 mg/dL (2.6-7.2) 05/29/21 19:10 Calcium 8.7 mg/dL (8.5-10.3) 06/09/21 06:14 Total Bilirubin 0.5 mg/dL (0.2-1.0) 06/04/21 05:30 AST 49 IU/L (10-42) H 06/04/21 05:30 ALT 36 IU/L (10-60) 06/04/21 05:30 Alkaline Phosphatase 60 IU/L (42-121) 06/04/21 05:30 Ammonia < 10.0 umol/L (7-35) 05/29/21 22:27 Total Creatine Kinase 606 IU/L (22-269) H 06/05/21 04:10 C-Reactive Protein 3.8 mg/dL (0-1.0) H 06/09/21 06:14 Total Protein 7.5 g/dL (6.7-8.2) 06/04/21 05:30 Albumin 2.5 g/dL (3.2-5.5) L 06/04/21 05:30 Globulin 5.0 g/dL (2.1-4.2) H 06/04/21 05:30 Albumin/Globulin Ratio 0.5 (1.0-2.2) L 06/04/21 05:30 TSH 0.91 uIU/mL (0.34-5.60) 05/29/21 19:10 Cortisol 43.5 ug/dL 05/29/21 19:10 Urine Color YELLOW 05/31/21 23:00 Urine Clarity CLEAR (CLEAR) 05/31/21 23:00 Urine pH 6.0 PH (5.0-7.5) 05/31/21 23:00 Ur Specific [place] 1.015 (1.002-1.030) 05/31/21 23:00 Urine Protein 100 mg/dL (NEGATIVE) H 05/31/21 23:00 Urine Glucose (UA) NEGATIVE mg/dL (NEGATIVE) 05/31/21 23:00 Urine Ketones NEGATIVE mg/dL (NEGATIVE) 05/31/21 23:00 Urine Occult Blood TRACE-LYSE (NEGATIVE) 05/31/21 23:00 Urine Nitrite NEGATIVE (NEGATIVE) 05/31/21 23:00 Urine Bilirubin NEGATIVE (NEGATIVE) 05/31/21 23:00 Urine Urobilinogen 1 (NORMAL) E.U./dL (NORMAL) 05/31/21 23:00 Ur Leukocyte Esterase NEGATIVE (NEGATIVE) 05/31/21 23:00 Urine RBC 0-5 /HPF (0-5) 05/31/21 23:00 Urine WBC 0-3 /HPF (0-3) 05/31/21 23:00 Ur Squamous Epith Cells RARE Squamous (<= Few) 05/31/21 23:00 Urine Bacteria Rare /HPF (None Seen) 05/31/21 23:00 Urine Casts 3-5 Hyaline Casts /LPF 05/31/21 23:00 Urine Mucus Moderate Strands 05/31/21 23:00 Urine Culture Comments NOT INDICATED 05/31/21 23:00 Urine Osmolality 362 mOsm/kg (50-1200) 05/29/21 02:00 Urine Opiates Screen NEGATIVE (NEGATIVE) 05/29/21 02:00 Ur Oxycodone Screen NEGATIVE (NEGATIVE) 05/29/21 02:00 Urine Methadone Screen NEGATIVE (NEGATIVE) 05/29/21 02:00 Ur Propoxyphene Screen NEGATIVE (NEGATIVE) 05/29/21 02:00 Ur Barbiturates Screen NEGATIVE (NEGATIVE) 05/29/21 02:00 Ur Tricyclics Screen NEGATIVE (NEGATIVE) 05/29/21 02:00 Ur Phencyclidine Scrn NEGATIVE (NEGATIVE) 05/29/21 02:00 Ur Amphetamine Screen NEGATIVE (NEGATIVE) 05/29/21 02:00 U Methamphetamines Scrn NEGATIVE (NEGATIVE) 05/29/21 02:00 U Benzodiazepines Scrn NEGATIVE (NEGATIVE) 05/29/21 02:00 Urine Cocaine Screen NEGATIVE (NEGATIVE) 05/29/21 02:00 U Cannabinoids Screen POSITIVE (NEGATIVE) H 05/29/21 02:00 SARS-CoV-2 (PCR) NOT DETECTED 05/29/21 21:34 Sepsis Event Note (H) - Evaluation Current Stage of Sepsis: Sepsis - Sepsis Criteria Sepsis Criteria: Recorded Temperature greater than 38.3C or Less than 36C, WBC count greater than 12,000 or less than 4000, PROJECT DEVELOPMENT MANAGER: altered consciousness (unrelated to primary neuro pathology), Hematologic: platelets < 100,000; INR > 1.5, or a PTT>60 seconds
[2021-06-09] MEDS: PRAZOSIN 1 MG CAPSULE PO SCH (21:25)
[2021-06-10] MEDS: PANTOPRAZOLE 40 MG TABLET PO SCH (06:08)
[2021-06-10] MEDS: SODIUM CHLORIDE FLUSH 0.9% 10 ML SYRINGE IVP SCH ×3 (06:08→16:46)
[2021-06-10] MEDS: PREGABALIN 25 MG CAPSULE PO SCH ×3 (06:09→21:06)
[2021-06-10] MEDS: POTASSIUM CHLORIDE 20 MEQ/15 ML UDC PO SCH (09:29)
[2021-06-10] MEDS: ASPIRIN CHEW 81 MG TABLET PO SCH (09:30)
[2021-06-10] MEDS: buPROPion XL 150 MG TABLET PO SCH (09:31)
[2021-06-10] MEDS: SACCHAROMYCES BOULARDII 250 MG CAPSULE PO SCH ×2 (09:31→16:46)
[2021-06-10] MEDS: METOPROLOL SUCCINATE 25 MG TABLET PO SCH (09:31)
[2021-06-10] MEDS: CLOPIDOGREL 75 MG TABLET PO SCH (09:31)
[2021-06-10] MEDS: ENOXAPARIN 40 MG/0.4 ML SYRINGE SUBQ SCH (09:33)
[2021-06-10] MEDS: DOCUSATE SODIUM 250 MG CAPSULE PO SCH (09:33)
[2021-06-10] MEDS: SENNA 8.6 MG TABLET PO SCH (09:34)
[2021-06-10] MEDS: polyethylene glycoL 3350 17 GM PACKET PO SCH (09:34)
[2021-06-10] MEDS: TAMSULOSIN 0.4 MG CAPSULE PO SCH (09:34)
[2021-06-10] MEDS: FEBUXOSTAT 40 MG PO SCH (09:34)
--- NOTE | 2021-06-10 13:05 | CT Report ---
PROCEDURE: HEAD WO INDICATIONS: Confusion, balance problem TECHNIQUE: Noncontrast 4.5 mm thick angled axial sections acquired from the foramen magnum to the vertex. For r adiation dose reduction, the following was used: automated exposure control, adjustment of mA and/or kV according to patient size. COMPARISON: Prior head CT, 05/29/2021. Correlation is made with maxillofacial CT and cervical spine CT, 06/07/2021 FINDINGS: Image quality: Motion artifact is noted. There is streak artifact seen through the skull base. CSF spaces: Basal cisterns are patent. No extra-axial fluid collections. Ventricles are normal in size and shape. Brain: No midline shift. No intracranial masses or hemorrhage. Messer-white matter interface is norm al. Age-appropriate brain parenchymal volume loss and chronic small vessel ischemic change can be se en. Dense calcification can be seen along the anterior falx, as before. Skull and face: Calvarium and visualized facial bones are intact, without suspicious lesions. Sinuses: Visualized sinuses and mastoids are clear. IMPRESSION: Unremarkable head CT for age, stable from prior. If it would be helpful for clinical management decision making, please consider a dedicated brain MRI (IAC protocol, without and with contrast) for further evaluation (assuming that there is no contra indication). Reviewed by: Levi Stokes MD on 06/10/2021 12:04 PM NANDA Approved by: Levi Stokes MD on 06/10/2021 12:04 PM NANDA Station ID: [id number]
[2021-06-10] MEDS: cefTRIAXone 2 GM in SODIUM CHLORIDE 0.9% MINIBAG 100 ML IV SCH (13:37)
--- NOTE | 2021-06-10 16:01 | PROVIDER PROGRESS NOTE ---
Assessment/Plan - Problem List (1) Streptococcal bacteremia Assessment/Plan: He grew Strep Infantarius from his initial bld cx. Then a bld cx set from 05/31/21 had no growth. We removed pt's Port-A-cath several days ago, done by Gen Surg in the OR, per ID's suggestion, due to his continuing daily fevers. He has finally had no fever over the past 24 hours. We are continuing iv antibx, which were advised by ID at [facility], in my discussion after I reviewed the entire case with her. She confirmed to continue Ceftriaxone 2gm iv daily. ID advised that the patient have blood cultures doneafter Port-A -Cath removed; awaiting final results. ID advised that the patient be treated as if he has endocarditis, because he is immunocompromised, even if he had undergone a PALMER that showed no vegetations. She advised a 4-week total course of treatment, starting from the day of the first negative blood culture, therefore starting 05/31/21 until 06/28/21. He needs a PICC line put in for this, placement to be at least 48 hours after the Port-A-Cath was removed and preferrably after he is no longer febrile. We w ill order PICC line insertion now (which will probably be done tomorrow, since today is Friday). Location of getting daily iv meds will be determined soon, I suspect at a SNF, since he needs alot of PT rehab as well. (2) Fall during current hospitalization Qualifiers: Encounter type: subsequent encounter Qualified Code(s): W19.XXXD - Unspecified fall, subsequent encounter; Y92.239 - Unspecified place in hospital as the place of occurrence of the external cause Assessment/Plan: He had no focal neuro deficit after the fall in his room several days ago. A C- collar was ordered after the fall onto his forehead and CT maxillofacial and of the C-spine were done STAT and no fractures or dislocation were seen and his C- spine "was cleared". We ordered PT to resume Orthostatic VS checks were being done daily. These have been normal thus far. Will cancel orthostatic checks (3) Truncal muscle weakness Assessment/Plan: PT was impressed with his severe deconditioning when working with him yesterday and today, compared to admission, when he could ambulate independantly. He had a head CT today to assure no new SOLUTION DEVELOPER finding, and it was negative. This was communicated to the pt. PT is advising a SNF for rehab (4) CKD (chronic kidney disease) stage 3, GFR 30-59 ml/min Impression: Stable, creatinine is 1.7 today. (5) Chronic inflammatory demyelinating polyneuritis Impression: This is chronic and he receives monthly IVIG. 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 (6) Urinary retention He had urinary retention of over 700 cc, earlier this admission and needed a Chandra. That Chandra was removed as the Port-A-Cath was removed. For the las t 2 days he has had residuals of 500-100 on bladder scans. A new Chandra was ordered to be inserted last night. He is on Minipress, and we also add Tamsolusin for BPH. (7) Morbid Obesity, BMI 45-50 As per Hx. (8) PTSD (post-traumatic stress disorder) Stable. (9) Thrombocytopenia Resolved. It was fluctuating likely due to sepsis. (10) Sepsis Resolved (11) Acute metabolic encephalopathy Resolved. He is back to his baseline mentation. (12) Port-A-Cath Removed ; he had it in place for 2.5 years. (13) FUO Resolved. For the past 24 hours he (finally) has had no fever or even low-grade fever. - Current Meds Current Meds: Current Medications Generic Name Dose Route Start Last Admin Trade Name Freq PRN Reason Stop Dose Admin Acetaminophen 650 mg 05/31/21 20:13 06/08/21 21:42 Acetaminophen 325 Mg Tablet PO 650 mg Q4HR PRN Administration Pain or Fever > 38C (100.4F) Aspirin 81 mg 06/01/21 10:00 06/10/21 09:30 Aspirin Chew 81 Mg Tablet PO 81 mg DAILY [facility] Administration Bupropion HCl 450 mg 06/01/21 09:00 06/10/21 09:31 Bupropion Xl 150 Mg Tablet PO 450 mg DAILY [facility] Administration Cholecalciferol 5,000 unit 05/30/21 15:00 06/06/21 15:28 Cholecalciferol 5,000 Unit Capsule PO 5,000 unit Q7D [facility] Administration Clopidogrel Bisulfate 75 mg 05/31/21 09:00 06/10/21 09:31 Clopidogrel 75 Mg Tablet PO 75 mg DAILY [facility] Administration Cyclobenzaprine HCl 10 mg 06/07/21 21:30 06/08/21 21:44 Cyclobenzaprine 10 Mg Tablet PO 10 mg TID PRN Administration Spasms Docusate Sodium 250 - 500 mg 06/05/21 19:43 06/10/21 09:33 Docusate Sodium 250 Mg Capsule PO Not Given DAILY [facility] Enoxaparin Sodium 40 mg 06/05/21 09:00 06/10/21 09:33 Enoxaparin 40 Mg/0.4 Ml Syringe SUBQ 40 mg DAILY [facility] Administration Heparin Sodium (Beef Lung) 30 - 50 unit 05/31/21 04:51 06/06/21 17:15 Heparin Flush 50 Units/5 Ml Syringe IVP 50 unit PRN PRN Administration Port Protocol (<24 hours) Hydromorphone HCl 0.5 mg 06/01/21 16:35 06/09/21 17:42 Hydromorphone 0.5 Mg/0.5 Ml Syringe IVP 0.5 mg Q4H PRN Administration PAIN Ceftriaxone Sodium 2 gm/ 100 mls @ 200 mls/hr 05/30/21 13:00 06/10/21 14:23 Sodium Chloride IV Infused Q24H [facility] Infusion Metoprolol Succinate 25 mg 05/30/21 09:00 06/10/21 09:31 Metoprolol Succinate 25 Mg Tablet PO 25 mg DAILY [facility] Administration Mineral Oil 1 applic 06/04/21 16:51 06/08/21 10:14 Min Oil/Dimethicon/Coconut Oil 92 Gm Tube TOP 1 applic PRN PRN Administration Skin Care Oxycodone HCl 5 mg 06/01/21 08:58 06/02/21 15:35 Oxycodone 5 Mg Tablet PO 5 mg Q4HR PRN Administration PAIN Pantoprazole Sodium 40 mg 05/30/21 09:00 06/10/21 06:08 Pantoprazole 40 Mg Tablet PO 40 mg QDAC [facility] Administration Febuxostat [Uloric 1 each 05/31/21 09:00 06/10/21 09:34 ] 40 Mg Tabs PO Not Given DAILY [facility] Polyethylene Glycol 17 gm 05/30/21 09:00 06/10/21 09:34 Polyethylene Glycol 3350 17 Gm Packet PO Not Given DAILY [facility] Potassium Chloride 20 meq 06/02/21 08:00 06/10/21 09:29 Potassium Chloride 20 Meq/15 Ml Udc PO 20 meq DAILYWM [facility] Administration Prazosin HCl 6 mg 05/30/21 21:00 06/09/21 21:25 Prazosin 1 Mg Capsule PO 6 mg QPM [facility] Administration Pregabalin 75 mg 05/30/21 14:00 06/10/21 13:37 Pregabalin 25 Mg Capsule PO 75 mg TID [facility] Administration Saccharomyces Boulardii 250 mg 05/30/21 08:57 06/10/21 09:31 Saccharomyces Boulardii 250 Mg Capsule PO 250 mg BIDWM [facility] Administration Senna 8.6 - 17.2 mg 06/04/21 09:00 06/10/21 09:34 Senna 8.6 Mg Tablet PO Not Given DAILY [facility] Sodium Chloride 10 ml 05/29/21 22:16 06/07/21 20:28 Sodium Chloride Flush 0.9% 10 Ml Syringe IVP 10 ml PRN PRN Administration NEEDED PER PROVIDER ORDERS Sodium Chloride 10 ml 05/30/21 01:00 06/10/21 13:38 Sodium Chloride Flush 0.9% 10 Ml Syringe IVP 10 ml 0100,0900,1700 [facility] Administration Tamsulosin HCl 0.4 mg 06/09/21 09:00 06/10/21 09:34 Tamsulosin 0.4 Mg Capsule PO 0.4 mg DAILY [facility] Administration - Lab Result Fish Bone Diagrams: 06/09/21 06:14 06/09/21 06:14 - Additional Planning My Orders: My Active Orders 06/11/21 08:00 PICC Line Insert [RC] .ONCE Subjective - Subjective Patient Reports: Resting Comfortably Nursing Reports: Other (Too weak to stand from edge of bed. Lists to left when sits alone (per PT). Talks about different subjects ij one sentence but no slurred speech. Describes being very tired. Is using his CPAP for naps.) Objective Vital Signs: Vital Signs - 24 hr 06/10/21 06/10/21 06/10/21 00:29 07:36 15:29 Temperature 37.6 C 37.1 C 36.9 C Heart Rate [ 92 83 80 Brachial] Respiratory 22 20 21 Rate Blood Pressure 132/81 H 133/73 H 137/73 H [Right Brachial artery] O2 Saturation 92 91 L 95 Oxygen O2 Source Room air I&O (Last 24 Hrs): Intake and Output Totals x24h 06/08/21 06/09/21 06/10/21 23:59 23:59 23:59 Intake Total 3140 2272 1730 Output Total 45 3300 3250 Balance -5068 -8675 -1520 General: Alert, Oriented x3 HEENT: Mucous membr. moist/pink Neck: Supple, Other (Obese and cannot eval JVP) Neuro: Non Focal, Other (Generalized weakness) Cardiovascular: Regular rate Abdomen: Soft, Other (Obese with pannus) Genitourinary: Other (Chandra in place) Extremities: Other (1+ edema) - Results Results: Laboratory Results WBC 3.5 x10^3/uL (4.8-10.8) L 06/09/21 06:14 RBC 4.06 10^6/uL (4.70-6.10) L 06/09/21 06:14 Hgb 12.1 g/dL (14.0-18.0) L 06/09/21 06:14 Hct 38.5 % (42.0-52.0) L 06/09/21 06:14 MCV 94.8 fL (80.0-94.0) H 06/09/21 06:14 MCH 29.8 pg (27.0-31.0) 06/09/21 06:14 MCHC 31.4 g/dL (32.0-36.0) L 06/09/21 06:14 RDW 17.2 % (12.0-15.0) H 06/09/21 06:14 Plt Count 148 10^3/uL (130-450) 06/09/21 06:14 MPV 9.1 fL (7.4-11.4) 06/09/21 06:14 Neut # (Auto) 2.6 10^3/uL (1.5-6.6) 06/09/21 06:14 Lymph # (Auto) 0.5 10^3/uL (1.5-3.5) L 06/09/21 06:14 Pacific # (Auto) 0.3 10^3/uL (0.0-1.0) 06/09/21 06:14 Eos # (Auto) 0.1 10^3/uL (0.0-0.7) 06/09/21 06:14 Baso # (Auto) 0.0 10^3/uL (0.0-0.1) 06/09/21 06:14 Absolute Nucleated RBC 0.00 x10^3/uL 06/09/21 06:14 Total Counted 100 06/02/21 05:50 Band Neuts % (Manual) Not Reportable 06/08/21 08:04 Abnorm Lymph % (Manual) Not Reportable 06/08/21 08:04 Myelocytes % 1 % (-0) H 06/02/21 05:50 Nucleated RBC % 0.0 /100WBC 06/09/21 06:14 Neutrophils # (Manual) Not Reportable 06/08/21 08:04 Lymphocytes # (Manual) Not Reportable 06/08/21 08:04 Monocytes # (Manual) Not Reportable 06/08/21 08:04 Eosinophils # (Manual) Not Reportable 06/08/21 08:04 Basophils # (Manual) Not Reportable 06/08/21 08:04 Differential Comment MANUAL=AUTO DIFF 06/08/21 08:04 WBC Morphology NORMAL APPEARANCE (NORMAL) 06/02/21 05:50 Platelet Estimate NORMAL (130-450,000) (NORMAL) 06/06/21 05:29 Platelet Morphology NORMAL APPEARANCE (NORMAL) 06/02/21 05:50 RBC Morph Micro Appear NORMAL APPEARANCE (NORMAL) 06/06/21 05:29 Sodium 136 mmol/L (135-145) 06/09/21 06:14 Potassium 3.8 mmol/L (3.5-5.0) 06/09/21 06:14 Chloride 98 mmol/L (101-111) L 06/09/21 06:14 Carbon Dioxide 28 mmol/L (21-32) 06/09/21 06:14 Anion Gap 10.0 (6-13) 06/09/21 06:14 BUN 13 mg/dL (6-20) 06/09/21 06:14 Creatinine 1.7 mg/dL (0.6-1.2) H 06/09/21 06:14 Estimated GFR (MDRD) 40 (>89) L 06/09/21 06:14 Glucose 101 mg/dL (70-100) H 06/09/21 06:14 POC Whole Bld Glucose 88 mg/dL (70 - 100) 06/05/21 11:38 Serum Osmolality 271 mOsm/kg (278-305) L 05/29/21 19:10 Lactic Acid 1.4 mmol/L (0.5-2.2) 06/08/21 08:45 Uric Acid 5.8 mg/dL (2.6-7.2) 05/29/21 19:10 Calcium 8.7 mg/dL (8.5-10.3) 06/09/21 06:14 Total Bilirubin 0.5 mg/dL (0.2-1.0) 06/04/21 05:30 AST 49 IU/L (10-42) H 06/04/21 05:30 ALT 36 IU/L (10-60) 06/04/21 05:30 Alkaline Phosphatase 60 IU/L (42-121) 06/04/21 05:30 Ammonia < 10.0 umol/L (7-35) 05/29/21 22:27 Total Creatine Kinase 606 IU/L (22-269) H 06/05/21 04:10 C-Reactive Protein 2.4 mg/dL (0-1.0) H 06/10/21 05:46 Total Protein 7.5 g/dL (6.7-8.2) 06/04/21 05:30 Albumin 2.5 g/dL (3.2-5.5) L 06/04/21 05:30 Globulin 5.0 g/dL (2.1-4.2) H 06/04/21 05:30 Albumin/Globulin Ratio 0.5 (1.0-2.2) L 06/04/21 05:30 TSH 0.91 uIU/mL (0.34-5.60) 05/29/21 19:10 Cortisol 43.5 ug/dL 05/29/21 19:10 Urine Color YELLOW 05/31/21 23:00 Urine Clarity CLEAR (CLEAR) 05/31/21 23:00 Urine pH 6.0 PH (5.0-7.5) 05/31/21 23:00 Ur Specific [place] 1.015 (1.002-1.030) 05/31/21 23:00 Urine Protein 100 mg/dL (NEGATIVE) H 05/31/21 23:00 Urine Glucose (UA) NEGATIVE mg/dL (NEGATIVE) 05/31/21 23:00 Urine Ketones NEGATIVE mg/dL (NEGATIVE) 05/31/21 23:00 Urine Occult Blood TRACE-LYSE (NEGATIVE) 05/31/21 23:00 Urine Nitrite NEGATIVE (NEGATIVE) 05/31/21 23:00 Urine Bilirubin NEGATIVE (NEGATIVE) 05/31/21 23:00 Urine Urobilinogen 1 (NORMAL) E.U./dL (NORMAL) 05/31/21 23:00 Ur Leukocyte Esterase NEGATIVE (NEGATIVE) 05/31/21 23:00 Urine RBC 0-5 /HPF (0-5) 05/31/21 23:00 Urine WBC 0-3 /HPF (0-3) 05/31/21 23:00 Ur Squamous Epith Cells RARE Squamous (<= Few) 05/31/21 23:00 Urine Bacteria Rare /HPF (None Seen) 05/31/21 23:00 Urine Casts 3-5 Hyaline Casts /LPF 05/31/21 23:00 Urine Mucus Moderate Strands 05/31/21 23:00 Urine Culture Comments NOT INDICATED 05/31/21 23:00 Urine Osmolality 362 mOsm/kg (50-1200) 05/29/21 02:00 Urine Opiates Screen NEGATIVE (NEGATIVE) 05/29/21 02:00 Ur Oxycodone Screen NEGATIVE (NEGATIVE) 05/29/21 02:00 Urine Methadone Screen NEGATIVE (NEGATIVE) 05/29/21 02:00 Ur Propoxyphene Screen NEGATIVE (NEGATIVE) 05/29/21 02:00 Ur Barbiturates Screen NEGATIVE (NEGATIVE) 05/29/21 02:00 Ur Tricyclics Screen NEGATIVE (NEGATIVE) 05/29/21 02:00 Ur Phencyclidine Scrn NEGATIVE (NEGATIVE) 05/29/21 02:00 Ur Amphetamine Screen NEGATIVE (NEGATIVE) 05/29/21 02:00 U Methamphetamines Scrn NEGATIVE (NEGATIVE) 05/29/21 02:00 U Benzodiazepines Scrn NEGATIVE (NEGATIVE) 05/29/21 02:00 Urine Cocaine Screen NEGATIVE (NEGATIVE) 05/29/21 02:00 U Cannabinoids Screen POSITIVE (NEGATIVE) H 05/29/21 02:00 SARS-CoV-2 (PCR) NOT DETECTED 05/29/21 21:34 Sepsis Event Note (H) - Evaluation Current Stage of Sepsis: Sepsis - Sepsis Criteria Sepsis Criteria: Recorded Temperature greater than 38.3C or Less than 36C, WBC count greater than 12,000 or less than 4000, SOLUTION DEVELOPER: altered consciousness (unrelated to primary neuro pathology), Hematologic: platelets < 100,000; INR > 1.5, or a PTT>60 seconds
[2021-06-10] MEDS: PRAZOSIN 1 MG CAPSULE PO SCH (21:06)
[2021-06-11] MEDS: SODIUM CHLORIDE FLUSH 0.9% 10 ML SYRINGE IVP SCH ×3 (01:19→17:02)
[2021-06-11] MEDS: PANTOPRAZOLE 40 MG TABLET PO SCH (06:14)
[2021-06-11] MEDS: PREGABALIN 25 MG CAPSULE PO SCH ×3 (06:14→21:31)
[2021-06-11] MEDS: METOPROLOL SUCCINATE 25 MG TABLET PO SCH (08:36)
[2021-06-11] MEDS: SACCHAROMYCES BOULARDII 250 MG CAPSULE PO SCH ×2 (08:36→18:59)
[2021-06-11] MEDS: POTASSIUM CHLORIDE 20 MEQ/15 ML UDC PO SCH (08:36)
[2021-06-11] MEDS: TAMSULOSIN 0.4 MG CAPSULE PO SCH (08:37)
[2021-06-11] MEDS: CLOPIDOGREL 75 MG TABLET PO SCH (08:37)
[2021-06-11] MEDS: buPROPion XL 150 MG TABLET PO SCH (08:37)
[2021-06-11] MEDS: ASPIRIN CHEW 81 MG TABLET PO SCH (08:37)
[2021-06-11] MEDS: polyethylene glycoL 3350 17 GM PACKET PO SCH (08:38)
[2021-06-11] MEDS: DOCUSATE SODIUM 250 MG CAPSULE PO SCH (08:38)
[2021-06-11] MEDS: SENNA 8.6 MG TABLET PO SCH (08:38)
[2021-06-11] MEDS: ENOXAPARIN 40 MG/0.4 ML SYRINGE SUBQ SCH (08:38)
[2021-06-11] MEDS: FEBUXOSTAT 40 MG PO SCH (08:39)
--- NOTE | 2021-06-11 11:46 | ANESTHESIA PROCEDURE NOTE ---
Anesth Central Line Template - Central Line Central Line Preparation: Consent Obtained Central line location: Left Brachial Central line type: PICC Single Lumen Central line catheter tip site resides: Superior vena cava (SVC) Central line aftercare: Secured, Placement confirmed, No complications, Bundle checklist complete, Pt tolerated well Other Info/Details: trimmed at 43 cm none exposed
--- NOTE | 2021-06-11 14:24 | XRAY Report ---
PROCEDURE: Chest for Line Placement INDICATIONS: confirm PICC line TECHNIQUE: One view of the chest was acquired. COMPARISON: Chest x-ray 05/30/2021 FINDINGS: Surgical changes and devices: There is a left upper extremity PICC line with the tip projecting over the left subclavian vein. Postsurgical changes are redemonstrated within the lower thoracic spine. Lungs and pleura: The lung bases are incompletely included on the current study. There is pulmonary vascular prominence suggestive of mild edema. Visualized lungs demonstrate no consolidation. No defin ite pneumothorax. Mediastinum: Mediastinal contours appear unchanged or visualized. Heart size is normal. Bones and chest wall: No suspicious bony lesions. Overlying soft tissues appear unremarkable. IMPRESSION: 1. Limited study demonstrates a left PICC line with tip in the region of the left subclavian vein. Re commend repositioning. Reviewed by: Fortunato Gerber MD on 06/11/2021 2:23 PM PDT Approved by: Fortunato Gerber MD on 06/11/2021 2:23 PM PDT Station ID: [id number]
[2021-06-11] MEDS: cefTRIAXone 2 GM in SODIUM CHLORIDE 0.9% MINIBAG 100 ML IV SCH (14:25)
[2021-06-11] MEDS: LIDOCAINE PATCH 5% TOP PRN (14:58)
[2021-06-11] MEDS: SODIUM CHLORIDE FLUSH 0.9% 10 ML SYRINGE IVP PRN (19:00)
[2021-06-11] MEDS: HYDROmorphone 0.5 MG/0.5 ML SYRINGE IVP PRN (19:00)
--- NOTE | 2021-06-11 19:26 | PROVIDER PROGRESS NOTE ---
Assessment/Plan - Problem List (1) Streptococcal bacteremia Assessment/Plan: He grew Strep Infantarius from his initial bld cx. Then a bld cx set from 05/31/21 had no growth. We removed pt's Port-A-cath several days ago, done by Gen Surg in the OR, per ID's suggestion, due to his continuing daily fevers. He has finally had no fever over the past 48 hours. We are continuing iv antibx, which were advised by ID at [facility], in my discussion after I reviewed the entire case with her. She confirmed to continue Ceftriaxone 2gm iv daily. ID advised that the patient have blood cultures done after Port-A -Cath removed; it was sent 2 days ago, awaiting final results. ID advised that the patient be treated as if he has endocarditis, because he is immunocompromised, even if he had undergone a PALMER that showed no vegetations. She advised a 4-week total course of treatment, starting from the day of the first negative blood culture, therefore starting 05/31/21 until 06/28/21. He needs a PICC line put in for this, placement to be at least 48 hours after the Port-A-Cath was removed and preferrably after he is no longer febrile. We orderd and he got a PICC line insertion today. OK to use, placement is OK. Location of getting daily iv meds will be determined soon, I suspect at a SNF, since he needs alot of PT rehab as well. (2) Fall during current hospitalization Qualifiers: Encounter type: subsequent encounter Qualified Code(s): W19.XXXD - Unspecified fall, subsequent encounter; Y92.239 - Unspecified place in hospital as the place of occurrence of the external cause Assessment/Plan: He fell forward, out of his recliner when he was trying to stand using his walker, and hit his forehead. He had no focal neuro deficit after that fall in his room several days ago. A C-collar was ordered after that fall onto his forehead and CT maxillofacial and of the C-spine were done STAT and no fractures or dislocation were seen and his C-spine "was cleared". We ordered PT to resume Orthostatic VS checks were being done daily. These have been normal thus far. Will cancel orthostatic checks (3) Truncal muscle weakness Assessment/Plan: PT was impressed with his severe deconditioning when working with him the last several days, compared to admission, when he could ambulate independantly. He had a head CT done therefore to assure no new CALIBRATION LABORATORY TECHNICIAN finding, and it was ne gative. This was communicated to the pt yesterday PT is advising a SNF for rehab (4) CKD (chronic kidney disease) stage 3, GFR 30-59 ml/min Impression: Stable, creatinine is 1.7 today. (5) Chronic inflammatory demyelinating polyneuritis Impression: This is chronic and he received monthly IVIG, none this month, he reported. 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 Also, he has chronic LBP, lately worse since he is in bed most of the day. Will order a Lidocaine patch for this. (6) Urinary retention He had urinary retention of over 700 cc, earlier this admission and needed a Chandra. That Chandra was removed as the Port-A-Cath was removed, when he had daily fever spikes. For the last several days he had residuals of 500-100 on bladder scans. A new Chandra was ordered to be re-inserted therefore. He is on Minipress, and we also here started Tamsolusin for BPH. (7) Morbid Obesity, BMI 45-50 As per Hx. (8) PTSD (post-traumatic stress disorder) Stable. (9) Thrombocytopenia Resolved. It was fluctuating likely due to sepsis. (10) Sepsis Resolved (11) Acute metabolic encephalopathy Resolved. He is back to his baseline mentation. (12) Port-A-Cath Removed ; he had it in place for 2.5 years. (13) FUO Resolved. For the past few days he finally has had no fever or even low-grade fever. - Current Meds Current Meds: Current Medications Generic Name Dose Route Start Last Admin Trade Name Freq PRN Reason Stop Dose Admin Acetaminophen 650 mg 05/31/21 20:13 06/08/21 21:42 Acetaminophen 325 Mg Tablet PO 650 mg Q4HR PRN Administration Pain or Fever > 38C (100.4F) Aspirin 81 mg 06/01/21 10:00 06/11/21 08:37 Aspirin Chew 81 Mg Tablet PO 81 mg DAILY [place] Administration Bupropion HCl 450 mg 06/01/21 09:00 06/11/21 08:37 Bupropion Xl 150 Mg Tablet PO 450 mg DAILY [place] Administration Cholecalciferol 5,000 unit 05/30/21 15:00 06/06/21 15:28 Cholecalciferol 5,000 Unit Capsule PO 5,000 unit Q7D [facility] Administration Clopidogrel Bisulfate 75 mg 05/31/21 09:00 06/11/21 08:37 Clopidogrel 75 Mg Tablet PO 75 mg DAILY [place] Administration Cyclobenzaprine HCl 10 mg 06/07/21 21:30 06/08/21 21:44 Cyclobenzaprine 10 Mg Tablet PO 10 mg TID PRN Administration Spasms Docusate Sodium 250 - 500 mg 06/05/21 19:43 06/11/21 08:38 Docusate Sodium 250 Mg Capsule PO Not Given DAILY [facility] Enoxaparin Sodium 40 mg 06/05/21 09:00 06/11/21 08:38 Enoxaparin 40 Mg/0.4 Ml Syringe SUBQ 40 mg DAILY [facility] Administration Heparin Sodium (Beef Lung) 30 - 50 unit 05/31/21 04:51 06/06/21 17:15 Heparin Flush 50 Units/5 Ml Syringe IVP 50 unit PRN PRN Administration Port Protocol (<24 hours) Hydromorphone HCl 0.5 mg 06/01/21 16:35 06/11/21 19:00 Hydromorphone 0.5 Mg/0.5 Ml Syringe IVP 0.5 mg Q4H PRN Administration PAIN Ceftriaxone Sodium 2 gm/ 100 mls @ 200 mls/hr 05/30/21 13:00 06/11/21 15:00 Sodium Chloride IV Infused Q24H [facility] Infusion Lidocaine 1 patch 06/11/21 14:44 06/11/21 14:58 Lidocaine Patch 5% TOP 1 patch DAILY PRN Administration PAIN Metoprolol Succinate 25 mg 05/30/21 09:00 06/11/21 08:36 Metoprolol Succinate 25 Mg Tablet PO 25 mg DAILY [facility] Administration Mineral Oil 1 applic 06/04/21 16:51 06/08/21 10:14 Min Oil/Dimethicon/Coconut Oil 92 Gm Tube TOP 1 applic PRN PRN Administration Skin Care Oxycodone HCl 5 mg 06/01/21 08:58 06/02/21 15:35 Oxycodone 5 Mg Tablet PO 5 mg Q4HR PRN Administration PAIN Pantoprazole Sodium 40 mg 05/30/21 09:00 06/11/21 06:14 Pantoprazole 40 Mg Tablet PO 40 mg QDAC [facility] Administration Febuxostat [Uloric 1 each 05/31/21 09:00 06/11/21 08:39 ] 40 Mg Tabs PO Not Given DAILY [facility] Polyethylene Glycol 17 gm 05/30/21 09:00 06/11/21 08:38 Polyethylene Glycol 3350 17 Gm Packet PO Not Given DAILY [facility] Potassium Chloride 20 meq 06/02/21 08:00 06/11/21 08:36 Potassium Chloride 20 Meq/15 Ml Udc PO 20 meq DAILYWM [facility] Administration Prazosin HCl 6 mg 05/30/21 21:00 06/10/21 21:06 Prazosin 1 Mg Capsule PO 6 mg QPM [facility] Administration Pregabalin 75 mg 05/30/21 14:00 06/11/21 14:24 Pregabalin 25 Mg Capsule PO 75 mg TID [facility] Administration Saccharomyces Boulardii 250 mg 05/30/21 08:57 06/11/21 18:59 Saccharomyces Boulardii 250 Mg Capsule PO 250 mg BIDWM [facility] Administration Senna 8.6 - 17.2 mg 06/04/21 09:00 06/11/21 08:38 Senna 8.6 Mg Tablet PO Not Given DAILY [facility] Sodium Chloride 10 ml 05/29/21 22:16 06/11/21 19:00 Sodium Chloride Flush 0.9% 10 Ml Syringe IVP 10 ml PRN PRN Administration NEEDED PER PROVIDER ORDERS Sodium Chloride 10 ml 05/30/21 01:00 06/11/21 17:02 Sodium Chloride Flush 0.9% 10 Ml Syringe IVP 10 ml 0100,0900,1700 [facility] Administration Tamsulosin HCl 0.4 mg 06/09/21 09:00 06/11/21 08:37 Tamsulosin 0.4 Mg Capsule PO 0.4 mg DAILY [place] Administration - Lab Result Fish Bone Diagrams: 06/12/21 05:45 06/12/21 05:45 - Additional Planning My Orders: My Active Orders 06/11/21 08:00 PICC Line Insert [RC] .ONCE 06/11/21 14:44 Lidocaine Patch 5% [Lidoderm Patch] 1 patch TOP DAILY PRN 06/12/21 05:00 BMP - BASIC METABOLIC PANEL [CHEM] DAILYLAB CBC - COMP BLD CT W/AUTO DIFF [HEME] DAILYLAB 06/13/21 05:00 BMP - BASIC METABOLIC PANEL [CHEM] DAILYLAB CBC - COMP BLD CT W/AUTO DIFF [HEME] DAILYLAB 06/14/21 05:00 BMP - BASIC METABOLIC PANEL [CHEM] DAILYLAB CBC - COMP BLD CT W/AUTO DIFF [HEME] DAILYLAB Subjective - Subjective Patient Reports: Feeling Better ("not as tired as past few days"), Pain (severe LBP and feels very weak, but not as sleepy the last 2 days) Objective Vital Signs: Vital Signs - 24 hr 06/11/21 06/11/21 06/11/21 00:24 09:40 15:36 Temperature 36.8 C 36.7 C 37.2 C Heart Rate [ 83 87 Brachial] Heart Rate [ 80 Radial] Respiratory 22 20 22 Rate Blood Pressure 126/79 117/72 103/73 [Right Brachial artery] O2 Saturation 95 96 95 Oxygen O2 Source Room air I&O (Last 24 Hrs): Intake and Output Totals x24h 06/09/21 06/10/21 06/11/21 23:59 23:59 23:59 Intake Total 2272 2398 1800 Output Total 3300 3640 7228 Balance -[facility]9 -5002 -875 General: Alert, Oriented x3 HEENT: Mucous membr. moist/pink Neck: Supple, Other (Obese and cannot eval JVP) Neuro: Alert, Non Focal, Other (generalized weakness) Cardiovascular: Regular rate Respiratory: No respiratory distress Abdomen: Soft, Other (Obese with pannus) Genitourinary: Other (Chandra ion place) Extremities: No edema, Other (Hands have deformities of psoratic arthritis, R>L. He is Left handed.) - Results Results: Laboratory Results WBC 3.5 x10^3/uL (4.8-10.8) L 06/09/21 06:14 RBC 4.06 10^6/uL (4.70-6.10) L 06/09/21 06:14 Hgb 12.1 g/dL (14.0-18.0) L 06/09/21 06:14 Hct 38.5 % (42.0-52.0) L 06/09/21 06:14 MCV 94.8 fL (80.0-94.0) H 06/09/21 06:14 MCH 29.8 pg (27.0-31.0) 06/09/21 06:14 MCHC 31.4 g/dL (32.0-36.0) L 06/09/21 06:14 RDW 17.2 % (12.0-15.0) H 06/09/21 06:14 Plt Count 148 10^3/uL (130-450) 06/09/21 06:14 MPV 9.1 fL (7.4-11.4) 06/09/21 06:14 Neut # (Auto) 2.6 10^3/uL (1.5-6.6) 06/09/21 06:14 Lymph # (Auto) 0.5 10^3/uL (1.5-3.5) L 06/09/21 06:14 [place] # (Auto) 0.3 10^3/uL (0.0-1.0) 06/09/21 06:14 Eos # (Auto) 0.1 10^3/uL (0.0-0.7) 06/09/21 06:14 Baso # (Auto) 0.0 10^3/uL (0.0-0.1) 06/09/21 06:14 Absolute Nucleated RBC 0.00 x10^3/uL 06/09/21 06:14 Total Counted 100 06/02/21 05:50 Band Neuts % (Manual) Not Reportable 06/08/21 08:04 Abnorm Lymph % (Manual) Not Reportable 06/08/21 08:04 Myelocytes % 1 % (-0) H 06/02/21 05:50 Nucleated RBC % 0.0 /100WBC 06/09/21 06:14 Neutrophils # (Manual) Not Reportable 06/08/21 08:04 Lymphocytes # (Manual) Not Reportable 06/08/21 08:04 Monocytes # (Manual) Not Reportable 06/08/21 08:04 Eosinophils # (Manual) Not Reportable 06/08/21 08:04 Basophils # (Manual) Not Reportable 06/08/21 08:04 Differential Comment MANUAL=AUTO DIFF 06/08/21 08:04 WBC Morphology NORMAL APPEARANCE (NORMAL) 06/02/21 05:50 Platelet Estimate NORMAL (130-450,000) (NORMAL) 06/06/21 05:29 Platelet Morphology NORMAL APPEARANCE (NORMAL) 06/02/21 05:50 RBC Morph Micro Appear NORMAL APPEARANCE (NORMAL) 06/06/21 05:29 Sodium 136 mmol/L (135-145) 06/09/21 06:14 Potassium 3.8 mmol/L (3.5-5.0) 06/09/21 06:14 Chloride 98 mmol/L (101-111) L 06/09/21 06:14 Carbon Dioxide 28 mmol/L (21-32) 06/09/21 06:14 Anion Gap 10.0 (6-13) 06/09/21 06:14 BUN 13 mg/dL (6-20) 06/09/21 06:14 Creatinine 1.7 mg/dL (0.6-1.2) H 06/09/21 06:14 Estimated GFR (MDRD) 40 (>89) L 06/09/21 06:14 Glucose 101 mg/dL (70-100) H 06/09/21 06:14 POC Whole Bld Glucose 88 mg/dL (70 - 100) 06/05/21 11:38 Serum Osmolality 271 mOsm/kg (278-305) L 05/29/21 19:10 Lactic Acid 1.4 mmol/L (0.5-2.2) 06/08/21 08:45 Uric Acid 5.8 mg/dL (2.6-7.2) 05/29/21 19:10 Calcium 8.7 mg/dL (8.5-10.3) 06/09/21 06:14 Total Bilirubin 0.5 mg/dL (0.2-1.0) 06/04/21 05:30 AST 49 IU/L (10-42) H 06/04/21 05:30 ALT 36 IU/L (10-60) 06/04/21 05:30 Alkaline Phosphatase 60 IU/L (42-121) 06/04/21 05:30 Ammonia < 10.0 umol/L (7-35) 05/29/21 22:27 Total Creatine Kinase 606 IU/L (22-269) H 06/05/21 04:10 C-Reactive Protein 2.4 mg/dL (0-1.0) H 06/10/21 05:46 Total Protein 7.5 g/dL (6.7-8.2) 06/04/21 05:30 Albumin 2.5 g/dL (3.2-5.5) L 06/04/21 05:30 Globulin 5.0 g/dL (2.1-4.2) H 06/04/21 05:30 Albumin/Globulin Ratio 0.5 (1.0-2.2) L 06/04/21 05:30 TSH 0.91 uIU/mL (0.34-5.60) 05/29/21 19:10 Cortisol 43.5 ug/dL 05/29/21 19:10 Urine Color YELLOW 05/31/21 23:00 Urine Clarity CLEAR (CLEAR) 05/31/21 23:00 Urine pH 6.0 PH (5.0-7.5) 05/31/21 23:00 Ur Specific Jacobson 1.015 (1.002-1.030) 05/31/21 23:00 Urine Protein 100 mg/dL (NEGATIVE) H 05/31/21 23:00 Urine Glucose (UA) NEGATIVE mg/dL (NEGATIVE) 05/31/21 23:00 Urine Ketones NEGATIVE mg/dL (NEGATIVE) 05/31/21 23:00 Urine Occult Blood TRACE-LYSE (NEGATIVE) 05/31/21 23:00 Urine Nitrite NEGATIVE (NEGATIVE) 05/31/21 23:00 Urine Bilirubin NEGATIVE (NEGATIVE) 05/31/21 23:00 Urine Urobilinogen 1 (NORMAL) E.U./dL (NORMAL) 05/31/21 23:00 Ur Leukocyte Esterase NEGATIVE (NEGATIVE) 05/31/21 23:00 Urine RBC 0-5 /HPF (0-5) 05/31/21 23:00 Urine WBC 0-3 /HPF (0-3) 05/31/21 23:00 Ur Squamous Epith Cells RARE Squamous (<= Few) 05/31/21 23:00 Urine Bacteria Rare /HPF (None Seen) 05/31/21 23:00 Urine Casts 3-5 Hyaline Casts /LPF 05/31/21 23:00 Urine Mucus Moderate Strands 05/31/21 23:00 Urine Culture Comments NOT INDICATED 05/31/21 23:00 Urine Osmolality 362 mOsm/kg (50-1200) 05/29/21 02:00 Urine Opiates Screen NEGATIVE (NEGATIVE) 05/29/21 02:00 Ur Oxycodone Screen NEGATIVE (NEGATIVE) 05/29/21 02:00 Urine Methadone Screen NEGATIVE (NEGATIVE) 05/29/21 02:00 Ur Propoxyphene Screen NEGATIVE (NEGATIVE) 05/29/21 02:00 Ur Barbiturates Screen NEGATIVE (NEGATIVE) 05/29/21 02:00 Ur Tricyclics Screen NEGATIVE (NEGATIVE) 05/29/21 02:00 Ur Phencyclidine Scrn NEGATIVE (NEGATIVE) 05/29/21 02:00 Ur Amphetamine Screen NEGATIVE (NEGATIVE) 05/29/21 02:00 U Methamphetamines Scrn NEGATIVE (NEGATIVE) 05/29/21 02:00 U Benzodiazepines Scrn NEGATIVE (NEGATIVE) 05/29/21 02:00 Urine Cocaine Screen NEGATIVE (NEGATIVE) 05/29/21 02:00 U Cannabinoids Screen POSITIVE (NEGATIVE) H 05/29/21 02:00 SARS-CoV-2 (PCR) NOT DETECTED 05/29/21 21:34 Sepsis Event Note (H) - Evaluation Current Stage of Sepsis: Sepsis - Sepsis Criteria Sepsis Criteria: Recorded Temperature greater than 38.3C or Less than 36C, WBC count greater than 12,000 or less than 4000, CALIBRATION LABORATORY TECHNICIAN: altered consciousness (unrelated to primary neuro pathology), Hematologic: platelets < 100,000; INR > 1.5, or a PTT>60 seconds
[2021-06-11] MEDS: CYCLOBENZAPRINE 10 MG TABLET PO PRN (21:32)
[2021-06-11] MEDS: PRAZOSIN 1 MG CAPSULE PO SCH (21:32)
[2021-06-12] MEDS: SODIUM CHLORIDE FLUSH 0.9% 10 ML SYRINGE IVP SCH ×3 (04:07→16:52)
[2021-06-12] MEDS: PREGABALIN 25 MG CAPSULE PO SCH ×3 (05:25→20:43)
[2021-06-12] MEDS: PANTOPRAZOLE 40 MG TABLET PO SCH (05:25)
[2021-06-12 05:50] LABS: BASOPHILS % (AUTO) 0.6 %; EOSINOPHILS % (AUTO) 1.2 %; HCT - HEMATOCRIT 39.4 % (42.0-52.0); HGB - HEMOGLOBIN 12.8 g/dL (14.0-18.0); LYMPHOCYTES # (AUTO) 0.7 10^3/uL (1.5-3.5); LYMPHOCYTES % (AUTO) 19.9 %; MEAN CORPUSCULAR HGB CONC 32.5 g/dL (32.0-36.0); MEAN CORPUSCULAR VOLUME 95.4 fL (80.0-94.0); MEAN PLATELET VOLUME 9.6 fL (7.4-11.4); MONOCYTES # (AUTO) 0.4 10^3/uL (0.0-1.0); NEUTROPHILS # (AUTO) 2.3 10^3/uL (1.5-6.6); NEUTROPHILS % (AUTO) 66.7 %; PLT - PLATELET COUNT 133 10^3/uL (130-450); RED BLOOD COUNT 4.13 10^6/uL (4.70-6.10); RED CELL DISTRIBUTION WIDTH 17.3 % (12.0-15.0); WHITE BLOOD COUNT 3.5 x10^3/uL (4.8-10.8)
[2021-06-12 05:59] LABS: CALCIUM 8.8 mg/dL (8.5-10.3); CREATININE 1.7 mg/dL (0.6-1.2); POTASSIUM 4.1 mmol/L (3.5-5.0)
[2021-06-12] MEDS: POTASSIUM CHLORIDE 20 MEQ/15 ML UDC PO SCH (07:47)
[2021-06-12] MEDS: ASPIRIN CHEW 81 MG TABLET PO SCH (07:47)
[2021-06-12] MEDS: buPROPion XL 150 MG TABLET PO SCH (07:47)
[2021-06-12] MEDS: SACCHAROMYCES BOULARDII 250 MG CAPSULE PO SCH ×2 (07:47→16:52)
[2021-06-12] MEDS: CLOPIDOGREL 75 MG TABLET PO SCH (07:48)
[2021-06-12] MEDS: CYCLOBENZAPRINE 10 MG TABLET PO PRN ×2 (07:48→20:43)
[2021-06-12] MEDS: DOCUSATE SODIUM 250 MG CAPSULE PO SCH ×2 (07:48→07:49)
[2021-06-12] MEDS: ACETAMINOPHEN 325 MG TABLET PO PRN (07:48)
[2021-06-12] MEDS: ENOXAPARIN 40 MG/0.4 ML SYRINGE SUBQ SCH (07:49)
[2021-06-12] MEDS: METOPROLOL SUCCINATE 25 MG TABLET PO SCH (07:49)
[2021-06-12] MEDS: TAMSULOSIN 0.4 MG CAPSULE PO SCH (07:49)
[2021-06-12] MEDS: FEBUXOSTAT 40 MG PO SCH (07:50)
[2021-06-12] MEDS: polyethylene glycoL 3350 17 GM PACKET PO SCH (07:50)
[2021-06-12] MEDS: SENNA 8.6 MG TABLET PO SCH (07:51)
--- NOTE | 2021-06-12 12:11 | PROVIDER PROGRESS NOTE ---
Assessment/Plan - Problem List (1) Streptococcal bacteremia Assessment/Plan: Initially presented in sepsis with thrombocytopenia. Blood cultures grew Strep. infantarius. Port found to be site of infection and removed surgically on 06/07. Had daily fevers up until 06/08. Neutrophilia and thrombocytopenia have resolved. Per ID, treating like endocarditis so continuing IV ABX for 4 weeks after negative blood cultures (on 05/31). Plan: 1. Continue ceftriaxone infusion until 06/28. 2. Monitor for signs of infection. (2) Chronic inflammatory demyelinating polyneuritis Assessment/Plan: Ongoing problem. Receives IVIG monthly. Spoke with his neurologist, Darion Cobian MD, who advised to administer 50g IVIG daily for 5 days and closely monitor renal function. He noted that when he initially evaluated Mr. Aguilar, he thought his presentation mimicked ALS. He made significant improvement after initiation of IVIG therapy, but begins showing symptoms again at the end of each monthly cycle. His last infusion was on 05/18. Plan: 1. Begin infusing 50g IVIG daily for 5 days (closely monitor renal function). 2. Continue pregabalin for neuropathic pain. (3) Truncal muscle weakness Assessment/Plan: During his stay here he has become weaker, resulting in a ground level fall while attempting to use his walker. Typically, he walks unassisted with a cane. Currently, he is requiring 1-2 person assist, supporting himself with his wa lker,to stand from chair. Once up, he can pivot and sit safely. He is able to reposition himself in his chair (he tends to slide forward) with great effort, moving only an inch or so per attempt. 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 He has had multiple head CTs since admission showing no acute changes that could explain weakness. Plan 1. Begin infusing 50g IVIG daily for 5 days (closely monitor renal function). 2. Continue working with PT until placement at SNF. (4) CKD (chronic kidney disease) stage 3, GFR 30-59 ml/min Qualifiers: Chronic kidney disease stage 3 subtype: stage 3b (GFR 30-44) Qualified Code(s): N18.32 - Chronic kidney disease, stage 3b Assessment/Plan: Creatinine remains at baseline of 1.7. Continue to monitor. (5) Urinary retention Assessment/Plan: Allison had been in place earlier in admission for urinary retention. Removed on 06/07 as potential source of infection. Bladder scans over the following days showed 500+ mL retained, so allison cath. placed again. Could also be symptom of his CIDP. Starting IVIG infusion and will monitor. Plan: 1. Allison in place. No complaints. Urine yellow and clear. Possibly discontinue tomorrow. 2. Continue prazosin and tamsulosin. (6) Morbid obesity with BMI of 45.0-49.9, adult Assessment/Plan: BMI 44.7. Continue to encourage healthy food choices and exercise. Daily PT as well. (7) Thrombocytopenia Assessment/Plan: Resolved - Current Meds Current Meds: Current Medications Generic Name Dose Route Start Last Admin Trade Name Freq PRN Reason Stop Dose Admin Acetaminophen 650 mg 05/31/21 20:13 06/12/21 07:48 Acetaminophen 325 Mg Tablet PO 650 mg Q4HR PRN Administration Pain or Fever > 38C (100.4F) Aspirin 81 mg 06/01/21 10:00 06/12/21 07:47 Aspirin Chew 81 Mg Tablet PO 81 mg DAILY [facility] Administration Bupropion HCl 450 mg 06/01/21 09:00 06/12/21 07:47 Bupropion Xl 150 Mg Tablet PO 450 mg DAILY [facility] Administration Cholecalciferol 5,000 unit 05/30/21 15:00 06/06/21 15:28 Cholecalciferol 5,000 Unit Capsule PO 5,000 unit Q7D [facility] Administration Clopidogrel Bisulfate 75 mg 05/31/21 09:00 06/12/21 07:48 Clopidogrel 75 Mg Tablet PO 75 mg DAILY [facility] Administration Cyclobenzaprine HCl 10 mg 06/07/21 21:30 06/12/21 07:48 Cyclobenzaprine 10 Mg Tablet PO 10 mg TID PRN Administration Spasms Docusate Sodium 250 - 500 mg 06/05/21 19:43 06/12/21 07:49 Docusate Sodium 250 Mg Capsule PO 250 mg DAILY [facility] Administration Enoxaparin Sodium 40 mg 06/05/21 09:00 06/12/21 07:49 Enoxaparin 40 Mg/0.4 Ml Syringe SUBQ 40 mg DAILY [facility] Administration Heparin Sodium (Beef Lung) 30 - 50 unit 05/31/21 04:51 06/06/21 17:15 Heparin Flush 50 Units/5 Ml Syringe IVP 50 unit PRN PRN Administration Port Protocol (<24 hours) Hydromorphone HCl 0.5 mg 06/01/21 16:35 06/11/21 19:00 Hydromorphone 0.5 Mg/0.5 Ml Syringe IVP 0.5 mg Q4H PRN Administration PAIN Ceftriaxone Sodium 2 gm/ 100 mls @ 200 mls/hr 05/30/21 13:00 06/11/21 15:00 Sodium Chloride IV Infused Q24H [facility] Infusion Lidocaine 1 patch 06/11/21 14:44 06/11/21 14:58 Lidocaine Patch 5% TOP 1 patch DAILY PRN Administration PAIN Metoprolol Succinate 25 mg 05/30/21 09:00 06/12/21 07:49 Metoprolol Succinate 25 Mg Tablet PO 25 mg DAILY [facility] Administration Mineral Oil 1 applic 06/04/21 16:51 06/08/21 10:14 Min Oil/Dimethicon/Coconut Oil 92 Gm Tube TOP 1 applic PRN PRN Administration Skin Care Oxycodone HCl 5 mg 06/01/21 08:58 06/02/21 15:35 Oxycodone 5 Mg Tablet PO 5 mg Q4HR PRN Administration PAIN Pantoprazole Sodium 40 mg 05/30/21 09:00 06/12/21 05:25 Pantoprazole 40 Mg Tablet PO 40 mg QDAC [facility] Administration Febuxostat [Uloric 1 each 05/31/21 09:00 06/12/21 07:50 ] 40 Mg Tabs PO Not Given DAILY [facility] Polyethylene Glycol 17 gm 05/30/21 09:00 06/12/21 07:50 Polyethylene Glycol 3350 17 Gm Packet PO Not Given DAILY [facility] Potassium Chloride 20 meq 06/02/21 08:00 06/12/21 07:47 Potassium Chloride 20 Meq/15 Ml Udc PO 20 meq DAILYWM [facility] Administration Prazosin HCl 6 mg 05/30/21 21:00 06/11/21 21:32 Prazosin 1 Mg Capsule PO 6 mg QPM [facility] Administration Pregabalin 75 mg 05/30/21 14:00 06/12/21 05:25 Pregabalin 25 Mg Capsule PO 75 mg TID [facility] Administration Saccharomyces Boulardii 250 mg 05/30/21 08:57 06/12/21 07:47 Saccharomyces Boulardii 250 Mg Capsule PO 250 mg BIDWM [facility] Administration Senna 8.6 - 17.2 mg 06/04/21 09:00 06/12/21 07:51 Senna 8.6 Mg Tablet PO Not Given DAILY [facility] Sodium Chloride 10 ml 05/29/21 22:16 06/11/21 19:00 Sodium Chloride Flush 0.9% 10 Ml Syringe IVP 10 ml PRN PRN Administration NEEDED PER PROVIDER ORDERS Sodium Chloride 10 ml 05/30/21 01:00 06/12/21 07:51 Sodium Chloride Flush 0.9% 10 Ml Syringe IVP 10 ml 0100,0900,1700 [facility] Administration Tamsulosin HCl 0.4 mg 06/09/21 09:00 06/12/21 07:49 Tamsulosin 0.4 Mg Capsule PO 0.4 mg DAILY [facility] Administration - Lab Result Lab results reviewed: Yes Fish Bone Diagrams: 06/12/21 05:45 06/12/21 05:45 Subjective - Subjective Patient Reports: Feeling Better (Pt reports feeling okay today. Headache has resolved. Back pain is better controlled with lidocaine patch. Still feeling weak. Memory is "better than last week" but noticeably worse than normal.), Back Pain (Better controlled with lidocaine patch. Moving well versus flares that are "debilitating".) Objective Vital Signs: Vital Signs - 24 hr 06/11/21 06/11/21 06/12/21 15:36 23:30 07:25 Temperature 37.2 C 36.5 C Heart Rate 71 Heart Rate [ 87 82 Brachial] Respiratory 22 18 16 Rate Blood Pressure 103/73 115/65 [Right Brachial artery] O2 Saturation 95 94 94 06/12/21 08:26 Temperature 36.6 C Heart Rate Heart Rate [ 79 Brachial] Respiratory 18 Rate Blood Pressure 132/74 H [Right Brachial artery] O2 Saturation 95 Oxygen O2 Source Room air I&O (Last 24 Hrs): Intake and Output Totals x24h 06/10/21 06/11/21 06/12/21 23:59 23:59 23:59 Intake Total 2398 3590 1260 Output Total 4350 4275 3100 Balance -2668 -920 -8839 General: Alert, Oriented x3, No acute distress, Other HEENT: Atraumatic, PERRLA, EOMI, Mucous membr. moist/pink Neck: Supple Neuro: Alert, CN 2-12 Grossly Intact, Other (Pt is alert but distracted, fumbling with things on the table in front of him, organizing and reorganizing it as we talk. He loses his train of thought and has to ask me to repeat questions multiple times. He can describe past events, but does not remember me from prior interactions.) Cardiovascular: Regular rate, Normal S1, Normal S2, No murmurs Respiratory: No respiratory distress, Breath sounds nml Abdomen: Normal bowel sounds, Soft, No tenderness, No masses Genitourinary: Other (Allison in place. Urine straw colored and clear.) Extremities: No edema, Normal pulses Skin: No rashes, No breakdown, No significant lesion - Results Results: Laboratory Results WBC 3.5 x10^3/uL (4.8-10.8) L 06/12/21 05:45 RBC 4.13 10^6/uL (4.70-6.10) L 06/12/21 05:45 Hgb 12.8 g/dL (14.0-18.0) L 06/12/21 05:45 Hct 39.4 % (42.0-52.0) L 06/12/21 05:45 MCV 95.4 fL (80.0-94.0) H 06/12/21 05:45 MCH 31.0 pg (27.0-31.0) 06/12/21 05:45 MCHC 32.5 g/dL (32.0-36.0) 06/12/21 05:45 RDW 17.3 % (12.0-15.0) H 06/12/21 05:45 Plt Count 133 10^3/uL (130-450) 06/12/21 05:45 MPV 9.6 fL (7.4-11.4) 06/12/21 05:45 Neut # (Auto) 2.3 10^3/uL (1.5-6.6) 06/12/21 05:45 Lymph # (Auto) 0.7 10^3/uL (1.5-3.5) L 06/12/21 05:45 Miner # (Auto) 0.4 10^3/uL (0.0-1.0) 06/12/21 05:45 Eos # (Auto) 0.0 10^3/uL (0.0-0.7) 06/12/21 05:45 Baso # (Auto) 0.0 10^3/uL (0.0-0.1) 06/12/21 05:45 Absolute Nucleated RBC 0.00 x10^3/uL 06/12/21 05:45 Total Counted 100 06/02/21 05:50 Band Neuts % (Manual) Not Reportable 06/08/21 08:04 Abnorm Lymph % (Manual) Not Reportable 06/08/21 08:04 Myelocytes % 1 % (-0) H 06/02/21 05:50 Nucleated RBC % 0.0 /100WBC 06/12/21 05:45 Neutrophils # (Manual) Not Reportable 06/08/21 08:04 Lymphocytes # (Manual) Not Reportable 06/08/21 08:04 Monocytes # (Manual) Not Reportable 06/08/21 08:04 Eosinophils # (Manual) Not Reportable 06/08/21 08:04 Basophils # (Manual) Not Reportable 06/08/21 08:04 Differential Comment MANUAL=AUTO DIFF 06/08/21 08:04 WBC Morphology NORMAL APPEARANCE (NORMAL) 06/02/21 05:50 Platelet Estimate NORMAL (130-450,000) (NORMAL) 06/06/21 05:29 Platelet Morphology NORMAL APPEARANCE (NORMAL) 06/02/21 05:50 RBC Morph Micro Appear NORMAL APPEARANCE (NORMAL) 06/06/21 05:29 Sodium 137 mmol/L (135-145) 06/12/21 05:45 Potassium 4.1 mmol/L (3.5-5.0) 06/12/21 05:45 Chloride 102 mmol/L (101-111) 06/12/21 05:45 Carbon Dioxide 26 mmol/L (21-32) 06/12/21 05:45 Anion Gap 9.0 (6-13) 06/12/21 05:45 BUN 19 mg/dL (6-20) 06/12/21 05:45 Creatinine 1.7 mg/dL (0.6-1.2) H 06/12/21 05:45 Estimated GFR (MDRD) 40 (>89) L 06/12/21 05:45 Glucose 98 mg/dL (70-100) 06/12/21 05:45 POC Whole Bld Glucose 88 mg/dL (70 - 100) 06/05/21 11:38 Serum Osmolality 271 mOsm/kg (278-305) L 05/29/21 19:10 Lactic Acid 1.4 mmol/L (0.5-2.2) 06/08/21 08:45 Uric Acid 5.8 mg/dL (2.6-7.2) 05/29/21 19:10 Calcium 8.8 mg/dL (8.5-10.3) 06/12/21 05:45 Total Bilirubin 0.5 mg/dL (0.2-1.0) 06/04/21 05:30 AST 49 IU/L (10-42) H 06/04/21 05:30 ALT 36 IU/L (10-60) 06/04/21 05:30 Alkaline Phosphatase 60 IU/L (42-121) 06/04/21 05:30 Ammonia < 10.0 umol/L (7-35) 05/29/21 22:27 Total Creatine Kinase 606 IU/L (22-269) H 06/05/21 04:10 C-Reactive Protein 2.4 mg/dL (0-1.0) H 06/10/21 05:46 Total Protein 7.5 g/dL (6.7-8.2) 06/04/21 05:30 Albumin 2.5 g/dL (3.2-5.5) L 06/04/21 05:30 Globulin 5.0 g/dL (2.1-4.2) H 06/04/21 05:30 Albumin/Globulin Ratio 0.5 (1.0-2.2) L 06/04/21 05:30 TSH 0.91 uIU/mL (0.34-5.60) 05/29/21 19:10 Cortisol 43.5 ug/dL 05/29/21 19:10 Urine Color YELLOW 05/31/21 23:00 Urine Clarity CLEAR (CLEAR) 05/31/21 23:00 Urine pH 6.0 PH (5.0-7.5) 05/31/21 23:00 Ur Specific [place] 1.015 (1.002-1.030) 05/31/21 23:00 Urine Protein 100 mg/dL (NEGATIVE) H 05/31/21 23:00 Urine Glucose (UA) NEGATIVE mg/dL (NEGATIVE) 05/31/21 23:00 Urine Ketones NEGATIVE mg/dL (NEGATIVE) 05/31/21 23:00 Urine Occult Blood TRACE-LYSE (NEGATIVE) 05/31/21 23:00 Urine Nitrite NEGATIVE (NEGATIVE) 05/31/21 23:00 Urine Bilirubin NEGATIVE (NEGATIVE) 05/31/21 23:00 Urine Urobilinogen 1 (NORMAL) E.U./dL (NORMAL) 05/31/21 23:00 Ur Leukocyte Esterase NEGATIVE (NEGATIVE) 05/31/21 23:00 Urine RBC 0-5 /HPF (0-5) 05/31/21 23:00 Urine WBC 0-3 /HPF (0-3) 05/31/21 23:00 Ur Squamous Epith Cells RARE Squamous (<= Few) 05/31/21 23:00 Urine Bacteria Rare /HPF (None Seen) 05/31/21 23:00 Urine Casts 3-5 Hyaline Casts /LPF 05/31/21 23:00 Urine Mucus Moderate Strands 05/31/21 23:00 Urine Culture Comments NOT INDICATED 05/31/21 23:00 Urine Osmolality 362 mOsm/kg (50-1200) 05/29/21 02:00 Urine Opiates Screen NEGATIVE (NEGATIVE) 05/29/21 02:00 Ur Oxycodone Screen NEGATIVE (NEGATIVE) 05/29/21 02:00 Urine Methadone Screen NEGATIVE (NEGATIVE) 05/29/21 02:00 Ur Propoxyphene Screen NEGATIVE (NEGATIVE) 05/29/21 02:00 Ur Barbiturates Screen NEGATIVE (NEGATIVE) 05/29/21 02:00 Ur Tricyclics Screen NEGATIVE (NEGATIVE) 05/29/21 02:00 Ur Phencyclidine Scrn NEGATIVE (NEGATIVE) 05/29/21 02:00 Ur Amphetamine Screen NEGATIVE (NEGATIVE) 05/29/21 02:00 U Methamphetamines Scrn NEGATIVE (NEGATIVE) 05/29/21 02:00 U Benzodiazepines Scrn NEGATIVE (NEGATIVE) 05/29/21 02:00 Urine Cocaine Screen NEGATIVE (NEGATIVE) 05/29/21 02:00 U Cannabinoids Screen POSITIVE (NEGATIVE) H 05/29/21 02:00 SARS-CoV-2 (PCR) NOT DETECTED 05/29/21 21:34 Sepsis Event Note (H) - Evaluation Current Stage of Sepsis: Resolved ABX Reporting Has patient been on IV antibiotics over the past 48 hours?: Yes
[2021-06-12] MEDS: cefTRIAXone 2 GM in SODIUM CHLORIDE 0.9% MINIBAG 100 ML IV SCH (14:05)
[2021-06-12] MEDS: HYDROmorphone 0.5 MG/0.5 ML SYRINGE IVP PRN (16:52)
[2021-06-12] MEDS: SODIUM CHLORIDE FLUSH 0.9% 10 ML SYRINGE IVP PRN (16:55)
[2021-06-12] MEDS: PRAZOSIN 1 MG CAPSULE PO SCH (20:44)
[2021-06-13] MEDS: SODIUM CHLORIDE FLUSH 0.9% 10 ML SYRINGE IVP SCH ×3 (00:03→17:08)
[2021-06-13] MEDS: PREGABALIN 25 MG CAPSULE PO SCH ×3 (06:40→21:08)
[2021-06-13] MEDS: PANTOPRAZOLE 40 MG TABLET PO SCH (06:40)
[2021-06-13 07:19] LABS: BASOPHILS % (AUTO) 0.6 %; EOSINOPHILS # (AUTO) 0.1 10^3/uL (0.0-0.7); EOSINOPHILS % (AUTO) 1.8 %; HCT - HEMATOCRIT 40.9 % (42.0-52.0); HGB - HEMOGLOBIN 13.1 g/dL (14.0-18.0); LYMPHOCYTES # (AUTO) 0.6 10^3/uL (1.5-3.5); MEAN CORPUSCULAR HEMOGLOBIN 30.7 pg (27.0-31.0); MEAN CORPUSCULAR VOLUME 95.8 fL (80.0-94.0); MEAN PLATELET VOLUME 9.2 fL (7.4-11.4); MONOCYTES # (AUTO) 0.4 10^3/uL (0.0-1.0); MONOCYTES % (AUTO) 10.9 %; NEUTROPHILS # (AUTO) 2.3 10^3/uL (1.5-6.6); NEUTROPHILS % (AUTO) 67.5 %; PLT - PLATELET COUNT 142 10^3/uL (130-450); RED BLOOD COUNT 4.27 10^6/uL (4.70-6.10); RED CELL DISTRIBUTION WIDTH 17.6 % (12.0-15.0); WHITE BLOOD COUNT 3.4 x10^3/uL (4.8-10.8)
[2021-06-13 07:28] LABS: CALCIUM 8.8 mg/dL (8.5-10.3); CREATININE 1.8 mg/dL (0.6-1.2)
[2021-06-13] MEDS: POTASSIUM CHLORIDE 20 MEQ/15 ML UDC PO SCH (08:12)
[2021-06-13] MEDS: LIDOCAINE PATCH 5% TOP PRN (08:12)
[2021-06-13] MEDS: TAMSULOSIN 0.4 MG CAPSULE PO SCH (08:13)
[2021-06-13] MEDS: SENNA 8.6 MG TABLET PO SCH (08:13)
[2021-06-13] MEDS: ASPIRIN CHEW 81 MG TABLET PO SCH (08:13)
[2021-06-13] MEDS: SACCHAROMYCES BOULARDII 250 MG CAPSULE PO SCH ×2 (08:13→17:08)
[2021-06-13] MEDS: DOCUSATE SODIUM 250 MG CAPSULE PO SCH (08:13)
[2021-06-13] MEDS: METOPROLOL SUCCINATE 25 MG TABLET PO SCH (08:13)
[2021-06-13] MEDS: buPROPion XL 150 MG TABLET PO SCH (08:13)
[2021-06-13] MEDS: CYCLOBENZAPRINE 10 MG TABLET PO PRN ×2 (08:13→17:08)
[2021-06-13] MEDS: CLOPIDOGREL 75 MG TABLET PO SCH (08:13)
[2021-06-13] MEDS: ENOXAPARIN 40 MG/0.4 ML SYRINGE SUBQ SCH (08:14)
[2021-06-13] MEDS: ACETAMINOPHEN 325 MG TABLET PO PRN (08:14)
[2021-06-13] MEDS: FEBUXOSTAT 40 MG PO SCH (08:14)
[2021-06-13] MEDS: polyethylene glycoL 3350 17 GM PACKET PO SCH (08:14)
[2021-06-13] MEDS ORDERED: IMMUNE GLOBULIN IV SCH (09:00)
[2021-06-13] MEDS: HYDROmorphone 0.5 MG/0.5 ML SYRINGE IVP PRN ×2 (10:42→20:24)
[2021-06-13] MEDS: SODIUM CHLORIDE FLUSH 0.9% 10 ML SYRINGE IVP PRN (10:44)
[2021-06-13] MEDS: methylPREDNISolone SUCCINATE 1,000 MG in SODIUM CHLORIDE 0.9% 250 ML IV SCH (11:31)
[2021-06-13] MEDS: INSULIN ASPART 300 UNIT/3 ML PEN SUBQ SCH ×3 (12:35→21:08)
[2021-06-13] MEDS: cefTRIAXone 2 GM in SODIUM CHLORIDE 0.9% MINIBAG 100 ML IV SCH (13:43)
[2021-06-13] MEDS: CHOLECALCIFEROL 5,000 UNIT CAPSULE PO SCH (13:44)
--- NOTE | 2021-06-13 14:12 | PROVIDER PROGRESS NOTE ---
Subjective - Prog Note Date Prog Note Date: 06/13/21 Prog Note Time: 13:48 - Subjective Pt reports feeling: Improved Subjective: Feeling about the same as yesterday. Still very weak. Having ongoing pain in his lower back when he tries to sit up or take a deep breath. Lidocaine patch helps but the pain still limits his movement. He has a slight, right-sided headache. He denies SOB, chest pain, abdominal pain, fever, chills, sweats. He states he had an xl bowel movement last week but doesn't remember going since. He has miralax scheduled but often refuses because, "I hate that stuff". He took his dose today. He is feeling sleepy and has not been sleeping well because his window shade has been open throughout the night. He states he has been using his CPAP consistently. 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 Weakness resolves with IVIG. We spoke with the pharmacist and IVIG might not be available here at [facility] due to cost and unproven efficacy in chronic CIDP therapy, per pharmacy. Mr. Aguilar acknowledged that he might not be able to receive IVIG here in the hospital. I asked if he had been treated with steroids for his CIDP and he could not remember. Current Medications - Current Medications Current Medications: Active Medications Generic Name Dose Route Start Last Admin Trade Name Dallin PRN Reason Stop Dose Admin Acetaminophen 650 mg 05/31/21 20:13 06/13/21 08:14 Acetaminophen 325 Mg Tablet PO 650 mg Q4HR PRN Administration Pain or Fever > 38C (100.4F) Aspirin 81 mg 06/01/21 10:00 06/13/21 08:13 Aspirin Chew 81 Mg Tablet PO 81 mg DAILY [facility] Administration Bupropion HCl 450 mg 06/01/21 09:00 06/13/21 08:13 Bupropion Xl 150 Mg Tablet PO 450 mg DAILY [facility] Administration Cholecalciferol 5,000 unit 05/30/21 15:00 06/13/21 13:44 Cholecalciferol 5,000 Unit Capsule PO 5,000 unit Q7D [place] Administration Clopidogrel Bisulfate 75 mg 05/31/21 09:00 06/13/21 08:13 Clopidogrel 75 Mg Tablet PO 75 mg DAILY [place] Administration Cyclobenzaprine HCl 10 mg 06/07/21 21:30 06/13/21 08:13 Cyclobenzaprine 10 Mg Tablet PO 10 mg TID PRN Administration Spasms Docusate Sodium 250 - 500 mg 06/05/21 19:43 06/13/21 08:13 Docusate Sodium 250 Mg Capsule PO 250 mg DAILY [place] Administration Enoxaparin Sodium 40 mg 06/05/21 09:00 06/13/21 08:14 Enoxaparin 40 Mg/0.4 Ml Syringe SUBQ 40 mg DAILY [facility] Administration Heparin Sodium (Beef Lung) 30 - 50 unit 05/31/21 04:51 06/06/21 17:15 Heparin Flush 50 Units/5 Ml Syringe IVP 50 unit PRN PRN Administration Port Protocol (<24 hours) Hydromorphone HCl 0.5 mg 06/01/21 16:35 06/13/21 10:42 Hydromorphone 0.5 Mg/0.5 Ml Syringe IVP 0.5 mg Q4H PRN Administration PAIN Ceftriaxone Sodium 2 gm/ 100 mls @ 200 mls/hr 05/30/21 13:00 06/13/21 13:43 Sodium Chloride IV 200 mls/hr Q24H [facility]1983 Administration Methylprednisolone Sodium 250 mls @ 250 mls/hr 06/13/21 11:00 06/13/21 12:41 Succinate 1,000 mg/ Sodium IV 06/15/21 09:59 Infused Chloride DAILY [facility], [facility]–1983 Infusion Insulin Aspart 3 - 11 unit 06/13/21 12:00 06/13/21 12:35 Insulin Aspart 300 Unit/3 Ml Pen SUBQ Not Given 0800,1200,1700,2100 [facility]1983 Protocol Lidocaine 1 patch 06/11/21 14:44 06/13/21 08:12 Lidocaine Patch 5% TOP 1 patch DAILY PRN Administration PAIN Metoprolol Succinate 25 mg 05/30/21 09:00 06/13/21 08:13 Metoprolol Succinate 25 Mg Tablet PO 25 mg DAILY [facility] Administration Mineral Oil 1 applic 06/04/21 16:51 06/08/21 10:14 Min Oil/Dimethicon/Coconut Oil 92 Gm Tube TOP 1 applic PRN PRN Administration Skin Care Ondansetron HCl 4 mg 05/29/21 22:34 Ondansetron 4 Mg/2 Ml Vial IVP Q6HR PRN Nausea / Vomiting Oxycodone HCl 5 mg 06/01/21 08:58 06/02/21 15:35 Oxycodone 5 Mg Tablet PO 5 mg Q4HR PRN Administration PAIN Pantoprazole Sodium 40 mg 05/30/21 09:00 06/13/21 06:40 Pantoprazole 40 Mg Tablet PO 40 mg QDAC [place] Administration Febuxostat [Uloric 1 each 05/31/21 09:00 06/13/21 08:14 ] 40 Mg Tabs PO Not Given DAILY [facility] Polyethylene Glycol 17 gm 05/30/21 09:00 06/13/21 08:14 Polyethylene Glycol 3350 17 Gm Packet PO 17 gm DAILY [facility] Administration Potassium Chloride 20 meq 06/02/21 08:00 06/13/21 08:12 Potassium Chloride 20 Meq/15 Ml Udc PO 20 meq DAILYWM [place] Administration Prazosin HCl 6 mg 05/30/21 21:00 06/12/21 20:44 Prazosin 1 Mg Capsule PO 6 mg QPM [place] Administration Pregabalin 75 mg 05/30/21 14:00 06/13/21 13:44 Pregabalin 25 Mg Capsule PO 75 mg TID [place] Administration Saccharomyces Boulardii 250 mg 05/30/21 08:57 06/13/21 08:13 Saccharomyces Boulardii 250 Mg Capsule PO 250 mg BIDWM [place] Administration Senna 8.6 - 17.2 mg 06/04/21 09:00 06/13/21 08:13 Senna 8.6 Mg Tablet PO 8.6 mg DAILY [place] Administration Sodium Chloride 10 ml 05/29/21 22:16 06/13/21 10:44 Sodium Chloride Flush 0.9% 10 Ml Syringe IVP 10 ml PRN PRN Administration NEEDED PER PROVIDER ORDERS Sodium Chloride 10 ml 05/30/21 01:00 06/13/21 08:14 Sodium Chloride Flush 0.9% 10 Ml Syringe IVP 10 ml 0100,0900,1700 [place] Administration Tamsulosin HCl 0.4 mg 06/09/21 09:00 06/13/21 08:13 Tamsulosin 0.4 Mg Capsule PO 0.4 mg DAILY [place] Administration Aspirin [Juliette] 325 mg PO DAILY 05/30/21 Cholecalciferol [Vitamin D3] 5,000 unit PO Q7D 05/30/21 Cinacalcet HCl [Sensipar] 30 mg PO DAILY 05/30/21 Clopidogrel [Plavix] 75 mg PO DAILY 05/30/21 Escitalopram Oxalate 40 mg PO DAILY 05/30/21 Febuxostat [Uloric] 40 mg PO DAILY 05/30/21 Ibuprofen [Motrin] 800 mg PO Q6H PRN 05/30/21 Metoprolol Succinate [Toprol Xl] 25 mg PO DAILY 05/30/21 Pantoprazole [Protonix] 40 mg PO BIDAC 05/30/21 Potassium Citrate [Potassium Citrate ER] 20 meq PO BID 05/30/21 Prazosin HCl [Minipress] 6 mg PO QPM 05/30/21 Pregabalin [Lyrica] 75 mg PO TID 05/30/21 Rosuvastatin Calcium [Crestor] 40 mg PO QPM 05/30/21 Testosterone Cypionate 200 mg IM Q14D 05/30/21 Torsemide 20 mg PO DAILY 05/30/21 Trazodone HCl 100 - 200 mg PO QPM PRN 05/30/21 buPROPion [Wellbutrin Xl] 450 mg PO DAILY 05/30/21 flaxseed oiL [Flaxseed Oil] 1,000 mg PO DAILY 05/31/21 Objective - Vital Signs/Intake & Output Reviewed Vital Signs: Yes Vital Signs: Vital Signs x48h Temp Pulse Resp BP Pulse Ox 06/13/21 07:42 36.9 C 72 20 110/90 H 98 Intake & Output: Intake & Output 06/10/21 06/11/21 06/12/21 06/13/21 23:59 23:59 23:59 23:59 Intake Total 2398 3590 2970 2776 Output Total 4350 4275 4120 2275 Balance -3301 -318 -4650 501 - Objective General Appearance: positive: No acute distress, Alert, Other (Morbidly obese male lying in bed watching tv. No distress at rest but he grimaces when he tries to sit up or move.) Eyes Bilateral: positive: Normal inspection, PERRL, EOMI ENT: positive: ENT inspection nml Neck: negative: Stiff neck Respiratory: positive: No respiratory distress. negative: Wheezes, Rales, Rhonchi Cardiovascular: positive: Regular rate & rhythm, No murmur, No gallop Peripheral Pulses: 2+ Radial (R), 2+ Radial (L) Abdomen: positive: Non-tender, Nml bowel sounds. negative: Guarding, Mass Skin: positive: Color nml, No rash, Warm Extremities: positive: Non-tender, No pedal edema Neurologic/Psychiatric: positive: Mood/affect nml, Disoriented to time (He is alert and engaged in conversation but distracted. He loses his train of thought before completing ideas at times. He did not remember my name, though we have spoken many times, including twice yesterday. He does remember speaking with me yesterday.), Weakness (Requires two person slide assist plus trendelenberg bed position and trapeze to scoot up in bed. Can roll to side using bed rails unassisted.), Other (Spasm-anterior forearms to wrist frequent spasms occasionally moving fingers. No pain associated and patient unaware it was happ ening.). negative: Facial droop, Slurred/abnml speech, Depressed mood/affect Reflexes: Bicep (R): 2+, Bicep (L): 2+ - Lab Results Fish Bones: 06/14/21 07:17 06/14/21 07:17 Other Labs: Lab Results x24hrs 06/13/21 06/13/21 06/13/21 Range/Units 11:31 07:12 07:12 WBC 3.4 L (4.8-10.8) x10^3/uL RBC 4.27 L (4.70-6.10) 10^6/uL Hgb 13.1 L (14.0-18.0) g/dL Hct 40.9 L (42.0-52.0) % MCV 95.8 H (80.0-94.0) fL MCH 30.7 (27.0-31.0) pg MCHC 32.0 (32.0-36.0) g/dL RDW 17.6 H (12.0-15.0) % Plt Count 142 (130-450) 10^3/uL MPV 9.2 (7.4-11.4) fL Neut # (Auto) 2.3 (1.5-6.6) 10^3/uL Lymph # (Auto) 0.6 L (1.5-3.5) 10^3/uL [place] # (Auto) 0.4 (0.0-1.0) 10^3/uL Eos # (Auto) 0.1 (0.0-0.7) 10^3/uL Baso # (Auto) 0.0 (0.0-0.1) 10^3/uL Absolute Nucleated RBC 0.00 x10^3/uL Nucleated RBC % 0.0 /100WBC Sodium 136 (135-145) mmol/L Potassium 4.0 (3.5-5.0) mmol/L Chloride 98 L (101-111) mmol/L Carbon Dioxide 27 (21-32) mmol/L Anion Gap 11.0 (6-13) BUN 18 (6-20) mg/dL Creatinine 1.8 H (0.6-1.2) mg/dL Estimated GFR (MDRD) 37 L (>89) Glucose 107 H (70-100) mg/dL POC Whole Bld Glucose 109 H (70 - 100) mg/dL Calcium 8.8 (8.5-10.3) mg/dL Sepsis Event Note (H) - Evaluation Current Stage of Sepsis: Resolved - Sepsis Criteria Sepsis Criteria: Recorded Temperature greater than 38.3C or Less than 36C, WBC count greater than 12,000 or less than 4000, [employer]IANCES: altered consciousness (unrelated to primary neuro pathology), Hematologic: platelets < 100,000; INR > 1.5, or a PTT>60 seconds Assessment/Plan - Problem List (1) Streptococcal bacteremia Impression: Initially presented in sepsis with thrombocytopenia. Blood cultures grew Strep. infantarius. Port found to be site of infection and removed surgically on 06/07. Had daily fevers up until 06/08. Neutrophilia and thrombocytopenia have resolved. Per ID, treating like endocarditis so continuing IV ABX for 4 weeks after negative blood cultures (on 05/31). No fever, chills, sweats today. WBC: 3.4 Platelets: 142 Plan: 1. Continue ceftriaxone infusion until 06/28. 2. Monitor for signs of infection. (2) Chronic inflammatory demyelinating polyneuritis Impression: Ongoing problem. Receives IVIG monthly. On 06/12, spoke with his neurologist, Darion Cobian MD, who advised to administer 50g IVIG daily for 5 days and closely monitor renal function. He noted that when he initially evaluated Mr. Aguilar, he thought his presentation mimicked ALS. He made significant improvement after initiation of IVIG therapy, but begins showing symptoms again at the end of each monthly cycle. His last infusion was on 05/18. Today, pharmacist advised to treat with methylprednisolone as IVIG is unavailable here. Plan: 1. Begin infusing methylprednisolone @ 1000mg per day for 3 days. Today is day 1. 2. Continue pregabalin for neuropathic pain. (3) Truncal muscle weakness Impression: During his stay here he has become weaker, resulting in a ground level fall while attempting to use his walker. Typically, he walks unassisted with a cane. Currently, he is requiring 1-2 person assist, supporting himself with his walker ,to stand from chair. Once up, he can pivot and sit safely. He is able to reposition himself in his chair (he tends to slide forward) with great effort, moving only an inch or so per attempt. Also, he requires two person assist to reposition in bed, along with trapeze, slider sheet, and trendelenberging bed. 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 He has had multiple head CTs since admission showing no acute changes that could explain weakness. Plan 1. Begin methylprednisolone tx for CIDP. 2. Continue working with PT until placement at SNF. (4) CKD (chronic kidney disease) stage 3, GFR 30-59 ml/min Impression: Creatinine remains near baseline of 1.8. Continue to monitor. Qualifiers: Chronic kidney disease stage 3 subtype: stage 3b (GFR 30-44) Qualified Code(s): N18.32 - Chronic kidney disease, stage 3b (5) Urinary retention Impression: Allison had been in place earlier in admission for urinary retention. Removed on 06/07 as potential source of infection. Bladder scans over the following days showed 500+ mL retained, so allison cath. placed again. Could also be symptom of his CIDP. Starting methylprednisolone infusion and will monitor. Plan: 1. Allison in place. No complaints. Urine yellow and clear. Will monitor response to steroid infusion and DC if he has a good response. 2. Continue prazosin and tamsulosin. (6) Morbid obesity with BMI of 45.0-49.9, adult Impression: BMI 44.7. Continue to encourage healthy food choices and exercise. Daily PT as well. (7) Thrombocytopenia Impression: Resolved
[2021-06-13] MEDS: PRAZOSIN 1 MG CAPSULE PO SCH (21:08)
[2021-06-14] MEDS: SODIUM CHLORIDE FLUSH 0.9% 10 ML SYRINGE IVP SCH ×3 (00:01→16:50)
[2021-06-14] MEDS: PANTOPRAZOLE 40 MG TABLET PO SCH (06:24)
[2021-06-14] MEDS: PREGABALIN 25 MG CAPSULE PO SCH ×3 (06:24→21:19)
[2021-06-14 07:24] LABS: BASOPHILS % (AUTO) 0.2 %; HCT - HEMATOCRIT 40.9 % (42.0-52.0); HGB - HEMOGLOBIN 13.4 g/dL (14.0-18.0); LYMPHOCYTES # (AUTO) 0.3 10^3/uL (1.5-3.5); LYMPHOCYTES % (AUTO) 4.7 %; MEAN CORPUSCULAR HEMOGLOBIN 30.7 pg (27.0-31.0); MEAN CORPUSCULAR HGB CONC 32.8 g/dL (32.0-36.0); MEAN CORPUSCULAR VOLUME 93.8 fL (80.0-94.0); MEAN PLATELET VOLUME 10.2 fL (7.4-11.4); MONOCYTES # (AUTO) 0.3 10^3/uL (0.0-1.0); MONOCYTES % (AUTO) 5.8 %; NEUTROPHILS # (AUTO) 4.9 10^3/uL (1.5-6.6); NEUTROPHILS % (AUTO) 88.8 %; PLT - PLATELET COUNT 135 10^3/uL (130-450); RED BLOOD COUNT 4.36 10^6/uL (4.70-6.10); WHITE BLOOD COUNT 5.5 x10^3/uL (4.8-10.8)
[2021-06-14 07:33] LABS: CALCIUM 9.1 mg/dL (8.5-10.3); CREATININE 1.6 mg/dL (0.6-1.2); POTASSIUM 4.4 mmol/L (3.5-5.0)
[2021-06-14] MEDS: INSULIN ASPART 300 UNIT/3 ML PEN SUBQ SCH ×4 (08:00→21:29)
[2021-06-14] MEDS: SACCHAROMYCES BOULARDII 250 MG CAPSULE PO SCH ×2 (08:10→16:50)
[2021-06-14] MEDS: buPROPion XL 150 MG TABLET PO SCH (08:11)
[2021-06-14] MEDS: ASPIRIN CHEW 81 MG TABLET PO SCH (08:11)
[2021-06-14] MEDS: CLOPIDOGREL 75 MG TABLET PO SCH (08:12)
[2021-06-14] MEDS: METOPROLOL SUCCINATE 25 MG TABLET PO SCH (08:12)
[2021-06-14] MEDS: polyethylene glycoL 3350 17 GM PACKET PO SCH (08:12)
[2021-06-14] MEDS: SENNA 8.6 MG TABLET PO SCH (08:13)
[2021-06-14] MEDS: TAMSULOSIN 0.4 MG CAPSULE PO SCH (08:14)
[2021-06-14] MEDS: POTASSIUM CHLORIDE 20 MEQ/15 ML UDC PO SCH (08:16)
[2021-06-14] MEDS: ENOXAPARIN 40 MG/0.4 ML SYRINGE SUBQ SCH (08:19)
[2021-06-14] MEDS: methylPREDNISolone SUCCINATE 1,000 MG in SODIUM CHLORIDE 0.9% 250 ML IV SCH (08:45)
[2021-06-14] MEDS: FEBUXOSTAT 40 MG PO SCH (09:00)
[2021-06-14] MEDS: HYDROmorphone 0.5 MG/0.5 ML SYRINGE IVP PRN ×2 (10:45→15:48)
[2021-06-14] MEDS: CYCLOBENZAPRINE 10 MG TABLET PO PRN (11:30)
[2021-06-14] MEDS: cefTRIAXone 2 GM in SODIUM CHLORIDE 0.9% MINIBAG 100 ML IV SCH (13:45)
--- NOTE | 2021-06-14 16:39 | PROVIDER PROGRESS NOTE ---
Subjective - Prog Note Date Prog Note Date: 06/14/21 Prog Note Time: 16:22 - Subjective Pt reports feeling: Improved Subjective: Pt says I "feel better today than I have." Was able to participate in PT, stood and shuffled a couple steps. He still requires max, 2 person assist but showed progress today. PT will continue to follow for 1-2 more sessions unless he continues to make progress. See PT patient care note for details. Per RN Pete Pollock, pt is more alert today and speaking more clearly than he has the last couple days. Mr. Aguilar states his pain has been better controlled today and is currently a 4/10 in his lower back. He took his flexeril but refused oxycodone. He states, "I won't take anything from those murderers." He will not take oxycodone or hydrocodone. He is still having trouble getting good sleep but does have more energy today. He notes some abdominal discomfort. It has been several days since his last bowel movement. If he does not have one tonight, he would like to have an enema. He denies fever, headache, new pain, SOB. Current Medications - Current Medications Current Medications: Active Medications Generic Name Dose Route Start Last Admin Trade Name Freq PRN Reason Stop Dose Admin Acetaminophen 650 mg 05/31/21 20:13 06/13/21 08:14 Acetaminophen 325 Mg Tablet PO 650 mg Q4HR PRN Administration Pain or Fever > 38C (100.4F) Aspirin 81 mg 06/01/21 10:00 06/14/21 08:11 Aspirin Chew 81 Mg Tablet PO 81 mg DAILY [facility] Administration Bupropion HCl 450 mg 06/01/21 09:00 06/14/21 08:11 Bupropion Xl 150 Mg Tablet PO 450 mg DAILY [facility] Administration Cholecalciferol 5,000 unit 05/30/21 15:00 06/13/21 13:44 Cholecalciferol 5,000 Unit Capsule PO 5,000 unit Q7D [facility] Administration Clopidogrel Bisulfate 75 mg 05/31/21 09:00 06/14/21 08:12 Clopidogrel 75 Mg Tablet PO 75 mg DAILY [facility] Administration Cyclobenzaprine HCl 10 mg 06/07/21 21:30 06/14/21 11:30 Cyclobenzaprine 10 Mg Tablet PO 10 mg TID PRN Administration Spasms Docusate Sodium 250 - 500 mg 06/05/21 19:43 06/13/21 08:13 Docusate Sodium 250 Mg Capsule PO 250 mg DAILY [facility] Administration Enoxaparin Sodium 40 mg 06/05/21 09:00 06/14/21 08:19 Enoxaparin 40 Mg/0.4 Ml Syringe SUBQ 40 mg DAILY [facility] Administration Heparin Sodium (Beef Lung) 30 - 50 unit 05/31/21 04:51 06/06/21 17:15 Heparin Flush 50 Units/5 Ml Syringe IVP 50 unit PRN PRN Administration Port Protocol (<24 hours) Hydromorphone HCl 0.5 mg 06/01/21 16:35 06/14/21 15:48 Hydromorphone 0.5 Mg/0.5 Ml Syringe IVP 0.5 mg Q4H PRN Administration PAIN Ceftriaxone Sodium 2 gm/ 100 mls @ 200 mls/hr 05/30/21 13:00 06/14/21 14:20 Sodium Chloride IV Infused Q24H [facility] Infusion Methylprednisolone Sodium 250 mls @ 250 mls/hr 06/13/21 11:00 06/14/21 09:45 Succinate 1,000 mg/ Sodium IV 06/15/21 09:59 Infused Chloride DAILY [facility] Infusion Insulin Aspart 3 - 11 unit 06/13/21 12:00 06/14/21 11:52 Insulin Aspart 300 Unit/3 Ml Pen SUBQ Not Given 0800,1200,1700,2100 [facility] Protocol Lidocaine 1 patch 06/11/21 14:44 06/13/21 08:12 Lidocaine Patch 5% TOP 1 patch DAILY PRN Administration PAIN Metoprolol Succinate 25 mg 05/30/21 09:00 06/14/21 08:12 Metoprolol Succinate 25 Mg Tablet PO 25 mg DAILY [facility] Administration Mineral Oil 1 applic 06/04/21 16:51 06/08/21 10:14 Min Oil/Dimethicon/Coconut Oil 92 Gm Tube TOP 1 applic PRN PRN Administration Skin Care Ondansetron HCl 4 mg 05/29/21 22:34 Ondansetron 4 Mg/2 Ml Vial IVP Q6HR PRN Nausea / Vomiting Oxycodone HCl 5 mg 06/01/21 08:58 06/02/21 15:35 Oxycodone 5 Mg Tablet PO 5 mg Q4HR PRN Administration PAIN Pantoprazole Sodium 40 mg 05/30/21 09:00 06/14/21 06:24 Pantoprazole 40 Mg Tablet PO 40 mg QDAC [facility] Administration Febuxostat [Uloric 1 each 05/31/21 09:00 06/14/21 09:00 ] 40 Mg Tabs PO Not Given DAILY [facility] Polyethylene Glycol 17 gm 05/30/21 09:00 06/14/21 08:12 Polyethylene Glycol 3350 17 Gm Packet PO 17 gm DAILY [facility] Administration Potassium Chloride 20 meq 06/02/21 08:00 06/14/21 08:16 Potassium Chloride 20 Meq/15 Ml Udc PO 20 meq DAILYWM [facility] Administration Prazosin HCl 6 mg 05/30/21 21:00 06/13/21 21:08 Prazosin 1 Mg Capsule PO 6 mg QPM [facility] Administration Pregabalin 75 mg 05/30/21 14:00 06/14/21 13:45 Pregabalin 25 Mg Capsule PO 75 mg TID [facility] Administration Saccharomyces Boulardii 250 mg 05/30/21 08:57 06/14/21 08:10 Saccharomyces Boulardii 250 Mg Capsule PO 250 mg BIDWM [facility] Administration Senna 8.6 - 17.2 mg 06/04/21 09:00 06/14/21 08:13 Senna 8.6 Mg Tablet PO 8.6 mg DAILY [facility] Administration Sodium Chloride 10 ml 05/29/21 22:16 06/13/21 10:44 Sodium Chloride Flush 0.9% 10 Ml Syringe IVP 10 ml PRN PRN Administration NEEDED PER PROVIDER ORDERS Sodium Chloride 10 ml 05/30/21 01:00 06/14/21 08:54 Sodium Chloride Flush 0.9% 10 Ml Syringe IVP 10 ml 0100,0900,1700 [facility] Administration Tamsulosin HCl 0.4 mg 06/09/21 09:00 06/14/21 08:14 Tamsulosin 0.4 Mg Capsule PO 0.4 mg DAILY [facility] Administration Aspirin [Juliette] 325 mg PO DAILY 05/30/21 Cholecalciferol [Vitamin D3] 5,000 unit PO Q7D 05/30/21 Cinacalcet HCl [Sensipar] 30 mg PO DAILY 05/30/21 Clopidogrel [Plavix] 75 mg PO DAILY 05/30/21 Escitalopram Oxalate 40 mg PO DAILY 05/30/21 Febuxostat [Uloric] 40 mg PO DAILY 05/30/21 Ibuprofen [Motrin] 800 mg PO Q6H PRN 05/30/21 Metoprolol Succinate [Toprol Xl] 25 mg PO DAILY 05/30/21 Pantoprazole [Protonix] 40 mg PO BIDAC 05/30/21 Potassium Citrate [Potassium Citrate ER] 20 meq PO BID 05/30/21 Prazosin HCl [Minipress] 6 mg PO QPM 05/30/21 Pregabalin [Lyrica] 75 mg PO TID 05/30/21 Rosuvastatin Calcium [Crestor] 40 mg PO QPM 05/30/21 Testosterone Cypionate 200 mg IM Q14D 05/30/21 Torsemide 20 mg PO DAILY 05/30/21 Trazodone HCl 100 - 200 mg PO QPM PRN 05/30/21 buPROPion [Wellbutrin Xl] 450 mg PO DAILY 05/30/21 flaxseed oiL [Flaxseed Oil] 1,000 mg PO DAILY 05/31/21 Objective - Vital Signs/Intake & Output Reviewed Vital Signs: Yes Vital Signs: Vital Signs x48h Temp Pulse Resp BP Pulse Ox 06/14/21 15:44 37.0 C 93 24 148/79 H 95 Intake & Output: Intake & Output 06/11/21 06/12/21 06/13/21 06/14/21 23:59 23:59 23:59 23:59 Intake Total 3590 2970 4306 1940 Output Total 4275 5350 3325 3720 Balance -685 -2380 981 -1780 - Objective General Appearance: positive: No acute distress, Alert, Other (Much more bright eyed today. Speaking more quickly and clearer than yesterday.) Eyes Bilateral: positive: PERRL, EOMI ENT: positive: No signs of dehydration Neck: positive: Nml inspection, Trachea midline. negative: Stiff neck Respiratory: positive: Chest non-tender, No respiratory distress Cardiovascular: positive: Regular rate & rhythm, No murmur, No gallop Abdomen: positive: Non-tender, Nml bowel sounds, Other (Abdomen is protuberant and slightly firm but not rigid. No tenderness to palpation. Potentially distended but difficult to determine due to morbid obesity.). negative: Mass Back: positive: Other (Winces with flexion.) Skin: positive: Color nml, No rash, Warm, Dry Extremities: positive: Other (Upper R chest prior port site surgical wound CDI, covered with gauze.) Neurologic/Psychiatric: positive: Oriented x3, CN's nml (2-12) (grossly), Sensation nml, Mood/affect nml (Still requiring trapeze to sit up in bed. Can only walk with walker and 2 person max assist.), Weakness - Lab Results Fish Bones: 06/14/21 07:17 06/14/21 07:17 Other Labs: Lab Results x24hrs 06/14/21 06/14/21 06/14/21 Range/Units 11:18 07:20 07:17 WBC (4.8-10.8) x10^3/uL RBC (4.70-6.10) 10^6/uL Hgb (14.0-18.0) g/dL Hct (42.0-52.0) % MCV (80.0-94.0) fL MCH (27.0-31.0) pg MCHC (32.0-36.0) g/dL RDW (12.0-15.0) % Plt Count (130-450) 10^3/uL MPV (7.4-11.4) fL Neut # (Auto) (1.5-6.6) 10^3/uL Lymph # (Auto) (1.5-3.5) 10^3/uL Frederick # (Auto) (0.0-1.0) 10^3/uL Eos # (Auto) (0.0-0.7) 10^3/uL Baso # (Auto) (0.0-0.1) 10^3/uL Absolute Nucleated RBC x10^3/uL Nucleated RBC % /100WBC Sodium 134 L (135-145) mmol/L Potassium 4.4 (3.5-5.0) mmol/L Chloride 102 (101-111) mmol/L Carbon Dioxide 20 L (21-32) mmol/L Anion Gap 12.0 (6-13) BUN 25 H (6-20) mg/dL Creatinine 1.6 H (0.6-1.2) mg/dL Estimated GFR (MDRD) 43 L (>89) Glucose 126 H (70-100) mg/dL POC Whole Bld Glucose 134 H 128 H (70 - 100) mg/dL Calcium 9.1 (8.5-10.3) mg/dL 06/14/21 06/13/21 Range/Units 07:17 16:26 WBC 5.5 (4.8-10.8) x10^3/uL RBC 4.36 L (4.70-6.10) 10^6/uL Hgb 13.4 L (14.0-18.0) g/dL Hct 40.9 L (42.0-52.0) % MCV 93.8 (80.0-94.0) fL MCH 30.7 (27.0-31.0) pg MCHC 32.8 (32.0-36.0) g/dL RDW 17.0 H (12.0-15.0) % Plt Count 135 (130-450) 10^3/uL MPV 10.2 (7.4-11.4) fL Neut # (Auto) 4.9 (1.5-6.6) 10^3/uL Lymph # (Auto) 0.3 L (1.5-3.5) 10^3/uL Frederick # (Auto) 0.3 (0.0-1.0) 10^3/uL Eos # (Auto) 0.0 (0.0-0.7) 10^3/uL Baso # (Auto) 0.0 (0.0-0.1) 10^3/uL Absolute Nucleated RBC 0.00 x10^3/uL Nucleated RBC % 0.0 /100WBC Sodium (135-145) mmol/L Potassium (3.5-5.0) mmol/L Chloride (101-111) mmol/L Carbon Dioxide (21-32) mmol/L Anion Gap (6-13) BUN (6-20) mg/dL Creatinine (0.6-1.2) mg/dL Estimated GFR (MDRD) (>89) Glucose (70-100) mg/dL POC Whole Bld Glucose 181 H (70 - 100) mg/dL Calcium (8.5-10.3) mg/dL Sepsis Event Note (H) - Evaluation Current Stage of Sepsis: Resolved - Sepsis Criteria Sepsis Criteria: Recorded Temperature greater than 38.3C or Less than 36C, WBC count greater than 12,000 or less than 4000, [employer]: altered consciousness (unrelated to primary neuro pathology), Hematologic: platelets < 100,000; INR > 1.5, or a PTT>60 seconds Assessment/Plan - Problem List (1) Chronic inflammatory demyelinating polyneuritis Impression: Ongoing problem. Receives IVIG monthly. On 06/12, spoke with his neurologist, Darion Cobian MD, who advised to administer 50g IVIG daily for 5 days and closely monitor renal function. He noted that when he initially evaluated Mr. Aguilar, he thought his presentation mimicked ALS. He made significant improvement after initiation of IVIG therapy, but begins showing symptoms again at the end of each monthly cycle. His last infusion was on 05/18. Due to cost, unable to obtain IVIG at this hospital. Per pharmacy recommendation, doing burst infusion of methylprednisolone for 3 days. Day two of methylprednisolone therapy as alternative to IVIG. Pt has more energy today. Was able to participate in PT and showed progress from yesterday. Plan: 1. Continue infusing methylprednisolone @ 1000mg per day for 3 days. Today is day 2. 2. Continue pregabalin for neuropathic pain. (2) Streptococcal bacteremia Impression: Initially presented in sepsis with thrombocytopenia. Blood cultures grew Strep. infantarius. Port found to be site of infection and removed surgically on 06/07. Had daily fevers up until 06/08. Neutrophilia and thrombocytopenia have resolved. Per ID, treating like endocarditis so continuing IV ABX for 4 weeks after negative blood cultures (on 05/31). No fever, chills, sweats today. WBC: 5.5 Platelets: 135 Plan: 1. Continue ceftriaxone infusion until 06/28. 2. Monitor for signs of infection. (3) Truncal muscle weakness Impression: During his stay here he has become weaker, resulting in a ground level fall wh ile attempting to use his walker. Typically, he walks unassisted with a cane. Currently, he is requiring 1-2 person max assist, supporting himself with his walker, to stand from chair. Today he was able to shuffle a few steps then sit with two person max assist. He is able to reposition himself in his chair (he tends to slide forward) with great effort, moving only an inch or so per attempt. Also, he requires two person assist to reposition in bed, along with trapeze, slider sheet, and trendelenberging bed. 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 He has had multiple head CTs since admission showing no acute changes that could explain weakness. Plan 1. Continue methylprednisolone tx for CIDP. 2. Continue working with PT until placement at SNF. (4) Constipation Impression: Pt has gone many days without bowel movements during his admission. It has been 4 days and he is having some abdominal discomfort. He had been refusing miralax but has taken it the last two days. He states if he does not have a BM tonight, he would like an enema tomorrow. Plan: 1. If no BM tomorrow, administer soap suds enema. 2. Continue daily miralax. 3. Consider adding senna. 4. Encourage activity as tolerated. (5) CKD (chronic kidney disease) stage 3, GFR 30-59 ml/min Impression: Creatinine remains near baseline at 1.6. BUN 25. Continue to monitor. Qualifiers: Chronic kidney disease stage 3 subtype: stage 3b (GFR 30-44) Qualified Code(s): N18.32 - Chronic kidney disease, stage 3b (6) Urinary retention Impression: Allison had been in place earlier in admission for urinary retention. Removed on 06/07 as potential source of infection. Bladder scans over the following days showed 500+ mL retained, so allison cath. placed again. Could also be symptom of his CIDP. Continuing methylprednisolone infusion and will monitor. Plan: 1. Allison in place. No complaints. Urine yellow and clear. Will monitor response to steroid infusion and DC if he has a good response. 2. Continue prazosin and tamsulosin. (7) Morbid obesity with BMI of 45.0-49.9, adult Impression: BMI low-mid 40s with a loss of 5+ kig since admissions. Continue to encourage healthy food choices and exercise. Daily PT as well. (8) Thrombocytopenia Impression: Resolved
[2021-06-14] MEDS: PRAZOSIN 1 MG CAPSULE PO SCH (21:19)
[2021-06-15] MEDS: SODIUM CHLORIDE FLUSH 0.9% 10 ML SYRINGE IVP SCH ×3 (05:57→17:07)
[2021-06-15] MEDS: PANTOPRAZOLE 40 MG TABLET PO SCH (06:14)
[2021-06-15] MEDS: PREGABALIN 25 MG CAPSULE PO SCH ×3 (06:14→21:29)
--- NOTE | 2021-06-15 08:04 | PROVIDER PROGRESS NOTE ---
Subjective - Prog Note Date Prog Note Date: 06/15/21 Prog Note Time: 14:26 - Subjective Pt reports feeling: No change Subjective: Pt says he feels about the same as yesterday. He has had more energy but also a bit more pain today. He rates it a 3/10 at rest, but even moving his arms aggravates his lower back pain. He was unable to participate in PT due to the pain. He is still having trouble getting good sleep. His abdominal discomfort has resolved after "passing a lot of gas". It has been 5 days since his last bowel movement. He has taken his morning miralax dose the last 3 days. He declined an enema and will try to use the commode this evening. Current Medications - Current Medications Current Medications: Active Medications Generic Name Dose Route Start Last Admin Trade Name Freq PRN Reason Stop Dose Admin Acetaminophen 650 mg 05/31/21 20:13 06/13/21 08:14 Acetaminophen 325 Mg Tablet PO 650 mg Q4HR PRN Administration Pain or Fever > 38C (100.4F) Aspirin 81 mg 06/01/21 10:00 06/15/21 08:56 Aspirin Chew 81 Mg Tablet PO 81 mg DAILY [facility] Administration Bupropion HCl 450 mg 06/01/21 09:00 06/15/21 08:56 Bupropion Xl 150 Mg Tablet PO 450 mg DAILY [facility] Administration Cholecalciferol 5,000 unit 05/30/21 15:00 06/13/21 13:44 Cholecalciferol 5,000 Unit Capsule PO 5,000 unit Q7D [facility] Administration Clopidogrel Bisulfate 75 mg 05/31/21 09:00 06/15/21 08:56 Clopidogrel 75 Mg Tablet PO 75 mg DAILY [facility] Administration Cyclobenzaprine HCl 10 mg 06/07/21 21:30 06/14/21 11:30 Cyclobenzaprine 10 Mg Tablet PO 10 mg TID PRN Administration Spasms Docusate Sodium 250 - 500 mg 06/05/21 19:43 06/15/21 09:00 Docusate Sodium 250 Mg Capsule PO 500 mg DAILY [facility] Administration Enoxaparin Sodium 40 mg 06/05/21 09:00 06/15/21 08:58 Enoxaparin 40 Mg/0.4 Ml Syringe SUBQ 40 mg DAILY [facility] Administration Heparin Sodium (Beef Lung) 30 - 50 unit 05/31/21 04:51 06/06/21 17:15 Heparin Flush 50 Units/5 Ml Syringe IVP 50 unit PRN PRN Administration Port Protocol (<24 hours) Hydromorphone HCl 0.5 mg 06/01/21 16:35 06/14/21 15:48 Hydromorphone 0.5 Mg/0.5 Ml Syringe IVP 0.5 mg Q4H PRN Administration PAIN Ceftriaxone Sodium 2 gm/ 100 mls @ 200 mls/hr 05/30/21 13:00 06/15/21 13:15 Sodium Chloride IV Infused Q24H [facility] Infusion Insulin Aspart 3 - 11 unit 06/13/21 12:00 06/15/21 12:30 Insulin Aspart 300 Unit/3 Ml Pen SUBQ Not Given 0800,1200,1700,2100 [facility] Protocol Lidocaine 1 patch 06/11/21 14:44 06/13/21 08:12 Lidocaine Patch 5% TOP 1 patch DAILY PRN Administration PAIN Metoprolol Succinate 25 mg 05/30/21 09:00 06/15/21 08:56 Metoprolol Succinate 25 Mg Tablet PO 25 mg DAILY [facility] Administration Mineral Oil 1 applic 06/04/21 16:51 06/08/21 10:14 Min Oil/Dimethicon/Coconut Oil 92 Gm Tube TOP 1 applic PRN PRN Administration Skin Care Ondansetron HCl 4 mg 05/29/21 22:34 Ondansetron 4 Mg/2 Ml Vial IVP Q6HR PRN Nausea / Vomiting Oxycodone HCl 5 mg 06/01/21 08:58 06/02/21 15:35 Oxycodone 5 Mg Tablet PO 5 mg Q4HR PRN Administration PAIN Pantoprazole Sodium 40 mg 05/30/21 09:00 06/15/21 06:14 Pantoprazole 40 Mg Tablet PO 40 mg QDAC [facility] Administration Febuxostat [Uloric 1 each 05/31/21 09:00 06/15/21 08:58 ] 40 Mg Tabs PO Not Given DAILY [facility] Polyethylene Glycol 17 gm 05/30/21 09:00 06/15/21 08:57 Polyethylene Glycol 3350 17 Gm Packet PO 17 gm DAILY [facility] Administration Potassium Chloride 20 meq 06/02/21 08:00 06/15/21 08:53 Potassium Chloride 20 Meq/15 Ml Udc PO 20 meq DAILYWM [facility] Administration Prazosin HCl 6 mg 05/30/21 21:00 06/14/21 21:19 Prazosin 1 Mg Capsule PO 6 mg QPM [facility] Administration Pregabalin 75 mg 05/30/21 14:00 06/15/21 13:43 Pregabalin 25 Mg Capsule PO 75 mg TID [facility] Administration Saccharomyces Boulardii 250 mg 05/30/21 08:57 06/15/21 08:58 Saccharomyces Boulardii 250 Mg Capsule PO 250 mg BIDWM [facility] Administration Senna 8.6 - 17.2 mg 06/04/21 09:00 06/15/21 08:56 Senna 8.6 Mg Tablet PO 17.2 mg DAILY [facility] Administration Sodium Chloride 10 ml 05/29/21 22:16 06/15/21 11:15 Sodium Chloride Flush 0.9% 10 Ml Syringe IVP 10 ml PRN PRN Administration NEEDED PER PROVIDER ORDERS Sodium Chloride 10 ml 05/30/21 01:00 06/15/21 10:15 Sodium Chloride Flush 0.9% 10 Ml Syringe IVP 10 ml 0100,0900,1700 [facility] Administration Tamsulosin HCl 0.4 mg 06/09/21 09:00 06/15/21 08:57 Tamsulosin 0.4 Mg Capsule PO 0.4 mg DAILY [facility] Administration Aspirin [Juliette] 325 mg PO DAILY 05/30/21 Cholecalciferol [Vitamin D3] 5,000 unit PO Q7D 05/30/21 Cinacalcet HCl [Sensipar] 30 mg PO DAILY 05/30/21 Clopidogrel [Plavix] 75 mg PO DAILY 05/30/21 Escitalopram Oxalate 40 mg PO DAILY 05/30/21 Febuxostat [Uloric] 40 mg PO DAILY 05/30/21 Ibuprofen [Motrin] 800 mg PO Q6H PRN 05/30/21 Metoprolol Succinate [Toprol Xl] 25 mg PO DAILY 05/30/21 Pantoprazole [Protonix] 40 mg PO BIDAC 05/30/21 Potassium Citrate [Potassium Citrate ER] 20 meq PO BID 05/30/21 Prazosin HCl [Minipress] 6 mg PO QPM 05/30/21 Pregabalin [Lyrica] 75 mg PO TID 05/30/21 Rosuvastatin Calcium [Crestor] 40 mg PO QPM 05/30/21 Testosterone Cypionate 200 mg IM Q14D 05/30/21 Torsemide 20 mg PO DAILY 05/30/21 Trazodone HCl 100 - 200 mg PO QPM PRN 05/30/21 buPROPion [Wellbutrin Xl] 450 mg PO DAILY 05/30/21 flaxseed oiL [Flaxseed Oil] 1,000 mg PO DAILY 05/31/21 Objective - Vital Signs/Intake & Output Reviewed Vital Signs: Yes Vital Signs: Vital Signs x48h Temp Pulse Resp BP Pulse Ox 06/15/21 07:47 36.2 C L 75 20 111/64 95 06/15/21 00:26 36.5 C 85 24 132/74 H 94 Intake & Output: Intake & Output 06/12/21 06/13/21 06/14/21 06/15/21 23:59 23:59 23:59 23:59 Intake Total 2970 4306 2630 Output Total 5350 8141 1849 1550 Balance -2380 981 -2265 -1550 - Objective General Appearance: positive: No acute distress, Alert, Other (Sitting in bed watching TV. Alert and conversational.) Eyes Bilateral: positive: Normal inspection, PERRL, EOMI ENT: positive: ENT inspection nml Neck: negative: Stiff neck Respiratory: positive: Chest non-tender, No respiratory distress, Breath sounds nml Cardiovascular: positive: Regular rate & rhythm, No murmur, No gallop Peripheral Pulses: 2+ Radial (R), 2+ Radial (L) Abdomen: positive: Non-tender, Nml bowel sounds, Other (Protuberant abdomen. Less firm and distended than yesterday.). negative: Guarding Skin: positive: Color nml, No rash, Warm, Dry Extremities: positive: Nml appearance Neurologic/Psychiatric: positive: Oriented x3, Mood/affect nml, Weakness (Did not participate in PT. Able to reach across the bed to use rail and pull himself on his side to sleep, which he had been unable to do secondary to pain.), Other. negative: Facial droop, Slurred/abnml speech - Lab Results Fish Bones: 06/15/21 11:30 06/15/21 11:30 Other Labs: Lab Results x24hrs 06/15/21 06/14/21 06/14/21 Range/Units 07:34 16:42 11:18 POC Whole Bld Glucose 115 H 142 H 134 H (70 - 100) mg/dL Sepsis Event Note (H) - Evaluation Current Stage of Sepsis: Resolved - Sepsis Criteria Sepsis Criteria: Recorded Temperature greater than 38.3C or Less than 36C, WBC count greater than 12,000 or less than 4000, CHILD LIFE SPECIALIST: altered consciousness (unrelated to primary neuro pathology), Hematologic: platelets < 100,000; INR > 1.5, or a PTT>60 seconds Assessment/Plan - Problem List (1) Chronic inflammatory demyelinating polyneuritis Impression: Ongoing problem. Receives IVIG monthly. On 06/12, spoke with his neurologist, Darion Cobian MD, who advised to administer 50g IVIG daily for 5 days and closely monitor renal function. He noted that when he initially evaluated Mr. Aguilar, he thought his presentation mimicked ALS. He made significant improvement after initiation of IVIG therapy, but begins showing symptoms again at the end of each monthly cycle. His last infusion was on 05/18. Due to cost, unable to obtain IVIG at this hospital. Per pharmacy recommendation, doing burst infusion of methylprednisolone for 3 days. Day three of methylprednisolone therapy as alternative to IVIG. Pt has more energy today but was unable participate in PT due to pain. He did not ask for his prn hydromorphone. Plan: 1. Burst methylprednisolone completed. Will continue with 1000mg doses 1x weekly for the next 3 weeks. 2. Continue pregabalin for neuropathic pain. (2) Streptococcal bacteremia Impression: Initially presented in sepsis with thrombocytopenia. Blood cultures grew Strep. infantarius. Port found to be site of infection and removed surgically on 06/07. Had daily fevers up until 06/08. Neutrophilia and thrombocytopenia have resolved. Per ID, treating like endocarditis so continuing IV ABX for 4 weeks after negative blood cultures (on 05/31). No fever, chills, sweats today. WBC: 2.9 Platelets: 95 Plan: 1. Continue ceftriaxone infusion until 06/28. 2. Monitor for signs of infection. (3) Pancytopenia Impression: Pt has been mildly anemic, leukopenic, and thrombocytopenic for most of his stay. Since the , his platelets had been in a normal range, but dropped precipitously today from 135 to 95. This coincided with a drop in hemoglobin from 13.4 to 8.5 and WBC of 5.5 to 2.9 today. Could be due to plavix. No clinical changes at this time. No fevers, weakness, sob, abnormal bleeding. Plan: 1. Hold plavix 2. Consider ffp administration if numbers don't improve. 3. RBC infusion if Hgb drops below 8 and pt is symptomatic. (4) Thrombocytopenia Impression: Presented with thrombocytopenia that had recovered on 06/04. Platelets dropped from 135 yesterday to 95 today. (5) Truncal muscle weakness Impression: During his stay here he has become weaker, resulting in a ground level fall while attempting to use his walker. Typically, he walks unassisted with a cane. Currently, he is requiring 1-2 person max assist, supporting himself with his walker, to stand from chair. Today he has not been out of bed. He is able to roll over by himself, which he has been unable to do the last several days. 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 He has had multiple head CTs since admission showing no acute changes that could explain weakness. Plan 1. Finished methylprednisolone burst tx. Will continue weekly 1000mg doses for 3 weeks. 2. Continue working with PT until placement at SNF. (6) Constipation Impression: Pt has gone many days without bowel movements during his admission. It has been 5 days since his last BM. He had been refusing miralax but has taken it the last three days. He declines an enema today and will sit on the commode this evening. Plan: 1. If no BM today, consider enema. 2. Continue daily miralax. 3. Consider adding senna. 4. Encourage activity as tolerated. (7) CKD (chronic kidney disease) stage 3, GFR 30-59 ml/min Impression: Creatinine remains near baseline at 1.4. BUN 28. Continue to monitor. Qualifiers: Chronic kidney disease stage 3 subtype: stage 3b (GFR 30-44) Qualified Code(s): N18.32 - Chronic kidney disease, stage 3b (8) Urinary retention Impression: Allison had been in place earlier in admission for urinary retention. Removed on 06/07 as potential source of infection. Bladder scans over the following days showed 500+ mL retained, so allison cath. placed again. Could also be symptom of his CIDP. Continuing methylprednisolone infusion and will monitor. Plan: 1. Allison in place. No complaints. Urine yellow and clear. Will keep in place until he is more independent. 2. Continue prazosin and tamsulosin. (9) Morbid obesity with BMI of 45.0-49.9, adult Impression: BMI low-mid 40s with a loss of 5+ kg since admission. Continue to encourage healthy food choices and exercise. Daily PT as well.
[2021-06-15] MEDS: POTASSIUM CHLORIDE 20 MEQ/15 ML UDC PO SCH (08:53)
[2021-06-15] MEDS: SENNA 8.6 MG TABLET PO SCH (08:56)
[2021-06-15] MEDS: METOPROLOL SUCCINATE 25 MG TABLET PO SCH (08:56)
[2021-06-15] MEDS: ASPIRIN CHEW 81 MG TABLET PO SCH (08:56)
[2021-06-15] MEDS: buPROPion XL 150 MG TABLET PO SCH (08:56)
[2021-06-15] MEDS: CLOPIDOGREL 75 MG TABLET PO SCH (08:56)
[2021-06-15] MEDS: polyethylene glycoL 3350 17 GM PACKET PO SCH (08:57)
[2021-06-15] MEDS: TAMSULOSIN 0.4 MG CAPSULE PO SCH (08:57)
[2021-06-15] MEDS: SACCHAROMYCES BOULARDII 250 MG CAPSULE PO SCH ×2 (08:58→17:07)
[2021-06-15] MEDS: INSULIN ASPART 300 UNIT/3 ML PEN SUBQ SCH ×4 (08:58→21:28)
[2021-06-15] MEDS: FEBUXOSTAT 40 MG PO SCH (08:58)
[2021-06-15] MEDS: ENOXAPARIN 40 MG/0.4 ML SYRINGE SUBQ SCH (08:58)
[2021-06-15] MEDS: DOCUSATE SODIUM 250 MG CAPSULE PO SCH (09:00)
[2021-06-15] MEDS: methylPREDNISolone SUCCINATE 1,000 MG in SODIUM CHLORIDE 0.9% 250 ML IV SCH (10:15)
[2021-06-15] MEDS: SODIUM CHLORIDE FLUSH 0.9% 10 ML SYRINGE IVP PRN (11:15)
[2021-06-15 11:39] LABS: HCT - HEMATOCRIT 26.5 % (42.0-52.0); HGB - HEMOGLOBIN 8.5 g/dL (14.0-18.0); LYMPHOCYTES # (AUTO) 0.3 10^3/uL (1.5-3.5); LYMPHOCYTES % (AUTO) 9.9 %; MEAN CORPUSCULAR HEMOGLOBIN 31.3 pg (27.0-31.0); MEAN CORPUSCULAR HGB CONC 32.1 g/dL (32.0-36.0); MEAN CORPUSCULAR VOLUME 97.4 fL (80.0-94.0); MEAN PLATELET VOLUME 9.5 fL (7.4-11.4); MONOCYTES # (AUTO) 0.3 10^3/uL (0.0-1.0); MONOCYTES % (AUTO) 11.6 %; NEUTROPHILS # (AUTO) 2.3 10^3/uL (1.5-6.6); NEUTROPHILS % (AUTO) 78.2 %; PLT - PLATELET COUNT 95 10^3/uL (130-450); RED BLOOD COUNT 2.72 10^6/uL (4.70-6.10); WHITE BLOOD COUNT 2.9 x10^3/uL (4.8-10.8)
[2021-06-15 11:42] LABS: SLIDE REVIEW? Indicated
[2021-06-15 11:53] LABS: CALCIUM 8.6 mg/dL (8.5-10.3); CREATININE 1.4 mg/dL (0.6-1.2); POTASSIUM 4.1 mmol/L (3.5-5.0)
[2021-06-15 11:56] LABS: PLATELET ESTIMATE, MANUAL DECREASED (<130,000) (NORMAL); PLATELET MORPHOLOGY NORMAL APPEARANCE (NORMAL); RBC MORPHOLOGY (MULTIPLE) 2+ HYPOCHROMASIA (NORMAL)
[2021-06-15] MEDS: cefTRIAXone 2 GM in SODIUM CHLORIDE 0.9% MINIBAG 100 ML IV SCH (12:40)
[2021-06-15] MEDS: CYCLOBENZAPRINE 10 MG TABLET PO PRN (18:38)
[2021-06-15] MEDS: PRAZOSIN 1 MG CAPSULE PO SCH (21:29)
[2021-06-16 05:27] LABS: HCT - HEMATOCRIT 41.4 % (42.0-52.0); HGB - HEMOGLOBIN 13.3 g/dL (14.0-18.0); LYMPHOCYTES # (AUTO) 0.3 10^3/uL (1.5-3.5); LYMPHOCYTES % (AUTO) 8.4 %; MEAN CORPUSCULAR HEMOGLOBIN 30.5 pg (27.0-31.0); MEAN CORPUSCULAR HGB CONC 32.1 g/dL (32.0-36.0); MEAN PLATELET VOLUME 9.7 fL (7.4-11.4); MONOCYTES # (AUTO) 0.2 10^3/uL (0.0-1.0); MONOCYTES % (AUTO) 6.9 %; NEUTROPHILS # (AUTO) 2.8 10^3/uL (1.5-6.6); NEUTROPHILS % (AUTO) 84.4 %; PLT - PLATELET COUNT 134 10^3/uL (130-450); RED BLOOD COUNT 4.36 10^6/uL (4.70-6.10); RED CELL DISTRIBUTION WIDTH 17.1 % (12.0-15.0); WHITE BLOOD COUNT 3.3 x10^3/uL (4.8-10.8)
[2021-06-16] MEDS: PREGABALIN 25 MG CAPSULE PO SCH ×3 (05:29→21:13)
[2021-06-16] MEDS: SODIUM CHLORIDE FLUSH 0.9% 10 ML SYRINGE IVP SCH ×4 (05:30→23:36)
[2021-06-16] MEDS: PANTOPRAZOLE 40 MG TABLET PO SCH (05:30)
[2021-06-16 05:32] LABS: CALCIUM 9.1 mg/dL (8.5-10.3); CREATININE 1.5 mg/dL (0.6-1.2); POTASSIUM 4.5 mmol/L (3.5-5.0)
[2021-06-16] MEDS: CYCLOBENZAPRINE 10 MG TABLET PO PRN ×2 (05:36→14:29)
[2021-06-16] MEDS: INSULIN ASPART 300 UNIT/3 ML PEN SUBQ SCH ×4 (08:00→21:13)
--- NOTE | 2021-06-16 08:11 | PROVIDER PROGRESS NOTE ---
Subjective - Prog Note Date Prog Note Date: 06/16/21 Prog Note Time: 17:48 - Subjective Pt reports feeling: No change Subjective: This patient has not been here for 19 days. He had strep bacteremia that we determine was from his central line that was discontinued. He now needs antibiotics to complete therapy. 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 Has finished 3 days of pulse steroids and now is to go to weekly. He has had no improvement with it. Nursing and physical therapy both state that the patient has deteriorated substantially over the last 4 to 5 days. The patient himself sometimes mumbles. States that he is not really getting any better. Complains about back pain. But he states is his usual back pain. He denies chest pain, cough, shortness of breath. To me he seems sleepier today than usual. Current Medications - Current Medications Current Medications: Active Medications Acetaminophen (Acetaminophen 325 Mg Tablet) 650 mg PO Q4HR PRN PRN Reason: Pain or Fever > 38C (100.4F) Last Admin: 06/16/21 11:16 Dose: 650 mg Aspirin (Aspirin Chew 81 Mg Tablet) 81 mg PO DAILY [facility] Last Admin: 06/16/21 08:20 Dose: 81 mg Bupropion HCl (Bupropion Xl 150 Mg Tablet) 450 mg PO DAILY [facility] Last Admin: 06/16/21 08:21 Dose: 450 mg Cholecalciferol (Cholecalciferol 5,000 Unit Capsule) 5,000 unit PO Q7D [facility] Last Admin: 06/13/21 13:44 Dose: 5,000 unit Clopidogrel Bisulfate (Clopidogrel 75 Mg Tablet) 75 mg PO DAILY [facility] Last Admin: 06/16/21 08:18 Dose: 75 mg Cyclobenzaprine HCl (Cyclobenzaprine 10 Mg Tablet) 10 mg PO TID PRN PRN Reason: Spasms Last Admin: 06/16/21 14:29 Dose: 10 mg Docusate Sodium (Docusate Sodium 250 Mg Capsule) 250 - 500 mg PO DAILY [facility] Last Admin: 06/16/21 08:19 Dose: 250 mg Enoxaparin Sodium (Enoxaparin 40 Mg/0.4 Ml Syringe) 40 mg SUBQ DAILY [facility] Last Admin: 06/16/21 08:59 Dose: 40 mg Heparin Sodium (Beef Lung) (Heparin Flush 50 Units/5 Ml Syringe) 30 - 50 unit IVP PRN PRN PRN Reason: Port Protocol (<24 hours) Last Admin: 06/06/21 17:15 Dose: 50 unit Hydromorphone HCl (Hydromorphone 0.5 Mg/0.5 Ml Syringe) 0.5 mg IVP Q4H PRN PRN Reason: PAIN Last Admin: 06/16/21 11:18 Dose: 0.5 mg Ceftriaxone Sodium 2 gm/ (Sodium Chloride) 100 mls @ 200 mls/hr IV Q24H [facility] Last Infusion: 06/16/21 13:50 Dose: Infused Insulin Aspart (Insulin Aspart 300 Unit/3 Ml Pen) 3 - 11 unit SUBQ 0800,1200,1700,2100 [facility]; Protocol Last Admin: 06/16/21 17:14 Dose: Not Given Lidocaine (Lidocaine Patch 5%) 1 patch TOP DAILY PRN PRN Reason: PAIN Last Admin: 06/13/21 08:12 Dose: 1 patch Metoprolol Succinate (Metoprolol Succinate 25 Mg Tablet) 25 mg PO DAILY [facility] Last Admin: 06/16/21 08:20 Dose: 25 mg Mineral Oil (Min Oil/Dimethicon/Coconut Oil 92 Gm Tube) 1 applic TOP PRN PRN PRN Reason: Skin Care Last Admin: 06/08/21 10:14 Dose: 1 applic Ondansetron HCl (Ondansetron 4 Mg/2 Ml Vial) 4 mg IVP Q6HR PRN PRN Reason: Nausea / Vomiting Pantoprazole Sodium (Pantoprazole 40 Mg Tablet) 40 mg PO QDAC [facility] Last Admin: 06/16/21 05:30 Dose: 40 mg Febuxostat [Uloric (] 40 Mg Tabs) 1 each PO DAILY [facility] Last Admin: 06/16/21 15:28 Dose: Not Given Polyethylene Glycol (Polyethylene Glycol 3350 17 Gm Packet) 17 gm PO DAILY [facility] Last Admin: 06/16/21 08:17 Dose: 17 gm Potassium Chloride (Potassium Chloride 20 Meq/15 Ml Udc) 20 meq PO DAILYWM [facility] Last Admin: 06/16/21 08:27 Dose: 20 meq Prazosin HCl (Prazosin 1 Mg Capsule) 6 mg PO QPM [facility] Last Admin: 06/15/21 21:29 Dose: 6 mg Pregabalin (Pregabalin 25 Mg Capsule) 75 mg PO TID [facility] Last Admin: 06/16/21 14:29 Dose: 75 mg Saccharomyces Boulardii (Saccharomyces Boulardii 250 Mg Capsule) 250 mg PO BIDWM [facility] Last Admin: 06/16/21 17:15 Dose: 250 mg Senna (Senna 8.6 Mg Tablet) 8.6 - 17.2 mg PO DAILY [facility] Last Admin: 06/16/21 15:41 Dose: 17.2 mg Sodium Chloride (Sodium Chloride Flush 0.9% 10 Ml Syringe) 10 ml IVP PRN PRN PRN Reason: NEEDED PER PROVIDER ORDERS Last Admin: 06/15/21 11:15 Dose: 10 ml Sodium Chloride (Sodium Chloride Flush 0.9% 10 Ml Syringe) 10 ml IVP 0100,0900,1700 [facility] Last Admin: 06/16/21 17:15 Dose: 10 ml Tamsulosin HCl (Tamsulosin 0.4 Mg Capsule) 0.4 mg PO DAILY [facility] Last Admin: 06/16/21 08:19 Dose: 0.4 mg Aspirin [Juliette] 325 mg PO DAILY 05/30/21 Cholecalciferol [Vitamin D3] 5,000 unit PO Q7D 05/30/21 Cinacalcet HCl [Sensipar] 30 mg PO DAILY 05/30/21 Clopidogrel [Plavix] 75 mg PO DAILY 05/30/21 Escitalopram Oxalate 40 mg PO DAILY 05/30/21 Febuxostat [Uloric] 40 mg PO DAILY 05/30/21 Ibuprofen [Motrin] 800 mg PO Q6H PRN 05/30/21 Metoprolol Succinate [Toprol Xl] 25 mg PO DAILY 05/30/21 Pantoprazole [Protonix] 40 mg PO BIDAC 05/30/21 Potassium Citrate [Potassium Citrate ER] 20 meq PO BID 05/30/21 Prazosin HCl [Minipress] 6 mg PO QPM 05/30/21 Pregabalin [Lyrica] 75 mg PO TID 05/30/21 Rosuvastatin Calcium [Crestor] 40 mg PO QPM 05/30/21 Testosterone Cypionate 200 mg IM Q14D 05/30/21 Torsemide 20 mg PO DAILY 05/30/21 Trazodone HCl 100 - 200 mg PO QPM PRN 05/30/21 buPROPion [Wellbutrin Xl] 450 mg PO DAILY 05/30/21 flaxseed oiL [Flaxseed Oil] 1,000 mg PO DAILY 05/31/21 Objective - Vital Signs/Intake & Output Reviewed Vital Signs: Yes Vital Signs: Vital Signs x48h Temp Pulse Resp BP Pulse Ox 06/16/21 00:20 36.3 C L 71 16 116/64 95 Intake & Output: Intake & Output 06/13/21 06/14/21 06/15/21 06/16/21 23:59 23:59 23:59 23:59 Intake Total 4306 2630 4970 Output Total 3325 4898 3825 2300 Balance 981 -2265 1145 -2300 - Objective General Appearance: positive: No acute distress, Lethargic, Other (Snoring, wakes up with a shoulder shake and it takes him a while to reorient himself. 5 foot 7 inch white male, morbidly obese and 126.5 kg.) Eyes Bilateral: positive: PERRL, EOMI ENT: positive: Pharynx nml Neck: positive: No JVD Respiratory: positive: No respiratory distress, Rhonchi (Are present initially. Then I have him do a deep cough and they disappear.). negative: Wheezes, Rales Cardiovascular: positive: Regular rate & rhythm. negative: Gallop/S4, Friction rub Abdomen: positive: Non-tender, No organomegaly, Nml bowel sounds, No distention Skin: positive: Warm, Dry Extremities: positive: Full ROM, Pedal edema Neurologic/Psychiatric: positive: Oriented x3, CN's nml (2-12). negative: Motor nml (Generalized weakness. This gentleman was walking with a cane or a walker before admission. Then he fell. After admission was able to stand with physical therapy. In the last few days cannot get out of bed. Generalized muscle weakness. Worse in legs and in upper extremities.) - Lab Results Fish Bones: 06/16/21 05:08 06/16/21 05:08 Other Labs: Lab Results x24hrs 06/16/21 06/16/21 06/15/21 Range/Units 05:08 05:08 20:23 WBC 3.3 L (4.8-10.8) x10^3/uL RBC 4.36 L (4.70-6.10) 10^6/uL Hgb 13.3 L (14.0-18.0) g/dL Hct 41.4 L (42.0-52.0) % MCV 95.0 H (80.0-94.0) fL MCH 30.5 (27.0-31.0) pg MCHC 32.1 (32.0-36.0) g/dL RDW 17.1 H (12.0-15.0) % Plt Count 134 (130-450) 10^3/uL MPV 9.7 (7.4-11.4) fL Neut # (Auto) 2.8 (1.5-6.6) 10^3/uL Lymph # (Auto) 0.3 L (1.5-3.5) 10^3/uL Glenn # (Auto) 0.2 (0.0-1.0) 10^3/uL Eos # (Auto) 0.0 (0.0-0.7) 10^3/uL Baso # (Auto) 0.0 (0.0-0.1) 10^3/uL Absolute Nucleated RBC 0.00 x10^3/uL Nucleated RBC % 0.0 /100WBC Manual Slide Review Platelet Estimate (NORMAL) Platelet Morphology (NORMAL) RBC Morph Micro Appear (NORMAL) Sodium 138 (135-145) mmol/L Potassium 4.5 (3.5-5.0) mmol/L Chloride 103 (101-111) mmol/L Carbon Dioxide 25 (21-32) mmol/L Anion Gap 10.0 (6-13) BUN 29 H (6-20) mg/dL Creatinine 1.5 H (0.6-1.2) mg/dL Estimated GFR (MDRD) 46 L (>89) Glucose 132 H (70-100) mg/dL POC Whole Bld Glucose 170 H (70 - 100) mg/dL Calcium 9.1 (8.5-10.3) mg/dL 06/15/21 06/15/21 06/15/21 Range/Units 16:34 11:30 11:30 WBC 2.9 L (4.8-10.8) x10^3/uL RBC 2.72 L (4.70-6.10) 10^6/uL Hgb 8.5 L (14.0-18.0) g/dL Hct 26.5 L (42.0-52.0) % MCV 97.4 H (80.0-94.0) fL MCH 31.3 H (27.0-31.0) pg MCHC 32.1 (32.0-36.0) g/dL RDW 17.0 H (12.0-15.0) % Plt Count 95 L (130-450) 10^3/uL MPV 9.5 (7.4-11.4) fL Neut # (Auto) 2.3 (1.5-6.6) 10^3/uL Lymph # (Auto) 0.3 L (1.5-3.5) 10^3/uL Glenn # (Auto) 0.3 (0.0-1.0) 10^3/uL Eos # (Auto) 0.0 (0.0-0.7) 10^3/uL Baso # (Auto) 0.0 (0.0-0.1) 10^3/uL Absolute Nucleated RBC 0.00 x10^3/uL Nucleated RBC % 0.0 /100WBC Manual Slide Review Indicated Platelet Estimate DECREASED (<130,000) (NORMAL) Platelet Morphology NORMAL APPEARANCE (NORMAL) RBC Morph Micro Appear 2+ HYPOCHROMASIA (NORMAL) Sodium 134 L (135-145) mmol/L Potassium 4.1 (3.5-5.0) mmol/L Chloride 104 (101-111) mmol/L Carbon Dioxide 24 (21-32) mmol/L Anion Gap 6.0 (6-13) BUN 28 H (6-20) mg/dL Creatinine 1.4 H (0.6-1.2) mg/dL Estimated GFR (MDRD) 50 L (>89) Glucose 104 H (70-100) mg/dL POC Whole Bld Glucose 162 H (70 - 100) mg/dL Calcium 8.6 (8.5-10.3) mg/dL 06/15/21 06/14/21 Range/Units 11:14 20:42 WBC (4.8-10.8) x10^3/uL RBC (4.70-6.10) 10^6/uL Hgb (14.0-18.0) g/dL Hct (42.0-52.0) % MCV (80.0-94.0) fL MCH (27.0-31.0) pg MCHC (32.0-36.0) g/dL RDW (12.0-15.0) % Plt Count (130-450) 10^3/uL MPV (7.4-11.4) fL Neut # (Auto) (1.5-6.6) 10^3/uL Lymph # (Auto) (1.5-3.5) 10^3/uL Glenn # (Auto) (0.0-1.0) 10^3/uL Eos # (Auto) (0.0-0.7) 10^3/uL Baso # (Auto) (0.0-0.1) 10^3/uL Absolute Nucleated RBC x10^3/uL Nucleated RBC % /100WBC Manual Slide Review Platelet Estimate (NORMAL) Platelet Morphology (NORMAL) RBC Morph Micro Appear (NORMAL) Sodium (135-145) mmol/L Potassium (3.5-5.0) mmol/L Chloride (101-111) mmol/L Carbon Dioxide (21-32) mmol/L Anion Gap (6-13) BUN (6-20) mg/dL Creatinine (0.6-1.2) mg/dL Estimated GFR (MDRD) (>89) Glucose (70-100) mg/dL POC Whole Bld Glucose 93 155 H (70 - 100) mg/dL Calcium (8.5-10.3) mg/dL ABX Reporting Has patient been on IV antibiotics over the past 48 hours?: Yes Sepsis Event Note (H) - Evaluation Current Stage of Sepsis: Resolved - Sepsis Criteria Sepsis Criteria: Recorded Temperature greater than 38.3C or Less than 36C, WBC count greater than 12,000 or less than 4000, ASSOCIATE COUNSEL: altered consciousness (unr elated to primary neuro pathology), Hematologic: platelets < 100,000; INR > 1.5, or a PTT>60 seconds Assessment/Plan - Problem List (1) Chronic inflammatory demyelinating polyneuritis Impression: Impression: We believe that this is his most current ongoing problem with worsening over the last 4 to 5 days. Receives IVIG monthly With last dosing May 18. On 06/12, spoke with his neurologist, Darion Cobian MD, who advised to administer 50g IVIG daily for 5 days and closely monitor renal function. He noted that when he initially evaluated Mr. Aguilar, he thought his presentation mimicked ALS. He made significant improvement after initiation of IVIG therapy, but begins showing symptoms again at the end of each monthly cycle. His last infusion was on 05/18. Due to cost, unable to obtain IVIG at this hospital. Pharmacy feels the literature does not support using IVIG at this time. Per pharmacy recommendation, doing burst infusion of methylprednisolone for 3 days. He has completed 3 days of pulse dose steroids. Plan: 1. Burst methylprednisolone completed. Will continue with 1000mg doses 1x weekly for the next 3 weeks. 2. Continue pregabalin for neuropathic pain. 3. Physical therapy evaluation to see if we can help him with more aggressive rehab (2) Streptococcal bacteremia Impression: Initially presented in sepsis with thrombocytopenia. Blood cultures grew Strep. infantarius. Port found to be site of infection and removed surgically on 06/07. Had daily fevers up until 06/08. Neutrophilia and thrombocytopenia have resolved. Per ID, treating like endocarditis so continuing IV ABX for 4 weeks after negative blood cultures (on 05/31). No fever, chills, sweats today. WBC: 2.9>>3.3 Platelets: 95>>134 Plan: 1. Continue ceftriaxone infusion until 06/28. 2. Monitor for signs of infection. (3) Pancytopenia Impression: Pt has been mildly anemic, leukopenic, and thrombocytopenic for most of his stay. Since the , his platelets had been in a normal range, but dropped precipitously today from 135 to 95. This coincided with a drop in hemoglobin from 13.4 to 8.5 and WBC of 5.5 to 2.9 today. Could be due to plavix. No clinical changes at this time. No fevers, weakness, sob, abnormal bleeding. I did review his med list when I saw his platelets dropped to 95,000 yesterday. He is on Plavix. But I do not think he is having TTP. BUN/creatinine have been stable. Today's labs show improvement. He does get heparin through the syringes for his diabetes, and he is on Lovenox. Plan: 1. I did not hold plavix. That is ongoing. 2. Consider ffp administration if numbers don't improve but hey have slightly improved so will hold off on that. 3. RBC infusion if Hgb drops below 8 and pt is symptomatic. (4) Thrombocytopenia Impression: Presented with thrombocytopenia that had recovered on 06/04. Platelets dropped from 135 >>95>>134 today. (5) Truncal muscle weakness Impression: During his stay here he has become weaker, resulting in a ground level fall while attempting to use his walker. Typically, he walks unassisted with a cane. Currently, he continues to require 1-2 person max assist to sit. He was able to stand until 06/14. Has not been out of bed since 06/15. . He is able to roll over by himself, which he has been unable to do the last several days. 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 He has had multiple head CTs since admission showing no acute changes that could explain weakness. Plan 1. Finished methylprednisolone burst tx. Will continue weekly 1000mg doses for 3 weeks. 2. Continue working with PT until placement at SNF. (6) Constipation Impression: Pt has gone many days without bowel movements during his admission. It has been 5 days since his last BM. He had been refusing miralax but has taken it the last three days. He declines an enema today and will sit on the commode this evening. Plan: 1. If no BM today, consider enema. 2. Continue daily miralax. 3. Consider adding senna. 4. Encourage activity as tolerated. (7) CKD (chronic kidney disease) stage 3, GFR 30-59 ml/min Impression: Creatinine remains near baseline at 1.5. BUN 29. Continue to monitor. Qualifiers: Chronic kidney disease stage 3 subtype: stage 3b (GFR 30-44) Qualified Code(s): N18.32 - Chronic kidney disease, stage 3b (8) Urinary retention Impression: Allison had been in place earlier in admission for urinary retention. Removed on 06/07 as potential source of infection. Bladder scans over the following days showed 500+ mL retained, so allison cath. placed again. Could also be symptom of his CIDP. Continuing methylprednisolone infusion and will monitor. Plan: 1. Allison in place. No complaints. Urine yellow and clear. Will keep in place until he is more independent. 2. Continue prazosin and tamsulosin. (9) Morbid obesity with BMI of 45.0-49.9, adult Impression: BMI low-mid 40s with a loss of 5+ kg since admission. Continue to encourage healthy food choices and exercise. Daily PT as well.
[2021-06-16] MEDS: polyethylene glycoL 3350 17 GM PACKET PO SCH (08:17)
[2021-06-16] MEDS: CLOPIDOGREL 75 MG TABLET PO SCH (08:18)
[2021-06-16] MEDS: SACCHAROMYCES BOULARDII 250 MG CAPSULE PO SCH ×2 (08:19→17:15)
[2021-06-16] MEDS: TAMSULOSIN 0.4 MG CAPSULE PO SCH (08:19)
[2021-06-16] MEDS: DOCUSATE SODIUM 250 MG CAPSULE PO SCH (08:19)
[2021-06-16] MEDS: ASPIRIN CHEW 81 MG TABLET PO SCH (08:20)
[2021-06-16] MEDS: METOPROLOL SUCCINATE 25 MG TABLET PO SCH (08:20)
[2021-06-16] MEDS: buPROPion XL 150 MG TABLET PO SCH (08:21)
[2021-06-16] MEDS: POTASSIUM CHLORIDE 20 MEQ/15 ML UDC PO SCH (08:27)
[2021-06-16] MEDS: ENOXAPARIN 40 MG/0.4 ML SYRINGE SUBQ SCH (08:59)
[2021-06-16] MEDS ORDERED: SODIUM CHLORIDE 0.9% 1,000 ML IV SCH (09:00)
[2021-06-16] MEDS: ACETAMINOPHEN 325 MG TABLET PO PRN (11:16)
[2021-06-16] MEDS: HYDROmorphone 0.5 MG/0.5 ML SYRINGE IVP PRN (11:18)
[2021-06-16] MEDS: cefTRIAXone 2 GM in SODIUM CHLORIDE 0.9% MINIBAG 100 ML IV SCH (13:10)
[2021-06-16] MEDS: FEBUXOSTAT 40 MG PO SCH (15:28)
[2021-06-16] MEDS: SENNA 8.6 MG TABLET PO SCH ×2 (15:30→15:41)
[2021-06-16] MEDS: PRAZOSIN 1 MG CAPSULE PO SCH (21:12)
[2021-06-16] MEDS: CETIRIZINE 10 MG TABLET PO SCH (23:36)
[2021-06-17] MEDS: PREGABALIN 25 MG CAPSULE PO SCH ×3 (06:28→21:01)
[2021-06-17] MEDS: PANTOPRAZOLE 40 MG TABLET PO SCH (06:28)
[2021-06-17 06:52] LABS: EOSINOPHILS % (AUTO) 0.6 %; HCT - HEMATOCRIT 40.5 % (42.0-52.0); LYMPHOCYTES # (AUTO) 0.7 10^3/uL (1.5-3.5); LYMPHOCYTES % (AUTO) 23.8 %; MEAN CORPUSCULAR HEMOGLOBIN 30.4 pg (27.0-31.0); MEAN CORPUSCULAR HGB CONC 32.1 g/dL (32.0-36.0); MEAN CORPUSCULAR VOLUME 94.8 fL (80.0-94.0); MEAN PLATELET VOLUME 9.1 fL (7.4-11.4); MONOCYTES # (AUTO) 0.3 10^3/uL (0.0-1.0); MONOCYTES % (AUTO) 10.3 %; NEUTROPHILS % (AUTO) 64.7 %; PLT - PLATELET COUNT 120 10^3/uL (130-450); RED BLOOD COUNT 4.27 10^6/uL (4.70-6.10); RED CELL DISTRIBUTION WIDTH 17.1 % (12.0-15.0); WHITE BLOOD COUNT 3.1 x10^3/uL (4.8-10.8)
[2021-06-17 06:54] LABS: CALCIUM 8.6 mg/dL (8.5-10.3); CREATININE 1.6 mg/dL (0.6-1.2); POTASSIUM 3.9 mmol/L (3.5-5.0)
[2021-06-17] MEDS: INSULIN ASPART 300 UNIT/3 ML PEN SUBQ SCH ×3 (07:36→16:49)
[2021-06-17] MEDS: SACCHAROMYCES BOULARDII 250 MG CAPSULE PO SCH ×2 (08:24→17:08)
[2021-06-17] MEDS: TAMSULOSIN 0.4 MG CAPSULE PO SCH (08:24)
[2021-06-17] MEDS: METOPROLOL SUCCINATE 25 MG TABLET PO SCH (08:24)
[2021-06-17] MEDS: ASPIRIN CHEW 81 MG TABLET PO SCH (08:24)
[2021-06-17] MEDS: buPROPion XL 150 MG TABLET PO SCH (08:24)
[2021-06-17] MEDS: SENNA 8.6 MG TABLET PO SCH ×2 (08:24→21:01)
[2021-06-17] MEDS: CLOPIDOGREL 75 MG TABLET PO SCH (08:24)
[2021-06-17] MEDS: CETIRIZINE 10 MG TABLET PO SCH (08:24)
[2021-06-17] MEDS: DOCUSATE SODIUM 250 MG CAPSULE PO SCH ×2 (08:24→21:01)
[2021-06-17] MEDS: polyethylene glycoL 3350 17 GM PACKET PO SCH (08:25)
[2021-06-17] MEDS: FEBUXOSTAT 40 MG PO SCH (08:25)
[2021-06-17] MEDS: POTASSIUM CHLORIDE 20 MEQ/15 ML UDC PO SCH (08:25)
[2021-06-17] MEDS: ENOXAPARIN 40 MG/0.4 ML SYRINGE SUBQ SCH (08:25)
[2021-06-17] MEDS: SODIUM CHLORIDE FLUSH 0.9% 10 ML SYRINGE IVP SCH ×2 (08:26→17:10)
--- NOTE | 2021-06-17 11:09 | PROVIDER PROGRESS NOTE ---
Progress Note June 17, 2021 10:54 AM Patient is comfortable in bed this morning. Awake. Alert. Turns off the TV as a courtesy for me so I can speak to him. He states that he is just really weak. He can use the grab bar to some extent but he does not have any strength to roll over in bed. A week ago he was able to stand, pivot and transfer. He cannot even sit up in bed now. Otherwise he denies any chest pain, palpitations, shortness of breath. He does have chronic low back pain that is always present. Medications: Tylenol as needed, aspirin 81 daily, Wellbutrin XL 450 daily, ceftriaxone 2 g daily, sertraline 10 mg daily, vitamin D 5000 units every 7 days, Plavix 75 mg daily, Flexeril 10 mg p.o. 3 times daily as needed, Colace 250 daily as needed, Lovenox 40 mg subcu daily, beef lung heparin for IV flushing, Dilaudid 0.5 mg every 4 hours as needed. He is using it fairly regularly. NovoLog sliding scale insulin before meals. Lidoderm patch for 12 hours out of the day. Toprol-XL 25 mg daily. Cavilon oil, Zofran as needed, Protonix 40 mg p.o. daily, Uloric 40 mg daily, MiraLAX 17 g daily, potassium 20 mEq daily, Minipress 6 mg every afternoon, Lyrica 75 mg 3 times daily, Florastor twice daily, Flomax 0.4 mg daily. Temperature is 36.7. Pulse 76. Blood pressure 116/65. Respirations 18. 94% on room air. He is 5 foot 7 inches tall and weighs 126.5 kg and is a morbidly obese male the looks older than stated age. No acute distress. Normal speech patterns. No respiratory distress. Neck is supple no JVD Diminished breath sounds and quiet lung sounds but no tachypnea, no increased respiratory effort, no crackles rhonchi wheezing Regular rate and rhythm Abdomen is obese and large., soft, nontender, hypoactive bowel sounds. Chandra catheter is in place due to urinary retention. Extremities are large, due to his weight. Trace to 1+ edema is present around his ankles, feet and is not present up beyond the ankles. Neurologically he is alert and oriented to person place and time. He knows why he is here. He is able to raise his arms above his head and use the grab bar to try and reposition himself in the bed. But he does not have the strength to sit up in bed and needs a max to assist. If he does sit up, he pressed poor truncal strength. He can lift his legs off the bed when he is laying, but to be able to lift his legs to then transition to a sitting position is not possible. Laboratory Tests 06/17/21 06/17/21 06/17/21 06:38 06:38 07:29 WBC 3.1 L Hgb 13.0 L Hct 40.5 L MCV 94.8 H Plt Count 120 L Sodium 134 L Potassium 3.9 Chloride 100 L Carbon Dioxide 27 Anion Gap 7.0 BUN 26 H Creatinine 1.6 H Estimated GFR (MDRD) 43 L POC Whole Bld Glucose 91 Calcium 8.6 Assessment/plan 1. Chronic inflammatory demyelinating polyneuritis. He has completed 3 days of pulse dose steroids, and will continue with the 1000 mg once a week for the next 3 weeks. We are unable to obtain IVIG due to prohibitive cost for our pharmacy. Unfortunately he seems to be deteriorating during the course of this stay. Because of his generalized weakness, our plan now is to transition him to SNF for rehab and he may end up needing an LTAC. Hopefully in the outpatient setting it his IVIG can be resumed. His neurologist does feel that it does help the patient. He has had multiple CTs of the head to make sure that his truncal instability was not due to stroke. CTs of the head of been negative. 2. Streptococcal bacteremia. Source was port. That has been removed. He is to continue ceftriaxone until June 28. He has been consistently leukopenic during his stay. Intermittently thrombocytopenic. Fevers have resolved once his port was removed. 3. Pancytopenia. He has been anemic, leukopenic, and thrombocytopenic to varying degrees during his stay. I was worried about the Plavix but he does not seem to be having TTP. Transfuse when hemoglobin drops below 8. At this time I do not understand why he is pancytopenic other than his intermittent medication of IVIG. 4. Constipation. Last bowel movement was June 10. Nursing continues to work with an aggressive bowel protocol. I may try magnesium citrate today. There is no abdominal pain.
[2021-06-17] MEDS ORDERED: MAGNESIUM CITRATE 296 ML BOTTLE PO PRN (11:10)
[2021-06-17] MEDS: cefTRIAXone 2 GM in SODIUM CHLORIDE 0.9% MINIBAG 100 ML IV SCH (13:07)
[2021-06-17] MEDS: CYCLOBENZAPRINE 10 MG TABLET PO PRN ×2 (13:07→21:01)
[2021-06-17] MEDS: ACETAMINOPHEN 325 MG TABLET PO PRN (16:27)
[2021-06-17] MEDS: PRAZOSIN 1 MG CAPSULE PO SCH (21:00)
[2021-06-18] MEDS: SODIUM CHLORIDE FLUSH 0.9% 10 ML SYRINGE IVP SCH ×3 (04:10→13:57)
[2021-06-18 05:00] LABS: EOSINOPHILS % (AUTO) 1.2 %; HCT - HEMATOCRIT 41.6 % (42.0-52.0); HGB - HEMOGLOBIN 13.4 g/dL (14.0-18.0); LYMPHOCYTES # (AUTO) 0.7 10^3/uL (1.5-3.5); LYMPHOCYTES % (AUTO) 21.4 %; MEAN CORPUSCULAR HEMOGLOBIN 30.3 pg (27.0-31.0); MEAN CORPUSCULAR HGB CONC 32.2 g/dL (32.0-36.0); MEAN CORPUSCULAR VOLUME 94.1 fL (80.0-94.0); MEAN PLATELET VOLUME 9.7 fL (7.4-11.4); MONOCYTES # (AUTO) 0.3 10^3/uL (0.0-1.0); MONOCYTES % (AUTO) 9.6 %; NEUTROPHILS # (AUTO) 2.3 10^3/uL (1.5-6.6); NEUTROPHILS % (AUTO) 66.9 %; PLT - PLATELET COUNT 119 10^3/uL (130-450); RED BLOOD COUNT 4.42 10^6/uL (4.70-6.10); RED CELL DISTRIBUTION WIDTH 16.7 % (12.0-15.0); WHITE BLOOD COUNT 3.5 x10^3/uL (4.8-10.8)
[2021-06-18 05:05] LABS: CALCIUM 8.9 mg/dL (8.5-10.3); CREATININE 1.5 mg/dL (0.6-1.2); POTASSIUM 4.2 mmol/L (3.5-5.0)
[2021-06-18] MEDS: PREGABALIN 25 MG CAPSULE PO SCH ×3 (05:16→21:26)
[2021-06-18] MEDS: PANTOPRAZOLE 40 MG TABLET PO SCH (05:16)
[2021-06-18] MEDS: ASPIRIN CHEW 81 MG TABLET PO SCH (08:38)
[2021-06-18] MEDS: buPROPion XL 150 MG TABLET PO SCH (08:39)
[2021-06-18] MEDS: CETIRIZINE 10 MG TABLET PO SCH (08:42)
[2021-06-18] MEDS: DOCUSATE SODIUM 250 MG CAPSULE PO SCH ×2 (08:43→21:26)
[2021-06-18] MEDS: CLOPIDOGREL 75 MG TABLET PO SCH (08:44)
[2021-06-18] MEDS: FEBUXOSTAT 40 MG PO SCH (08:48)
[2021-06-18] MEDS: polyethylene glycoL 3350 17 GM PACKET PO SCH (08:50)
[2021-06-18] MEDS: SENNA 8.6 MG TABLET PO SCH ×2 (08:51→21:26)
[2021-06-18] MEDS: SACCHAROMYCES BOULARDII 250 MG CAPSULE PO SCH ×2 (10:50→20:07)
[2021-06-18] MEDS: METOPROLOL SUCCINATE 25 MG TABLET PO SCH (10:50)
[2021-06-18] MEDS: POTASSIUM CHLORIDE 20 MEQ/15 ML UDC PO SCH (10:50)
[2021-06-18] MEDS: TAMSULOSIN 0.4 MG CAPSULE PO SCH (10:51)
[2021-06-18] MEDS: ENOXAPARIN 40 MG/0.4 ML SYRINGE SUBQ SCH (10:51)
[2021-06-18] MEDS: cefTRIAXone 2 GM in SODIUM CHLORIDE 0.9% MINIBAG 100 ML IV SCH (12:29)
[2021-06-18] MEDS: ZINC OXIDE 20% OINT 30 GM TUBE TOP SCH ×2 (12:52→21:26)
[2021-06-18] MEDS ORDERED: BISACODYL 10 MG SUPP PR ONE (14:31)
--- NOTE | 2021-06-18 19:52 | PROVIDER PROGRESS NOTE ---
Progress Note June 18, 2021 7:51 PM Not much new to report he tells me. Very weak in the bed. Using the grab bars above to reposition himself in the bed but he says his legs are useless and he cannot stand. He says that he just gets really sleepy sometimes. He denies chest pain, palpitations, shortness of breath. Medications: Tylenol as needed, aspirin 81 daily, Wellbutrin XL 450 daily, ceftriaxone 2 g daily, sertraline 10 mg daily, vitamin D 5000 units every 7 days, Plavix 75 mg daily, Flexeril 10 mg p.o. 3 times daily as needed, Colace 250 daily as needed, Lovenox 40 mg subcu daily, beef lung heparin for IV flushing, Dilaudid 0.5 mg every 4 hours as needed. He is using it fairly regularly. NovoLog sliding scale insulin before meals and glucometer sticks stopped since he is off the steroids and glucose is now acceptable. . Lidoderm patch for 12 hours out of the day. Toprol-XL 25 mg daily. Cavilon oil, Zofran as needed, Protonix 40 mg p.o. daily, Uloric 40 mg daily, MiraLAX 17 g daily, potassium 20 mEq daily, Minipress 6 mg every afternoon, Lyrica 75 mg 3 times daily, Florastor twice daily, Flomax 0.4 mg daily. Temperature is 36.8. Heart rate 86. Blood pressure 105/72. Respiration 20. 95% on room air. 5 feet 7 inches tall, weighs 126 kg. Morbidly obese white male quiet affect today. Neck is supple. Lungs are clear with diminished breath sounds and a very large barrel chest. No wheezing, crackles, rhonchi Regular rate and rhythm. Abdomen is obese, soft, nontender with normal bowel sounds. No hepatomegaly. Extremities are large, pendulous, slight edema. Neurologically he is alert and oriented to person place and time. He seems more emotionally withdrawn over the last few days. While he can raise his arms and use the grab bar to pull himself. He can also raise his legs off the bed and slide them around, he does not have the strength to put his legs over the side of the bed and stand anymore. Sodium 135. Potassium 4.2. BUN 24. Creatinine 1.5. Glucose 94. White cell count 3.5, hemoglobin 13.4, platelets 119.1. Assessment/Plan 1. Chronic inflammatory demyelinating polyneuritis. No change in today's note. He has completed 3 days of pulse dose steroids, and will continue with the 1000 mg once a week for the next 3 weeks. We are unable to obtain IVIG due to prohibitive cost for our pharmacy. Unfortunately he seems to be deteriorating during the course of this stay. Because of his generalized weakness, our plan now is to transition him to SNF for rehab and he may end up needing an LTAC. Hopefully in the outpatient setting it his IVIG can be resumed. His neurologist does feel that it does help the patient. He has had multiple CTs of the head to make sure that his truncal instability was not due to stroke. CTs of the head of been negative. 2. Streptococcal bacteremia. No change. Source was port. That has been removed. He is to continue ceftriaxone until June 28. He has been consistently leukopenic during his stay. Intermittently thrombocytopenic. Fevers have resolved once his port was removed. 3. Pancytopenia. No change and not worse. He has been anemic, leukopenic, and thrombocytopenic to varying degrees during his stay. I was worried about the Plavix but he does not seem to be having TTP. Transfuse when hemoglobin drops below 8. At this time I do not understand why he is pancytopenic other than his intermittent medication of IVIG. 4. Constipation. Last bowel movement was June 10. Nursing continues to work with an aggressive bowel protocol. I may try magnesium citrate today. There is no abdominal pain.
[2021-06-18] MEDS: PRAZOSIN 1 MG CAPSULE PO SCH (21:26)
[2021-06-19] MEDS: PANTOPRAZOLE 40 MG TABLET PO SCH (06:28)
[2021-06-19] MEDS: PREGABALIN 25 MG CAPSULE PO SCH ×2 (06:28→13:10)
[2021-06-19] MEDS: SODIUM CHLORIDE FLUSH 0.9% 10 ML SYRINGE IVP SCH ×2 (06:28→10:43)
--- NOTE | 2021-06-19 09:07 | PROVIDER PROGRESS NOTE ---
Assessment/Plan - Problem List (1) Chronic inflammatory demyelinating polyneuritis Assessment/Plan: Patient has been unable to receive IVIG due to prohibitive cost for pharmacy. Attempt to treat him with 3 days of pulse dose steroids resulted in no improvement/change in his clinical condition. Upon discussing with Dr. Darion Cobian of scheduled neurology today he reiterates that the patient needs IVIG. As a result we would attempt to transfer the patient to another facility where he can receive the medication. (2) Streptococcal bacteremia Assessment/Plan: No change. Source was port. That has been removed. He is to continue ceftriaxone until June 28. He has been consistently leukopenic during his stay. Intermittently thrombocytopenic. Fevers have resolved once his port was removed. (3) Constipation Assessment/Plan: Bowel regiment ordered. (4) Pancytopenia Assessment/Plan: Platelet level is 119. We will continue to monitor. - Current Meds Current Meds: Current Medications Generic Name Dose Route Start Last Admin Trade Name Freq PRN Reason Stop Dose Admin Acetaminophen 650 mg 05/31/21 20:13 06/17/21 16:27 Acetaminophen 325 Mg Tablet PO 650 mg Q4HR PRN Administration Pain or Fever > 38C (100.4F) Aspirin 81 mg 06/01/21 10:00 06/18/21 08:38 Aspirin Chew 81 Mg Tablet PO 81 mg DAILY CARLTON Administration Bupropion HCl 450 mg 06/01/21 09:00 06/18/21 08:39 Bupropion Xl 150 Mg Tablet PO 450 mg DAILY CAR[facility]TON Administration Cetirizine HCl 10 mg 06/16/21 23:27 06/18/21 08:42 Cetirizine 10 Mg Tablet PO 10 mg DAILY CARLTON Administration Cholecalciferol 5,000 unit 05/30/21 15:00 06/13/21 13:44 Cholecalciferol 5,000 Unit Capsule PO 5,000 unit Q7D CARLTON Administration Clopidogrel Bisulfate 75 mg 05/31/21 09:00 06/18/21 08:44 Clopidogrel 75 Mg Tablet PO 75 mg DAILY CARLTON Administration Cyclobenzaprine HCl 10 mg 06/07/21 21:30 06/17/21 21:01 Cyclobenzaprine 10 Mg Tablet PO 10 mg TID PRN Administration Spasms Docusate Sodium 250 - 500 mg 06/17/21 21:00 06/18/21 21:26 Docusate Sodium 250 Mg Capsule PO 500 mg BID CARLTON Administration Enoxaparin Sodium 40 mg 06/05/21 09:00 06/18/21 10:51 Enoxaparin 40 Mg/0.4 Ml Syringe SUBQ 40 mg DAILY CARLTON Administration Heparin Sodium (Beef Lung) 30 - 50 unit 05/31/21 04:51 06/06/21 17:15 Heparin Flush 50 Units/5 Ml Syringe IVP 50 unit PRN PRN Administration Port Protocol (<24 hours) Hydromorphone HCl 0.5 mg 06/01/21 16:35 06/16/21 11:18 Hydromorphone 0.5 Mg/0.5 Ml Syringe IVP 0.5 mg Q4H PRN Administration PAIN Ceftriaxone Sodium 2 gm/ 100 mls @ 200 mls/hr 05/30/21 13:00 06/18/21 13:00 Sodium Chloride IV Infused Q24H CARLTON Infusion Lidocaine 1 patch 06/11/21 14:44 06/13/21 08:12 Lidocaine Patch 5% TOP 1 patch DAILY PRN Administration PAIN Metoprolol Succinate 25 mg 05/30/21 09:00 06/18/21 10:50 Metoprolol Succinate 25 Mg Tablet PO 25 mg DAILY [facility] Administration Mineral Oil 1 applic 06/04/21 16:51 06/08/21 10:14 Min Oil/Dimethicon/Coconut Oil 92 Gm Tube TOP 1 applic PRN PRN Administration Skin Care Multi-Ingredient Ointment 1 applic 06/18/21 13:00 06/18/21 21:26 Zinc Oxide 20% Oint 30 Gm Tube TOP 1 applic BID CARLTON Administration Pantoprazole Sodium 40 mg 05/30/21 09:00 06/19/21 06:28 Pantoprazole 40 Mg Tablet PO 40 mg QDAC CARLTON Administration Febuxostat [Uloric 1 each 05/31/21 09:00 06/18/21 08:48 ] 40 Mg Tabs PO Not Given DAILY CARLTON Polyethylene Glycol 17 gm 05/30/21 09:00 06/18/21 08:50 Polyethylene Glycol 3350 17 Gm Packet PO Not Given DAILY CAR[facility]TON Potassium Chloride 20 meq 06/02/21 08:00 06/18/21 10:50 Potassium Chloride 20 Meq/15 Ml Udc PO 20 meq DAILYWM CARLTON Administration Prazosin HCl 6 mg 05/30/21 21:00 06/18/21 21:26 Prazosin 1 Mg Capsule PO 6 mg QPM CAR[facility] Administration Pregabalin 75 mg 05/30/21 14:00 06/19/21 06:28 Pregabalin 25 Mg Capsule PO 75 mg TID [facility] Administration Saccharomyces Boulardii 250 mg 05/30/21 08:57 06/18/21 20:07 Saccharomyces Boulardii 250 Mg Capsule PO 250 mg BIDWM [facility]TON Administration Senna 8.6 - 17.2 mg 06/17/21 21:00 06/18/21 21:26 Senna 8.6 Mg Tablet PO 17.2 mg BID CARLTON Administration Sodium Chloride 10 ml 05/29/21 22:16 06/15/21 11:15 Sodium Chloride Flush 0.9% 10 Ml Syringe IVP 10 ml PRN PRN Administration NEEDED PER PROVIDER ORDERS Sodium Chloride 10 ml 05/30/21 01:00 06/19/21 06:28 Sodium Chloride Flush 0.9% 10 Ml Syringe IVP 10 ml 0100,0900,1700 CARLTON Administration Tamsulosin HCl 0.4 mg 06/09/21 09:00 06/18/21 10:51 Tamsulosin 0.4 Mg Capsule PO 0.4 mg DAILY CARLTON Administration - Lab Result Fish Bone Diagrams: 06/18/21 04:50 06/18/21 04:50 Subjective - Subjective Patient Reports: Other (Working with physical therapy at the time of my exam. He denies difficulty in breathing, difficulty speaking or eating. However he is significantly weak and unable to lift his legs up from the bed.) Objective Vital Signs: Vital Signs - 24 hr 06/18/21 06/18/21 06/19/21 15:31 23:48 07:39 Temperature 36.8 C 36.6 C 36.6 C Heart Rate [ 86 80 Brachial] Heart Rate [ 86 Radial] Respiratory 20 18 18 Rate Blood Pressure 105/72 127/69 123/77 [Right Brachial artery] O2 Saturation 95 93 93 Oxygen O2 Source Room air I&O (Last 24 Hrs): Intake and Output Totals x24h 06/17/21 06/18/21 06/19/21 23:59 23:59 23:59 Intake Total 2890 1104 460 Output Total 5529 3764 5401 Balance -0538 -1959 -998 General: Alert, Oriented x3, Other (Extensive generalized weakness) HEENT: Atraumatic, PERRLA, EOMI Neck: Supple, No JVD Neuro: Alert, Oriented Times 3, Other (Generalized weakness in extremities and trunk) Cardiovascular: Regular rate, Normal S1, Normal S2 Respiratory: Chest non-tender, No respiratory distress, Breath sounds nml Abdomen: Normal bowel sounds, Soft, No tenderness, No masses Extremities: No clubbing, No cyanosis, No edema, No tenderness/swelling Skin: No rashes, No breakdown - Results Results: Laboratory Results WBC 3.5 x10^3/uL (4.8-10.8) L 06/18/21 04:50 RBC 4.42 10^6/uL (4.70-6.10) L 06/18/21 04:50 Hgb 13.4 g/dL (14.0-18.0) L 06/18/21 04:50 Hct 41.6 % (42.0-52.0) L 06/18/21 04:50 MCV 94.1 fL (80.0-94.0) H 06/18/21 04:50 MCH 30.3 pg (27.0-31.0) 06/18/21 04:50 MCHC 32.2 g/dL (32.0-36.0) 06/18/21 04:50 RDW 16.7 % (12.0-15.0) H 06/18/21 04:50 Plt Count 119 10^3/uL (130-450) L 06/18/21 04:50 MPV 9.7 fL (7.4-11.4) 06/18/21 04:50 Neut # (Auto) 2.3 10^3/uL (1.5-6.6) 06/18/21 04:50 Lymph # (Auto) 0.7 10^3/uL (1.5-3.5) L 06/18/21 04:50 Coffee # (Auto) 0.3 10^3/uL (0.0-1.0) 06/18/21 04:50 Eos # (Auto) 0.0 10^3/uL (0.0-0.7) 06/18/21 04:50 Baso # (Auto) 0.0 10^3/uL (0.0-0.1) 06/18/21 04:50 Absolute Nucleated RBC 0.00 x10^3/uL 06/18/21 04:50 Total Counted 100 06/02/21 05:50 Band Neuts % (Manual) Not Reportable 06/08/21 08:04 Abnorm Lymph % (Manual) Not Reportable 06/08/21 08:04 Myelocytes % 1 % (-0) H 06/02/21 05:50 Nucleated RBC % 0.0 /100WBC 06/18/21 04:50 Neutrophils # (Manual) Not Reportable 06/08/21 08:04 Lymphocytes # (Manual) Not Reportable 06/08/21 08:04 Monocytes # (Manual) Not Reportable 06/08/21 08:04 Eosinophils # (Manual) Not Reportable 06/08/21 08:04 Basophils # (Manual) Not Reportable 06/08/21 08:04 Differential Comment MANUAL=AUTO DIFF 06/08/21 08:04 Manual Slide Review Indicated 06/15/21 11:30 WBC Morphology NORMAL APPEARANCE (NORMAL) 06/02/21 05:50 Platelet Estimate DECREASED (<130,000) (NORMAL) 06/15/21 11:30 Platelet Morphology NORMAL APPEARANCE (NORMAL) 06/15/21 11:30 RBC Morph Micro Appear 2+ HYPOCHROMASIA (NORMAL) 06/15/21 11:30 Sodium 135 mmol/L (135-145) 06/18/21 04:50 Potassium 4.2 mmol/L (3.5-5.0) 06/18/21 04:50 Chloride 98 mmol/L (101-111) L 06/18/21 04:50 Carbon Dioxide 27 mmol/L (21-32) 06/18/21 04:50 Anion Gap 10.0 (6-13) 06/18/21 04:50 BUN 24 mg/dL (6-20) H 06/18/21 04:50 Creatinine 1.5 mg/dL (0.6-1.2) H 06/18/21 04:50 Estimated GFR (MDRD) 46 (>89) L 06/18/21 04:50 Glucose 94 mg/dL (70-100) 06/18/21 04:50 POC Whole Bld Glucose 102 mg/dL (70 - 100) H 06/17/21 16:40 Serum Osmolality 271 mOsm/kg (278-305) L 05/29/21 19:10 Lactic Acid 1.4 mmol/L (0.5-2.2) 06/08/21 08:45 Uric Acid 5.8 mg/dL (2.6-7.2) 05/29/21 19:10 Calcium 8.9 mg/dL (8.5-10.3) 06/18/21 04:50 Total Bilirubin 0.5 mg/dL (0.2-1.0) 06/04/21 05:30 AST 49 IU/L (10-42) H 06/04/21 05:30 ALT 36 IU/L (10-60) 06/04/21 05:30 Alkaline Phosphatase 60 IU/L (42-121) 06/04/21 05:30 Ammonia < 10.0 umol/L (7-35) 05/29/21 22:27 Total Creatine Kinase 606 IU/L (22-269) H 06/05/21 04:10 C-Reactive Protein 2.4 mg/dL (0-1.0) H 06/10/21 05:46 Total Protein 7.5 g/dL (6.7-8.2) 06/04/21 05:30 Albumin 2.5 g/dL (3.2-5.5) L 06/04/21 05:30 Globulin 5.0 g/dL (2.1-4.2) H 06/04/21 05:30 Albumin/Globulin Ratio 0.5 (1.0-2.2) L 06/04/21 05:30 TSH 0.91 uIU/mL (0.34-5.60) 05/29/21 19:10 Cortisol 43.5 ug/dL 05/29/21 19:10 Urine Color YELLOW 05/31/21 23:00 Urine Clarity CLEAR (CLEAR) 05/31/21 23:00 Urine pH 6.0 PH (5.0-7.5) 05/31/21 23:00 Ur Specific Keo 1.015 (1.002-1.030) 05/31/21 23:00 Urine Protein 100 mg/dL (NEGATIVE) H 05/31/21 23:00 Urine Glucose (UA) NEGATIVE mg/dL (NEGATIVE) 05/31/21 23:00 Urine Ketones NEGATIVE mg/dL (NEGATIVE) 05/31/21 23:00 Urine Occult Blood TRACE-LYSE (NEGATIVE) 05/31/21 23:00 Urine Nitrite NEGATIVE (NEGATIVE) 05/31/21 23:00 Urine Bilirubin NEGATIVE (NEGATIVE) 05/31/21 23:00 Urine Urobilinogen 1 (NORMAL) E.U./dL (NORMAL) 05/31/21 23:00 Ur Leukocyte Esterase NEGATIVE (NEGATIVE) 05/31/21 23:00 Urine RBC 0-5 /HPF (0-5) 05/31/21 23:00 Urine WBC 0-3 /HPF (0-3) 05/31/21 23:00 Ur Squamous Epith Cells RARE Squamous (<= Few) 05/31/21 23:00 Urine Bacteria Rare /HPF (None Seen) 05/31/21 23:00 Urine Casts 3-5 Hyaline Casts /LPF 05/31/21 23:00 Urine Mucus Moderate Strands 05/31/21 23:00 Urine Culture Comments NOT INDICATED 05/31/21 23:00 Urine Osmolality 362 mOsm/kg (50-1200) 05/29/21 02:00 Urine Opiates Screen NEGATIVE (NEGATIVE) 05/29/21 02:00 Ur Oxycodone Screen NEGATIVE (NEGATIVE) 05/29/21 02:00 Urine Methadone Screen NEGATIVE (NEGATIVE) 05/29/21 02:00 Ur Propoxyphene Screen NEGATIVE (NEGATIVE) 05/29/21 02:00 Ur Barbiturates Screen NEGATIVE (NEGATIVE) 05/29/21 02:00 Ur Tricyclics Screen NEGATIVE (NEGATIVE) 05/29/21 02:00 Ur Phencyclidine Scrn NEGATIVE (NEGATIVE) 05/29/21 02:00 Ur Amphetamine Screen NEGATIVE (NEGATIVE) 05/29/21 02:00 U Methamphetamines Scrn NEGATIVE (NEGATIVE) 05/29/21 02:00 U Benzodiazepines Scrn NEGATIVE (NEGATIVE) 05/29/21 02:00 Urine Cocaine Screen NEGATIVE (NEGATIVE) 05/29/21 02:00 U Cannabinoids Screen POSITIVE (NEGATIVE) H 05/29/21 02:00 SARS-CoV-2 (PCR) NOT DETECTED 05/29/21 21:34 Sepsis Event Note (H) - Evaluation Current Stage of Sepsis: Resolved - Sepsis Criteria Sepsis Criteria: Recorded Temperature greater than 38.3C or Less than 36C, WBC count greater than 12,000 or less than 4000, WEALTH MANAGEMENT ADVISOR: altered consciousness (unrelated to primary neuro pathology), Hematologic: platelets < 100,000; INR > 1.5, or a PTT>60 seconds ABX Reporting Has patient been on IV antibiotics over the past 48 hours?: Yes
[2021-06-19] MEDS: POTASSIUM CHLORIDE 20 MEQ/15 ML UDC PO SCH (10:37)
[2021-06-19] MEDS: buPROPion XL 150 MG TABLET PO SCH (10:38)
[2021-06-19] MEDS: ASPIRIN CHEW 81 MG TABLET PO SCH (10:38)
[2021-06-19] MEDS: CETIRIZINE 10 MG TABLET PO SCH (10:38)
[2021-06-19] MEDS: METOPROLOL SUCCINATE 25 MG TABLET PO SCH (10:38)
[2021-06-19] MEDS: CLOPIDOGREL 75 MG TABLET PO SCH (10:39)
[2021-06-19] MEDS: SACCHAROMYCES BOULARDII 250 MG CAPSULE PO SCH ×2 (10:39→17:49)
[2021-06-19] MEDS: TAMSULOSIN 0.4 MG CAPSULE PO SCH (10:40)
[2021-06-19] MEDS: ENOXAPARIN 40 MG/0.4 ML SYRINGE SUBQ SCH (10:41)
[2021-06-19] MEDS: SENNA 8.6 MG TABLET PO SCH (10:42)
[2021-06-19] MEDS: polyethylene glycoL 3350 17 GM PACKET PO SCH (10:42)
[2021-06-19] MEDS: DOCUSATE SODIUM 250 MG CAPSULE PO SCH (10:42)
[2021-06-19] MEDS: FEBUXOSTAT 40 MG PO SCH (10:42)
[2021-06-19] MEDS: ZINC OXIDE 20% OINT 30 GM TUBE TOP SCH (10:44)
[2021-06-19] MEDS: cefTRIAXone 2 GM in SODIUM CHLORIDE 0.9% MINIBAG 100 ML IV SCH (13:10)
[2021-06-19 16:25] VITALS: BP 111/67
--- NOTE | 2021-06-19 16:34 | DISCHARGE SUMMARY ---
Discharge Summary Admit Date: 05/29/21 Discharge Date: 06/19/21 Discharging Provider: Dottie Kuhn Primary Care Provider: Valencia Lindsay Code Status: Attempt Resuscitation Condition at Discharge: Serious Discharge Disposition: Transfer Acute Care Hosp Discharge Facility Name: [facility] - DIAGNOSES Admission Diagnoses: Acute metabolic encephalopathy Rhabdomyolysis Hyponatremia Accident due to mechanical fall without injury Morbid obesity with BMI of 45.0-49.9, adult Sleep apnea Chronic kidney disease stage III, GFR 30 to 59 mL/min CIDP (chronic inflammatory demyelinating polyneuropathy) Thrombocytopenia Hypertension Discharge Diagnoses with Status of Each Condition: CIDP (chronic inflammatory demyelinating polyneuropathy): Acute on Chronic. Worsening weakness. Patient is being transferred to [facility] for higher level of care. This will include IVIG administration and possibly neurology consult. Streptococcus bacteremia: Acute. Secondary to an infected port. This was removed on 06/07/2021. Patient has a PICC line in place. Will complete a 4-week duration of Rocephin on 06/28/2021 Acute metabolic encephalopathy: Likely secondary to Streptococcus bacteremia. Resolved. Rhabdomyolysis: Acute. Resolved Hyponatremia: Acute. Resolved Accident due to mechanical fall without injury: Resolved Morbid obesity with BMI of 45.0-49.9, adult: Chronic Sleep apnea: Chronic Chronic kidney disease stage III, GFR 30 to 59 mL/min Thrombocytopenia: Chronic. Stable Hypertension: Chronic. Stable. - HPI History of Present Illness: 71 y/o with hx morbid obesity, obstructive sleep apnea on CPAP, CDIP, psoriatic athritis, prior CVA no longer on coumadin and previously admitted on 01/23/2020 to [facility] for TIA and was discharged on DAPT, hx PE, CKD stage 3, HTN with nephropathy, thrombocytopenia, depression, fibromyalgia, ADHD, PTSD, NSTEMI, polypharmacy, RA previously on humira which he states has not been given for quite some time, previously on IVIG with recent dose given 1st of every month for his CDIP for which he states no gait imbalance issues. However, he was brought to ED for a mechanical fall sustained from ground level with no LOC and with hx chronic back pain. He denies CP, SOB, nausea, emesis, /GI sx's. ED assessment was notable for mild confusion however he states he has been compliant will all his meds which he takes chronically at home without any issues or confusion episodes in past. He lives alone with daily caregiver services and denies illicit drug use, etoh or other new meds. He denies being on coumadin but this was verified by ED physician given his hx PE and was on previous coumadin. In the ED he was Aox3 and had a Ck level 900, cr was stable at 1.6 with range of 1.6-2.7, plts low at 84K and previously at 134K on 03/20/21 and has been as low as 107K in 2018, denies bleeding events but has multiple s cattered brusing and petecchiae on bilateral arms. His sodium was low 126 and has been as low as 129 in 2018 but most recent sodium was 134 on 05/14/21. Tbili was 1.3 and mild elevation to his AST noted. CTH was neg. SBP ranged between 150-160s and DBP 90-100's. Nontachyardic and nontachypneic, afebrile. UA with reflex as well as blood cultures were pending. - HOSPITAL COURSE Hospital Course: He had a fever daily from 05/29/2021 until 06/10/2021 and has been afebrile since then. Blood cultures drawn at the time of admission grew gram-positive cocci which were later confirmed to be Streptococcus infantarius areas subspecies infantar. The source of infection was determined to be his port through which he received IVIG monthly in the outpatient setting. This was removed on 06/07/21. 2D echocardiogram done on 05/31/21 Showed mild to moderate concentric left ventricular hypertrophy. Left ventricular systolic function is hyperdynamic with an ejection fraction of greater than 70%. There was mild primary/organic mitral regurgitation. There was no obvious vegetation identified. Subtle lesions could not be excluded. There was no pericardial effusion. There is an adipose layer noted in the pericardium. The intra-atrial septum appeared normal. There was no evidence of aortic stenosis or aortic regurgitation. There was no mitral stenosis. After consultation with infectious disease it was recommended that the patient be on antibiotics for a total of 4 weeks. A PICC line was placed on 06/11/2021. The patient has been on Rocephin 2g IV daily. This will be completed on 06/28/2021. His creatinine kinase has been as high as 1751. With IV hydration this steadily improved. His renal function is at baseline with a creatinine of 1.5-1.6 with estimated GFR of 46. Bilateral Hydronephrosis and Hydroureter was noted on CT of the abdomen/pelvis done on 06/03/2021. At the time of admission, he was able to ambulate using a cane however over the course of his hospital stay he has become significantly weak. He has bilateral upper and lower extremity weakness, as well as significant truncal weakness. Despite physical therapy his weakness has progressed. He underwent extensive CT imaging of his entire spine. This was negative for any acute process to explain his progressive weakness. An MRI was not possible due to significant hardware. The patient's neurologist is Dr. Darion Cobian with [facility] neurology. Upon discussion with him 1 week ago, he recommended IVIG. It has not been possible to administer IVIG at [facility] due to unavailability in the inpatient setting. Attempts to treat him using IV steroids resulted in no improvement in his clinical condition. His case was presented to the hospitalist at [facility] who was willing to accept the patient to their service. Consequently he is being transferred. - ALLERGIES Allergies/Adverse Reactions: Allergies Allergy/AdvReac Type Severity Reaction Status Date / Time No Known Drug Allergies Allergy Verified 05/29/21 19:13 - MEDICATIONS Home Medications: Ambulatory Orders Medication Instructions Recorded Confirmed Aspirin [Juliette] 325 mg PO DAILY 05/30/21 05/31/21 Cholecalciferol [Vitamin D3] 5,000 unit PO Q7D 05/30/21 05/30/21 Cinacalcet HCl [Sensipar] 30 mg PO DAILY 05/30/21 05/31/21 Clopidogrel [Plavix] 75 mg PO DAILY 05/30/21 05/30/21 Escitalopram Oxalate 40 mg PO DAILY 05/30/21 06/01/21 Febuxostat [Uloric] 40 mg PO DAILY 05/30/21 05/30/21 Ibuprofen [Motrin] 800 mg PO Q6H PRN 05/30/21 05/30/21 Metoprolol Succinate [Toprol Xl] 25 mg PO DAILY 05/30/21 05/30/21 Pantoprazole [Protonix] 40 mg PO BIDAC 05/30/21 05/30/21 Potassium Citrate [Potassium 20 meq PO BID 05/30/21 05/30/21 Citrate ER] Prazosin HCl [Minipress] 6 mg PO QPM 05/30/21 05/30/21 Pregabalin [Lyrica] 75 mg PO TID 05/30/21 05/30/21 Rosuvastatin Calcium [Crestor] 40 mg PO QPM 05/30/21 05/30/21 Testosterone Cypionate 200 mg IM Q14D 05/30/21 05/30/21 Torsemide 20 mg PO DAILY 05/30/21 05/31/21 Trazodone HCl 100 - 200 mg PO QPM PRN 05/30/21 06/01/21 buPROPion [Wellbutrin Xl] 450 mg PO DAILY 05/30/21 05/30/21 flaxseed oiL [Flaxseed Oil] 1,000 mg PO DAILY 05/31/21 05/31/21 - PHYSICAL EXAM AT DISCHARGE General Appearance: positive: No acute distress, Alert, Other (generalized weakness) Eyes Bilateral: positive: PERRL, EOMI ENT: positive: No signs of dehydration Neck: positive: No JVD, Trachea midline Respiratory: positive: Chest non-tender, No respiratory distress, Breath sounds nml. negative: Wheezes, Rales, Rhonchi Cardiovascular: positive: Regular rate & rhythm, No murmur, No gallop Abdomen: positive: Non-tender, No organomegaly, Nml bowel sounds, No distention Skin: positive: Color nml, No rash, Warm, Dry Extremities: positive: Non-tender, No pedal edema Neurologic/Psychiatric: positive: Oriented x3, Weakness - LABS Result Diagrams: 06/18/21 04:50 06/18/21 04:50 - SEPSIS Current Stage of Sepsis: Resolved Sepsis Criteria: Recorded Temperature greater than 38.3C or Less than 36C, WBC count greater than 12,000 or less than 4000, STRATEGIC PARTNER DEVELOPMENT MANAGER: altered consciousness (unrelated to primary neuro pathology), Hematologic: platelets < 100,000; INR > 1.5, or a PTT>60 seconds - TIME SPENT Time Spent in Discharge (Minutes): 20
--- NOTE | 2021-06-19 16:42 | Discharge Plan ---
Discharge Plan Problem Reviewed?: Yes Disposition: 02 Transfer Acute Care Hosp Condition: Serious Diet: Cardiac Activity Restrictions: Per Physical therapy Health Concerns: Patient is a 71-year-old male with history of morbid obesity, obstructive sleep apnea on CPAP, chronic demyelinating inflammatory polyneuritis, psoriatic arthritis and prior CVA no longer on Coumadin who presented to the [facility] ED on 05/29/2021 after a fall. He was confused and weak at the time. Blood cultures drawn at the time of admission grew gram-positive cocci which were later confirmed to be Streptococcus infantarius areas subspecies infantar. The source of infection was thought to be his port through which he received IVIG monthly in the outpatient setting. This was removed on 06/07/21. After consultation with infectious disease it was recommended that the patient be on antibiotics for a total of 4 weeks. The patient has been on Rocephin. This will be completed on 06/28/2021. Upon presentation to the hospital he was able to ambulate using a cane however over the course of his hospital stay he has become significantly weak. He has bilateral upper and lower extremity weakness and significant truncal weakness as well. Despite physical therapy he is weakness has progressed. The patient's neurologist is Dr. Darion tierney with [facility] neurology. Upon discussion with him 1 week ago, he recommended IVIG. It has not been possible to administer IVIG at [facility]. Attempts to treat him using IV steroids resulted in no change/improvement in his clinical condition. As a result he is being transferred to another facility for higher level of care. His case was presented to the hospitalist at [facility] who was willing to accept the patient to their service. Consequently he is being transferred. No Smoking: If you smoke, Please STOP! Call for help.
[2021-06-19] MEDS: CYCLOBENZAPRINE 10 MG TABLET PO PRN (17:47)
== END 2021-06-19 18:30 | disposition short-term general hospital (02) | DRG 314 ==
LOC: EDUNIT# → ED 19:05 → MS2 22:16 → ICU 06-18 18:07 → MS2 06-18 18:26
PROVIDERS: ADMIT Family Medicine; ATTEND Internal Medicine
PROC: 0JPT3WZ Removal of Totally Implantable Vascular Access Device from Trunk Subcutaneous Tissue and Fascia, Percutaneous Approach (ICD-10-PCS; principal; 2021-06-07 14:30)
PROC: 02HV33Z Insertion of Infusion Device into Superior Vena Cava, Percutaneous Approach (ICD-10-PCS; 2021-06-11)
DX: T80.211A Bloodstream infection due to central venous catheter, initial encounter (principal); A40.8 Other streptococcal sepsis; N18.30 Chronic kidney disease, stage 3 unspecified; G93.41 Metabolic encephalopathy; G61.81 Chronic inflammatory demyelinating polyneuritis; M62.82 Rhabdomyolysis; E87.1 Hypo-osmolality and hyponatremia; G93.40 Encephalopathy, unspecified; Z68.42 Body mass index [BMI] 45.0-49.9, adult; I38 Endocarditis, valve unspecified; Z20.822 Contact with and (suspected) exposure to COVID-19; D61.818 Other pancytopenia; Z91.81 History of falling; E66.01 Morbid (severe) obesity due to excess calories; G47.30 Sleep apnea, unspecified; E78.00 Pure hypercholesterolemia, unspecified; I12.9 Hypertensive chronic kidney disease with stage 1 through stage 4 chronic kidney disease, or unspecified chronic kidney disease; F17.200 Nicotine dependence, unspecified, uncomplicated; E11.22 Type 2 diabetes mellitus with diabetic chronic kidney disease; N18.32 Chronic kidney disease, stage 3b; G47.33 Obstructive sleep apnea (adult) (pediatric); L40.50 Arthropathic psoriasis, unspecified; Z86.73 Personal history of transient ischemic attack (TIA), and cerebral infarction without residual deficits; I25.2 Old myocardial infarction; N40.1 Benign prostatic hyperplasia with lower urinary tract symptoms; R35.0 Frequency of micturition; F43.10 Post-traumatic stress disorder, unspecified; F32.A Depression, unspecified; S09.90XA Unspecified injury of head, initial encounter; Y92.239 Unspecified place in hospital as the place of occurrence of the external cause; W07.XXXA Fall from chair, initial encounter; Y92.230 Patient room in hospital as the place of occurrence of the external cause; M62.81 Muscle weakness (generalized); R33.8 Other retention of urine; M54.50 Low back pain, unspecified; K59.00 Constipation, unspecified
CPT/HCPCS: 36415; 70450; 70486; 70487; 71045; 72125; 72132; 74177; 80048; 80053; 80306; 81001; 82140; 82533; 82550; 83605; 83930; 83935; 84295; 84443; 84550; 85025; 86140; 87040; 87070; 87077; 87150; 87181; 87205; 87635; 93005; 93306; 94660; 96360; 96361; 97110; 97116; 97161; 97165; 97530; 97535; 99283; 99285; A6250; A9270; C1751; J1170; J1650; J3370; Q9967; 87086

== ENCOUNTER 2021-06-19 18:24 | Outpatient (CLI) | payer MEDICARE, MEDICAID | END 2021-06-19 18:25 | disposition short-term general hospital (02) | LOC: EMS 18:24 | PROVIDERS: ATTEND Internal Medicine | DX: G61.81 Chronic inflammatory demyelinating polyneuritis (principal); R78.81 Bacteremia; B95.5 Unspecified streptococcus as the cause of diseases classified elsewhere; R29.6 Repeated falls; R53.1 Weakness | CPT/HCPCS: A0425; A0428 ==